=== PATIENT | female | born 1940 | race Caucasian/White ===

== ENCOUNTER 2021-09-08 19:02 | Inpatient (IN) ==
--- NOTE | 2021-09-08 20:08 | Emergency Department Note ---
Impression & Plan Left leg weakness, Hematoma, CVA (cerebral vascular accident), Left leg swelling ED Provider Note NAME: KENNY DIXON AGE: 81 SEX: F : 1940 ARRIVES VIA: Walk-In INFORMANT: [Patient][family] ED PROVIDER(S): [Sanya Mas MD] CHIEF COMPLAINT: Left leg and foot swelling. HISTORY OF PRESENT ILLNESS: The patient is an 81-year-old female who presents to the ER with left foot and leg swelling. She has had several weeks of difficulty with her left hip/leg and thus she has been less active. Her left leg has been weak since last month. The leg swelling is more recent and she has noticed the swelling for a few days. No real pain. She has never had a DVT. The patient went to an acute care facility today, she was was referred to the ED for a work-up for the possibility of DVT. 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 The patient denies an y trauma to the foot and ankle. She has not had any erythema, fever or warmth to the leg. REVIEW OF SYSTEMS: See HPI for pertinent positives and negatives. A total of ten systems were reviewed and were otherwise negative. PMHx/PSHx: See Below SOCIAL HISTORY: See Below. PHYSICAL EXAM: GENERAL: Patient is in no acute distress. HEENT: No acute trauma, normocephalic atraumatic, mucous membranes moist, no nasal congestion, no scleral icterus. NECK: No stridor, no adenopathy, no meningismus, trachea is midline. LUNGS: Clear to auscultation bilaterally, no wheeze, no rhonchi, breath sounds equal. HEART: Subtle systolic murmur, regular rate and rhythm. ABDOMEN: Soft, nontender, bowel sounds positive, no hernias, no peritonitis. EXTREMITIES: No cyanosis. The patient does have edema to the left ankle. No erythema or warmth to suggest infection. The left foot is cool however, it is equal to the right. There is an older contusion to the left inner thigh. NEUROLOGIC: Oriented x 3, the left leg is weak compared to the right. She has a much harder time lifting the left leg off the bed. Left upper extremity seems equal to the right with regards to strength. No speech slur or facial droop. SKIN: No rash, no jaundice, no diaphoresis. DIFFERENTIAL DIAGNOSIS: Fracture, venous insufficiency, hematoma, sprain, strain, contusion, DVT, cellulitis, neurovascular compromise, among others. EMERGENCY DEPARTMENT COURSE/PROCEDURES: EKG: Indication was weakness. The ECG shows a sinus rhythm with a first-degree AV block. The rate is 83. There is LVH present. There is a potential old septal infarct. No ST elevation, no PVCs. The QTC is 500. MEDICAL DECISION MAKING: There is no leukocytosis or concerning anemia. There is a normal platelet count. No significant electrolyte abnormality or renal failure. No concerning liver enzyme elevation. The patient appears to be in a euthyroid state. Urinalysis does not show infection. Brain CT shows no acute bleed or mass- effect. Some older strokes were seen on the right. CT of the lumbar spine shows some arthritis, no fractures. There was a hematoma in the left iliacus muscle. Left leg ultrasound does not show any evidence for DVT. Left ankle film does not show any acute fracture. Chest film shows some chronic findings, no pneumonia or CHF. Pelvis film does not show any pelvic or hip fracture. On exam, the patient's left leg was clearly weak when compared to the right. No upper extremity weakness noted. The patient presents with some left leg swelling. She was concerned for DVT, DVT was ruled out today by ultrasound. The patient's left leg weakness has been an issue for weeks. A work-up was perf ormed here and certainly, stroke causing her weakness is a possibility. Further neurologic work-up is warranted. With regards to the hematoma seen on CT imaging, I suppose this may be at least contributing to her weakness. I spoke with the patient, I talked with her daughter, case management has been involved. The on-call hospitalist was consulted. Past Med/Surg History Medical History CMT (Wzdwrwj-Urchg-Mzpvk disease) Social History Smoking Status: Former smoker Preferred Language: Tajik Feels Safe at Home: Yes Results & Data (ED) Vital Signs Vital Signs - 24 hr 09/08/21 19:05 09/08/21 21:40 09/08/21 22:24 Temperature 37.1 C Temperature Source Temporal Artery Scan Pulse Rate 91 H Pulse Rate [Finger] 71 Respiratory Rate 18 18 Respiratory Effort / Characteristics Non-Labored Spontaneous Respiratory Depth Normal Respiratory Pattern Regular Blood Pressure 167/89 H Blood Pressure [Left Arm] 133/65 Blood Pressure Mean 115 Blood Pressure Mean [Left Arm] 87 Pulse Oximetry 95 97 96 Oxygen Delivery Method Room Air Room Air Room Air Sepsis Recent Fever Within 48 Hours No Sepsis New/Unexplained Change in Mental Status No Sepsis Action Taken by Nursing No Action Required Laboratory Data Attestation: I reviewed the patient's lab results. Result diagrams: 09/08/21 22:25 09/08/21 22:25 Lab Results 09/08/21 09/08/21 09/08/21 Range/Units 22:25 22:25 22:25 WBC 8.30 (4.8-10.8) K/uL RBC 4.95 (4.2-5.4) M/uL Hgb 14.2 (12.0-16.0) g/dL Hct 43.6 (37-47) % MCV 88.1 (80-100) fL MCH 28.7 (25-34) pg MCHC 32.6 (32-36) g/dL RDW Std Deviation 47.1 H (36.4-46.3) fL RDW Coeff of [place] 14.7 H (11.5-14.5) % Plt Count 255 (130-400) K/uL MPV 9.9 (7.4-10.4) fL Immature Gran % (Auto) 0.1 % Neut % (Auto) 54.3 % Lymph % (Auto) 34.0 % [place] % (Auto) 8.7 % Eos % (Auto) 1.9 % Baso % (Auto) 1.0 % Neut # (Auto) 4.51 (1.4-6.5) K/uL Lymph # (Auto) 2.82 (1.2-3.4) K/uL [place] # (Auto) 0.72 H (0.11-0.59) K/uL Eos # (Auto) 0.16 (0-0.5) K/uL Baso # (Auto) 0.08 (0-0.2) K/uL Immature Gran # (Auto) 0.01 (0.00-0.02) K/uL Sodium 140 (136-145) mmol/L Potassium 3.7 (3.5-5.1) mmol/L Chloride 102 (98-107) mmol/L Carbon Dioxide 31 (21-32) mmol/L Anion Gap 7 (3-11) BUN 13 (6-23) mg/dl Creatinine 0.27 L (0.6-1.2) mg/dl Est Cr Clr Drug Dosing Not Reportable Est GFR ( Amer) 129.8 ml/min Est GFR (Non-Af Amer) 112.0 ml/min BUN/Creatinine Ratio 48.1 H (10-20) Glucose 94 (70-99(Fasting)) mg/dl Calcium 8.7 (8.5-10.1) mg/dl Magnesium 2.1 (1.7-2.4) mg/dl Total Bilirubin 0.7 (0.2-1.0) mg/dl AST 27 (13-39) U/L ALT 16 (7-52) U/L Alkaline Phosphatase 66 (34-104) U/L Total Protein 5.9 L (6.0-8.3) gm/dl Albumin 3.3 L (3.4-5.0) gm/dl Globulin 2.6 (2.5-4.0) gm/dl Albumin/Globulin Ratio 1.3 (0.9-2) TSH 1.013 (0.300-4.500) uIu/ml Urine Color Urine Appearance (Clear) Urine pH (4.5-7.5) Ur Specific Wright (1.000-1.030) Urine Protein (Negative) Urine Glucose (UA) (Negative) Urine Ketones (Negative) Urine Blood (Negative) Urine Nitrite (Negative) Urine Bilirubin (Negative) Urine Urobilinogen (Negative) Ur Leukocyte Esterase (Negative) Urine WBC (Auto) (0-5) /hpf Urine RBC (Auto) (0-4) /hpf U Hyaline Cast (Auto) (0-5) /lpf U Epithel Cells (Auto) (0-5) /lpf Urine Bacteria (Auto) (Negative) 09/08/21 Range/Units 23:05 WBC (4.8-10.8) K/uL RBC (4.2-5.4) M/uL Hgb (12.0-16.0) g/dL Hct (37-47) % MCV (80-100) fL MCH (25-34) pg MCHC (32-36) g/dL RDW Std Deviation (36.4-46.3) fL RDW Coeff of [place] (11.5-14.5) % Plt Count (130-400) K/uL MPV (7.4-10.4) fL Immature Gran % (Auto) % Neut % (Auto) % Lymph % (Auto) % [place] % (Auto) % Eos % (Auto) % Baso % (Auto) % Neut # (Auto) (1.4-6.5) K/uL Lymph # (Auto) (1.2-3.4) K/uL [place] # (Auto) (0.11-0.59) K/uL Eos # (Auto) (0-0.5) K/uL Baso # (Auto) (0-0.2) K/uL Immature Gran # (Auto) (0.00-0.02) K/uL Sodium (136-145) mmol/L Potassium (3.5-5.1) mmol/L Chloride (98-107) mmol/L Carbon Dioxide (21-32) mmol/L Anion Gap (3-11) BUN (6-23) mg/dl Creatinine (0.6-1.2) mg/dl Est Cr Clr Drug Dosing Est GFR ( Amer) ml/min Est GFR (Non-Af Amer) ml/min BUN/Creatinine Ratio (10-20) Glucose (70-99(Fasting)) mg/dl Calcium (8.5-10.1) mg/dl Magnesium (1.7-2.4) mg/dl Total Bilirubin (0.2-1.0) mg/dl AST (13-39) U/L ALT (7-52) U/L Alkaline Phosphatase (34-104) U/L Total Protein (6.0-8.3) gm/dl Albumin (3.4-5.0) gm/dl Globulin (2.5-4.0) gm/dl Albumin/Globulin Ratio (0.9-2) TSH (0.300-4.500) uIu/ml Urine Color Yellow Urine Appearance Clear (Clear) Urine pH 7.5 (4.5-7.5) Ur Specific Wright 1.009 (1.000-1.030) Urine Protein Negative (Negative) Urine Glucose (UA) Negative (Negative) Urine Ketones Negative (Negative) Urine Blood Negative (Negative) Urine Nitrite Negative (Negative) Urine Bilirubin Negative (Negative) Urine Urobilinogen Negative (Negative) Ur Leukocyte Esterase Trace H (Negative) Urine WBC (Auto) 5-10 H (0-5) /hpf Urine RBC (Auto) 0-4 (0-4) /hpf U Hyaline Cast (Auto) 0 (0-5) /lpf U Epithel Cells (Auto) 5-10 H (0-5) /lpf Urine Bacteria (Auto) Negative (Negative) Administered Medications Discontinued Medications Sodium Chloride (Nss) 500 mls @ 999 mls/hr IV .Q31M GINA Stop: 09/08/21 22:45 Last Admin: 09/08/21 23:09 Dose: 999 mls/hr Documented by: [id number] Imaging Data Radiologist's Impression: Venous Doppler Study 09/08/21 19:45 ULTRASOUND LEFT LOWER EXTREMITY VENOUS CLINICAL HISTORY: Left leg swelling. Bruising. COMPARISON STUDY: No priors. TECHNIQUE: Real-time, grayscale, and color Doppler sonography of the deep veins of the left lower extremity was performed from the inguinal crease to the calf. Compression and augmentation were utilized. FINDINGS: There is no sonographic evidence of deep venous thrombosis identified in the left lower extremity. The common femoral, superficial femoral, and popliteal veins are patent and normally compressible. The greater saphenous vein and the profunda femoris vein at the junction with the common femoral vein are clear. The visualized calf veins are patent. No fluid collection or hematoma is identified at the site of bruising in the medial thigh. IMPRESSION: There is no sonographic evidence of deep venous thrombosis identified in the left lower extremity. ACT 112: Negative or not required by law. Electronically signed by: Sanya Mcdaniel M.D. 09/08/2021 9:46 PM Ankle X-Ray 09/08/21 19:58 LEFT ANKLE 3 VIEWS CLINICAL HISTORY: Left ankle pain and swelling. FINDINGS: 3 views of the left ankle are obtained. No prior studies are available for comparison at the time of dictation. The skeletal structures are osteopenic. No fracture is identified. The ankle mortise is in anatomic alignment. Advanced degenerative change is noted at the tibiotalar articulation. There is bony fusion of the hindfoot. Bony overgrowth is seen along the dorsal aspect of the foot and ankle. Soft tissue edema is present around the ankle and hindfoot. IMPRESSION: 1. Soft tissue swelling with no fracture identified. 2. Osteopenia and advanced degenerative change as above. Electronically signed by: Sanya Mcdaniel M.D. 09/08/2021 8:[address] 09/08/21 22:02 CT SCAN OF THE BRAIN WITHOUT IV CONTRAST CLINICAL HISTORY: Left-sided weakness. COMPARISON STUDY: No priors. TECHNIQUE: Unenhanced axial CT scan of the brain is performed from the vertex to the skull base. A dose lowering technique was utilized adhering to the principles of ALARA. FINDINGS: Brain parenchyma: There are age-related involutional changes noting mild to moderate subcortical and periventricular microangiopathic change. There is no hemorrhage, mass effect, or evidence of acute territorial ischemia by CT criteria. Hernandez-white matter differentiation is preserved. No extra-axial fluid collection is seen. There are age indeterminant lacunar infarcts in the right basal ganglia. Ventricles, sulci, cisterns: Prominent secondary to involutional change. Intracranial vasculature: There is atherosclerotic calcification of the cavernous carotid and vertebral arteries. Calvarium: Unremarkable. Sinuses and mastoids: The paranasal sinuses are clear. The mastoid air cells are well pneumatized. Orbits: The bony orbits are grossly intact. There are bilateral ocular lens implants. IMPRESSION: 1. There is no hemorrhage, mass effect, or evidence of acute territorial ischemia by CT criteria. 2. There are age indeterminant lacunar infarcts in the right basal ganglia. This could be further assessed with MRI if clinically warranted. ACT 112: Negative or not required by law. Electronically signed by: Sanya Mcdaniel M.D. 09/08/2021 11:[address] 09/08/21 22:02 CT SCAN OF THE LUMBAR SPINE WITHOUT IV CONTRAST CLINICAL HISTORY: Low back pain. The left lower extremity weakness. COMPARISON STUDY: No priors. TECHNIQUE: CT scan of the lumbar spine is performed from the lower thoracic spine to the sacrum. Images are reviewed in the axial, sagittal, and coronal planes. IV contrast was not administered for this examination. The examination is modestly degraded by motion artifact. A dose lowering technique was utilized adhering to the principles of ALARA. CT DOSE: 1370.78 mGy.cm FINDINGS: The skeletal structures are heterogeneously osteopenic. There is no evidence of fracture or malalignment involving the lumbar spine. Vertebral body height and alignment are maintained. Lumbar levocurvature is centered at L3. Large anterior and lateral marginal osteophytes are seen throughout. The transverse and spinous processes appear intact. There is no spondylolysis. No lytic or blastic lesion is seen. There is moderate to advanced disc space narrowing at L5-S1. Mild disc space narrowing is noted at the remaining lumbar levels. Posterior disc osteophyte complexes are noted at L4-L5 and L5-S1. Facet arthropathy is seen in the lower lumbar region. The visualized sacrum and bony pelvis appear intact. There is marked fatty atrophy of the paraspinous musculature. The heart is enlarged. Cholecystectomy clips are noted. There are numerous bilateral nonobstructing renal calculi. The largest calculus is seen in the left renal pelvis and measures 10 mm. There is fullness of the left renal collecting system. No retroperitoneal lymphadenopathy is identified. A duodenal diverticulum is incidentally noted. The left iliacus muscle is expanded with surrounding inflammation and the suggestion of intramuscular fluid. This is best seen on image #[id number]. IMPRESSION: 1. No acute bony abnormality is seen involving the lumbar spine. 2. Osteopenia with lumbosacral spondylosis and scoliosis as above. 3. The left iliacus muscle is expanded with surrounding inflammation and the suggestion of intramuscular fluid. A fluid collection such as a resolving hematoma or abscess would be impossible to exclude. Clinical correlation will be essential. If clinically warranted this could be further assessed with a contrast-enhanced CT of the pelvis. 4. Bilateral nephrolithiasis with fullness of the left renal collecting system. No stones are identified in the proximal ureters. 5. Cardiomegaly. ACT 112: Negative or not required by law. Electronically signed by: Sanya Mcdaniel M.D. 09/08/2021 11:21 PM Pelvis X-Ray 09/08/21 22:02 SINGLE VIEW PELVIS CLINICAL HISTORY: Left hip pain. FINDINGS: An AP supine view of the pelvis is obtained. No prior studies are available for comparison at the time of dictation. The skeletal structures are heterogeneously osteopenic. There is no radiographic evidence of acute fracture involving the hips or bony pelvis. Osteoarthritic change is noted in the hips, moderate to severe on the right and [id number] on the left. Sclerotic change is noted in the sacroiliac joints. Lumbosacral spondylosis is partially visualized. The overlying soft tissues are within normal limits. There are numerous pelvic phleboliths. An 11 mm left renal calculus is noted. There is no bowel obstruction. IMPRESSION: No acute bony abnormality is identified. Electronically signed by: Sanya Mcdaniel M.D. 09/08/2021 11:24 PM Chest X-Ray 09/08/21 22:03 SINGLE VIEW CHEST CLINICAL HISTORY: Generalized weakness. Left hip pain. FINDINGS: An AP, portable, upright chest radiograph is obtained. No prior studies are available for comparison at the time of dictation. The heart is enlarged. The pulmonary vasculature is noncongested. There is mild bibasilar at electasis. The lungs and pleural spaces are otherwise clear. No pneumothorax is seen. The skeletal structures are osteopenic. Advanced degenerative change and scoliosis is noted in the imaged thoracolumbar spine. Cholecystectomy clips are noted in the right upper quadrant. IMPRESSION: Cardiomegaly with no active disease in the chest. ACT 112: Negative or not required by law. Electronically signed by: Sanya Mcdaniel M.D. 09/08/2021 11:23 PM Discharge Plan Visit Data Chief Complaint: Leg Injury/Pain Stated Complaint: SWOLLEN LEG, POSSIBLE CLOT ED Provider: Sanya Mas Discharge Problem: Left leg weakness, Hematoma, CVA (cerebral vascular accident), Left leg swelling Patient Disposition: Admitted As Inpatient Condition: Good Forms Stand Alone Forms: [facility] Referrals Referrals: PCP,NO [Physician] -
--- NOTE | 2021-09-08 20:40 | XRay Report ---
LEFT ANKLE 3 VIEWS CLINICAL HISTORY: Left ankle pain and swelling. FINDINGS: 3 views of the left ankle are obtained. No prior studies are available for comparison at th e time of dictation. The skeletal structures are osteopenic. No fracture is identified. The ankle mor tise is in anatomic alignment. Advanced degenerative change is noted at the tibiotalar articulation. There is bony fusion of the hindfoot. Bony overgrowth is seen along the dorsal aspect of the foot and ankle. Soft tissue edema is present around the ankle and hindfoot. IMPRESSION: 1. Soft tissue swelling with no fracture identified. 2. Osteopenia and advanced degenerative change as above. Electronically signed by: Sanya Mcdaniel M.D. 09/08/2021 8:39 PM
--- NOTE | 2021-09-08 21:48 | Ultrasound Report ---
ULTRASOUND LEFT LOWER EXTREMITY VENOUS CLINICAL HISTORY: Left leg swelling. Bruising. COMPARISON STUDY: No priors. TECHNIQUE: Real-time, grayscale, and color Doppler sonography of the deep veins of the left lower ext remity was performed from the inguinal crease to the calf. Compression and augmentation were utilized . FINDINGS: There is no sonographic evidence of deep venous thrombosis identified in the left lower ext remity. The common femoral, superficial femoral, and popliteal veins are patent and normally compress ible. The greater saphenous vein and the profunda femoris vein at the junction with the common femora l vein are clear. The visualized calf veins are patent. No fluid collection or hematoma is identified at the site of bruising in the medial thigh. IMPRESSION: There is no sonographic evidence of deep venous thrombosis identified in the left lower e xtremity. ACT 112: Negative or not required by law. Electronically signed by: Sanya Mcdaniel M.D. 09/08/2021 9:46 PM
[2021-09-08] MEDS ORDERED: SODIUM CHLORIDE 0.9% 500 ML IV SCH (22:15)
[2021-09-08 22:40] LABS: Basophils # (auto) 0.08 K/uL (0-0.2); Eosinophils # (auto) 0.16 K/uL (0-0.5); Eosinophils % (auto) 1.9 %; Hematocrit (blood only) 43.6 % (37-47); Hemoglobin 14.2 g/dL (12.0-16.0); Immature Granulocytes # (auto) 0.01 K/uL (0.00-0.02); Immature Granulocytes % (auto) 0.1 %; Lymphocytes # (auto) 2.82 K/uL (1.2-3.4); Mean Corpuscular Hemoglobin 28.7 pg (25-34); Mean Corpuscular Hgb Conc 32.6 g/dL (32-36); Mean Corpuscular Volume 88.1 fL (80-100); Mean Platelet Volume 9.9 fL (7.4-10.4); Monocytes # (auto) 0.72 K/uL (0.11-0.59); Monocytes % (auto) 8.7 %; Neutrophils # (auto) 4.51 K/uL (1.4-6.5); Neutrophils % (auto) 54.3 %; Platelet Count 255 K/uL (130-400); RDW Coefficient of Variation 14.7 % (11.5-14.5); RDW Standard Deviation 47.1 fL (36.4-46.3); Red Blood Count 4.95 M/uL (4.2-5.4)
[2021-09-08 23:06] LABS: Alanine Aminotransferase 16 U/L (7-52); Albumin Globulin Ratio 1.3 (0.9-2); Albumin Level 3.3 gm/dl (3.4-5.0); Alkaline Phosphatase 66 U/L (34-104); Anion Gap 7 (3-11); Aspartate Aminotransferase 27 U/L (13-39); BUN Creatinine Ratio 48.1 (10-20); Bilirubin,Total 0.7 mg/dl (0.2-1.0); Blood Urea Nitrogen 13 mg/dl (6-23); Calcium 8.7 mg/dl (8.5-10.1); Carbon Dioxide 31 mmol/L (21-32); Chloride 102 mmol/L (98-107); Est GFR (African American) 129.8 ml/min; Globulin 2.6 gm/dl (2.5-4.0); Glucose 94 mg/dl (70-99(Fasting)); Magnesium 2.1 mg/dl (1.7-2.4); Potassium 3.7 mmol/L (3.5-5.1); Sodium 140 mmol/L (136-145); Total Protein 5.9 gm/dl (6.0-8.3)
--- NOTE | 2021-09-08 23:10 | CT Scan Report ---
CT SCAN OF THE BRAIN WITHOUT IV CONTRAST CLINICAL HISTORY: Left-sided weakness. COMPARISON STUDY: No priors. TECHNIQUE: Unenhanced axial CT scan of the brain is performed from the vertex to the skull base. A do se lowering technique was utilized adhering to the principles of ALARA. FINDINGS: Brain parenchyma: There are age-related involutional changes noting mild to moderate subcortical and periventricular microangiopathic change. There is no hemorrhage, mass effect, or evidence of acute t erritorial ischemia by CT criteria. Hernandez-white matter differentiation is preserved. No extra-axial fl uid collection is seen. There are age indeterminant lacunar infarcts in the right basal ganglia. Ventricles, sulci, cisterns: Prominent secondary to involutional change. Intracranial vasculature: There is atherosclerotic calcification of the cavernous carotid and vertebr al arteries. Calvarium: Unremarkable. Sinuses and mastoids: The paranasal sinuses are clear. The mastoid air cells are well pneumatized. Orbits: The bony orbits are grossly intact. There are bilateral ocular lens implants. IMPRESSION: 1. There is no hemorrhage, mass effect, or evidence of acute territorial ischemia by CT criteria. 2. There are age indeterminant lacunar infarcts in the right basal ganglia. This could be further ass essed with MRI if clinically warranted. ACT 112: Negative or not required by law. Electronically signed by: Sanya Mcdaniel M.D. 09/08/2021 11:08 PM
[2021-09-08 23:20] LABS: Appearance Urine Clear (Clear); Bacteria Urine Automated Negative (Negative); Bilirubin Urine Negative (Negative); Blood Urine Negative (Negative); Cast Urine Automated 0 /lpf (0-5); Color Urine Yellow; Glucose Urine UA Negative (Negative); Ketones Urine Negative (Negative); Leukocyte Esterase Urine Trace (Negative); Nitrite Urine Negative (Negative); Protein Urine Negative (Negative); RBC Urine Automated 0-4 /hpf (0-4); Specific Gravity Urine 1.009 (1.000-1.030); Urobilinogen Urine Negative (Negative); pH Urine 7.5 (4.5-7.5)
--- NOTE | 2021-09-08 23:23 | CT Scan Report ---
CT SCAN OF THE LUMBAR SPINE WITHOUT IV CONTRAST CLINICAL HISTORY: Low back pain. The left lower extremity weakness. COMPARISON STUDY: No priors. TECHNIQUE: CT scan of the lumbar spine is performed from the lower thoracic spine to the sacrum. Marina ges are reviewed in the axial, sagittal, and coronal planes. IV contrast was not administered for thi s examination. The examination is modestly degraded by motion artifact. A dose lowering technique wa s utilized adhering to the principles of ALARA. CT DOSE: 1370.78 mGy.cm FINDINGS: The skeletal structures are heterogeneously osteopenic. There is no evidence of fracture or malalignment involving the lumbar spine. Vertebral body height and alignment are maintained. Lumbar levocurvature is centered at L3. Large anterior and lateral marginal osteophytes are seen throughout. The transverse and spinous processes appear intact. There is no spondylolysis. No lytic or blastic l esion is seen. There is moderate to advanced disc space narrowing at L5-S1. Mild disc space narrowing is noted at the remaining lumbar levels. Posterior disc osteophyte complexes are noted at L4-L5 and L5-S1. Facet arthropathy is seen in the lower lumbar region. The visualized sacrum and bony pelvis ap pear intact. There is marked fatty atrophy of the paraspinous musculature. The heart is enlarged. Cho lecystectomy clips are noted. There are numerous bilateral nonobstructing renal calculi. The largest calculus is seen in the left renal pelvis and measures 10 mm. There is fullness of the left renal col lecting system. No retroperitoneal lymphadenopathy is identified. A duodenal diverticulum is incident ally noted. The left iliacus muscle is expanded with surrounding inflammation and the suggestion of i ntramuscular fluid. This is best seen on image #[id number]. IMPRESSION: 1. No acute bony abnormality is seen involving the lumbar spine. 2. Osteopenia with lumbosacral spondylosis and scoliosis as above. 3. The left iliacus muscle is expanded with surrounding inflammation and the suggestion of intramuscu lar fluid. A fluid collection such as a resolving hematoma or abscess would be impossible to exclude. Clinical correlation will be essential. If clinically warranted this could be further assessed with a contrast-enhanced CT of the pelvis. 4. Bilateral nephrolithiasis with fullness of the left renal collecting system. No stones are identif ied in the proximal ureters. 5. Cardiomegaly. ACT 112: Negative or not required by law. Electronically signed by: Sanya Mcdaniel M.D. 09/08/2021 11:21 PM
--- NOTE | 2021-09-08 23:24 | XRay Report ---
SINGLE VIEW CHEST CLINICAL HISTORY: Generalized weakness. Left hip pain. FINDINGS: An AP, portable, upright chest radiograph is obtained. No prior studies are available for c omparison at the time of dictation. The heart is enlarged. The pulmonary vasculature is noncongested . There is mild bibasilar atelectasis. The lungs and pleural spaces are otherwise clear. No pneumotho rax is seen. The skeletal structures are osteopenic. Advanced degenerative change and scoliosis is no dayday in the imaged thoracolumbar spine. Cholecystectomy clips are noted in the right upper quadrant. IMPRESSION: Cardiomegaly with no active disease in the chest. ACT 112: Negative or not required by law. Electronically signed by: Sanya Mcdaniel M.D. 09/08/2021 11:23 PM
--- NOTE | 2021-09-08 23:26 | XRay Report ---
SINGLE VIEW PELVIS CLINICAL HISTORY: Left hip pain. FINDINGS: An AP supine view of the pelvis is obtained. No prior studies are available for comparison at the time of dictation. The skeletal structures are heterogeneously osteopenic. There is no radiogr aphic evidence of acute fracture involving the hips or bony pelvis. 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 Sclerotic change is note d in the sacroiliac joints. Lumbosacral spondylosis is partially visualized. The overlying soft tissu es are within normal limits. There are numerous pelvic phleboliths. An 11 mm left renal calculus is n oted. There is no bowel obstruction. IMPRESSION: No acute bony abnormality is identified. Electronically signed by: Sanya Mcdaniel M.D. 09/08/2021 11:24 PM
--- NOTE | 2021-09-09 00:53 | History & Physical Report ---
Date of Service September 09, 2021 Assessment & Plan (1) CVA (cerebral vascular accident): Plan: Presenting as left leg weakness from 2 weeks ago. Possible left iliopsoas abscess on initial CT read No sepsis for now CPK, troponin elevation Possible mild rhabdomyolysis secondary to above Situational hypertension right breast cancer status post surgery/radiation uterine cancer status post surgery bronchial asthma, stable mood disorder, stable hx Jrjqkxp-Efmwo-Snaqh disease past tobacco abuse Medical telemetry Aspirin for secondary stroke prevention 2D echo, carotid Dopplers, lipid profile for additional stroke work-up Follow CPK and troponin levels initiate statin once CPK within normal limits Neurology consult Re: CVA CS, Doxycycline, Cefepime for possible L iliopsoas abscess on initial CT read Orthopedics consult Re: Possible left iliopsoas abscess (MN PG as per patient's daughter's request.) N.p.o. until patient seen by orthopedics in anticipation of procedure. DVT prophylaxis. SCDs for now Re: Left thigh ecchymosis DNR Patient daughter requesting updates from providers. Ms. Sasha Tilley, contact #[phone]. Patient daughter additionally requests for patient to be set up with Dr. Coburn of [facility] for PCP services upon discharge as patient will be moving in with her. Text document was generated using [employer] voice recognition software. It may contain grammatical or spelling errors. Kindly contact undersigned for clarification of any documentation item in question. History of Present Illness Chief Complaint: Left leg swelling/weakness Primary Care Provider: Cayden Lowe MD History obtained from patient, family, and records. Medical history significant for right breast cancer status post surgery/radiation, uterine cancer status post surgery, bronchial asthma, mood disorder, urinary incontinence, Qnqlagp-Yaxdy-Fwxhq disease, past tobacco abuse. 2 weeks ago, patient experienced left hip pain with left leg weakness more than usual. Patient thinks she may have sat down on the commode a little hard. Patient evaluated at [facility] ER. Plain x-rays negative for fracture as per daughter. Symptoms attributed to arthritis. Patient given prednisone prescription which improved left hip pain. Persistent left leg weakness. Patient denies headache, chest pain. Left leg weakness not improved despite home PT. Worsening left leg swelling noted the last few days as per daughter. Patient noted to have bruising on her left thigh. No fever, no chills. Shortness of breath as per patient without cough symptoms. Patient brought to the ER by daughter for evaluation. 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 Allergies Allergy/AdvReac Type Severity Reaction Status Date / Time shellfish derived Allergy Severe LOBSTER: Verified 09/09/21 04:02 almost acetaminophen [From Tylenol] Allergy Rash Unverified 09/09/21 03:23 Home Medications Medication Instructions Recorded Confirmed Type Vitamin D3 2,000 unit PO BID 09/09/21 09/09/21 History citalopram 10 mg tablet 10 mg PO DAILY 09/09/21 09/09/21 History ibuprofen 600 mg PO TID PRN 09/09/21 09/09/21 History mirabegron 50 mg tablet,extended 50 mg PO DAILY 09/09/21 09/09/21 History release 24 hr (Myrbetriq) Past Med/Surg History Medical History CMT (Wjjgjpx-Yjwxt-Smwcy disease) Social History Smoking Status: Never smoker Hx Alcohol Use: Yes Hx Substance Use: No Preferred Language: Korean Current Living Situation: Alone Feels Safe at Home: Yes Assistive Devices: Wheelchair Review of Systems Review of Systems: As per HPI, all 10 systems reviewed, all other ROS negative Physical Exam Physical Exam: GENERAL: Comfortable, slightly hard of hearing, pleasant, no respiratory distress SKIN: Normal color, warm HEENT: [place] palpebral conjunctivae, no ptosis, moist buccal mucosa NECK : Supple, no tenderness CHEST : CTA, no tenderness HEART : RRR, no obvious murmurs ABDOMEN: Some distention, nontender EXTREMITIES : Atrophic lower extremities, minimal LLE swelling, left thigh ecchymosis, minimal LE tenderness NEUROLOGIC : Coherent, no facial asymmetry, MMTS BUE 4/5, RLE 4/5, LLE 2/5, gait and stance not assessed Results & Data Results & Data ([facility]) Vital Signs (Past 12 Hours) Vital Signs Temp Pulse Pulse Resp BP BP Pulse Ox 09/08/21 22:24 96 09/08/21 21:40 71 18 133/65 97 09/08/21 19:05 37.1 C 91 H 18 167/89 H 95 Laboratory Results Laboratory Results WBC 8.30 K/uL (4.8-10.8) 09/08/21 22:25 RBC 4.95 M/uL (4.2-5.4) 09/08/21 22:25 Hgb 14.2 g/dL (12.0-16.0) 09/08/21 22:25 Hct 43.6 % (37-47) 09/08/21 22: MCV 88.1 fL (80-100) 09/08/21 22: MCH 28.7 pg (25-34) 09/08/21: MCHC 32.6 g/dL (32-36) 09/08/21 22: RDW Std Deviation 47.1 fL (36.4-46.3) H 09/08/21: RDW Coeff of [place] 14.7 % (11.5-14.5) H 09/08/21: Plt Count 255 K/uL (130-400) 09/08/21 22: MPV 9.9 fL (7.4-10.4) 09/08/21 22: Immature Gran % (Auto) 0.1 % 09/08/21 22: Neut % (Auto) 54.3 % 09/08/21 22: Lymph % (Auto) 34.0 % 09/08/21 22:25 Rush % (Auto) 8.7 % 09/08/21 22:25 Eos % (Auto) 1.9 % 09/08/21 22: Baso % (Auto) 1.0 % 09/08/21: Neut # (Auto) 4.51 K/uL (1.4-6.5) 09/08/21: Lymph # (Auto) 2.82 K/uL (1.2-3.4) 09/08/21 22:25 Rush # (Auto) 0.72 K/uL (0.11-0.59) H 09/08/21 22:25 Eos # (Auto) 0.16 K/uL (0-0.5) 09/08/21 22:25 Baso # (Auto) 0.08 K/uL (0-0.2) 09/08/21 22:25 Immature Gran # (Auto) 0.01 K/uL (0.00-0.02) 09/08/21 22:25 Sodium 140 mmol/L (136-145) 09/08/21 22:25 Potassium 3.7 mmol/L (3.5-5.1) 09/08/21 22:25 Chloride 102 mmol/L (98-107) 09/08/21 22:25 Carbon Dioxide 31 mmol/L (21-32) 09/08/21 22:25 Anion Gap 7 (3-11) 09/08/21 22:25 BUN 13 mg/dl (6-23) 09/08/21: Creatinine 0.27 mg/dl (0.6-1.2) L 09/08/21 22:25 Est Cr Clr Drug Dosing Not Reportable 09/08/21 22:25 Est GFR ( Amer) 129.8 ml/min 09/08/21 22:25 Est GFR (Non-Af Amer) 112.0 ml/min 09/08/21 22:25 BUN/Creatinine Ratio 48.1 (10-20) H 09/08/21 22: Glucose 94 mg/dl (70-99(Fasting)) 09/08/21 22: Calcium 8.7 mg/dl (8.5-10.1) 09/08/21 22: Magnesium 2.1 mg/dl (1.7-2.4) 09/08/21 22:25 Total Bilirubin 0.7 mg/dl (0.2-1.0) 09/08/21 22:25 AST 27 U/L (13-39) 09/08/21 22:25 ALT 16 U/L (7-52) 09/08/21 22:25 Alkaline Phosphatase 66 U/L (34-104) 09/08/21 22:25 Total Protein 5.9 gm/dl (6.0-8.3) L 09/08/21 22:25 Albumin 3.3 gm/dl (3.4-5.0) L 09/08/21 22:25 Globulin 2.6 gm/dl (2.5-4.0) 09/08/21 22:25 Albumin/Globulin Ratio 1.3 (0.9-2) 09/08/21 22:25 TSH 1.013 uIu/ml (0.300-4.500) 09/08/21 22:25 Urine Color Yellow 09/08/21 23:05 Urine Appearance Clear (Clear) 09/08/21 23:05 Urine pH 7.5 (4.5-7.5) 09/08/21 23:05 Ur Specific Center Line 1.009 (1.000-1.030) 09/08/21 23:05 Urine Protein Negative (Negative) 09/08/21 23:05 Urine Glucose (UA) Negative (Negative) 09/08/21 23:05 Urine Ketones Negative (Negative) 09/08/21 23:05 Urine Blood Negative (Negative) 09/08/21 23:05 Urine Nitrite Negative (Negative) 09/08/21 23:05 Urine Bilirubin Negative (Negative) 09/08/21 23:05 Urine Urobilinogen Negative (Negative) 09/08/21 23:05 Ur Leukocyte Esterase Trace (Negative) H 09/08/21 23:05 Urine WBC (Auto) 5-10 /hpf (0-5) H 09/08/21 23:05 Urine RBC (Auto) 0-4 /hpf (0-4) 09/08/21 23:05 U Hyaline Cast (Auto) 0 /lpf (0-5) 09/08/21 23:05 U Epithel Cells (Auto) 5-10 /lpf (0-5) H 09/08/21 23:05 Urine Bacteria (Auto) Negative (Negative) 09/08/21 23:05 Impressions Venous Doppler Study 09/08/21 19:45 ULTRASOUND LEFT LOWER EXTREMITY VENOUS CLINICAL HISTORY: Left leg swelling. Bruising. COMPARISON STUDY: No priors. TECHNIQUE: Real-time, grayscale, and color Doppler sonography of the deep veins of the left lower extremity was performed from the inguinal crease to the calf. Compression and augmentation were utilized. FINDINGS: There is no sonographic evidence of deep venous thrombosis identified in the left lower extremity. The common femoral, superficial femoral, and popl iteal veins are patent and normally compressible. The greater saphenous vein and the profunda femoris vein at the junction with the common femoral vein are clear. The visualized calf veins are patent. No fluid collection or hematoma is identified at the site of bruising in the medial thigh. IMPRESSION: There is no sonographic evidence of deep venous thrombosis identified in the left lower extremity. ACT 112: Negative or not required by law. Electronically signed by: Sanya Mcdaniel M.D. 09/08/2021 9:46 PM Ankle X-Ray 09/08/21 19:58 LEFT ANKLE 3 VIEWS CLINICAL HISTORY: Left ankle pain and swelling. FINDINGS: 3 views of the left ankle are obtained. No prior studies are available for comparison at the time of dictation. The skeletal structures are osteopenic. No fracture is identified. The ankle mortise is in anatomic alignment. Advanced degenerative change is noted at the tibiotalar articulation. There is bony fusion of the hindfoot. Bony overgrowth is seen along the dorsal aspect of the foot and ankle. Soft tissue edema is present around the ankle and hindfoot. IMPRESSION: 1. Soft tissue swelling with no fracture identified. 2. Osteopenia and advanced degenerative change as above. Electronically signed by: Sanya Mcdaniel M.D. 09/08/2021 8:[address] 09/08/21 22:02 CT SCAN OF THE BRAIN WITHOUT IV CONTRAST CLINICAL HISTORY: Left-sided weakness. COMPARISON STUDY: No priors. TECHNIQUE: Unenhanced axial CT scan of the brain is performed from the vertex to the skull base. A dose lowering technique was utilized adhering to the principles of ALARA. FINDINGS: Brain parenchyma: There are age-related involutional changes noting mild to moderate subcortical and periventricular microangiopathic change. There is no hemorrhage, mass effect, or evidence of acute territorial ischemia by CT criteria. Hernandez-white matter differentiation is preserved. No extra-axial fluid collection is seen. There are age indeterminant lacunar infarcts in the right basal ganglia. Ventricles, sulci, cisterns: Prominent secondary to involutional change. Intracranial vasculature: There is atherosclerotic calcification of the cavernous carotid and vertebral arteries. Calvarium: Unremarkable. Sinuses and mastoids: The paranasal sinuses are clear. The mastoid air cells are well pneumatized. Orbits: The bony orbits are grossly intact. There are bilateral ocular lens implants. IMPRESSION: 1. There is no hemorrhage, mass effect, or evidence of acute territorial ischemia by CT criteria. 2. There are age indeterminant lacunar infarcts in the right basal ganglia. This could be further assessed with MRI if clinically warranted. ACT 112: Negative or not required by law. Electronically signed by: Sanya Mcdaniel M.D. 09/08/2021 11:[address] 09/08/21 22:02 CT SCAN OF THE LUMBAR SPINE WITHOUT IV CONTRAST CLINICAL HISTORY: Low back pain. The left lower extremity weakness. COMPARISON STUDY: No priors. TECHNIQUE: CT scan of the lumbar spine is performed from the lower thoracic spine to the sacrum. Images are reviewed in the axial, sagittal, and coronal planes. IV contrast was not administered for this examination. The examination is modestly degraded by motion artifact. A dose lowering technique was utilized adhering to the principles of ALARA. CT DOSE: 1370.78 mGy.cm FINDINGS: The skeletal structures are heterogeneously osteopenic. There is no evidence of fracture or malalignment involving the lumbar spine. Vertebral body height and alignment are maintained. Lumbar levocurvature is centered at L3. Large anterior and lateral marginal osteophytes are seen throughout. The transverse and spinous processes appear intact. There is no spondylolysis. No lytic or blastic lesion is seen. There is moderate to advanced disc space narrowing at L5-S1. Mild disc space narrowing is noted at the remaining lumbar l evels. Posterior disc osteophyte complexes are noted at L4-L5 and L5-S1. Facet arthropathy is seen in the lower lumbar region. The visualized sacrum and bony pelvis appear intact. There is marked fatty atrophy of the paraspinous musculature. The heart is enlarged. Cholecystectomy clips are noted. There are numerous bilateral nonobstructing renal calculi. The largest calculus is seen in the left renal pelvis and measures 10 mm. There is fullness of the left renal collecting system. No retroperitoneal lymphadenopathy is identified. A duodenal diverticulum is incidentally noted. The left iliacus muscle is expanded with surrounding inflammation and the suggestion of intramuscular fluid. This is best seen on image #[id number]. IMPRESSION: 1. No acute bony abnormality is seen involving the lumbar spine. 2. Osteopenia with lumbosacral spondylosis and scoliosis as above. 3. The left iliacus muscle is expanded with surrounding inflammation and the suggestion of intramuscular fluid. A fluid collection such as a resolving hematoma or abscess would be impossible to exclude. Clinical correlation will be essential. If clinically warranted this could be further assessed with a contrast-enhanced CT of the pelvis. 4. Bilateral nephrolithiasis with fullness of the left renal collecting system. No stones are identified in the proximal ureters. 5. Cardiomegaly. ACT 112: Negative or not required by law. Electronically signed by: Sanya Mcdaniel M.D. 09/08/2021 11:21 PM Pelvis X-Ray 09/08/21 22:02 SINGLE VIEW PELVIS CLINICAL HISTORY: Left hip pain. FINDINGS: An AP supine view of the pelvis is obtained. No prior studies are available for comparison at the time of dictation. The skeletal structures are heterogeneously osteopenic. There is no radiographic evidence of acute fracture involving the hips or bony pelvis. 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 Sclerotic change is noted in the sacroiliac joints. Lumbosacral spondylosis is partially visualized. The overlying soft tissues are within normal limits. There are numerous pelvic phleboliths. An 11 mm left renal calculus is noted. There is no bowel obstruction. IMPRESSION: No acute bony abnormality is identified. Electronically signed by: Sanya Mcdaniel M.D. 09/08/2021 11:24 PM Chest X-Ray 09/08/21 22:03 SINGLE VIEW CHEST CLINICAL HISTORY: Generalized weakness. Left hip pain. FINDINGS: An AP, portable, upright chest radiograph is obtained. No prior studies are available for comparison at the time of dictation. The heart is enlarged. The pulmonary vasculature is noncongested. There is mild bibasilar atelectasis. The lungs and pleural spaces are otherwise clear. No pneumothorax is seen. The skeletal structures are osteopenic. Advanced degenerative change and scoliosis is noted in the imaged thoracolumbar spine. Cholecystectomy clips are noted in the right upper quadrant. IMPRESSION: Cardiomegaly with no active disease in the chest. ACT 112: Negative or not required by law. Electronically signed by: Sanya Mcdaniel M.D. 09/08/2021 11:[address] chest initial read: Limited examgiven motion artifact. No evidence of pulmonaryemboli within the pulmonaryoutflow tract or immediate proximal branches. No other acute findings. Cardiomegaly CT pelvis with IV contrast initial read: Asymmetric enlargement of the left iliac is muscle with multiple hypodense loculations, the dominant loculation measuring 2.4 x 1.7 x 7.6 cm. Findings mayrelate to multiloculated abscess involving the left iliopsoas. This extends distallynear the lesser trochanter. CT left femur initial read: No gross evidence of deep venous thrombosis. Consider Doppler evaluation if there is further concern. EKG as per my interpretation: Rate 85, NSR, LAD, LAFB, 1 AVB, LVH, septal infarct T wave abnormalities lateral leads (1) CVA (cerebral vascular accident) CVA mechanism: unspecified Qualified Code(s): I63.9 - Cerebral infarction, unspecified
[2021-09-09] MEDS ORDERED: OPTIRAY 320 125ml IV ONE (02:04)
[2021-09-09] MEDS ORDERED: PATIENT'S ALLERGY INFO NEEDS ENTERED STA (02:19)
[2021-09-09 02:21] LABS: Troponin I 0.05 ng/ml (0-0.04)
[2021-09-09] MEDS ORDERED: PROMETHAZINE HCL 12.5 MG in SODIUM CHLORIDE 0.9% 50 ML IV PRN (02:28)
[2021-09-09] MEDS ORDERED: traMADol HCL 50 MG TABLET PO PRN (02:28)
[2021-09-09] MEDS ORDERED: PHARMACIST DISCHARGE MED REC CONSULT PRN (02:28)
[2021-09-09] MEDS ORDERED: ACETAMINOPHEN 325 MG TAB PO PRN (02:28)
[2021-09-09] MEDS ORDERED: LACTATED RINGER'S 1,000 ML IV ONE (02:28)
[2021-09-09] MEDS ORDERED: PIPERACILLIN/TAZOBACTAM 4.5 GM in DEXTROSE 5% 100 ML IV ONE (04:03)
[2021-09-09] MEDS ORDERED: DOXYCYCLINE HYCLATE 100 MG in DEXTROSE 5% 100 ML IV STA (04:13)
[2021-09-09] MEDS ORDERED: CEFEPIME 2,000 MG in SYRINGE 0 ML IV SCH (04:30)
[2021-09-09] MEDS: ASPIRIN 81 MG ECTAB PO SCH (05:07)
[2021-09-09 05:11] LABS: Basophils # (auto) 0.05 K/uL (0-0.2); Basophils % (auto) 0.7 %; Eosinophils # (auto) 0.16 K/uL (0-0.5); Eosinophils % (auto) 2.1 %; Hematocrit (blood only) 42.1 % (37-47); Hemoglobin 13.8 g/dL (12.0-16.0); Immature Granulocytes # (auto) 0.02 K/uL (0.00-0.02); Immature Granulocytes % (auto) 0.3 %; Lymphocytes # (auto) 2.38 K/uL (1.2-3.4); Lymphocytes % (auto) 30.9 %; Mean Corpuscular Hemoglobin 29.1 pg (25-34); Mean Corpuscular Hgb Conc 32.8 g/dL (32-36); Mean Corpuscular Volume 88.6 fL (80-100); Mean Platelet Volume 10.1 fL (7.4-10.4); Monocytes # (auto) 0.59 K/uL (0.11-0.59); Monocytes % (auto) 7.7 %; Neutrophils # (auto) 4.49 K/uL (1.4-6.5); Neutrophils % (auto) 58.3 %; Platelet Count 257 K/uL (130-400); RDW Coefficient of Variation 14.7 % (11.5-14.5); RDW Standard Deviation 47.7 fL (36.4-46.3); Red Blood Count 4.75 M/uL (4.2-5.4); White Blood Count 7.69 K/uL (4.8-10.8)
[2021-09-09 05:21] LABS: Partial Thromboplastin Time 27.8 Seconds (21.0-31.0)
[2021-09-09 05:25] LABS: Calcium 8.4 mg/dl (8.5-10.1); Chol HDL Ratio 3.1 (0-5); Creatinine Clr Calc Pharmacy 132.3 ml/min; Est GFR (African American) 125.3 ml/min; Est GFR (Non-African American) 108.1 ml/min; Potassium 3.4 mmol/L (3.5-5.1)
[2021-09-09] MEDS ORDERED: POTASSIUM CHLORIDE CRTAB 20 MEQ TABCR PO STA ×2 (05:37→08:39)
--- NOTE | 2021-09-09 06:52 | Ultrasound Report ---
BILATERAL CAROTID DOPPLER STUDY HISTORY: Left-sided weakness. Stroke. COMPARISON: None. TECHNIQUE: Real-time, grayscale, and color Doppler sonography of the carotid arteries was performed. Imaging reviewed in the transverse and longitudinal planes. All measurements were calculated based on NASCET criteria. FINDINGS: Antegrade flow is seen in the bilateral vertebral arteries. The brachial pressures are hemodynamically similar. There is a 1.1 cm hypoechoic nodule with punctate calcifications within the left thyroid lobe. The peak systolic velocity within the right ICA is 99 cm/s. The right systolic ratio is 0.8. The peak systolic velocity within the left ICA is 85 cm/s. The left systolic ratio is 0.6. IMPRESSION: 1. No hemodynamically significant stenosis seen within the carotid arteries. 2. A 1.1 cm left thyroid nodule containing punctate calcifications. Consider follow-up nonemergent ul trasound-guided fine-needle aspiration for further evaluation. ACT 112: Negative or not required by law. Electronically signed by: Rakesh Barragan M.D. 09/09/2021 6:51 AM
--- NOTE | 2021-09-09 07:21 | CT Scan Report ---
CT pelvis w/IV con only, CT femur LT w con HISTORY: Left iliac muscle fluid collection. fluid collection TECHNIQUE: Multiaxial CT images of the pelvis and left femur were performed following the intravenous administration of 120 cc of Optiray 320 and reformatted in the sagittal and coronal planes. COMPARISON STUDY: CT lumbar spine 09/08/2021. FINDINGS: Mild thickening and fat stranding within the left iliopsoas muscle which contains an elonga dayday peripheral enhancing fluid collection within the iliacus muscle which extends to the distal iliop soas muscle. This fluid collection measures up to 2.1 cm and diameter and approximately 13 cm in paul th. This could represent an inflamed/infected iliopsoas bursa, abscess, or possibly an intramuscular hematoma. No hip effusions. The right iliopsoas muscle is unremarkable. Prior hysterectomy. Normal bl adder. A single prominent left pelvic sidewall lymph node which may be reactive. No pelvic free fluid . The visualized loops of bowel show no wall thickening or obstruction. A few colonic diverticula. No evidence for acute diverticulitis. No fractures identified within the pelvis, hips, or left femur. M oderate right and mild left hip osteoarthritis. Fatty atrophy of the thigh musculature most pronounce d within the hamstrings. This is likely chronic. The major vascular structures appear patent. No sign ificant knee effusion. IMPRESSION: 1. There is an elongated peripheral enhancing fluid collection within the left iliacus muscle which e xtends to the distal iliopsoas muscle. This fluid collection measures 13 cm in length and up to 2.1 c m in diameter. This could represent an inflamed/infected iliopsoas bursa, abscess, or possibly an int ramuscular hematoma. 2. No fracture identified within the pelvis, hips, left femur. 3. These findings were called/faxed to the referring physician following dictation. ACT 112: Negative or not required by law. Electronically signed by: Rakesh Barragan M.D. 09/09/2021 7:19 AM
[2021-09-09 07:45] LABS: Estimated Average Glucose 108 mg/dl; Hemoglobin A1C 5.4 % (4.5-5.6)
--- NOTE | 2021-09-09 08:15 | CT Scan Report ---
CHEST CTA for PULMONARY ARTERIES CT DOSE: HISTORY: Shortness of breath. TECHNIQUE: Multiaxial CT images of the chest were performed following the intravenous administration of contrast to evaluate the pulmonary arteries. Maximal intensity projection images were also obtaine d. A dose lowering technique was utilized adhering to the principles of ALARA. COMPARISON STUDY: None. FINDINGS: Dextroscoliosis of the thoracic spine. No fractures within the visualized osseous structure s. The central airways are patent. No pneumothorax. No pleural effusions. Mild subpleural reticulatio n within the right upper lobe anteriorly. This may be due to old posttreatment changes. Groundglass d ensities within the base of the left lower lobe favor dependent change/atelectasis. Otherwise, no foc al lung consolidations to suggest pneumonia. No evidence for pulmonary edema. Prior cholecystectomy. The liver, spleen, and adrenal glands are unremarkable. Normal esophagus. The thyroid gland is within normal limits. No mediastinal or hilar lymphadenopathy. The heart is mildly enlarged. No pericardial effusion. Normal caliber thoracic aorta with no evidence for dissection. Nondiagnostic evaluation in volving the majority of the bilateral mid to lower lung zone segmental and subsegmental pulmonary art eries due to the respiratory motion. However, the remaining pulmonary arteries show no filling defect s to suggest a pulmonary embolus. IMPRESSION: 1. No evidence for pulmonary embolus. 2. Dextroscoliosis. 3. Cholecystectomy. ACT 112: Negative or not required by law. Electronically signed by: Rakesh Barragan M.D. 09/09/2021 8:13 AM
[2021-09-09] MEDS ORDERED: PIPERACILL/TAZOBAC CONSULT ACTIVE PRN (08:36)
[2021-09-09] MEDS ORDERED: PIPERACILLIN/TAZOBACTAM 3.375 GM in DEXTROSE 5% 100 ML IV STA (08:42)
[2021-09-09] MEDS ORDERED: MIRABEGRON ER 25 MG TAB PO SCH (09:00)
[2021-09-09] MEDS ORDERED: CITALOPRAM 20 MG TAB PO SCH (09:00)
[2021-09-09] MEDS: SACCHAROMYCES BOULARDII 250 MG CAP PO SCH (10:02)
[2021-09-09] MEDS: ATORVASTATIN 20 MG TAB PO SCH (10:08)
--- NOTE | 2021-09-09 10:48 | Progress Notes ---
REASON FOR CONSULTATION: Possible stroke. HISTORY OF PRESENT ILLNESS: This patient had a CT on admission due to left leg weakness and the CT of the head, which I reviewed shows age indeterminate lacunar infarction in the right basal ganglia. Approximately on 08/19/2021, the patient sat down hard on the toilet seat, did not have any initial symptoms, but about 5 or so days later, she noted pain in the left lateral thigh and some weakness of the left lateral thigh. She had some x-rays, which were nonrevealing. She took some steroids, which might have been mildly helpful. At that time, she was not on any aspirin or anticoagulants, she was not ill, and she had not had a fever. She has not had weight loss. She has not had any medical or dental procedures. Things are improving mildly, but the weakness has persisted and the left leg began to swell and bruise, so she came to our facility. Pelvis x-ray shows no acute abnormality. A femur CT showed an elongated peripheral enhancing fluid collection within the left iliacus muscle, which extends into the distal iliopsoas measuring 13 cm and up to 2.1 cm. This could represent an inflamed infected iliopsoas bursa, abscess, or possibly an intramuscular hematoma. No fracture within the pelvis, hips, or left femur. Pelvic CT shows the same. A carotid ultrasound showed no significant stenosis, but a thyroid calcification. The patient denies any history of stroke symptoms either now or in the past. She has never had any sudden blindness, double vision, vertigo, unilateral weakness, or numbness. She has Bcogugy-Wxgym-Dfklh and is a little more affected on the left side than the right. There may have been a little bit of tingling in the left leg that was intermittent associated with the pain in her left leg and weakness in her left leg. She has no incontinence of bowel or bladder. No current abdominal or spine pain. She has a positive family history of stroke. No history of rheumatic fever. She was not on any antiplatelet therapies or anticoagulants at home. PAST MEDICAL HISTORY: Breast cancer, status post radiation and surgery in 2009; uterine cancer, status post surgery; asthma; mood disorder; intermittent urinary incontinence; CMT; and past tobacco abuse. PAST SURGICAL HISTORY: Toe surgery, right breast lumpectomy, BENSON-BSO, cholecystectomy, and appendectomy. FAMILY HISTORY: Breast cancer, stroke, and CMT. SOCIAL HISTORY: Remote tobacco abuse. No alcohol intake. The patient lives alone. ALLERGIES: SHELLFISH AND TYLENOL. HOME MEDICATIONS: Vitamin D3, Celexa, ibuprofen, and Myrbetriq. REVIEW OF SYSTEMS: As above and per H and P. EKG: Sinus rhythm, first-degree AV block. LABORATORY DATA: White count normal, H and H normal, platelet count 257. Sed rate 28. PTT 27.8. Electrolytes on admission notable for a creatinine of 0.27. CK 198, which is now 154. Positive troponin. LDL 81, trace leukocyte esterase, 5-10 white cells and 5-10 epithelial cells. PHYSICAL EXAMINATION: VITAL SIGNS: 129/75, 64, 18, 36.5, O2 sat 94%. GENERAL: The patient is awake and alert, and in no distress. There is normal speech and language. Affect appropriate. She is oriented x3. HEART: There are no carotid bruits, no heart murmurs. Heart is regular rate and rhythm. ABDOMEN: Soft and nontender. EXTREMITIES: Left thigh is mildly swollen with extensive medial ecchymosis. There is minor swelling of the left ankle and foot. There are bilateral foot drops. There is distal atrophy in the lowers and uppers consistent with her CMT. NEUROLOGIC: Her pupils are post-surgical. I had difficulty visualizing the optic nerves. Visual norman were full. No visual extinction is noted. There is normal facial sensation, facial symmetry. Tongue is midline. 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 Right APB FDI 0, right ADM about 2+, left FDI, ADM, and APB 0, more proximally symmetric and full. No drift is noted. Rapid alternating movements are slow due to hand weakness. Distal lower extremities, trace tibialis anterior, gastroc is best 2. The quads are symmetric as the hamstrings. Bilateral iliopsoas are mildly weak, although the right appears to be weak on the basis of some discomfort. The right iliopsoas is probably about 4 and the left is 3 to 3+. The adductors are intact. Vibration sense is present at the ankles. There may be a minor decrease in light touch in left L5, but it was not corresponding to temperature. Vibration sense is present in the toes. Tcsbrb-eo-hust is limited by hand weakness and taxj-do-ypoy seems essentially nondystaxic. Basal ganglia infarction of unclear acuity, likely subacute to chronic, and not accountable for her left leg weakness. IMPRESSION AND PLAN: 1. Recommend MRI of the brain with and without contrast. The patient believes she will need sedation. Determination of whether or not there is abscess or hematoma in the left iliacus and iliopsoas. At some point, antiplatelet therapy with aspirin 81 mg would be reasonable. There is no high-grade stenosis in the carotids. Recommend an echo. These apparent strokes appears small vessel, so I do not necessarily think she needs a rn cardiac as an outpatient. 2. History of CMT. 3. We will follow with you. Job ID: [id number] [facility] SHORECammy
[2021-09-09] MEDS ORDERED: Nursing to Pharmacy Communication SCH (11:15)
--- NOTE | 2021-09-09 13:14 | Electrocardiogram Report ---
Test Reason : Blood Pressure : / mmHG Vent. Rate : 083 BPM Atrial Rate : 083 BPM P-R Int : 218 ms QRS Dur : 114 ms QT Int : 426 ms P-R-T Axes : 065 -46 084 degrees QTc Int : 500 ms Poor data quality, interpretation may be adversely affected Sinus rhythm with 1st degree A-V block Incomplete right bundle branch block Left anterior fascicular block Left ventricular hypertrophy with repolarization abnormality Cannot rule out Septal infarct , age undetermined Abnormal ECG No previous ECGs available Confirmed by Ed Polk ([id number]) on 09/09/2021 1:14:19 PM Referred By: REFERRED SELF Confirmed By:Ed Polk
--- NOTE | 2021-09-09 13:47 | Hospitalist Progress Note ---
Date of Service September 09, 2021 Assessment & Plan (1) Iliopsoas abscess on left: Plan: -d/c cefepime, doxycyline -start zosyn, swab for MRSA -not septic -check procalcitonin, ESR, CRP -Ortho consulted (2) Hematoma: Plan: Questionable not on blood thinners monitor H/H (3) Troponin level elevated: Plan: No chest pain -trend Plan: Hypokalemia -repleted, repeat tomorrow Pill dysphagia -will ask fro SBLP eval -in meantime, will crush pills -easy to chew diet DVT ppx SCDs Admission and Anticipated Discharge Date Admission Date: September 09, 2021 Subjective Patient feels well overall Reports left leg swelling No fever/chills No back pain Baseline she is wheelchair bound Physical Exam Physical Exam: Appears stated age, no acute distress Respiratory: breathing comfortably on room air, no wheezing/rhonchi/rales Cardiovascular: regular rate and rhythm, no murmurs/rubs Gastrointestinal (Abdomen): soft, non tender Musculoskeletal: lower extremities are atrophied, no significant leg swelling is noted Results & Data Results & Data ([facility]) Vital Signs (Past 12 Hours) Vital Signs Temp Pulse Pulse Pulse Resp BP Pulse Ox 09/09/21 12:00 36.8 C 67 16 116/68 90 09/09/21 08:00 36.5 C 60 64 18 129/75 94 09/09/21 03:41 64 09/09/21 02:49 36.9 C 89 14 145/84 H 90 Laboratory Results Short CBC 09/08/21 09/09/21 Range/Units 22:25 05:00 WBC 8.30 7.69 (4.8-10.8) K/uL Hgb 14.2 13.8 (12.0-16.0) g/dL Hct 43.6 42.1 (37-47) % Plt Count 255 257 (130-400) K/uL BMP 09/08/21 09/09/21 22:25 05:00 Sodium 140 140 Potassium 3.7 3.4 L Chloride 102 102 Carbon Dioxide 31 34 H BUN 13 9 Creatinine 0.27 L 0.30 L Glucose 94 111 H Calcium 8.7 8.4 L Cardiac Enzymes 09/08/21 09/09/21 09/09/21 Range/Units 22:25 05:00 05:00 Total Creatine Kinase 198 H 154 (26-192) U/L Troponin I 0.05 H* 0.07 H* (0-0.04) ng/ml 09/09/21 Range/Units 09:02 Total Creatine Kinase (26-192) U/L Troponin I 0.06 H* (0-0.04) ng/ml Liver Function 09/08/21 Range/Units 22:25 Total Bilirubin 0.7 (0.2-1.0) mg/dl AST 27 (13-39) U/L ALT 16 (7-52) U/L Alkaline Phosphatase 66 (34-104) U/L Albumin 3.3 L (3.4-5.0) gm/dl Urine 09/08/21 Range/Units 23:05 Urine Color Yellow Urine Appearance Clear (Clear) Urine pH 7.5 (4.5-7.5) Ur Specific [place] 1.009 (1.000-1.030) Urine Protein Negative (Negative) Urine Glucose (UA) Negative (Negative) Medications Administered Current Inpatient Medications Aspirin (Aspirin 81 Mg Ectab) 81 mg PO [facility] Stop: 10/09/21 04:09 Last Admin: 09/09/21 05:07 Dose: 81 mg Documented by: Atorvastatin Calcium (Atorvastatin 20 Mg Tab) 20 mg PO [facility] Stop: 10/09/21 08:59 Last Admin: 09/09/21 10:08 Dose: 20 mg Documented by: Citalopram Hydrobromide (Citalopram 20 Mg Tab) 10 mg PO PM [facility] Stop: 10/09/21 20:59 Promethazine HCl 12.5 mg/ (Sodium Chloride) 50.5 mls @ 202 mls/hr IV Q6H PRN PRN Reason: Nausea And Vomiting Stop: 10/09/21 02:27 Lactated Ringer's (Lr) 1,000 mls @ 50 mls/hr IV .Q20H ONE Stop: 09/09/21 22:27 Last Infusion: 09/09/21 10:02 Dose: 0 mls/hr Documented by: Piperacillin Sod/Tazobactam (Sod 3.375 gm/ Dextrose) 115 mls @ 28.75 mls/hr IV Q8H [facility]; Protocol Stop: 09/16/21 13:59 Mirabegron (Mirabegron Er 25 Mg Tab) 50 mg PO PM [facility] Stop: 10/09/21 20:59 Miscellaneous Information (Pharmacist Discharge Med Rec Consult) 1 ea N/A UD PRN PRN Reason: Consult Stop: 10/09/21 02:27 Miscellaneous Information (Piperacill/Tazobac Consult Active) 1 ea N/A UD PRN PRN Reason: Consult Stop: 10/09/21 08:35 Saccharomyces Boulardii (Saccharomyces Boulardii 250 Mg Cap) 250 mg PO DAILY [facility] Stop: 10/09/21 08:59 Last Admin: 09/09/21 10:02 Dose: 250 mg Documented by: Tramadol HCl (Tramadol Hcl 50 Mg Tablet) 25 - 50 mg PO Q4H PRN PRN Reason: Pain Stop: 10/09/21 02:27
[2021-09-09] MEDS: PIPERACILLIN/TAZOBACTAM 3.375 GM in DEXTROSE 5% 100 ML IV SCH ×2 (14:26→21:58)
--- NOTE | 2021-09-09 18:27 | Consultation Report ---
DATE OF CONSULTATION: 09/09/2021. HISTORY OF PRESENT ILLNESS: This is an 81-year-old female seen at the request of Dr. Morataya and Dr. Shen mcgarry regarding left hip and thigh pain, onset approximately 2 weeks prior. She has Rqofwao-Kvczh-Buy th. She has weakness and atrophy, bilateral upper and lower extremities, more pronounced on the left than the right. The patient has concerned that perhaps she sat on the commode harder than normal or injured herself while getting in and out of her vehicle. The patient is a minimal ambulator for tra nsfers and slight ambulation at home only. Primarily, she is in a wheelchair or in a resting positio n. The patient had been seen at [facility]. Radiographs were obtained and is negative for f zelda, attributed symptoms to arthritis. She was given prednisone, Medrol Dosepak, which did impro ve her hip pain, which actually began primarily on her lateral aspect of her left hip and had radiati on down the iliotibial band, per the patient. The patient had weakness secondary to pain in the left hip. The patient describes that she had difficulty with hip flexion on the left compared to the rig ht, which was unusual for her. They had some perceived left leg swelling per the home nursing and pe r the patient's daughter. She was noted to have some bruising on her left inner thigh with dissolutio n of bruising into multiple color pattern. The patient was then brought to [facility] by her daughter for further workup. Initial workup by the Emergency Department staff and by hosp italist service, Dr. Dye, patient was then admitted to the hospitalist service with concern regard ing cerebrovascular accident, left leg weakness and possible left iliopsoas abscess without generaliz ed sepsis, elevation of CPK and troponin, situational hypertension, among other diagnoses listed in t medical record. PAST MEDICAL HISTORY: Possible CVA, left leg weakness, hypertension, right breast cancer, uterine ca ncer, bronchial asthma, mood disorder, Kkgogmb-Swkop-Zehsw, history of tobacco abuse. PAST SURGICAL HISTORY: Toe surgery, right breast lumpectomy, BENSON-BSO, cholecystectomy, appendectomy. ALLERGIES: SHELLFISH WITH PARTICULAR LOBSTER, ACETAMINOPHEN WITH A RASH. MEDICATIONS: Vitamin D3, citalopram, ibuprofen, mirabegron 50 mg daily. SOCIAL HISTORY: Remote history of smoking. Denies substance abuse. Drinks alcohol occasionally. Pr imarily ambulates in a wheelchair. She lives home alone. She is retired. PHYSICAL EXAMINATION: This is an 81-year-old female who is sitting supine in her bedside chair, earl ng dinner. She is edentulous. She has pleasant affect. Alert and oriented x3. Speech clear and fl uent. No obvious focal or lateralizing neurologic defects noted. No facial droop appreciated. The patient does have atrophy, bilateral upper and lower extremities, particularly in the interosseous mu sculature of the hands and feet. She does have a high arch foot with adductus deformity. Caval varu s bilateral. Focused examination of the left hip and lower extremity demonstrates skin warm, dry, an d intact. She does have some type of protective cream in the left groin as well as the right groin. No obvious abscess, fluctuance or fluid collection along the left inguinum or left groin. Mild tend erness in the left groin compared to the right. Does have tenderness, which is minimal over the left greater trochanter and left iliotibial band. Upon palpation, the patient states this is improved af ter her Medrol Dosepak was given. She does have significant bruising pattern along the left medial t high from the adductor alexander extending distally. There is dissolution of the bruising pattern with nontender bruising. Symmetric internal and external rotation of bilateral hips, adduction, abduction are symmetric. She does have weakness with left hip flexor function of 4/5 in the left compared to 5/5 on the right. Nonirritable for GERMANIA and FADIR testing bilateral. RADIOGRAPHS: CT and multiple CT scans were reviewed with a mild early osteoarthritis, bilateral hips and left greater than right increased volume and likely hematoma of the left iliopsoas region. Does streak distally. No obvious tears of the iliotibial band or gluteus medius or minimus regions per th e CT scans obtained; however, this is difficult to ascertain. MRI may be better suited. IMPRESSION: 1. Left iliopsoas hematoma. Doubt abscess due to a normal white count and a benign examination. 2. Left trochanteric bursitis, improving. 3. Left iliotibial band syndrome, improving. 4. Left hip flexor weakness. RECOMMENDATION: Physical therapy, weightbearing as tolerated, lower extremity rehabilitation bilater al. No further orthopedic intervention at this time. Thank you for the opportunity to consult in care of this patient. Job ID: [id number]
[2021-09-09] MEDS ORDERED: DOXYCYCLINE HYCLATE 100 MG CAP PO SCH (21:00)
[2021-09-09] MEDS: CITALOPRAM 20 MG TAB PO SCH (21:55)
[2021-09-09] MEDS: MIRABEGRON ER 25 MG TAB PO SCH (21:56)
[2021-09-10] MEDS: PIPERACILLIN/TAZOBACTAM 3.375 GM in DEXTROSE 5% 100 ML IV SCH ×2 (06:03→13:36)
[2021-09-10 06:56] LABS: Basophils # (auto) 0.05 K/uL (0-0.2); Basophils % (auto) 0.7 %; Eosinophils # (auto) 0.29 K/uL (0-0.5); Eosinophils % (auto) 4.1 %; Hematocrit (blood only) 38.8 % (37-47); Hemoglobin 12.4 g/dL (12.0-16.0); Immature Granulocytes # (auto) 0.01 K/uL (0.00-0.02); Immature Granulocytes % (auto) 0.1 %; Lymphocytes # (auto) 2.44 K/uL (1.2-3.4); Lymphocytes % (auto) 34.2 %; Mean Corpuscular Hemoglobin 28.3 pg (25-34); Mean Corpuscular Volume 88.6 fL (80-100); Mean Platelet Volume 9.9 fL (7.4-10.4); Monocytes # (auto) 0.71 K/uL (0.11-0.59); Neutrophils # (auto) 3.63 K/uL (1.4-6.5); Neutrophils % (auto) 50.9 %; Platelet Count 230 K/uL (130-400); RDW Coefficient of Variation 14.8 % (11.5-14.5); RDW Standard Deviation 47.9 fL (36.4-46.3); Red Blood Count 4.38 M/uL (4.2-5.4); White Blood Count 7.13 K/uL (4.8-10.8)
[2021-09-10 07:10] LABS: BUN Creatinine Ratio 38.5 (10-20); Calcium 8.2 mg/dl (8.5-10.1); Creatinine Clr Calc Pharmacy 101.1 ml/min; Est GFR (Non-African American) 99.2 ml/min; Potassium 3.5 mmol/L (3.5-5.1)
[2021-09-10] MEDS: ATORVASTATIN 20 MG TAB PO SCH (08:45)
[2021-09-10] MEDS: SACCHAROMYCES BOULARDII 250 MG CAP PO SCH (08:45)
[2021-09-10] MEDS: ASPIRIN 81 MG ECTAB PO SCH (08:45)
--- NOTE | 2021-09-10 13:17 | Progress Notes ---
DATE OF SERVICE: 09/10/2021 SUBJECTIVE: I am seeing the patient for radiographic lacunar infarctions in the right hemisphere, ag e indeterminate. The patient has not had any new symptoms. She is on IV antibiotics for what I assu me is an abscess in her left iliacus and iliopsoas muscle. She has not had any new neurologic sympto ms. OBJECTIVE: On exam, other than findings, one would attribute to Gkbqikn-Ugopl-Vfqvq. There is no fa cial asymmetry. No dysarthria. Upper extremity strength is symmetric. There is mild weakness of le ft iliopsoas, the quad appears to be intact. Knee jerks are both absent. IMPRESSION AND PLAN: Age indeterminate right basal ganglia infarction. Recommend hospitalist orderin g MRI of the brain with and without contrast. This will help to date the infarct, i.e., is it old or subacute. It will also help to rule out brain metastasis given her history of breast cancer. At cristopher e point when safe, risk factor modification antiplatelet therapy would be reasonable. We will sign o ff, but we will monitor the chart for her MRI and review. Job ID: [id number]
--- NOTE | 2021-09-10 16:50 | Hospitalist Progress Note ---
Date of Service September 10, 2021 Assessment & Plan (1) Iliopsoas abscess on left: Plan: -Fluid collection unlikely to be abscess, normal WBC, neg procalcitonin, neg ESR/CRP -will discontinue zosyn and monitor off antibiotics (2) Hematoma: Plan: Appreciate Ortho input, likely hematoma -patient not on blood thinners H/H remains stable Because of this, she does feel weak at the hips. Evaluated by PT and recommended SNF (3) Troponin level elevated: Plan: No chest pain Plan: Hypokalemia -repleted, repeat tomorrow Pill dysphagia -will crush pills -easy to chew diet DVT ppx SCDs disposition -SNF Patient is medically stable pending SNF placement Admission and Anticipated Discharge Date Admission Date: September 09, 2021 Subjective Still with left leg weakness Denies back pain, fever/chills Physical Exam Physical Exam: Appears stated age, no acute distress, non toxic Respiratory: breathing comfortably on room air, no wheezing/rhonchi/rales Cardiovascular: regular rate and rhythm, no murmurs/rubs/gallops Gastrointestinal (Abdomen): soft, non tender Musculoskeletal: trace left foot swelling, no redness Neurologic: baseline wheelchair bound Results & Data Results & Data ([facility]) Vital Signs (Past 12 Hours) Vital Signs Temp Pulse Pulse Resp BP Pulse Ox 09/10/21 15:27 36.7 C 75 18 124/75 94 09/10/21 15:12 72 09/10/21 12:00 36.8 C 86 18 128/67 93 09/10/21 07:42 36.8 C 66 18 121/66 93 09/10/21 07:25 84
[2021-09-10] MEDS ORDERED: LORazepam 0.5 MG TAB PO ONE (19:15)
[2021-09-10] MEDS: CITALOPRAM 20 MG TAB PO SCH (21:41)
[2021-09-10] MEDS: MIRABEGRON ER 25 MG TAB PO SCH (21:41)
[2021-09-10] MEDS ORDERED: LORazepam 0.5 MG TAB PO PRN (22:44)
[2021-09-10] MEDS ORDERED: GADOBUTROL 65ML VIAL IV ONE (23:58)
[2021-09-11 07:08] LABS: Basophils # (auto) 0.05 K/uL (0-0.2); Basophils % (auto) 0.8 %; Eosinophils # (auto) 0.31 K/uL (0-0.5); Eosinophils % (auto) 4.7 %; Hematocrit (blood only) 38.7 % (37-47); Hemoglobin 12.4 g/dL (12.0-16.0); Immature Granulocytes # (auto) 0.01 K/uL (0.00-0.02); Immature Granulocytes % (auto) 0.2 %; Lymphocytes # (auto) 2.46 K/uL (1.2-3.4); Lymphocytes % (auto) 37.5 %; Mean Corpuscular Hemoglobin 28.3 pg (25-34); Mean Corpuscular Volume 88.4 fL (80-100); Mean Platelet Volume 10.1 fL (7.4-10.4); Monocytes # (auto) 0.64 K/uL (0.11-0.59); Monocytes % (auto) 9.8 %; Neutrophils # (auto) 3.09 K/uL (1.4-6.5); Platelet Count 238 K/uL (130-400); RDW Coefficient of Variation 14.9 % (11.5-14.5); RDW Standard Deviation 47.9 fL (36.4-46.3); Red Blood Count 4.38 M/uL (4.2-5.4); White Blood Count 6.56 K/uL (4.8-10.8)
[2021-09-11 07:29] LABS: BUN Creatinine Ratio 47.1 (10-20); Calcium 8.1 mg/dl (8.5-10.1); Creatinine Clr Calc Pharmacy 116.5 ml/min; Est GFR (African American) 120.3 ml/min; Est GFR (Non-African American) 103.8 ml/min; Potassium 3.6 mmol/L (3.5-5.1)
[2021-09-11] MEDS: ATORVASTATIN 20 MG TAB PO SCH (08:07)
[2021-09-11] MEDS: ASPIRIN 81 MG ECTAB PO SCH (08:07)
[2021-09-11] MEDS: SACCHAROMYCES BOULARDII 250 MG CAP PO SCH (08:07)
--- NOTE | 2021-09-11 10:17 | Magnetic Resonance Report ---
MR brain wo/w con CLINICAL HISTORY: cva. History of lacunar infarcts within the right basal ganglia. Additional histo ry of breast cancer. COMPARISON STUDY: CT brain from 09/08/2021 TECHNIQUE: Multiplanar multisequence images of the brain were performed before and after Gadavist, 6 mL of IV contrast. Diffusion weighted imaging and ADC mapping was also performed. FINDINGS: Extra-axial space: There is no evidence for a subdural hematoma, There are no extra-axial fluid jyoti ections. Ventricles and cisterns: The ventricles are normal in size and configuration. There is no evidence f or midline shift or mass effect. Parenchyma: On noncontrast images, there is no evidence for an acute hemorrhage or infarct. No acute diffusion abnormalities are noted on diffusion weighted imaging or ADC mapping. There is an old lacu live infarct within the basal ganglia on the right. There is mild cerebral cortical atrophy present. T here is bright signal seen on FLAIR weighted sequences within the centrum semiovale and periventricul ar white matter characteristic of remote small vessel disease. The sulci and gyri appear normal witho ut effacement. The midline structures are unremarkable. The posterior fossa structures appear normal. On postcontrast images, there is no evidence for enhancing mass lesion. Osseous structures: The paranasal sinuses are well aerated. The mastoid air cells are well aerated. Soft tissues: No focal soft tissue abnormalities are identified. IMPRESSION: 1. No acute intracranial abnormalities. 2. Old lacunar infarct within the basal ganglia on the right. 3. Cerebral cortical atrophy and remote small vessel disease. ACT 112: Negative or not required by law. Electronically signed by: Matteo Baker M.D. 09/11/2021 10:16 AM
--- NOTE | 2021-09-11 14:15 | Discharge Summary ---
Date of Service September 11, 2021 Admission HPI Per Admitting Provider History obtained from patient, family, and records. Medical history significant for right breast cancer status post surgery/radiation, uterine cancer status post surgery, bronchial asthma, mood disorder, urinary incontinence, Anocabn-Pldfl-Mmnwn disease, past tobacco abuse. 2 weeks ago, patient experienced left hip pain with left leg weakness more than usual. Patient thinks she may have sat down on the commode a little hard. Patient evaluated at [facility] ER. Plain x-rays negative for fracture as per daughter. Symptoms attributed to arthritis. Patient given prednisone prescription which improved left hip pain. Persistent left leg weakness. Patient denies headache, chest pain. Left leg weakness not improved despite home PT. Worsening left leg swelling noted the last few days as per daughter. Patient noted to have bruising on her left thigh. No fever, no chills. Shortness of breath as per patient without cough symptoms. Patient brought to the ER by daughter for evaluation. 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 Principal Diagnosis Left Iliopsoas muscle hematoma Frequent falls at home Chronic lacunar infarct Left leg weakness and debility Discharge Exam Appears stated age, no acute distress, somewhat forgetful Breathing comfortably on room air, no wheezing/rhonchi/rales Abd soft and non tender left leg with inner thigh bruising Discharge Data Allergies Allergy/AdvReac Type Severity Reaction Status Date / Time shellfish derived Allergy Severe LOBSTER: Verified 09/09/21 04:02 almost acetaminophen [From Tylenol] Allergy Rash Unverified 09/09/21 03:23 Consultations 09/08/21 23:34 ED Decision to Admit Stat 09/09/21 02:28 Consult Neurology Routine 09/09/21 04:03 Consult Orthopedic Surgery Routine Ordered Studies 09/08/21 19:45 US venous doppler LE LT Stat 09/08/21 22:02 CT head/brain wo con Stat CT lumbar spine wo con Stat 09/09/21 00:56 CT angio chest PE protocol Urgent CT femur LT w con Urgent CT pelvis w/IV con only Urgent 09/09/21 01:05 US carotid doppler BI Routine 04/10/22 19:02 MR brain wo/w con Routine Hospital Course (1) Hematoma: (2) Troponin level elevated: Ms Alanna Lizarraga is a 81 year old female who lives alone at home (wheel chair bound) presents to ER 09/09 with left leg weakness and swelling. She had extensive imaging which only revealed an "elongated peripheral enhancing fluid collection within the left iliacus muscle which extends to the distal iliopsoas muscle" which was concerning for abscess or hematoma. She was intiially placed on zosyn for coverage of abscess but with negative blood cultures, negative procalcitonin, CRP and ESR--It was felt that the fluid collection is not likely to be abscess. She does have extensive bruising on her left leg despite denying falls --however, after talking to her daughter, patient does have memory impairment and sometimes has "black/blue bruises on her body that are unexplained". Patient was seen by Orthopedic surgery and felt that this fluid collection in her iliopsoas muscle is most likely a hematoma. Her H/h remains stable here. She was seen by PT and recommended SNF. After SNF, her daughter will take Ms Chula thakkar home to live with her for closer supervision. For her left leg weakness, she had a CT head which showed age indeterminate lacunar infarct so Neurology recommended an MRI brain w/wo contrast. MRI brain here confirms chronic lacunar infarct and cerebral atrophy. Patient was started on aspirin 81mg and lipitor 20mg. She should follow up with her PCP for stroke risk factor modification. Total Time Total Time Spent Total Time Spent (In Minutes): 35 Discharge Plan Discharge Items Patient Disposition: Transfer [facility] Reason For Visit: CVA, SOB Discharge Diagnosis: Left Iliopsoas muscle hematoma Frequent falls at home Chronic lacunar infarct Left leg weakness and debility Condition on Discharge: Good Activity: Resume your previous activity Weightbearing: Full weightbearing Non-emergency contact: Primary Care Provider Call non-emergency contact if: you have any medication questions Follow-up/Referrals: Cayden Lowe MD [Primary Care Provider] - Diet: Heart Healthy Diet Texture: Easy to Chew Addtl Attending Provider Instructions: You came to the hospital due to left leg weakness and was found to have a left iliopsoas muscle hematoma, likely due to fall and injury You had a CT of your brain which showed age indeterminate infarct so you had a follow up MRI brain w/wo contrast which showed chronic lacunar infarcts but no acute findings, does also show cortical atrophy Would recommend Neurology evaluation for NeuroCognitive evaluation (for diagnosis of dementia) You should be on aspirin and statin for your chronic stroke to prevent future events For your hematoma, would recommend physical therapy Pending Studies at Discharge: No Stand-Alone Forms: [facility] Skilled Items Patient informed of condition?: Yes DNR: Yes Discharge Level of Care: Skilled Communicable Disease: No Discharge Prognosis: Stable Lines: None Urinary Catheter: No Medications and DC Order Prescriptions: New atorvastatin 20 mg Tablet 20 mg PO QAM 30 Days Qty: 30 RF: 1 aspirin 81 mg Tablet,Delayed Release (Dr/Ec) 81 mg PO QAM 30 Days Qty: 30 RF: 0 Continued citalopram 10 mg tablet 10 mg PO PM RF: 0 Myrbetriq 50 mg tablet extended release 24 hr 50 mg PO PM RF: 0 Vitamin D3 2,000 unit PO BID RF: 0 Discontinued ibuprofen 600 mg PO TID PRN (Reason: Pain) RF: 0 Discharge Orders: Discharge Order (Routine); Ordered 09/11/21 Ordered By: Rosie Morataya Admission Data Admit Date/Time: 09/09/21 04:40 Attending Provider: Rosie Morataya Admit Provider: Cortez Dye Primary Care Provider: Cayden Lowe Other Providers: Cortez Dye ; Nicole Barrios ; Luis Garcia ; Nicole Hanks ; Matthew Barron ; Morris Casillas ; Scooter Fraser ; Isaac Cruz ; Shanae Retana ; Moe Long ; Kandis Putnam ; Aayush Power ; Albert Osorio ; Philippe Mejias ; Giancarlo Sanchez ; Albert Greenberg ; Elier Abdi ; Vinicius Valera ; Aníbal Goddard ; Kandis Sykes ; Sterling Barger ; Cassius Dougherty ; Danielle Galaviz ; Luis Chaves ; Elaine Morales ; Morris Amaral ; [facility] ; [facility]
--- NOTE | 2021-09-11 15:53 | Progress Notes ---
DATE OF SERVICE: 09/11/2021 I have reviewed Mrs. Lizarraga's MRI of the brain and it shows no acute abnormality, old infarction in t he region of the right basal ganglia, cerebral cortical atrophy and remote small vessel disease. IMPRESSION: The patient's CAT scan reveals an old right basal ganglia lacune. When safe with regard to the patient's question of hematoma in the left iliacus and iliopsoas, we would recommend antiplat elet therapy with aspirin. We would also recommend good control of blood pressure and goal LDL of 70 or less. The patient does not need to see us in followup post discharge. Job ID: [id number]
== END 2021-09-11 15:15 | DRG 605 ==
LOC: 2N 19:02 → ED 19:02 → 2N 09-09 02:10

== ENCOUNTER 2021-10-19 20:41 | Inpatient (IN) ==
[2021-10-19 21:24] LABS: Basophils # (auto) 0.04 K/uL (0-0.2); Basophils % (auto) 0.4 %; Eosinophils # (auto) 0.22 K/uL (0-0.5); Eosinophils % (auto) 2.3 %; Hematocrit (blood only) 47.8 % (37-47); Hemoglobin 15.5 g/dL (12.0-16.0); Immature Granulocytes # (auto) 0.01 K/uL (0.00-0.02); Immature Granulocytes % (auto) 0.1 %; Lymphocytes # (auto) 2.59 K/uL (1.2-3.4); Lymphocytes % (auto) 27.2 %; Mean Corpuscular Hemoglobin 29.1 pg (25-34); Mean Corpuscular Hgb Conc 32.4 g/dL (32-36); Mean Corpuscular Volume 89.8 fL (80-100); Mean Platelet Volume 10.8 fL (7.4-10.4); Monocytes # (auto) 0.84 K/uL (0.11-0.59); Monocytes % (auto) 8.8 %; Neutrophils # (auto) 5.82 K/uL (1.4-6.5); Neutrophils % (auto) 61.2 %; Platelet Count 229 K/uL (130-400); RDW Coefficient of Variation 14.7 % (11.5-14.5); RDW Standard Deviation 48.1 fL (36.4-46.3); Red Blood Count 5.32 M/uL (4.2-5.4); White Blood Count 9.52 K/uL (4.8-10.8)
[2021-10-19 21:51] LABS: Base Excess VBG 7.5 mEq/L; Oxygen Saturation VBG 82.7 %; pH VBG 7.43 (7.36-7.41)
[2021-10-19 21:51] LABS: INR 1.1 (0.9-1.1); Partial Thromboplastin Ratio 0.9; Partial Thromboplastin Time 25.5 Seconds (21.0-31.0); Prothrombin Time 11.2 Seconds (9.0-12.0)
[2021-10-19 22:06] LABS: Troponin I High Sensitivity 36.7 pg/ml (0-14)
[2021-10-19 22:07] LABS: Influenza A virus by PCR Negative (Neg); Influenza B virus by PCR Negative (Neg); RSV by PCR Negative (Neg); SARS CoV2 RNA(COVID-19) InHosp NEGATIVE (Negative)
[2021-10-19 22:10] LABS: D Dimer 690 ug/L FEU (0-500)
[2021-10-19 22:16] LABS: Alanine Aminotransferase 18 U/L (7-52); Albumin Level 3.7 gm/dl (3.4-5.0); Alkaline Phosphatase 78 U/L (34-104); Anion Gap 8 (3-11); BUN Creatinine Ratio 55.2 (10-20); Bilirubin,Total 0.6 mg/dl (0.2-1.0); Blood Urea Nitrogen 16 mg/dl (6-23); Calcium 9.3 mg/dl (8.5-10.1); Carbon Dioxide 33 mmol/L (21-32); Chloride 99 mmol/L (98-107); Est GFR (African American) 126.7 ml/min; Est GFR (Non-African American) 109.4 ml/min; Glucose 99 mg/dl (70-99(Fasting)); Sodium 140 mmol/L (136-145); Total Protein 6.4 gm/dl (6.0-8.3)
[2021-10-19] MEDS ORDERED: OPTIRAY 320 125ml IV ONE (23:07)
--- NOTE | 2021-10-19 23:26 | Emergency Department Note ---
History of Present Illness General Chief complaint: Shortness of Breath/Dyspnea Time Seen by Provider: 10/19/21 20:52 Source: EMS and RN notes reviewed History of Present Illness Provider complaint: Shortness of Breath Onset (ago): unknown 81-year-old female presents emergency department for shortness of breath. Patient was brought in by EMS. Per EMS the patient was having a shaking episode and is now reporting shortness of breath. Patient notes he had a stroke. Home Medications Medication Instructions Recorded Confirmed Type citalopram 10 mg tablet 10 mg PO PM 09/09/21 10/19/21 History mirabegron 50 mg tablet,extended 50 mg PO PM 09/09/21 10/19/21 History release 24 hr (Myrbetriq) atorvastatin 20 mg tablet 20 mg PO HS 10/19/21 10/19/21 History cholecalciferol (vitamin D3) 50 50 mcg PO QAM 10/19/21 10/19/21 History mcg (2,000 unit) tablet (Vitamin D3) Allergies Allergy/AdvReac Type Severity Reaction Status Date / Time shellfish derived Allergy Severe LOBSTER: Verified 10/19/21 22:50 almost acetaminophen [From Tylenol] Allergy Rash Unverified 10/19/21 22:50 Past Med/Surg History Medical History (Updated 10/20/21 @ 01:07 by Delvin Farrar) CMT (Osrhjsj-Ofhwp-Chthg disease) CVA (cerebral vascular accident) HLD (hyperlipidemia) Left leg swelling No pertinent family history Surgical History (Updated 10/19/21 @ 23:32 by Delvin Farrar) No pertinent past surgical history Social History Smoking Status: Unknown if ever smoked Hx Alcohol Use: Yes Hx Substance Use: No Preferred Language: Lithuanian Communication Ability: Effective Current Living Situation: Alone Feels Safe at Home: Yes Assistive Devices: Wheelchair Review of Systems A total of 10 systems reviewed and were otherwise negative Physical Exam Vital Signs Vital Signs - 24 hr 10/19/21 20:46 10/19/21 21:20 10/19/21 21:21 Temperature 36.8 C Temperature Source Oral Pulse Rate 69 Pulse Rate [Apical] 78 Respiratory Rate 20 20 Respiratory Effort / Characteristics Short of Breath Non-Labored Respiratory Depth Normal Blood Pressure 132/76 Blood Pressure [Left Arm] Blood Pressure Mean 94 Blood Pressure Mean [Left Arm] Pulse Oximetry 92 92 91 Oxygen Delivery Method Room Air Room Air Room Air Sepsis Recent Fever Within 48 Hours No Sepsis New/Unexplained Change in Mental Status No Sepsis Action Taken by Nursing No Action Required 10/19/21 23:00 10/19/21 23:19 10/20/21 00:00 Temperature Temperature Source Pulse Rate 93 H 83 Pulse Rate [Apical] 87 Respiratory Rate 20 22 22 Respiratory Effort / Characteristics Respiratory Depth Blood Pressure 134/83 111/63 Blood Pressure [Left Arm] 132/76 Blood Pressure Mean 100 79 Blood Pressure Mean [Left Arm] 94 Pulse Oximetry 91 93 93 Oxygen Delivery Method Room Air Room Air Sepsis Recent Fever Within 48 Hours Sepsis New/Unexplained Change in Mental Status Sepsis Action Taken by Nursing 10/20/21 00:30 Temperature Temperature Source Pulse Rate 70 Pulse Rate [Apical] Respiratory Rate 22 Respiratory Effort / Characteristics Respiratory Depth Blood Pressure 121/64 Blood Pressure [Left Arm] Blood Pressure Mean 83 Blood Pressure Mean [Left Arm] Pulse Oximetry 93 Oxygen Delivery Method Sepsis Recent Fever Within 48 Hours Sepsis New/Unexplained Change in Mental Status Sepsis Action Taken by Nursing Physical Exam HENT: Exam performed. -Head: Normocephalic and atraumatic. -Right Ear: External ear normal. No mastoid tenderness. -Left Ear: External ear normal. No mastoid tenderness. -Mouth/Throat: The oropharynx is clear and moist. No trismus in the jaw. No dental abscesses or uvula swelling. No oropharyngeal exudate or tonsillar abscesses. EYES: Conjunctivae and EOM are normal. Pupils are equal, round, and reactive to light. Right eye exhibits no discharge. Left eye exhibits no discharge. No scleral icterus. NECK: Normal range of motion. Neck supple. No JVD present. No spinous process tenderness present. No carotid bruit present. No rigidity. No tracheal deviation and normal range of motion present. No Brudzinski's sign and no Kernig's sign noted. CV: Normal rate, regular rhythm, normal heart sounds and intact distal pulses. There is no peripheral edema. Palpable radial pulses bue. PULM/CHEST: Rhonchi bilaterally. ABD: The abdomen is soft. NEURO: Expressive aphasia and severe dysarthria. Baseline per EMS. SKIN: Warm and dry Course Course 2051: The patient was evaluated in room B10. A complete history and physical exam was performed Cardiac monitoring: An order was placed for continuous cardiac monitoring. The monitor shows a rate of 90 with sinus rhythm 0106: Vital signs stable. Labs show an elevated D-dimer level. CT of the chest negative for PE. Patient's initial troponin was 36.7 and jeremy to 41.5. [facility] Murphy is aware. Administered Medications Discontinued Medications Ioversol (Optiray 320 125ml) 125 ml IV ONCE ONE Stop: 10/19/21 23:08 Last Admin: 10/19/21 23:07 Dose: 98 ml Documented by: [id number] Lorazepam (Lorazepam 2 Mg/1 Ml Vial) 0.25 mg IV NOW STA Stop: 10/19/21 23:30 Last Admin: 10/19/21 23:46 Dose: 0.25 mg Documented by: [id number] Medical Decision Making Laboratory Data Result diagrams: 10/19/21 20:20 10/19/21 23:23 Lab Results 10/19/21 10/19/21 10/19/21 Range/Units 20:20 20:20 20:20 WBC 9.52 (4.8-10.8) K/uL RBC 5.32 (4.2-5.4) M/uL Hgb 15.5 (12.0-16.0) g/dL Hct 47.8 H (37-47) % MCV 89.8 (80-100) fL MCH 29.1 (25-34) pg MCHC 32.4 (32-36) g/dL RDW Std Deviation 48.1 H (36.4-46.3) fL RDW Coeff of [place] 14.7 H (11.5-14.5) % Plt Count 229 (130-400) K/uL MPV 10.8 H (7.4-10.4) fL Immature Gran % (Auto) 0.1 % Neut % (Auto) 61.2 % Lymph % (Auto) 27.2 % [place] % (Auto) 8.8 % Eos % (Auto) 2.3 % Baso % (Auto) 0.4 % Neut # (Auto) 5.82 (1.4-6.5) K/uL Lymph # (Auto) 2.59 (1.2-3.4) K/uL [place] # (Auto) 0.84 H (0.11-0.59) K/uL Eos # (Auto) 0.22 (0-0.5) K/uL Baso # (Auto) 0.04 (0-0.2) K/uL Immature Gran # (Auto) 0.01 (0.00-0.02) K/uL PT Cancelled INR Cancelled APTT Cancelled PTT Ratio Cancelled D-Dimer (0-500) ug/L FEU VBG pH (7.36-7.41) VBG pCO2 (38-50) mmHg VBG pO2 mmHg VBG HCO3 mmol/L VBG O2 Saturation % VBG Base Excess mEq/L Barometric Pressure mm/Hg Sodium 140 (136-145) mmol/L Potassium TNP Chloride 99 (98-107) mmol/L Carbon Dioxide 33 H (21-32) mmol/L Anion Gap 8 (3-11) BUN 16 (6-23) mg/dl Creatinine 0.29 L (0.6-1.2) mg/dl Est Cr Clr Drug Dosing Not Reportable Est GFR ( Amer) 126.7 ml/min Est GFR (Non-Af Amer) 109.4 ml/min BUN/Creatinine Ratio 55.2 H (10-20) Glucose 99 (70-99(Fasting)) mg/dl Lactate (0.4-2.0) mmol/L Calcium 9.3 (8.5-10.1) mg/dl Magnesium 2.0 (1.7-2.4) mg/dl Total Bilirubin 0.6 (0.2-1.0) mg/dl Direct Bilirubin TNP AST TNP ALT 18 (7-52) U/L Alkaline Phosphatase 78 (34-104) U/L Troponin I High Sens (0-14) pg/ml B-Natriuretic Peptide (0-100) pg/ml Total Protein 6.4 (6.0-8.3) gm/dl Albumin 3.7 (3.4-5.0) gm/dl Lipase (11-82) U/L Urine Color Urine Appearance (Clear) Urine pH (4.5-7.5) Ur Specific [place] (1.000-1.030) Urine Protein (Negative) Urine Glucose (UA) (Negative) Urine Ketones (Negative) Urine Blood (Negative) Urine Nitrite (Negative) Urine Bilirubin (Negative) Urine Urobilinogen (Negative) Ur Leukocyte Esterase (Negative) Urine WBC (Auto) (0-5) /hpf Urine RBC (Auto) (0-4) /hpf U Hyaline Cast (Auto) (0-5) /lpf U Epithel Cells (Auto) (0-5) /lpf Urine Bacteria (Auto) (Negative) SARS-CoV-2 (PCR) (Negative) Influenza Type A (PCR) (Neg) Influenza Type B (PCR) (Neg) RSV (RT-PCR) (Neg) 10/19/21 10/19/21 10/19/21 Range/Units 20:20 20:20 21:05 WBC (4.8-10.8) K/uL RBC (4.2-5.4) M/uL Hgb (12.0-16.0) g/dL Hct (37-47) % MCV (80-100) fL MCH (25-34) pg MCHC (32-36) g/dL RDW Std Deviation (36.4-46.3) fL RDW Coeff of [place] (11.5-14.5) % Plt Count (130-400) K/uL MPV (7.4-10.4) fL Immature Gran % (Auto) % Neut % (Auto) % Lymph % (Auto) % [place] % (Auto) % Eos % (Auto) % Baso % (Auto) % Neut # (Auto) (1.4-6.5) K/uL Lymph # (Auto) (1.2-3.4) K/uL [place] # (Auto) (0.11-0.59) K/uL Eos # (Auto) (0-0.5) K/uL Baso # (Auto) (0-0.2) K/uL Immature Gran # (Auto) (0.00-0.02) K/uL PT 11.2 INR 1.1 APTT 25.5 PTT Ratio 0.9 D-Dimer 690 H* (0-500) ug/L FEU VBG pH (7.36-7.41) VBG pCO2 (38-50) mmHg VBG pO2 mmHg VBG HCO3 mmol/L VBG O2 Saturation % VBG Base Excess mEq/L Barometric Pressure mm/Hg Sodium (136-145) mmol/L Potassium Chloride (98-107) mmol/L Carbon Dioxide (21-32) mmol/L Anion Gap (3-11) BUN (6-23) mg/dl Creatinine (0.6-1.2) mg/dl Est Cr Clr Drug Dosing Est GFR ( Amer) ml/min Est GFR (Non-Af Amer) ml/min BUN/Creatinine Ratio (10-20) Glucose (70-99(Fasting)) mg/dl Lactate (0.4-2.0) mmol/L Calcium (8.5-10.1) mg/dl Magnesium (1.7-2.4) mg/dl Total Bilirubin (0.2-1.0) mg/dl Direct Bilirubin AST ALT (7-52) U/L Alkaline Phosphatase (34-104) U/L Troponin I High Sens 36.7 H (0-14) pg/ml B-Natriuretic Peptide (0-100) pg/ml Total Protein (6.0-8.3) gm/dl Albumin (3.4-5.0) gm/dl Lipase 46 (11-82) U/L Urine Color Urine Appearance (Clear) Urine pH (4.5-7.5) Ur Specific [place] (1.000-1.030) Urine Protein (Negative) Urine Glucose (UA) (Negative) Urine Ketones (Negative) Urine Blood (Negative) Urine Nitrite (Negative) Urine Bilirubin (Negative) Urine Urobilinogen (Negative) Ur Leukocyte Esterase (Negative) Urine WBC (Auto) (0-5) /hpf Urine RBC (Auto) (0-4) /hpf U Hyaline Cast (Auto) (0-5) /lpf U Epithel Cells (Auto) (0-5) /lpf Urine Bacteria (Auto) (Negative) SARS-CoV-2 (PCR) NEGATIVE (Negative) Influenza Type A (PCR) Negative (Neg) Influenza Type B (PCR) Negative (Neg) RSV (RT-PCR) Negative (Neg) 10/19/21 10/19/21 10/19/21 Range/Units 21:19 21:19 21:19 WBC (4.8-10.8) K/uL RBC (4.2-5.4) M/uL Hgb (12.0-16.0) g/dL Hct (37-47) % MCV (80-100) fL MCH (25-34) pg MCHC (32-36) g/dL RDW Std Deviation (36.4-46.3) fL RDW Coeff of [place] (11.5-14.5) % Plt Count (130-400) K/uL MPV (7.4-10.4) fL Immature Gran % (Auto) % Neut % (Auto) % Lymph % (Auto) % [place] % (Auto) % Eos % (Auto) % Baso % (Auto) % Neut # (Auto) (1.4-6.5) K/uL Lymph # (Auto) (1.2-3.4) K/uL [place] # (Auto) (0.11-0.59) K/uL Eos # (Auto) (0-0.5) K/uL Baso # (Auto) (0-0.2) K/uL Immature Gran # (Auto) (0.00-0.02) K/uL PT INR APTT PTT Ratio D-Dimer (0-500) ug/L FEU VBG pH 7.43 H (7.36-7.41) VBG pCO2 51 H (38-50) mmHg VBG pO2 49 mmHg VBG HCO3 33 mmol/L VBG O2 Saturation 82.7 % VBG Base Excess 7.5 mEq/L Barometric Pressure 726.8 mm/Hg Sodium (136-145) mmol/L Potassium Chloride (98-107) mmol/L Carbon Dioxide (21-32) mmol/L Anion Gap (3-11) BUN (6-23) mg/dl Creatinine (0.6-1.2) mg/dl Est Cr Clr Drug Dosing Est GFR ( Amer) ml/min Est GFR (Non-Af Amer) ml/min BUN/Creatinine Ratio (10-20) Glucose (70-99(Fasting)) mg/dl Lactate 1.3 (0.4-2.0) mmol/L Calcium (8.5-10.1) mg/dl Magnesium (1.7-2.4) mg/dl Total Bilirubin (0.2-1.0) mg/dl Direct Bilirubin AST ALT (7-52) U/L Alkaline Phosphatase (34-104) U/L Troponin I High Sens (0-14) pg/ml B-Natriuretic Peptide 57 (0-100) pg/ml Total Protein (6.0-8.3) gm/dl Albumin (3.4-5.0) gm/dl Lipase (11-82) U/L Urine Color Urine Appearance (Clear) Urine pH (4.5-7.5) Ur Specific [place] (1.000-1.030) Urine Protein (Negative) Urine Glucose (UA) (Negative) Urine Ketones (Negative) Urine Blood (Negative) Urine Nitrite (Negative) Urine Bilirubin (Negative) Urine Urobilinogen (Negative) Ur Leukocyte Esterase (Negative) Urine WBC (Auto) (0-5) /hpf Urine RBC (Auto) (0-4) /hpf U Hyaline Cast (Auto) (0-5) /lpf U Epithel Cells (Auto) (0-5) /lpf Urine Bacteria (Auto) (Negative) SARS-CoV-2 (PCR) (Negative) Influenza Type A (PCR) (Neg) Influenza Type B (PCR) (Neg) RSV (RT-PCR) (Neg) 10/19/21 10/19/21 10/19/21 Range/Units 23:12 23:23 23:23 WBC (4.8-10.8) K/uL RBC (4.2-5.4) M/uL Hgb (12.0-16.0) g/dL Hct (37-47) % MCV (80-100) fL MCH (25-34) pg MCHC (32-36) g/dL RDW Std Deviation (36.4-46.3) fL RDW Coeff of [place] (11.5-14.5) % Plt Count (130-400) K/uL MPV (7.4-10.4) fL Immature Gran % (Auto) % Neut % (Auto) % Lymph % (Auto) % [place] % (Auto) % Eos % (Auto) % Baso % (Auto) % Neut # (Auto) (1.4-6.5) K/uL Lymph # (Auto) (1.2-3.4) K/uL [place] # (Auto) (0.11-0.59) K/uL Eos # (Auto) (0-0.5) K/uL Baso # (Auto) (0-0.2) K/uL Immature Gran # (Auto) (0.00-0.02) K/uL PT INR APTT PTT Ratio D-Dimer (0-500) ug/L FEU VBG pH (7.36-7.41) VBG pCO2 (38-50) mmHg VBG pO2 mmHg VBG HCO3 mmol/L VBG O2 Saturation % VBG Base Excess mEq/L Barometric Pressure mm/Hg Sodium (136-145) mmol/L Potassium 3.3 L Chloride (98-107) mmol/L Carbon Dioxide (21-32) mmol/L Anion Gap (3-11) BUN (6-23) mg/dl Creatinine (0.6-1.2) mg/dl Est Cr Clr Drug Dosing Est GFR ( Amer) ml/min Est GFR (Non-Af Amer) ml/min BUN/Creatinine Ratio (10-20) Glucose (70-99(Fasting)) mg/dl Lactate (0.4-2.0) mmol/L Calcium (8.5-10.1) mg/dl Magnesium (1.7-2.4) mg/dl Total Bilirubin (0.2-1.0) mg/dl Direct Bilirubin 0.1 AST 20 ALT (7-52) U/L Alkaline Phosphatase (34-104) U/L Troponin I High Sens 41.5 H (0-14) pg/ml B-Natriuretic Peptide (0-100) pg/ml Total Protein (6.0-8.3) gm/dl Albumin (3.4-5.0) gm/dl Lipase (11-82) U/L Urine Color Yellow Urine Appearance Clear (Clear) Urine pH 6.5 (4.5-7.5) Ur Specific [place] 1.014 (1.000-1.030) Urine Protein Negative (Negative) Urine Glucose (UA) Negative (Negative) Urine Ketones Negative (Negative) Urine Blood 2+ H (Negative) Urine Nitrite Negative (Negative) Urine Bilirubin Negative (Negative) Urine Urobilinogen Negative (Negative) Ur Leukocyte Esterase 1+ H (Negative) Urine WBC (Auto) 5-10 H (0-5) /hpf Urine RBC (Auto) 5-10 H (0-4) /hpf U Hyaline Cast (Auto) 0 (0-5) /lpf U Epithel Cells (Auto) 20-30 H (0-5) /lpf Urine Bacteria (Auto) Negative (Negative) SARS-CoV-2 (PCR) (Negative) Influenza Type A (PCR) (Neg) Influenza Type B (PCR) (Neg) RSV (RT-PCR) (Neg) Imaging Data Radiologist's Impression: PreliminaryFindingsOnly See Final Report For Complete Findings CTACHEST: No evidence for pulmonaryembolism. There is a newsmall layering right pleural effusion noted in the posterior costophrenic margin, measuring only1 cmin thickness. Subsegmental presumed atelectatic changes in the lung bases. No focal consolidation. No pneumothorax. The thoracic aorta is stable fromthe examination 09/09/2021. The cardiac chambers are enlarged but stable in appearance. No pericardial effusion. No significant mediastinal or hilar adenopathy. Similar soft tissue fullness about the right shoulder. No acute osseous abnormality. Stable scoliosis, convex right. Radiologist: Antonino Robles MD Study ready at 23:14 and initial results transmitted at 23:41 PreliminaryFindingsOnly See Final Report For Complete Findings CT HEAD: No intracranial hemorrhage. No celiac mass effect or midline shift. No evidence for cortical infarct or significant alteration fromthe examination 09/08/2021. The paranasal sinuses and mastoid air cells are well-aerated. Radiologist: Antonino Robles MD Study ready at 22:02 and initial results transmitted at 22:17 ECG Data Indication: + SOB/dyspnea Rate (beats per minute): 67 Rhythm: + normal sinus ECG Intervals/blocks: + First degree AV block, + Normal QRS and + Normal QT-c ECG ST segments: + Normal ST segments ECG Findings: + LVH MDM Narrative Vital signs stable. Labs show an elevated D-dimer level. CT of the chest negative for PE. Patient's initial troponin was 36.7 and jeremy to 41.5. Patient will be admitted to [facility] hospitalist team for further evaluation Dr. Ting Berrios is aware. Impression & Plan Dyspnea, Elevated troponin Discharge Plan Visit Data Chief Complaint: Shortness of Breath/Dyspnea ED Provider: Delvin Farrar Discharge Problem: Dyspnea, Elevated troponin Patient Disposition: Being Evaluated by Hospitalist Forms Stand Alone Forms: [facility] New KCBX Prescriptions Prescriptions: No Action citalopram 10 mg tablet 10 mg PO PM RF: 0 Myrbetriq 50 mg tablet extended release 24 hr 50 mg PO PM RF: 0 cholecalciferol (vitamin D3) [Vitamin D3] 50 mcg (2,000 unit) Tablet 50 mcg PO QAM RF: 0 atorvastatin 20 mg tablet 20 mg PO HS RF: 0 Referrals Referrals: Cayden Lowe MD [Primary Care Provider] -
[2021-10-19] MEDS ORDERED: LORazepam 2 MG/1 ML VIAL IV STA (23:29)
[2021-10-19 23:47] LABS: Appearance Urine Clear (Clear); Bacteria Urine Automated Negative (Negative); Bilirubin Urine Negative (Negative); Blood Urine 2+ (Negative); Cast Urine Automated 0 /lpf (0-5); Color Urine Yellow; Epithelial Cell Urine Auto 20-30 /lpf (0-5); Glucose Urine UA Negative (Negative); Ketones Urine Negative (Negative); Leukocyte Esterase Urine 1+ (Negative); Nitrite Urine Negative (Negative); Protein Urine Negative (Negative); Specific Gravity Urine 1.014 (1.000-1.030); Urobilinogen Urine Negative (Negative); pH Urine 6.5 (4.5-7.5)
[2021-10-19 23:59] LABS: Bilirubin Direct 0.1 mg/dl (0-0.2); Potassium 3.3 mmol/L (3.5-5.1)
[2021-10-20] MEDS ORDERED: POTASSIUM CHLORIDE PWD 20 MEQ PACK PO STA (00:06)
--- NOTE | 2021-10-20 00:08 | History & Physical Report ---
Date of Service October 20, 2021 Assessment & Plan (1) Seizure: Plan: New onset seizures hx CVA Family history of seizure disorder ? Precipitated by complicated UTI (Patient not septic for now). Troponin elevation right breast cancer status post surgery/radiation uterine cancer status post surgery bronchial asthma, stable mood disorder, stable hx Hcqklno-Lvuuz-Jeoga disease Sacral decubitus wound, present on admission Hypokalemia Possible functional disability past tobacco abuse OBS Medical telemetry Initiate Keppra Seizure precautions MRI brain, EEG for new onset seizure work-up Neurology consult Re: New onset seizures Urine CS, Ceftriaxone for now for possible complicated UTI Follow troponin, TTE if with progression Replace potassium Wound care nurse consult Re: Sacral decubitus wound PT OT eval DVT prophylaxis. Lovenox subcu DNR Patient daughter requesting updates from providers. Ms. Sasha Tilley, contact #[phone]. Patient daughter requests for patient to be set up with Dr. Machado of [facility] for PCP services upon discharge. Text document was generated using Kobojo voice recognition software. It may contain grammatical or spelling errors. Kindly contact undersigned for clarification of any documentation item in question. History of Present Illness Chief Complaint: Possible seizures as per family Primary Care Provider: Cayden Lowe MD (Patient daughter currently making arrangements to transfer care under Dr. Machado of [facility]) History obtained from patient family and records. Unable to obtain history from patient secondary to obtunded state post Ativan administration at the ER. Medical history significant for CVA, right breast cancer status post surgery/radiation, uterine cancer status post surgery, bronchial asthma, mood disorder, urinary incontinence, Xfptqfu-Egoar-Emxez disease, past tobacco abuse. Last confinement last month for traumatic left iliopsoas muscle hematoma. No surgical intervention. Patient also seen by Neurology for chronic lacunar infarct on MRI. Aspirin and Lipitor prescribed on discharge. Patient initially discharged to rehab before moving in with her daughter. Last night, patient noted by daughter to have seizure-like activity, rigidity followed by shaking with patient staring blankly into space. Episode lasted about 2 minutes. Patient somewhat confused after episode. No tongue biting or incontinence. No prior episodes. Patient daughter familiar with seizures with herself (when she was younger) and her daughter having seizure history. Patient later on complained of shortness of breath At the ER, patient noted to have shaking episode again terminated by low-dose IV Ativan administration at the ER. 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 Allergies Allergy/AdvReac Type Severity Reaction Status Date / Time shellfish derived Allergy Severe LOBSTER: Verified 10/19/21 22:50 almost acetaminophen [From Tylenol] Allergy Rash Unverified 10/19/21 22:50 Home Medications Medication Instructions Recorded Confirmed Type citalopram 10 mg tablet 10 mg PO PM 09/09/21 10/19/21 History mirabegron 50 mg tablet,extended 50 mg PO PM 09/09/21 10/19/21 History release 24 hr (Myrbetriq) atorvastatin 20 mg tablet 20 mg PO HS 10/19/21 10/19/21 History cholecalciferol (vitamin D3) 50 50 mcg PO QAM 10/19/21 10/19/21 History mcg (2,000 unit) tablet (Vitamin D3) Past Med/Surg History Medical History (Updated 10/20/21 @ 05:42 by Cortez Dye MD) CMT (Rwbsasj-Axvft-Hybau disease) CVA (cerebral vascular accident) HLD (hyperlipidemia) Left leg swelling No pertinent family history Surgical History (Updated 10/19/21 @ 23:32 by Delvin Farrar) No pertinent past surgical history Social History Smoking Status: Never smoker Hx Alcohol Use: No Hx Substance Use: No Preferred Language: Malay Communication Ability: Effective Machine Driller Required: No Beliefs That Will Affect Care: None Current Living Situation: Family Other Information That Helps Us Care for You: No Feels Safe at Home: Yes Safety Concerns: Feels Safe At This Time Assistive Devices: Hearing Aid - Bilateral and Wheelchair Review of Systems Review of Systems: Could not be reliably obtained secondary to obtunded state Physical Exam Physical Exam: GENERAL: Obtunded, no respiratory distress SKIN: Normal color, warm HEENT: [place] palpebral conjunctivae, no ptosis, edentulous, dry buccal mucosa NECK : Supple, no tenderness CHEST : Decreased breath sounds, no tenderness HEART : RRR, no obvious murmurs ABDOMEN: Some distention, nontender EXTREMITIES : Minimal LE swelling, no LE tenderness NEUROLOGIC : Obtunded, no facial asymmetry, gait and stance not assessed Results & Data Results & Data ([facility]) Vital Signs (Past 12 Hours) Vital Signs Temp Pulse Pulse Resp BP BP Pulse Ox 10/19/21 23:19 93 H 22 134/83 93 10/19/21 23:00 87 20 132/76 91 10/19/21 21:21 91 10/19/21 21:20 78 20 92 10/19/21 20:46 36.8 C 69 20 132/76 92 Laboratory Results Laboratory Results WBC 9.52 K/uL (4.8-10.8) 10/19/21 20:20 RBC 5.32 M/uL (4.2-5.4) 10/19/21 20:20 Hgb 15.5 g/dL (12.0-16.0) 10/19/21 20:20 Hct 47.8 % (37-47) H 10/19/21 20:20 MCV 89.8 fL (80-100) 10/19/21 20:20 MCH 29.1 pg (25-34) 10/19/21 20:20 MCHC 32.4 g/dL (32-36) 10/19/21 20:20 RDW Std Deviation 48.1 fL (36.4-46.3) H 10/19/21 20:20 RDW Coeff of [place] 14.7 % (11.5-14.5) H 10/19/21 20:20 Plt Count 229 K/uL (130-400) 10/19/21 20:20 MPV 10.8 fL (7.4-10.4) H 10/19/21 20:20 Immature Gran % (Auto) 0.1 % 10/19/21 20:20 Neut % (Auto) 61.2 % 10/19/21 20:20 Lymph % (Auto) 27.2 % 10/19/21 20:20 [place] % (Auto) 8.8 % 10/19/21 20:20 Eos % (Auto) 2.3 % 10/19/21 20:20 Baso % (Auto) 0.4 % 10/19/21 20:20 Neut # (Auto) 5.82 K/uL (1.4-6.5) 10/19/21 20:20 Lymph # (Auto) 2.59 K/uL (1.2-3.4) 10/19/21 20:20 [place] # (Auto) 0.84 K/uL (0.11-0.59) H 10/19/21 20:20 Eos # (Auto) 0.22 K/uL (0-0.5) 10/19/21 20:20 Baso # (Auto) 0.04 K/uL (0-0.2) 10/19/21 20:20 Immature Gran # (Auto) 0.01 K/uL (0.00-0.02) 10/19/21 20:20 PT 11.2 Seconds (9.0-12.0) 10/19/21 20:20 PT Cancelled 10/19/21 20:20 INR 1.1 (0.9-1.1) 10/19/21 20:20 INR Cancelled 10/19/21 20:20 APTT 25.5 Seconds (21.0-31.0) 10/19/21 20:20 APTT Cancelled 10/19/21 20:20 PTT Ratio 0.9 10/19/21 20:20 PTT Ratio Cancelled 10/19/21 20:20 D-Dimer 690 ug/L FEU (0-500) H* 10/19/21 20:20 VBG pH 7.43 (7.36-7.41) H 10/19/21 21:19 VBG pCO2 51 mmHg (38-50) H 10/19/21 21:19 VBG pO2 49 mmHg 10/19/21 21:19 VBG HCO3 33 mmol/L 10/19/21 21:19 VBG O2 Saturation 82.7 % 10/19/21 21:19 VBG Base Excess 7.5 mEq/L 10/19/21 21:19 Barometric Pressure 726.8 mm/Hg 10/19/21 21:19 Sodium 140 mmol/L (136-145) 10/19/21 20:20 Potassium 3.3 mmol/L (3.5-5.1) L 10/19/21 23:23 Chloride 99 mmol/L (98-107) 10/19/21 20:20 Carbon Dioxide 33 mmol/L (21-32) H 10/19/21 20:20 Anion Gap 8 (3-11) 10/19/21 20:20 BUN 16 mg/dl (6-23) 10/19/21 20:20 Creatinine 0.29 mg/dl (0.6-1.2) L 10/19/21 20:20 Est Cr Clr Drug Dosing Not Reportable 10/19/21 20:20 Est GFR ( Amer) 126.7 ml/min 10/19/21 20:20 Est GFR (Non-Af Amer) 109.4 ml/min 10/19/21 20:20 BUN/Creatinine Ratio 55.2 (10-20) H 10/19/21 20:20 Glucose 99 mg/dl (70-99(Fasting)) 10/19/21 20:20 Lactate 1.3 mmol/L (0.4-2.0) 10/19/21 21:19 Calcium 9.3 mg/dl (8.5-10.1) 10/19/21 20:20 Magnesium 2.0 mg/dl (1.7-2.4) 10/19/21 20:20 Total Bilirubin 0.6 mg/dl (0.2-1.0) 10/19/21 20:20 Direct Bilirubin 0.1 mg/dl (0-0.2) 10/19/21 23:23 AST 20 U/L (13-39) 10/19/21 23:23 ALT 18 U/L (7-52) 10/19/21 20:20 Alkaline Phosphatase 78 U/L (34-104) 10/19/21 20:20 Troponin I High Sens 36.7 pg/ml (0-14) H 10/19/21 20:20 B-Natriuretic Peptide 57 pg/ml (0-100) 10/19/21 21:19 Total Protein 6.4 gm/dl (6.0-8.3) 10/19/21 20:20 Albumin 3.7 gm/dl (3.4-5.0) 10/19/21 20:20 Lipase 46 U/L (11-82) 10/19/21 20:20 Urine Color Yellow 10/19/21 23:12 Urine Appearance Clear (Clear) 10/19/21 23:12 Urine pH 6.5 (4.5-7.5) 10/19/21 23:12 Ur Specific Alexis 1.014 (1.000-1.030) 10/19/21 23:12 Urine Protein Negative (Negative) 10/19/21 23:12 Urine Glucose (UA) Negative (Negative) 10/19/21 23:12 Urine Ketones Negative (Negative) 10/19/21 23:12 Urine Blood 2+ (Negative) H 10/19/21 23:12 Urine Nitrite Negative (Negative) 10/19/21 23:12 Urine Bilirubin Negative (Negative) 10/19/21 23:12 Urine Urobilinogen Negative (Negative) 10/19/21 23:12 Ur Leukocyte Esterase 1+ (Negative) H 10/19/21 23:12 Urine WBC (Auto) 5-10 /hpf (0-5) H 10/19/21 23:12 Urine RBC (Auto) 5-10 /hpf (0-4) H 10/19/21 23:12 U Hyaline Cast (Auto) 0 /lpf (0-5) 10/19/21 23:12 U Epithel Cells (Auto) 20-30 /lpf (0-5) H 10/19/21 23:12 Urine Bacteria (Auto) Negative (Negative) 10/19/21 23:12 SARS-CoV-2 (PCR) NEGATIVE (Negative) 10/19/21 21:05 Influenza Type A (PCR) Negative (Neg) 10/19/21 21:05 Influenza Type B (PCR) Negative (Neg) 10/19/21 21:05 RSV (RT-PCR) Negative (Neg) 10/19/21 21:[address] head initial read: No intracranial hemorrhage. No celiac mass effect or midline shift. No evidence for cortical infarct or significant alteration from the examination 09/08/2021. The paranasal sinuses and mastoid air cells are well-aerated. CT chest initial read: There is a new small layering right pleural effusion noted in the posterior costophrenic margin, measuring only 1 cm in thickness. Subsegmental presumed atelectatic changes in the lung bases. No focal consolidation. No pneumothorax. The thoracic aorta is stable from the examination 09/09/2021. The cardiac chambers are enlarged but stable in appearance. No pericardial effusion. No significant mediastinal or hilar adenopathy. Similar soft tissue fullness about the right shoulder. No acute osseous abnormality. Stable scoliosis, convex right. EKG as per my interpretation:Rate 65, NSR, LAD, LAFB, LVH, no ischemia
[2021-10-20] MEDS ORDERED: LACTATED RINGER'S 1,000 ML IV ONE (02:48)
[2021-10-20] MEDS ORDERED: levETIRAcetam 1,000 MG in 0.9 % SODIUM CHLORIDE 100 ML IV STA (03:13)
[2021-10-20] MEDS ORDERED: cefTRIAXone SODIUM 1,000 MG in DEXTROSE 5% 50 ML IV STA (03:18)
[2021-10-20] MEDS ORDERED: GADOBUTROL 65ML VIAL IV ONE (04:42)
[2021-10-20] MEDS ORDERED: POTASSIUM CHLORIDE / WTR 10 MEQ/100 ML PLCT IV SCH (05:32)
[2021-10-20] MEDS ORDERED: Patient's HEIGHT &/or WEIGHT Needed SCH (05:45)
[2021-10-20] MEDS: POTASSIUM CHLORIDE / WTR 10 MEQ/100 ML PLCT IV SCH ×2 (06:04→07:46)
--- NOTE | 2021-10-20 07:00 | CT Scan Report ---
CT head/brain wo con CLINICAL HISTORY: 81 years-old Female with ams. Acutely altered mental status TECHNIQUE: Multiple axial CT images of the head were obtained without contrast. A dose lowering tech nique was utilized adhering to the principles of ALARA. CT DOSE: 614.27 mGy.cm COMPARISON: Brain MRI of same day. FINDINGS: No acute intracranial hemorrhage, midline shift, intracranial mass, hydrocephalus, territorial ischem ia or abnormal extra-axial collection. White matter hypodensities are suggestive of chronic microvasc ular ischemic disease. Age-related involutional changes. The calvarium is intact. Hyperostosis frontalis interna. Prior bilateral lens replacement. The parana lanie sinuses, mastoid air cells, and middle ear cavities are clear. IMPRESSION: No acute intracranial abnormality. ACT 112: Negative or not required by law. The above report was generated using voice recognition software. It may contain grammatical, syntax o r spelling errors. Electronically signed by: Morris Maldonado M.D. 10/20/2021 6:59 AM
[2021-10-20 07:44] LABS: Basophils # (auto) 0.03 K/uL (0-0.2); Basophils % (auto) 0.5 %; Eosinophils % (auto) 3.1 %; Hematocrit (blood only) 40.6 % (37-47); Hemoglobin 13.2 g/dL (12.0-16.0); Immature Granulocytes # (auto) 0.01 K/uL (0.00-0.02); Immature Granulocytes % (auto) 0.2 %; Lymphocytes # (auto) 2.12 K/uL (1.2-3.4); Lymphocytes % (auto) 33.3 %; Mean Corpuscular Hemoglobin 29.1 pg (25-34); Mean Corpuscular Hgb Conc 32.5 g/dL (32-36); Mean Corpuscular Volume 89.4 fL (80-100); Mean Platelet Volume 10.2 fL (7.4-10.4); Monocytes # (auto) 0.69 K/uL (0.11-0.59); Monocytes % (auto) 10.8 %; Neutrophils # (auto) 3.31 K/uL (1.4-6.5); Neutrophils % (auto) 52.1 %; Platelet Count 194 K/uL (130-400); RDW Coefficient of Variation 14.7 % (11.5-14.5); RDW Standard Deviation 48.5 fL (36.4-46.3); Red Blood Count 4.54 M/uL (4.2-5.4); White Blood Count 6.36 K/uL (4.8-10.8)
--- NOTE | 2021-10-20 07:45 | XRay Report ---
XR chest 1V portable CLINICAL HISTORY: Shortness of breath. COMPARISON STUDY: Chest radiograph September 08, 2021. Chest CT September 19, 2021. FINDINGS: Severe scoliosis is again noted. No pneumothorax or pleural effusion is noted. Opacity viktoria g the left heart border is due to epicardial fat pad, shown on prior chest CT. Cardiomegaly is unchan ged. No evidence for pulmonary edema. The appearance of the chest is similar to prior exam. Mild left basilar opacity favors atelectasis. IMPRESSION: No acute cardiopulmonary findings. No significant change in appearance of the chest. Sco liosis. ACT 112: Negative or not required by law. Electronically signed by: Andrea Schwarz M.D. 10/20/2021 7:44 AM
[2021-10-20] MEDS: ASPIRIN 81 MG ECTAB PO SCH (07:46)
[2021-10-20] MEDS: ENOXAPARIN INJ 30 MG/0.3 ML SYR SQ SCH (07:47)
[2021-10-20 08:17] LABS: BUN Creatinine Ratio 46.4 (10-20); Calcium 8.5 mg/dl (8.5-10.1); Creatinine Clr Calc Pharmacy 143.1 ml/min; Est GFR (African American) 128.2 ml/min; Est GFR (Non-African American) 110.6 ml/min; Potassium 3.4 mmol/L (3.5-5.1)
--- NOTE | 2021-10-20 08:18 | CT Scan Report ---
CT ANGIOGRAPHY OF THE CHEST, PULMONARY EMBOLUS PROTOCOL CLINICAL HISTORY: Shortness of breath. Evaluate for pulmonary embolus. COMPARISON STUDY: Chest CT September 19, 2021. Chest radiograph performed earlier today. TECHNIQUE: Following IV administration of 98 mL of Optiray, helical axial images of the chest were ob tained utilizing the pulmonary embolus protocol. Maximal intensity projections and sagittal and austin nal reformats were viewed on an independent 3D workstation. IV contrast was administered without com plication. Automated exposure control was utilized for the study. A dose lowering technique was uti lized adhering to the principles of ALARA. CT DOSE: 580.60 mGy.cm FINDINGS: No pulmonary emboli are identified although segmental and subsegmental pulmonary arteries are suboptimally assessed due to respiratory motion, particularly within the left lung. Cardiomegaly is noted. There is no pericardial effusion. No thoracic aortic dissection is present. No enlarged axi llary, mediastinal or hilar lymph nodes are noted. A small right pleural effusion is noted. There is no pneumothorax. No consolidation is identified to suggest pneumonia. Linear and groundglass opacitie s favor atelectasis. Severe dextroscoliosis of the thoracic spine is again noted. Gallbladder is surg ically absent. IMPRESSION: 1. No pulmonary emboli identified although segmental and subsegmental pulmonary arteries suboptimally assessed due to respiratory motion. 2. Small right pleural effusion. 3. No consolidation to suggest pneumonia. 4. Dextroscoliosis of the thoracic spine. ACT 112: Negative or not required by law. Electronically signed by: Andrea Schwarz M.D. 10/20/2021 8:17 AM
--- NOTE | 2021-10-20 08:51 | Magnetic Resonance Report ---
Brain MRI WITH AND WITHOUT CONTRAST HISTORY: Seizure. TECHNIQUE: Multiplanar multisequence MRI of the brain was performed both before and after the intrave nous administration of contrast. COMPARISON STUDY: Head CT 10/19/2021. FINDINGS: There is no mass, hematoma, midline shift, or acute infarct. The paranasal sinuses are aureliano r. The mastoid air cells are clear. The ventricles and sulci demonstrate mild age-related involutiona l changes. Scattered foci of T2 hyperintensity seen within the periventricular and subcortical white matter are nonspecific but suggestive of mild microvascular ischemic changes. The major vascular flow voids at the skull base are well-maintained. Old right basal ganglia infarct again noted. Evidence f or prior bilateral lens replacement. IMPRESSION: No acute intracranial abnormality. Scattered foci of T2 hyperintensity seen within the periventricula r and subcortical white matter are nonspecific but favor microvascular ischemic change. ACT 112: Negative or not required by law. Electronically signed by: Rakesh Barragan M.D. 10/20/2021 8:50 AM
--- NOTE | 2021-10-20 10:06 | Ultrasound Report ---
LEFT LOWER EXTREMITY ARTERIAL DOPPLER ULTRASOUND CLINICAL HISTORY: Left lower extremity. COMPARISON STUDY: CT of the left femur September 19, 2021. TECHNIQUE: Ankle to brachial indices were obtained. Color and duplex Doppler sonography of the left l ower extremity arterial system was then performed. FINDINGS: The right ankle-brachial index measured 0.91. The left ankle to brachial index measured 0.8 6. Mild atherosclerotic plaque was noted within the left lower extremity. No elevated velocities were identified. There was biphasic flow within the left common femoral as well as the proximal left supe rficial femoral arteries. There was monophasic flow within the mid to distal left superficial femoral artery, popliteal, anterior tibial, posterior tibial, peroneal and dorsalis pedis vessels. IMPRESSION: 1. Mildly diminished left ankle to brachial index of 0.86. 2. Mild atherosclerotic plaque within the left lower extremity. No evidence for a hemodynamically sig nificant stenosis. Patent vessels. 3. Monophasic flow within the left superficial femoral and popliteal arteries as well as the left dayami f vessels. ACT 112: Negative or not required by law. Electronically signed by: Andrea Schwarz M.D. 10/20/2021 10:04 AM
[2021-10-20] MEDS: MICONAZOLE NITRATE POWDER 43 GM EXT SCH ×2 (11:01→20:29)
--- NOTE | 2021-10-20 11:17 | Neurology Consultation ---
Date of Consultation October 20, 2021 Assessment & Plan (1) Seizure: 1. keppra 250 mg q 12 hours 2. EEG- no seizure focus 3. MRI no seizure focus 4. no driving for 6 months from last seizure date, no heights, no bathing or swimming alone 5. PT/OT - discharge needs 6. fall precautions/seizure precautions 7. follow up in 4-6 weeks after discharge. (2) Left leg weakness: 1. ongoing issues - previous rehab Supervising Physician Co-Signing Physician Notes I have seen and discussed above patient with Dr Luis Garcia, neurology I have reviewed this case examined the patient in the presence of Nicole Barrios PA-C discussed the case in detail with her and reviewed the admission notes. Unfortunate the patient has no recall of the events of last night when her daughter observed seizure-like activity and the history as recorded is fairly convincing. Patient did not have any lingual or buccal lacerations did not apparently lose control of her bowel or bladder but is pretty amnestic and is otherwise reasonably clear in terms of her medical history and recent medical problems including the history of her Mmaclnt-Ppmao-Rycxo disease Imaging studies have shown no new infarctions only the old subcortical white matter disease and there is no evidence for metastatic deposit and while EEG is normal I would not use this is a reason not to treat her with anticonvulsants. At this point I am going to make the diagnosis of a seizure and at her age with other intercurrent medical problems she is at high risk for recurrent events. We have no metabolic or toxic explanation for the current seizures so I think treatment with Keppra is reasonable as long as she can tolerate it in terms of behavioral issues. Her current dose of 500 mg twice a day is reasonable for a person with a larger frame and of lesser age so we are going to reduce the dose to 250 mg twice a day and unless there are medical reasons to keep her in the hospital I think she probably could be discharged sometime over the weekend with follow-up in our office at [facility] at which point we can review how she is tolerating the Keppra and consider the option of a 72-hour EEG Exam shows her to be actually fairly alert oriented and to have typical manifestations of a severe polyneuropathy affecting arms and legs in a somewhat length dependent fashion but with bilateral anterior compartment atrophy and atrophy of hand muscles, with areflexia and certainly high arched feet which all would support the 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 1 drop the Keppra dose to 250 mg twice a day and to follow-up in our clinic in about 4 to 6 weeks Luis Garcia MD The above note was generated utilizing voice recognition technology and may have spelling errors punctuation errors pronoun usage errors and syntax errors History of Present Illness Reason for Consultation: seizure Requesting Physician: Kenney Knox MD Attending Physician: Kenney Knox MD History of Present Illness Alanna is an 81 year old female with PMH- CVA, right breast cancer status post surgery/radiation, uterine cancer status post surgery, bronchial asthma, mood disorder, urinary incontinence, Rycunyg-Cszue-Wzapf disease, past tobacco abuse.post surgery, bronchial asthma, mood disorder, urinary incontinence, Pdtqopk-Ygpaa-Ekrnt disease, past tobacco abuse. She was seen at [facility] 09/09/21 for a traumatic left iliopsoas muscle hematoma and a chronic lacunar infarct on MRI. Aspirin and Lipitor was started and she was discharged to rehab. Her daughter noticed she was having seizure-like activity, rigidity followed by shaking with patient staring blankly into space. Episode lasted about 2 minutes. Patient somewhat confused after episode. No tongue biting or incontinence. No prior episodes. Patient daughter familiar with seizures with herself (when she was younger) and her daughter having seizure history. She does not remember anything about the seizure but remembers coming in the ambulance but did not bite her tongue or loose bowel or bladder. denies CP, SOB, abdominal pain, N, V, but does have a reduced appetite. Allergies Allergy/AdvReac Type Severity Reaction Status Date / Time shellfish derived Allergy Severe LOBSTER: Verified 10/19/21 22:50 almost acetaminophen [From Tylenol] Allergy Rash Unverified 10/19/21 22:50 Home Medications Medication Instructions Recorded Confirmed Type citalopram 10 mg tablet 10 mg PO PM 09/09/21 10/19/21 History mirabegron 50 mg tablet,extended 50 mg PO PM 09/09/21 10/19/21 History release 24 hr (Myrbetriq) atorvastatin 20 mg tablet 20 mg PO HS 10/19/21 10/19/21 History cholecalciferol (vitamin D3) 50 50 mcg PO QAM 10/19/21 10/19/21 History mcg (2,000 unit) tablet (Vitamin D3) Patient History Medical History (Updated 10/20/21 @ 05:42 by Cortez Dye MD) CMT (Ztdunse-Xijgl-Bnicc disease) CVA (cerebral vascular accident) HLD (hyperlipidemia) Left leg swelling No pertinent family history Surgical History (Updated 10/19/21 @ 23:32 by Delvin Farrar) No pertinent past surgical history Social History Smoking Status: Never smoker Hx Alcohol Use: No Hx Substance Use: No Preferred Language: Mohawk Communication Ability: Unable Manager Of Hospital Required: No Beliefs That Will Affect Care: None marital status: / Current Living Situation: Family Other Information That Helps Us Care for You: No Feels Safe at Home: Yes Safety Concerns: Feels Safe At This Time Assistive Devices: Crutches and Wheelchair Review of Systems Review of Systems: All systems reviewed & are unremarkable except as noted in HPI & below Physical Exam Physical Exam: Physical Exam: Constitutional: appearance over nourished, healthy Ears, Nose, Mouth and Throat: mucous membranes moist, no injection and skin normal, eyes normal Cardiovascular: normal S-1 and S-2 and regular rate and rhythm Respiratory: course breath sound Musculoskeletal: no peripheral edema decreased distal pulses, severe muscle tone loss and atrophy, left ankle fusion, right ankle unable to plantar flex Skin: no stigmata of neurocutaneous disease noted and normal and intact Eyes: extraocular muscles intact (EOMI) and pupils equal, round and reactive to light (PERRL) NEUROLOGIC EXAMINATION: Mental status: Alert and interactive Oriented to person Speech fluent with no evidence of aphasia Cranial Nerves facial symmetry Reflexes: Deep tendon reflexes were absent Gait/Stance: Posture sitting bedside Motor: moves all extremites spontaneously Strength: deconditioned Results & Data ([facility]) Vital Signs (Past 12 Hours) Vital Signs Temp Pulse Pulse Resp BP BP Pulse Ox 10/20/21 11:04 36.6 C 62 16 132/70 93 10/20/21 08:22 36.7 C 71 20 124/78 95 10/20/21 07:03 64 10/20/21 05:32 05/20/22 05:00 36.7 C 68 20 147/78 H 95 10/20/21 01:30 66 20 102/53 L 93 10/20/21 01:00 67 22 97/54 L 93 10/20/21 00:30 70 22 121/64 93 10/20/21 00:00 83 22 111/63 93 10/19/21 23:19 93 H 22 134/83 93 Pulse Ox 10/20/21 11:04 10/20/21 08:22 10/20/21 07:03 10/20/21 05:32 97 10/20/21 05:00 10/20/21 01:30 10/20/21 01:00 10/20/21 00:30 10/20/21 00:00 10/19/21 23:19 Laboratory Results Abnormal lab results 10/19/21 10/19/21 10/19/21 Range/Units 20:20 20:20 20:20 Hct 47.8 H (37-47) % RDW Std Deviation 48.1 H (36.4-46.3) fL RDW Coeff of Clayton 14.7 H (11.5-14.5) % MPV 10.8 H (7.4-10.4) fL Bond # (Auto) 0.84 H (0.11-0.59) K/uL D-Dimer 690 H* (0-500) ug/L FEU VBG pH (7.36-7.41) VBG pCO2 (38-50) mmHg Potassium (3.5-5.1) mmol/L Carbon Dioxide 33 H (21-32) mmol/L Creatinine 0.29 L (0.6-1.2) mg/dl BUN/Creatinine Ratio 55.2 H (10-20) Glucose (70-99(Fasting)) mg/dl POC Glucose (70-99) mg/dl Troponin I High Sens (0-14) pg/ml Urine Blood (Negative) Ur Leukocyte Esterase (Negative) Urine WBC (Auto) (0-5) /hpf Urine RBC (Auto) (0-4) /hpf U Epithel Cells (Auto) (0-5) /lpf 10/19/21 10/19/21 10/19/21 Range/Units 20:20 21:18 21:19 Hct (37-47) % RDW Std Deviation (36.4-46.3) fL RDW Coeff of Clayton (11.5-14.5) % MPV (7.4-10.4) fL Bond # (Auto) (0.11-0.59) K/uL D-Dimer (0-500) ug/L FEU VBG pH 7.43 H (7.36-7.41) VBG pCO2 51 H (38-50) mmHg Potassium (3.5-5.1) mmol/L Carbon Dioxide (21-32) mmol/L Creatinine (0.6-1.2) mg/dl BUN/Creatinine Ratio (10-20) Glucose (70-99(Fasting)) mg/dl POC Glucose 102 H (70-99) mg/dl Troponin I High Sens 36.7 H (0-14) pg/ml Urine Blood (Negative) Ur Leukocyte Esterase (Negative) Urine WBC (Auto) (0-5) /hpf Urine RBC (Auto) (0-4) /hpf U Epithel Cells (Auto) (0-5) /lpf 10/19/21 10/19/21 10/19/21 Range/Units 23:12 23:23 23:23 Hct (37-47) % RDW Std Deviation (36.4-46.3) fL RDW Coeff of Clayton (11.5-14.5) % MPV (7.4-10.4) fL Bond # (Auto) (0.11-0.59) K/uL D-Dimer (0-500) ug/L FEU VBG pH (7.36-7.41) VBG pCO2 (38-50) mmHg Potassium 3.3 L (3.5-5.1) mmol/L Carbon Dioxide (21-32) mmol/L Creatinine (0.6-1.2) mg/dl BUN/Creatinine Ratio (10-20) Glucose (70-99(Fasting)) mg/dl POC Glucose (70-99) mg/dl Troponin I High Sens 41.5 H (0-14) pg/ml Urine Blood 2+ H (Negative) Ur Leukocyte Esterase 1+ H (Negative) Urine WBC (Auto) 5-10 H (0-5) /hpf Urine RBC (Auto) 5-10 H (0-4) /hpf U Epithel Cells (Auto) 20-30 H (0-5) /lpf 10/19/21 10/20/21 10/20/21 Range/Units 23:52 03:49 07:30 Hct (37-47) % RDW Std Deviation 48.5 H (36.4-46.3) fL RDW Coeff of Clayton 14.7 H (11.5-14.5) % MPV (7.4-10.4) fL Bond # (Auto) 0.69 H (0.11-0.59) K/uL D-Dimer (0-500) ug/L FEU VBG pH (7.36-7.41) VBG pCO2 (38-50) mmHg Potassium (3.5-5.1) mmol/L Carbon Dioxide (21-32) mmol/L Creatinine (0.6-1.2) mg/dl BUN/Creatinine Ratio (10-20) Glucose (70-99(Fasting)) mg/dl POC Glucose 102 H (70-99) mg/dl Troponin I High Sens 41.4 H (0-14) pg/ml Urine Blood (Negative) Ur Leukocyte Esterase (Negative) Urine WBC (Auto) (0-5) /hpf Urine RBC (Auto) (0-4) /hpf U Epithel Cells (Auto) (0-5) /lpf 10/20/21 Range/Units 07:30 Hct (37-47) % RDW Std Deviation (36.4-46.3) fL RDW Coeff of Clayton (11.5-14.5) % MPV (7.4-10.4) fL Bond # (Auto) (0.11-0.59) K/uL D-Dimer (0-500) ug/L FEU VBG pH (7.36-7.41) VBG pCO2 (38-50) mmHg Potassium 3.4 L (3.5-5.1) mmol/L Carbon Dioxide 35 H (21-32) mmol/L Creatinine 0.28 L (0.6-1.2) mg/dl BUN/Creatinine Ratio 46.4 H (10-20) Glucose 110 H (70-99(Fasting)) mg/dl POC Glucose (70-99) mg/dl Troponin I High Sens (0-14) pg/ml Urine Blood (Negative) Ur Leukocyte Esterase (Negative) Urine WBC (Auto) (0-5) /hpf Urine RBC (Auto) (0-4) /hpf U Epithel Cells (Auto) (0-5) /lpf Diagnostic Findings CXR-No acute cardiopulmonary findings. No significant change in appearance of the chest. Scoliosis. CT head-No acute intracranial abnormality. CTA chest-No pulmonary emboli identified although segmental and subsegmental pulmonary arteries suboptimally assessed due to respiratory motion. . Small right pleural effusion. No consolidation to suggest pneumonia. Dextroscoliosis of the thoracic spine .MRI brain-No acute intracranial abnormality. Scattered foci of T2 hyperintensity seen within the periventricular and subcortical white matter are nonspecific but favor microvascular ischemic change. LE doppler-. Mildly diminished left ankle to brachial index of 0.86.2. Mild atherosclerotic plaque within the left lower extremity. No evidence for a hemodynamically significant stenosis. Patent vessels. Monophasic flow within the left superficial femoral and popliteal arteries as well as the left calf vessels. EEG-This is a normal EEG revealing no evidence for focal or generalized encephalopathy no evidence for potentially epileptogenic activity but the absence of the latter does not exclude the diagnosis of a seizure disorder and clinical correlation is required
--- NOTE | 2021-10-20 12:34 | Electroencephalogram ---
EEG Procedure Note Date of Service October 20, 2021 Start / End Times Start Time: 1006 End Time: 10 Referring Physician Luis Garcia MD History seizure-like activity Home Medication List Medication Instructions Recorded Confirmed Type citalopram 10 mg tablet 10 mg PO PM 09/09/21 10/19/21 History mirabegron 50 mg tablet,extended 50 mg PO PM 09/09/21 10/19/21 History release 24 hr (Myrbetriq) atorvastatin 20 mg tablet 20 mg PO HS 10/19/21 10/19/21 History cholecalciferol (vitamin D3) 50 50 mcg PO QAM 10/19/21 10/19/21 History mcg (2,000 unit) tablet (Vitamin D3) Inpatient Medication List Aspirin (Aspirin 81 Mg Ectab) 81 mg PO [facility] Stop: 11/19/21 08:59 Last Admin: 10/20/21 07:46 Dose: 81 mg Documented by: [id number] Enoxaparin Sodium (Enoxaparin Inj 30 Mg/0.3 Ml Syr) 30 mg SQ [facility] Stop: 11/19/21 08:59 Last Admin: 10/20/21 07:47 Dose: 30 mg Documented by: [id number] Lactated Ringer's (Lr) 1,000 mls @ 80 mls/hr IV .[id number] ONE Stop: 10/20/21 15:17 Last Admin: 10/20/21 03:06 Dose: 80 mls/hr Documented by: [id number] Miconazole Nitrate (Miconazole Nitrate Powder 43 Gm) 1 appln EXT BID GINA Stop: 11/19/21 06:44 Last Admin: 10/20/21 11:01 Dose: 1 appln Documented by: [id number] Discontinued Medications Gadobutrol (Gadobutrol 65ml Vial) 7.5 ml IV ONCE ONE Stop: 10/20/21 04:43 Last Admin: 10/20/21 04:43 Dose: 7.5 ml Documented by: [id number] Levetiracetam 1,000 mg/ Sodium (Chloride) 110 mls @ 440 mls/hr IV NOW STA Stop: 10/20/21 03:27 Last Infusion: 10/20/21 04:11 Dose: 0 mls/hr Documented by: [id number] Admin: 10/20/21 03:38 Dose: 440 mls/hr Documented by: [id number] Ceftriaxone Sodium 1,000 mg/ (Dextrose) 60 mls @ 120 mls/hr IV NOW STA Stop: 10/20/21 03:47 Last Infusion: 10/20/21 07:26 Dose: 0 mls/hr Documented by: [id number] Admin: 10/20/21 06:04 Dose: 120 mls/hr Documented by: [id number] Potassium Chloride (K Kendell / Wtr) 10 meq in 100 mls @ 100 mls/hr IV Q1H GINA; Protocol Stop: 10/20/21 05:29 Last Infusion: 10/20/21 11:00 Dose: 0 mls/hr Documented by: [id number] Admin: 10/20/21 07:46 Dose: 100 mls/hr Documented by: [id number] Infusion: 10/20/21 07:04 Dose: 100 mls/hr Documented by: [id number] Admin: 10/20/21 06:04 Dose: 100 mls/hr Documented by: [id number] Potassium Chloride (K Kendell / Wtr) 10 meq in 100 mls @ 100 mls/hr IV Q1H GINA; Protocol Stop: 10/20/21 07:31 Last Admin: 10/20/21 06:18 Dose: Not Given Documented by: [id number] Ioversol (Optiray 320 125ml) 125 ml IV ONCE ONE Stop: 10/19/21 23:08 Last Admin: 10/19/21 23:07 Dose: 98 ml Documented by: [id number] Lorazepam (Lorazepam 2 Mg/1 Ml Vial) 0.25 mg IV NOW STA Stop: 10/19/21 23:30 Last Admin: 10/19/21 23:46 Dose: 0.25 mg Documented by: [id number] Miscellaneous (Patient's Height &/Or Weight Needed) 1 ea N/A Q2H GINA Stop: 11/19/21 05:44 Last Admin: 10/20/21 06:18 Dose: Not Given Documented by: [id number] Potassium Chloride (Potassium Chloride Pwd 20 Meq Pack) 40 meq PO NOW STA Stop: 10/20/21 00:07 Last Admin: 10/20/21 06:18 Dose: Not Given Documented by: [id number] Description This is a 21 electrode EEG with a single channel dedicated to limited EKG. The electrodes were placed in accordance with the International 10-20 system. this EEG was done is a bedside recording is of good technical quality with few or no muscle movement artifacts. Video analysis patient moved behavior was obtained. Photic stimulation was performed. Drowsiness and light sleep were not recorded. Under these conditions there is evidence for a normal-appearing background rhythm in the alpha range of up to 9-10 hertz maximum frequency which is symmetrical in posterior head regions. Polymorphic mid frequency theta activity seen centrally and symmetrically. Beta activity seen bifrontally Photic stimulation evokes a minimal driving response no potentially epileptogenic discharges are seen Interpretation normal EEG during wakefulness Clinical Correlation This is a normal EEG revealing no evidence for focal or generalized encephalopathy no evidence for potentially epileptogenic activity but the absence of the latter does not exclude the diagnosis of a seizure disorder and clinical correlation is required Luis Garcia MD
--- NOTE | 2021-10-20 18:08 | Electrocardiogram Report ---
Test Reason : Blood Pressure : / mmHG Vent. Rate : 067 BPM Atrial Rate : 067 BPM P-R Int : 202 ms QRS Dur : 110 ms QT Int : 436 ms P-R-T Axes : 046 -44 064 degrees QTc Int : 460 ms Poor data quality, interpretation may be adversely affected Normal sinus rhythm with 1st degree AV block Left axis deviation Voltage criteria for left ventricular hypertrophy Abnormal ECG When compared with ECG of 08-SEP-2021 22:30, No significant change was found Confirmed by Renny Varela ([id number]) on 10/20/2021 6:07:52 PM Referred By: Confirmed By:Danilo Varela
[2021-10-20] MEDS: MIRABEGRON ER 25 MG TAB PO SCH (20:28)
[2021-10-20] MEDS: ATORVASTATIN 20 MG TAB PO SCH (20:28)
[2021-10-20] MEDS: CITALOPRAM 20 MG TAB PO SCH (20:28)
[2021-10-20] MEDS: levETIRAcetam 250 MG TAB PO SCH (20:29)
[2021-10-20] MEDS ORDERED: levETIRAcetam 500 MG TAB PO SCH (21:00)
--- NOTE | 2021-10-20 21:09 | Communication Note ---
Date of Service: October 20, 2021 Pt was seen and examined for follow up of seizure activity. Lying in be with no acute distress. MRI showed no acute intracranial abnormality. Scattered foci of T2 hyperintensity seen within the periventricular and subcortical white matter are nonspecific but favor microvascular ischemic change. CTA chest showed no pulmonary emboli identified although segmental and subsegmental pulmonary arteries suboptimally assessed due to respiratory motion. EEG showed normal EEG revealing no evidence for focal or generalized encephalopathy no evidence for potentially epileptogenic activity but the absence of the latter does not exclude the diagnosis of a seizure disorder and clinical correlation is required. Neuro on board recommended to decrease Keppra to 250mg BID. Continue seizure precaution. Continue monitor closely. MD Abilio
[2021-10-21 08:52] LABS: Anion Gap 4 (3-11); BUN Creatinine Ratio 33.3 (10-20); Blood Urea Nitrogen 10 mg/dl (6-23); Calcium 8.5 mg/dl (8.5-10.1); Carbon Dioxide 32 mmol/L (21-32); Chloride 103 mmol/L (98-107); Est GFR (African American) 125.3 ml/min; Est GFR (Non-African American) 108.1 ml/min; Glucose 90 mg/dl (70-99(Fasting)); Sodium 139 mmol/L (136-145)
[2021-10-21] MEDS ORDERED: cefTRIAXone SODIUM 1,000 MG in DEXTROSE 5% 50 ML IV SCH (09:00)
[2021-10-21] MEDS: ASPIRIN 81 MG ECTAB PO SCH (09:38)
[2021-10-21] MEDS: levETIRAcetam 250 MG TAB PO SCH ×2 (09:39→21:22)
[2021-10-21] MEDS: ENOXAPARIN INJ 30 MG/0.3 ML SYR SQ SCH (09:39)
[2021-10-21] MEDS: MICONAZOLE NITRATE POWDER 43 GM EXT SCH ×2 (09:40→21:23)
--- NOTE | 2021-10-21 16:36 | Hospitalist Progress Note ---
Date of Service October 21, 2021 Assessment & Plan (1) Seizure: Plan: Present to the ER after daughter witnessed seizure like activity MRI head showed no acute intracranial abnormality. CTA chest showed no pulmonary emboli identified although segmental and sub segmental pulmonary arteries suboptimally assessed due to respiratory motion. EEG showed normal EEG revealing no evidence for focal or generalized encephalopathy no evidence for potentially epileptogenic activity Neuro on board recommended to decrease Keppra to 250mg BID Continue seizure precaution Continue PT/OT eval Abnormal urine Urine cx grew multiple organisms (Mostly contamination) Will discontinue IV abx Troponin level elevated Troponin on admission 36.7, then peak 41.5, then trending to 41.4 EKG showed no acute ischemic changes No chest pain Hx Necqxkg-Rhjbv-Ybqqj disease Stable DVT ppx SCDs Disposition Plan to discharge to rehab tomorrow Code status DNR Patient daughter requesting updates from providers. Ms. Sasha Tilley, contact #[phone]. Patient daughter requests for patient to be set up with Dr. Machado of [facility] for PCP services upon discharge. Admission and Anticipated Discharge Date Admission Date: October 20, 2021 Subjective Pt was seen and examined for follow of seizure like activity Lying in bed with no acute distress eating lunch Pt said that she feels fine today Denies any chest pain, palpitation, dizziness and SOB Review of Systems Review of Systems: All systems reviewed & are unremarkable except as noted in Subjective Physical Exam Physical Exam: General- No acute distress Head- atraumatic Eyes- PERRL, EOMI, ENT- oropharynx clear Neck- supple, no JVD Lungs- clear to auscultation Heart- regular rhythm; no murmur Abdomen- normal bowel sounds, soft, nontender Extremities- no calf tenderness Neuro- alert, oriented x 3; PERRL, EOMI; no facial palsy; no dysarthria, baseline wheelchair bound Skin- warm & dry Results & Data Results & Data ([facility]) Vital Signs (Past 12 Hours) Vital Signs Temp Pulse Pulse Resp BP Pulse Ox 10/21/21 15:35 60 10/21/21 15:12 37.3 C 63 18 136/64 95 10/21/21 11:45 37.0 C 71 19 141/76 H 96 10/21/21 08:00 61 10/21/21 07:48 37.3 C 75 19 115/65 94
[2021-10-21] MEDS: CITALOPRAM 20 MG TAB PO SCH (21:22)
[2021-10-21] MEDS: ATORVASTATIN 20 MG TAB PO SCH (21:22)
[2021-10-21] MEDS: MIRABEGRON ER 25 MG TAB PO SCH (21:23)
[2021-10-22] MEDS: ENOXAPARIN INJ 30 MG/0.3 ML SYR SQ SCH (07:41)
[2021-10-22] MEDS: ASPIRIN 81 MG ECTAB PO SCH (07:42)
[2021-10-22] MEDS: levETIRAcetam 250 MG TAB PO SCH (07:42)
[2021-10-22] MEDS: MICONAZOLE NITRATE POWDER 43 GM EXT SCH ×2 (07:42→22:19)
[2021-10-22] MEDS ORDERED: bisacodyL 5 MG TABEC PO ONE (08:14)
[2021-10-22] MEDS: LORazepam 2 MG/1 ML VIAL IV PRN ×2 (11:40→17:11)
--- NOTE | 2021-10-22 11:51 | Communication Note ---
Date of Service: October 22, 2021 Mrs. Lizarraga was to be discharged to rehabilitation but unfortunately had another witnessed seizure this morning on her reduced dose of Keppra 250 mg twice a day. I discussed her case with Dr. Houser and we are going to push the Keppra back to 500 mg twice a day, hope she can tolerate the soporific side effects, and hope that her behavior will not decline and I think she should be watched for another 24 to 48 hours and then if seizure-free go off to rehabilitation on the 500 mg twice a day. We will continue to follow-up as planned on the outpatient basis Luis aGrcia MD
[2021-10-22] MEDS ORDERED: levETIRAcetam 500 MG in 0.9 % SODIUM CHLORIDE 100 ML IV STA (11:55)
[2021-10-22] MEDS ORDERED: levETIRAcetam 1,000 MG in 0.9 % SODIUM CHLORIDE 100 ML IV STA (12:08)
--- NOTE | 2021-10-22 17:53 | Hospitalist Progress Note ---
Date of Service October 22, 2021 Assessment & Plan (1) Seizure: Plan: Present to the ER after daughter witnessed seizure like activity MRI head showed no acute intracranial abnormality. CTA chest showed no pulmonary emboli identified although segmental and sub segmental pulmonary arteries suboptimally assessed due to respiratory motion. EEG showed normal EEG revealing no evidence for focal or generalized encephalopathy no evidence for potentially epileptogenic activity Pt had few episodes of seizure like activity today. Not sure if it is pseudoseizure Case discussed with Neuro Dr. Garcia that recommended to increase keppra to 500mg BID Will give keppra loading dose 1gx1 Continue PRN Ativan for breaktrough seizure Continue seizure precaution Continue PT/OT eval Abnormal urine Urine cx grew multiple organisms (Mostly contamination) IV abx with Rocephin discontinued Troponin level elevated Troponin on admission 36.7, then peak 41.5, then trending to 41.4 EKG showed no acute ischemic changes No chest pain Hx Glhilas-Nnlhw-Ljoly disease Stable DVT ppx SCDs Disposition Plan to discharge to rehab once stable Code status DNR Patient daughter requesting updates from providers. Ms. Sasha Tilley, contact #[phone]. Patient daughter requests for patient to be set up with Dr. Machado of [facility] for PCP services upon discharge. Admission and Anticipated Discharge Date Admission Date: October 20, 2021 Subjective Pt was seen and examined for follow of seizure like activity This morning she was sitting in bed with no acute distress watching TV Pt has been having brief episodes like seizure activity ( about 4 episodes today) She does not have any bowel or bladder incontinence after the episode She received Ativan and nurse said that she was postictal for about 1 min Denies any chest pain, palpitation, dizziness and SOB Review of Systems Review of Systems: All systems reviewed & are unremarkable except as noted in Subjective Physical Exam Physical Exam: General- No acute distress Head- atraumatic Eyes- PERRL, EOMI, ENT- oropharynx clear Neck- supple, no JVD Lungs- clear to auscultation Heart- regular rhythm; no murmur Abdomen- normal bowel sounds, soft, nontender Extremities- no calf tenderness, +tremor Neuro- alert, oriented x 3; PERRL, EOMI; no facial palsy; no dysarthria, baseline wheelchair bound Skin- warm & dry Results & Data Results & Data ([facility]) Vital Signs (Past 12 Hours) Vital Signs Temp Pulse Pulse Resp BP Pulse Ox 10/22/21 17:10 36.7 C 58 L 16 137/64 95 10/22/21 15:05 36.4 C L 69 20 136/80 94 10/22/21 15:01 59 L 10/22/21 11:40 37.0 C 80 18 163/89 H 92 10/22/21 07:10 36.6 C 79 17 146/74 H 92 10/22/21 07:00 56 L
[2021-10-22] MEDS ORDERED: levETIRAcetam 500 MG TAB PO SCH (21:00)
[2021-10-22] MEDS: levETIRAcetam 500 MG in 0.9 % SODIUM CHLORIDE 100 ML IV SCH (22:10)
[2021-10-22] MEDS: CITALOPRAM 20 MG TAB PO SCH (22:18)
[2021-10-22] MEDS: MIRABEGRON ER 25 MG TAB PO SCH (22:18)
[2021-10-22] MEDS: ATORVASTATIN 20 MG TAB PO SCH (22:18)
[2021-10-23 07:49] LABS: BUN Creatinine Ratio 45.5 (10-20); Calcium 8.6 mg/dl (8.5-10.1); Creatinine Clr Calc Pharmacy 161.3 ml/min; Est GFR (African American) 138.8 ml/min; Est GFR (Non-African American) 119.8 ml/min; Potassium 3.3 mmol/L (3.5-5.1)
[2021-10-23] MEDS ORDERED: POTASSIUM CHLORIDE 10 MEQ TABCR PO STA (07:49)
[2021-10-23] MEDS: levETIRAcetam 500 MG in 0.9 % SODIUM CHLORIDE 100 ML IV SCH (08:33)
[2021-10-23] MEDS: ENOXAPARIN INJ 30 MG/0.3 ML SYR SQ SCH (08:33)
[2021-10-23] MEDS: ASPIRIN 81 MG ECTAB PO SCH (08:34)
[2021-10-23] MEDS: MICONAZOLE NITRATE POWDER 43 GM EXT SCH ×2 (08:34→20:22)
[2021-10-23] MEDS: POTASSIUM ACETATE/NSS 10 MEQ/105 ML BAG IV SCH ×2 (09:39→10:35)
--- NOTE | 2021-10-23 15:38 | Communication Note ---
Date of Service: October 23, 2021 Alanna was seen today. She was transferred to the unit is still very lethargic to make eye contact is barely conversant but I do not see any seizure-like ac tivity no tremors and is not clear what went on yesterday. One of the events certainly sounds like a seizure several of the other events that were labeled seizures may have been just tremulousness that she was awake during the in our dealing with the effects of Ativan and 1500 mg of Keppra that was given A long talk with her daughter we are now in a position of having to watch her for another 48 hours let the Keppra washout and probably will take a dose of 500 mg twice a day in hopes that she can tolerate that without being excessively sedated or irritable and then arrange for an outpatient 72-hour EEG monitoring study If however she continues to demonstrate seizure-like activity then we will have to transfer her up to a tertiary center for inpatient monitoring to establish whether or not the events we are seeing clinically correlate with electroencephalographic abnormalities and whether alternative medications are going to be required We will continue to see her on a daily basis Luis Garcia MD
--- NOTE | 2021-10-23 17:29 | Hospitalist Progress Note ---
Date of Service October 23, 2021 Assessment & Plan (1) Seizure: Plan: Present to the ER after daughter witnessed seizure like activity MRI head showed no acute intracranial abnormality. CTA chest showed no pulmonary emboli identified although segmental and sub segmental pulmonary arteries suboptimally assessed due to respiratory motion. EEG showed normal EEG revealing no evidence for focal or generalized encephalopathy no evidence for potentially epileptogenic activity Pt had few episodes of seizure like activity today. Not sure if it is pseudoseizure Neurology on board Case discussed with Neuro Dr. Garcia that recommended to hold the Keppra for now since pt is drowsy for possible due to 1500mg IV keppra yesterday Pt will benefit for 72 hrs EEG that will be arranged outpatient Continue PRN Ativan for breaktrough seizure Continue seizure precaution Continue monitor closely Abnormal urine Urine cx grew multiple organisms (Mostly contamination) IV abx with Rocephin discontinued Troponin level elevated Troponin on admission 36.7, then peak 41.5, then trending to 41.4 EKG showed no acute ischemic changes No chest pain Hx Gxykush-Ynaqx-Yfahs disease Stable DVT ppx SCDs Disposition Plan to discharge to rehab once stable Code status DNR Disposition Update provided to daughter Patient daughter requesting updates from providers. Ms. Sasha Tilley, contact #[phone]. Patient daughter requests for patient to be set up with Dr. Machado of [facility] for PCP services upon discharge. Admission and Anticipated Discharge Date Admission Date: October 20, 2021 Subjective Pt was seen and examined for follow of seizure like activity Lying with no acute distress, drowsy I spoke to her daughter over the phone and provided with updates Denies any chest pain, palpitation, dizziness and SOB Review of Systems Review of Systems: All systems reviewed & are unremarkable except as noted in Subjective Physical Exam Physical Exam: General- No acute distress Head- atraumatic Eyes- PERRL, EOMI, ENT- oropharynx clear Neck- supple, no JVD Lungs- clear to auscultation Heart- regular rhythm; no murmur Abdomen- normal bowel sounds, soft, nontender Extremities- no calf tenderness, +tremor Neuro- alert, oriented x 3; PERRL, EOMI; no facial palsy; no dysarthria, baseline wheelchair bound Skin- warm & dry Results & Data Results & [facility] ([facility]) Vital Signs (Past 12 Hours) Vital Signs Temp Pulse Pulse Resp BP Pulse Ox 10/23/21 16:06 36.9 C 77 14 121/68 96 10/23/21 15:57 61 10/23/21 12:40 37.2 C 72 18 145/57 H 96 10/23/21 08:00 56 L 10/23/21 07:57 36.4 C L 60 18 130/64 94
[2021-10-23] MEDS: ATORVASTATIN 20 MG TAB PO SCH ×2 (20:21→23:38)
[2021-10-23] MEDS: CITALOPRAM 20 MG TAB PO SCH ×2 (20:21→23:36)
[2021-10-23] MEDS: MIRABEGRON ER 25 MG TAB PO SCH ×2 (20:21→23:36)
[2021-10-23] MEDS ORDERED: PROMETHAZINE HCL 6.25 MG in SODIUM CHLORIDE 0.9% 50 ML IV PRN (22:32)
[2021-10-24] MEDS: LORazepam 2 MG/1 ML VIAL IV PRN (02:05)
[2021-10-24 06:28] LABS: Hematocrit (blood only) 39.3 % (37-47); Mean Corpuscular Hemoglobin 29.4 pg (25-34); Mean Corpuscular Hgb Conc 33.1 g/dL (32-36); Mean Corpuscular Volume 88.9 fL (80-100); Mean Platelet Volume 10.6 fL (7.4-10.4); Platelet Count 191 K/uL (130-400); RDW Coefficient of Variation 14.6 % (11.5-14.5); RDW Standard Deviation 47.7 fL (36.4-46.3); Red Blood Count 4.42 M/uL (4.2-5.4); White Blood Count 6.79 K/uL (4.8-10.8)
[2021-10-24] MEDS: ENOXAPARIN INJ 30 MG/0.3 ML SYR SQ SCH (08:29)
[2021-10-24] MEDS: ASPIRIN 81 MG ECTAB PO SCH (08:29)
[2021-10-24] MEDS: MICONAZOLE NITRATE POWDER 43 GM EXT SCH ×2 (08:30→20:38)
[2021-10-24 08:58] LABS: Calcium 8.5 mg/dl (8.5-10.1); Est GFR (African American) 120.3 ml/min; Est GFR (Non-African American) 103.8 ml/min; Potassium 3.5 mmol/L (3.5-5.1)
--- NOTE | 2021-10-24 16:42 | Communication Note ---
Date of Service: October 24, 2021 Alanna was seen again today. She is less lethargic than yesterday but still a bit drowsy will follow commands converses and does have a little tremor of her outstretched hands and head. 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 I do not think this was anything exacerbated by the Keppra as Keppra induced movement disorders are distinctly unusual and the drug is often used to treat various movement disorders. Does have the side effect of creating irritability and lethargy and I think at this point we need to keep her at a dose of 250 mg twice a day for a few days and then probably move her up to 375 mg twice a day I am not sure what was really observed on Saturday by nursing staff but seizure was described and must of been convincing enough for her to receive Ativan and for initiation of higher doses of Keppra and a loading dose Both Dr. Houser and I are suspicious that some of the subsequent motor movements are really due to her essential tremor and hopefully there presence would not result in overzealous diagnosis of seizure activity and overzealous treatment I think she may benefit from a stay at a rehabilitation hospital but will need to be relatively free of any seizure activity and more able to cooperate with rehabilitation efforts and she is right now I will check back with her again tomorrow but for now I see no reason to change her plans and we will attempt to get a 72-hour EEG on her on an outpatient basis after she is discharged back home there is no real urgency in obtaining the study at this point Luis Garcia MD The above note was generated utilizing voice recognition technology and may have spelling errors punctuation errors pronoun usage errors and syntax errors
[2021-10-24] MEDS: MIRABEGRON ER 25 MG TAB PO SCH (20:35)
[2021-10-24] MEDS: CITALOPRAM 20 MG TAB PO SCH (20:36)
[2021-10-24] MEDS: ATORVASTATIN 20 MG TAB PO SCH (20:37)
--- NOTE | 2021-10-24 21:16 | Hospitalist Progress Note ---
Date of Service October 24, 2021 Assessment & Plan (1) Seizure: Plan: Present to the ER after daughter witnessed seizure like activity MRI head showed no acute intracranial abnormality. CTA chest showed no pulmonary emboli identified although segmental and sub segmental pulmonary arteries suboptimally assessed due to respiratory motion. EEG showed normal EEG revealing no evidence for focal or generalized encephalopathy no evidence for potentially epileptogenic activity Pt had few episodes of seizure like activity today. Not sure if it is pseudoseizure vs essential tremors Neurology on board Case discussed with Neuro Dr. Garcia that recommended to resume Keppra at 250mg BID x 2 days then we can increase it at 375mg BID Will get another EEG tomorrow Pt will benefit for 72 hrs EEG that will be arranged outpatient Continue PRN Ativan for breaktrough seizure Continue seizure precaution Continue monitor closely Abnormal urine Urine cx grew multiple organisms (Mostly contamination) IV abx with Rocephin discontinued Troponin level elevated Troponin on admission 36.7, then peak 41.5, then trending to 41.4 EKG showed no acute ischemic changes No chest pain Hx Uxkfrrn-Foirf-Jjwxh disease Stable DVT ppx SCDs Code status DNR Disposition Plan to discharge to rehab once stable Patient daughter requesting updates from providers. Ms. Sasha Tilley, contact #[phone]. Patient daughter requests for patient to be set up with Dr. Machado of [facility] for PCP services upon discharge. Admission and Anticipated Discharge Date Admission Date: October 20, 2021 Subjective Pt was seen and examined for follow of seizure like activity Lying in bed with no acute distress resting She said that she feels tired Denies any chest pain, palpitation, dizziness and SOB Review of Systems 2 Review of Systems: All systems reviewed & are unremarkable except as noted in Subjective Physical Exam Physical Exam: General- No acute distress Head- atraumatic Eyes- PERRL, EOMI, ENT- oropharynx clear Neck- supple, no JVD Lungs- clear to auscultation Heart- regular rhythm; no murmur Abdomen- normal bowel sounds, soft, nontender Extremities- no calf tenderness, +tremor Neuro- alert, oriented x 3; PERRL, EOMI; no facial palsy; no dysarthria, baseline wheelchair bound Skin- warm & dry Results & Data Results & Data ([facility]) Vital Signs (Past 12 Hours) Vital Signs Temp Pulse Pulse Pulse Resp BP Pulse Ox 10/24/21 20:20 36.8 C 62 16 123/73 94 10/24/21 15:00 62 10/24/21 14:20 62 10/24/21 13:55 37 C 67 12 122/62 94
[2021-10-25 08:25] LABS: Hematocrit (blood only) 39.2 % (37-47); Mean Corpuscular Hemoglobin 29.5 pg (25-34); Mean Corpuscular Hgb Conc 33.2 g/dL (32-36); Mean Corpuscular Volume 88.9 fL (80-100); Mean Platelet Volume 10.6 fL (7.4-10.4); Platelet Count 170 K/uL (130-400); RDW Coefficient of Variation 14.6 % (11.5-14.5); RDW Standard Deviation 47.5 fL (36.4-46.3); Red Blood Count 4.41 M/uL (4.2-5.4); White Blood Count 5.88 K/uL (4.8-10.8)
[2021-10-25 09:02] LABS: Albumin Globulin Ratio 1.3 (0.9-2); BUN Creatinine Ratio 57.6 (10-20); Bilirubin,Total 0.6 mg/dl (0.2-1.0); Calcium 8.5 mg/dl (8.5-10.1); Creatinine Clr Calc Pharmacy 123.3 ml/min; Est GFR (African American) 121.5 ml/min; Est GFR (Non-African American) 104.8 ml/min; Globulin 2.4 gm/dl (2.5-4.0); Potassium 3.3 mmol/L (3.5-5.1); Total Protein 5.4 gm/dl (6.0-8.3)
[2021-10-25] MEDS: ENOXAPARIN INJ 30 MG/0.3 ML SYR SQ SCH (09:02)
[2021-10-25] MEDS: ASPIRIN 81 MG ECTAB PO SCH (09:02)
[2021-10-25] MEDS: MICONAZOLE NITRATE POWDER 43 GM EXT SCH ×2 (09:03→21:33)
[2021-10-25] MEDS ORDERED: POLYETHYLENE (MIRALAX) 17 GM PACK PO PRN (09:23)
--- NOTE | 2021-10-25 15:41 | Communication Note ---
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 She does not seem to be irritable. She is now on Keppra 250 mg twice a day with plans to move this up to 375 mg twice a day and I think plans are on board for her to be transferred to [facility] which I think is appropriate An EEG today showed absolutely no evidence for potentially epileptogenic activity and while I think she did have a single seizure which precipitated admission was witnessed by her daughter and not so sure the second event on Saturday was actually clinical seizure. We are now still washing out from the Keppra load that was given at that point We will make arrangements for her to be seen in follow-up in our office in about a month and if she is still excessively lethargic and depressed on Keppra we will have to consider an alternative anticonvulsant perhaps Depakote, Trileptal, Zonegran or even Vimpat On EYessy Garcia MD
--- NOTE | 2021-10-25 16:03 | Electroencephalogram ---
EEG Procedure Note Date of Service October 25, 2021 Start / End Times Start Time: 920 End Time: Referring Physician Luis Garcia MD History Follow-up of seizures Home Medication List Medication Instructions Recorded Confirmed Type citalopram 10 mg tablet 10 mg PO PM 09/09/21 10/19/21 History mirabegron 50 mg tablet,extended 50 mg PO PM 09/09/21 10/19/21 History release 24 hr (Myrbetriq) atorvastatin 20 mg tablet 20 mg PO HS 10/19/21 10/19/21 History cholecalciferol (vitamin D3) 50 50 mcg PO QAM 10/19/21 10/19/21 History mcg (2,000 unit) tablet (Vitamin D3) Inpatient Medication List Aspirin (Aspirin 81 Mg Ectab) [facility] Stop: 11/19/21 08:59 Last Admin: 10/25/21 09:02 Dose: 81 mg Documented by: [id number] Admin: 10/24/21 08:29 Dose: 81 mg Documented by: [id number] Admin: 10/23/21 08:34 Dose: Not Given Documented by: [id number] Admin: 10/22/21 07:42 Dose: 81 mg Documented by: [id number] Admin: 10/21/21 09:38 Dose: 81 mg Documented by: [id number] Admin: 10/20/21 07:46 Dose: 81 mg Documented by: [id number] Atorvastatin Calcium (Atorvastatin 20 Mg Tab) 20 mg PO [facility] Stop: 11/19/21 20:59 Last Admin: 10/24/21 20:37 Dose: 20 mg Documented by: [id number] Admin: 10/23/21 23:38 Dose: 20 mg Documented by: [id number] Admin: 10/22/21 22:18 Dose: Not Given Documented by: [id number] Admin: 10/21/21 21:22 Dose: 20 mg Documented by: [id number] Admin: 10/20/21 20:28 Dose: 20 mg Documented by: [id number] Citalopram Hydrobromide (Citalopram 20 Mg Tab) 10 mg PO PM [facility] Stop: 11/19/21 20:59 Last Admin: 10/24/21 20:36 Dose: 10 mg Documented by: [id number] Admin: 10/23/21 23:36 Dose: 10 mg Documented by: [id number] Admin: 10/22/21 22:18 Dose: Not Given Documented by: [id number] Admin: 10/21/21 21:22 Dose: 10 mg Documented by: [id number] Admin: 10/20/21 20:28 Dose: 10 mg Documented by: [id number] Enoxaparin Sodium (Enoxaparin Inj 30 Mg/0.3 Ml Syr) 30 mg SQ QAM [facility] Stop: 11/19/21 08:59 Last Admin: 10/25/21 09:02 Dose: 30 mg Documented by: [id number] Admin: 10/24/21 08:29 Dose: 30 mg Documented by: [id number] Admin: 10/23/21 08:33 Dose: 30 mg Documented by: [id number] Admin: 10/22/21 07:41 Dose: 30 mg Documented by: [id number] Admin: 10/21/21 09:39 Dose: 30 mg Documented by: [id number] Admin: 10/20/21 07:47 Dose: 30 mg Documented by: [id number] Levetiracetam (Levetiracetam Soln 250 Mg/2.5 Ml Udp) 250 mg PO Q12H [facility] Stop: 11/23/21 09:59 Last Admin: 10/25/21 09:02 Dose: 250 mg Documented by: [id number] Admin: 10/24/21 23:08 Dose: 250 mg Documented by: [id number] Admin: 10/24/21 10:42 Dose: 250 mg Documented by: [id number] Lorazepam (Lorazepam 2 Mg/1 Ml Vial) 0.25 mg IV Q1H PRN PRN Reason: active seizure Stop: 11/19/21 05:31 Last Admin: 10/24/21 02:05 Dose: 0.25 mg Documented by: [id number] Admin: 10/22/21 17:11 Dose: 0.25 mg Documented by: [id number] Admin: 10/22/21 11:40 Dose: 0.25 mg Documented by: [id number] Miconazole Nitrate (Miconazole Nitrate Powder 43 Gm) 1 appln EXT BID [facility] Stop: 11/19/21 06:44 Last Admin: 10/25/21 09:03 Dose: 1 appln Documented by: [id number] Admin: 10/24/21 20:38 Dose: 1 appln Documented by: [id number] Admin: 10/24/21 08:30 Dose: 1 appln Documented by: [id number] Admin: 10/23/21 20:22 Dose: 1 appln Documented by: [id number] Admin: 10/23/21 08:34 Dose: 1 appln Documented by: [id number] Admin: 10/22/21 22:19 Dose: 1 appln Documented by: [id number] Admin: 10/22/21 07:42 Dose: 1 appln Documented by: [id number] Admin: 10/21/21 21:23 Dose: 1 appln Documented by: [id number] Admin: 10/21/21 09:40 Dose: 1 appln Documented by: [id number] Admin: 10/20/21 20:29 Dose: 1 appln Documented by: [id number] Admin: 10/20/21 11:01 Dose: 1 appln Documented by: [id number] Mirabegron (Mirabegron Er 25 Mg Tab) 50 mg PO PM [facility] Stop: 11/19/21 20:59 Last Admin: 10/24/21 20:35 Dose: 50 mg Documented by: [id number] Admin: 10/23/21 23:36 Dose: 50 mg Documented by: [id number] Admin: 10/22/21 22:18 Dose: Not Given Documented by: [id number] Admin: 10/21/21 21:23 Dose: 50 mg Documented by: [id number] Admin: 10/20/21 20:28 Dose: 50 mg Documented by: [id number] Discontinued Medications Bisacodyl (Bisacodyl 5 Mg Tabec) 5 mg PO NOW ONE Stop: 10/22/21 08:15 Last Admin: 10/22/21 09:31 Dose: 5 mg Documented by: [id number] Gadobutrol (Gadobutrol 65ml Vial) 7.5 ml IV ONCE ONE Stop: 10/20/21 04:43 Last Admin: 10/20/21 04:43 Dose: 7.5 ml Documented by: [id number] Lactated Ringer's (Lr) 1,000 mls @ 80 mls/hr IV .[id number] ONE Stop: 10/20/21 15:17 Last Infusion: 10/20/21 15:24 Dose: 0 mls/hr Documented by: [id number] Admin: 10/20/21 03:06 Dose: 80 mls/hr Documented by: [id number] Levetiracetam 1,000 mg/ Sodium (Chloride) 110 mls @ 440 mls/hr IV NOW STA Stop: 10/20/21 03:27 Last Infusion: 10/20/21 04:11 Dose: 0 mls/hr Documented by: [id number] Admin: 10/20/21 03:38 Dose: 440 mls/hr Documented by: [id number] Ceftriaxone Sodium 1,000 mg/ (Dextrose) 60 mls @ 120 mls/hr IV NOW STA Stop: 10/20/21 03:47 Last Infusion: 10/20/21 07:26 Dose: 0 mls/hr Documented by: [id number] Admin: 10/20/21 06:04 Dose: 120 mls/hr Documented by: [id number] Potassium Chloride (K Kendell / Wtr) 10 meq in 100 mls @ 100 mls/hr IV Q1H [facility]; Protocol Stop: 10/20/21 05:29 Last Infusion: 10/20/21 11:00 Dose: 0 mls/hr Documented by: [id number] Admin: 10/20/21 07:46 Dose: 100 mls/hr Documented by: [id number] Infusion: 10/20/21 07:04 Dose: 100 mls/hr Documented by: [id number] Admin: 10/20/21 06:04 Dose: 100 mls/hr Documented by: [id number] Potassium Chloride (K Kendell / Wtr) 10 meq in 100 mls @ 100 mls/hr IV Q1H [facility]; Protocol Stop: 10/20/21 07:31 Last Admin: 10/20/21 06:18 Dose: Not Given Documented by: [id number] Ceftriaxone Sodium 1,000 mg/ (Dextrose) 60 mls @ 120 mls/hr IV DAILY [facility]; Protocol Stop: 10/31/21 08:59 Last Infusion: 10/21/21 10:50 Dose: 0 mls/hr Documented by: [id number] Admin: 10/21/21 09:35 Dose: 120 mls/hr Documented by: [id number] Levetiracetam 500 mg/ Sodium (Chloride) 105 mls @ 420 mls/hr IV NOW STA Stop: 10/22/21 12:09 Last Admin: 10/22/21 12:40 Dose: Not Given Documented by: [id number] Levetiracetam 1,000 mg/ Sodium (Chloride) 110 mls @ 420 mls/hr IV NOW STA Stop: 10/22/21 12:10 Last Infusion: 10/22/21 12:40 Dose: 0 mls/hr Documented by: [id number] Admin: 10/22/21 12:17 Dose: 420 mls/hr Documented by: [id number] Levetiracetam 500 mg/ Sodium (Chloride) 105 mls @ 420 mls/hr IV Q12H [facility] Stop: 11/21/21 21:14 Last Infusion: 10/23/21 08:50 Dose: 0 mls/hr Documented by: [id number] Admin: 10/23/21 08:33 Dose: 420 mls/hr Documented by: [id number] Infusion: 10/22/21 23:02 Dose: 0 mls/hr Documented by: [id number] Admin: 10/22/21 22:10 Dose: 420 mls/hr Documented by: [id number] Potassium Acetate (Potassium Acetate/Nss) 10 meq in 105 mls @ 105 mls/hr IV Q1H [facility] Stop: 10/23/21 11:44 Last Infusion: 10/23/21 11:49 Dose: 0 mls/hr Documented by: [id number] Admin: 10/23/21 10:35 Dose: 105 mls/hr Documented by: [id number] Infusion: 10/23/21 10:35 Dose: 105 mls/hr Documented by: [id number] Admin: 10/23/21 09:39 Dose: 105 mls/hr Documented by: [id number] Ioversol (Optiray 320 125ml) 125 ml IV ONCE ONE Stop: 10/19/21 23:08 Last Admin: 10/19/21 23:07 Dose: 98 ml Documented by: [id number] Levetiracetam (Levetiracetam 250 Mg Tab) 250 mg PO BID [facility] Stop: 11/19/21 20:59 Last Admin: 10/22/21 07:42 Dose: 250 mg Documented by: [id number] Admin: 10/21/21 21:22 Dose: 250 mg Documented by: [id number] Admin: 10/21/21 09:39 Dose: 250 mg Documented by: [id number] Admin: 10/20/21 20:29 Dose: 250 mg Documented by: [id number] Levetiracetam (Levetiracetam 500 Mg Tab) 500 mg PO BID [facility] Stop: 11/21/21 20:59 Last Admin: 10/22/21 22:18 Dose: Not Given Documented by: [id number] Lorazepam (Lorazepam 2 Mg/1 Ml Vial) 0.25 mg IV NOW STA Stop: 10/19/21 23:30 Last Admin: 10/19/21 23:46 Dose: 0.25 mg Documented by: [id number] Miscellaneous (Patient's Height &/Or Weight Needed) 1 ea N/A Q2H [facility] Stop: 11/19/21 05:44 Last Admin: 10/20/21 06:18 Dose: Not Given Documented by: [id number] Potassium Chloride (Potassium Chloride Pwd 20 Meq Pack) 40 meq PO NOW STA Stop: 10/20/21 00:07 Last Admin: 10/20/21 06:18 Dose: Not Given Documented by: [id number] Potassium Chloride (Potassium Chloride 10 Meq Tabcr) 30 meq PO NOW STA Stop: 10/23/21 07:50 Last Admin: 10/23/21 09:25 Dose: Not Given Documented by: [id number] Description This is a 21 electrode EEG with a single channel dedicated to limited EKG. The electrodes were placed in accordance with the International 10-20 system. This EEG was done as a bedside recording on a patient who by video analysis appears to be going in and out of drowsiness and the EEG does confirm that the tracing is recorded during both wakefulness and drowsy states but not during full sleep. Photic stimulation is performed. During wakefulness there is evidence for normal-appearing symmetrical background alpha rhythm in the occipital regions, normal theta pattern centrally and abnormal frontal beta type pattern. During drowsiness all of these rhythms shift in the slower frequencies and the theta activity becomes a little more rhythmic No potentially epileptogenic features are noted Stimulation evoked a minimal driving response Interpretation Normal EEG during wakefulness Clinical Correlation Is a normal EEG without evidence for focal or generalized encephalopathy without evidence for potentially epileptogenic activity Molly Garcia MD
[2021-10-25] MEDS: LORazepam 2 MG/1 ML VIAL IV PRN (16:38)
[2021-10-25] MEDS: SENNA 8.6 MG TAB PO SCH (17:04)
[2021-10-25] MEDS ORDERED: levETIRAcetam 500 MG TAB PO ONE (17:39)
--- NOTE | 2021-10-25 17:52 | Communication Note ---
Date of Service: October 25, 2021 Dr. Park is called me regarding Alanna Lizarraga. Currently she had a witnessed tonic-clonic event about half an hour ago,received Ativan and was awake respons santo and lethargic and no further seizure activity was seen. Her EEG this morning was actually normal but this does not exclude seizure activity between recording events I discussed this situation or potential situation with her daughter earlier and explained to her that it she continued to have seizures we will be at a point where transfer to a tertiary center where continuous EEG monitoring was available would be probably the next step. We do not have such capacity at this facility and are limited by our capacity to only do 20 to 30-minute studies episodically and can easily miss subclinical seizure activity or potential epileptiform pattern The Situation will even be more tenuous for th next week as our regular plant health care technician will be on vacation and coverage will be a little less consistent I am recommending transferring her back to the unit giving her 500 mg of keppra and instead of raising the dose to 375 mg bid tomorrow moving up to 500 mg bid realizing full well that this may make her more drowsy and confused for a period of time until she acclimates. Dr Park will be contacting [facility] to see if a transfer can be arranged in the next day or two In the interim our only course is ot observe her clinically for seizure like events and gradually raise the keppra dose to cover This is always a bit imprecise as seizure like activity may not always reflect brain electrical events and monitoring is the gold standard for determining this and establishing the need for more AEDs or higher doses of current aeds we will check back tomorrow and hopefully a transfer can be arranged relatively soon Luis Garcia MD
[2021-10-25] MEDS ORDERED: levETIRAcetam 500 MG in 0.9 % SODIUM CHLORIDE 100 ML IV STA (18:11)
--- NOTE | 2021-10-25 18:24 | Hospitalist Progress Note ---
Date of Service October 25, 2021 Assessment & Plan (1) Seizure: Plan: Present to the ER after daughter witnessed seizure like activity MRI head showed no acute intracranial abnormality. CTA chest showed no pulmonary emboli identified although segmental and sub segmental pulmonary arteries suboptimally assessed due to respiratory motion. EEG showed normal EEG revealing no evidence for focal or generalized encephalopathy no evidence for potentially epileptogenic activity Pt had few episodes of seizure like activity today. Not sure if it is pseudoseizure vs essential tremors Neurology consulted Case discussed with Neuro Dr. Garcia that recommended to resume Keppra at 250mg BID x 2 days then we can increase it at 375mg BID Another EEG today (10/25) normal Pt will benefit for 72 hrs EEG that will be arranged outpatient Continue PRN Ativan for breakthrough seizure Continue seizure precaution Continue monitor closely 10/25 -patient had another seizure-like activity today, witnessed by daughter at the bedside and RN. Patient received Ativan. Discussed event with Dr. Garcia, recommends to give 500 mg Keppra now, and increase dose to 500 twice daily. Also recommends transfer to tertiary care center/continuous EEG monitoring. Discussed with Dr. Gibson, at [facility], who accepted patient to their care. Abnormal urine Urine cx grew multiple organisms (Mostly contamination) IV abx with Rocephin discontinued Troponin level elevated Troponin on admission 36.7, then peak 41.5, then trending to 41.4 EKG showed no acute ischemic changes No chest pain Hx Njlkxwg-Fvruq-Zgiqx disease Stable DVT ppx SCDs Code status DNR Disposition - transfer to [facility] Patient's daughter - Ms. Sasha Tilley, contact #[phone]. Patient's daughter requests for patient to be set up with Dr. Machado of [facility] for PCP services upon discharge. Admission and Anticipated Discharge Date Admission Date: October 20, 2021 Subjective Pt seen in follow up of seizure like activity Called by RN, as patient had witnessed seizure like activity. Patient received Ativan, by RN. Currently patient is lying in bed, with her daughter at the bedside. Patient is able to open her eyes, responsive to my voice, able to nod, say yes or no. She knows where she is, and she recognizes her daughter at the bedside. Patient had EEG earlier today, which was normal. I contacted Dr. Garcia, from neurology, to discuss patient's activity/ above event. Recommended to give 500 mg of Keppra now, and increase dose to 500 twice daily. Also recommends continuous EEG monitoring and transfer to tertiary care center. Patients daughter at the bedside, also interested in transfer to tertiary care center. Patient is lying in bed, denies any headache, chest pain, shortness of breath, reports feeling nauseous. Review of Systems Review of Systems: Unobtainable due to cognitive status Physical Exam Physical Exam: General-elderly female, lying in bed, in no acute distress, lethargic (after receiving ativan) Head- atraumatic Eyes- PERRL, EOMI, Neck- supple Lungs- clear to auscultation Heart- regular rhythm; no murmur Abdomen- normal bowel sounds, soft, nontender Extremities- no calf tenderness Neuro-drowsy but able to answer simple questions appropriately. PERRL, EOMI; no facial palsy, baseline wheelchair bound Skin- warm & dry Results & Data Results & Data ([facility]) Vital Signs (Past 12 Hours) Vital Signs Temp Pulse Pulse Resp BP Pulse Ox 10/25/21 11:38 36.6 C 68 18 109/70 92 10/25/21 07:37 36.6 C 60 17 109/64 91 10/25/21 07:00 68 Laboratory Results 10/25/21 10/25/21 10/25/21 Range/Units 16:33 07:46 07:46 WBC 5.88 (4.8-10.8) K/uL RBC 4.41 (4.2-5.4) M/uL Hgb 13.0 (12.0-16.0) g/dL Hct 39.2 (37-47) % MCV 88.9 (80-100) fL MCH 29.5 (25-34) pg MCHC 33.2 (32-36) g/dL RDW Std Deviation 47.5 H (36.4-46.3) fL RDW Coeff of [place] 14.6 H (11.5-14.5) % Plt Count 170 (130-400) K/uL MPV 10.6 H (7.4-10.4) fL Sodium 139 (136-145) mmol/L Potassium 3.3 L (3.5-5.1) mmol/L Chloride 103 (98-107) mmol/L Carbon Dioxide 31 (21-32) mmol/L Anion Gap 5 (3-11) BUN 19 (6-23) mg/dl Creatinine 0.33 L (0.6-1.2) mg/dl Est Cr Clr Drug Dosing 123.3 ml/min Est GFR ( Amer) 121.5 ml/min Est GFR (Non-Af Amer) 104.8 ml/min BUN/Creatinine Ratio 57.6 H (10-20) Glucose 94 (70-99(Fasting)) mg/dl POC Glucose 106 H (70-99) mg/dl Calcium 8.5 (8.5-10.1) mg/dl Total Bilirubin 0.6 (0.2-1.0) mg/dl AST 26 (13-39) U/L ALT 20 (7-52) U/L Alkaline Phosphatase 56 (34-104) U/L Total Protein 5.4 L (6.0-8.3) gm/dl Albumin 3.0 L (3.4-5.0) gm/dl Globulin 2.4 L (2.5-4.0) gm/dl Albumin/Globulin Ratio 1.3 (0.9-2) Medications Administered Current Inpatient Medications Aspirin (Aspirin 81 Mg Ectab) 81 mg PO QAM [facility] Stop: 11/19/21 08:59 Last Admin: 10/25/21 09:02 Dose: 81 mg Documented by: Atorvastatin Calcium (Atorvastatin 20 Mg Tab) 20 mg PO HS [facility] Stop: 11/19/21 20:59 Last Admin: 10/24/21 20:37 Dose: 20 mg Documented by: Citalopram Hydrobromide (Citalopram 20 Mg Tab) 10 mg PO PM [facility] Stop: 11/19/21 20:59 Last Admin: 10/24/21 20:36 Dose: 10 mg Documented by: Enoxaparin Sodium (Enoxaparin Inj 30 Mg/0.3 Ml Syr) 30 mg SQ QAM [facility] Stop: 11/19/21 08:59 Last Admin: 10/25/21 09:02 Dose: 30 mg Documented by: Promethazine HCl 6.25 mg/ (Sodium Chloride) 50.25 mls @ 201 mls/hr IV Q6H PRN PRN Reason: Nausea And Vomiting Stop: 11/22/21 22:31 Last Infusion: 10/25/21 17:39 Dose: Infused Documented by: Levetiracetam 500 mg/ Sodium (Chloride) 105 mls @ 420 mls/hr IV NOW STA Stop: 10/25/21 18:25 Levetiracetam (Levetiracetam Soln 250 Mg/2.5 Ml Udp) 250 mg PO Q12H [facility] Stop: 11/23/21 09:59 Last Admin: 10/25/21 09:02 Dose: 250 mg Documented by: Levetiracetam (Levetiracetam 500 Mg Tab) 500 mg PO BID [facility] Stop: 11/25/21 08:59 Lorazepam (Lorazepam 2 Mg/1 Ml Vial) 0.25 mg IV Q1H PRN PRN Reason: active seizure Stop: 11/19/21 05:31 Last Admin: 10/25/21 16:38 Dose: 0.25 mg Documented by: Miconazole Nitrate (Miconazole Nitrate Powder 43 Gm) 1 appln EXT BID [facility] Stop: 11/19/21 06:44 Last Admin: 10/25/21 09:03 Dose: 1 appln Documented by: Mirabegron (Mirabegron Er 25 Mg Tab) 50 mg PO PM [facility] Stop: 11/19/21 20:59 Last Admin: 10/24/21 20:35 Dose: 50 mg Documented by: Polyethylene Glycol (Polyethylene (Miralax) 17 Gm Pack) 17 gm PO DAILY PRN PRN Reason: Constipation Stop: 11/24/21 09:22 Sennosides (Senna 8.6 Mg Tab) 8.6 mg PO QAM [facility] Stop: 11/24/21 09:29 Last Admin: 10/25/21 17:04 Dose: Not Given Documented by:
--- NOTE | 2021-10-25 18:32 | Discharge Summary ---
Date of Service October 25, 2021 Admission HPI Per Admitting Provider History obtained from patient family and records. Unable to obtain history from patient secondary to obtunded state post Ativan administration at the ER. Medical history significant for CVA, right breast cancer status post surgery/radiation, uterine cancer status post surgery, bronchial asthma, mood disorder, urinary incontinence, Jurxgjx-Unuwj-Bmrfa disease, past tobacco abuse. Last confinement last month for traumatic left iliopsoas muscle hematoma. No surgical intervention. Patient also seen by Neurology for chronic lacunar infarct on MRI. Aspirin and Lipitor prescribed on discharge. Patient initially discharged to rehab before moving in with her daughter. Last night, patient noted by daughter to have seizure-like activity, rigidity followed by shaking with patient staring blankly into space. Episode lasted about 2 minutes. Patient somewhat confused after episode. No tongue biting or incontinence. No prior episodes. Patient daughter familiar with seizures with herself (when she was younger) and her daughter having seizure history. Patient later on complained of shortness of breath At the ER, patient noted to have shaking episode again terminated by low-dose IV Ativan administration at the ER. 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 Admission Exam Per Admitting Provider GENERAL: Obtunded, no respiratory distress SKIN: Normal color, warm HEENT: [place] palpebral conjunctivae, no ptosis, edentulous, dry buccal mucosa NECK : Supple, no tenderness CHEST : Decreased breath sounds, no tenderness HEART : RRR, no obvious murmurs ABDOMEN: Some distention, nontender EXTREMITIES : Minimal LE swelling, no LE tenderness NEUROLOGIC : Obtunded, no facial asymmetry, gait and stance not assessed Principal Diagnosis Seizure-like activity Discharge Exam General-elderly female, lying in bed, in no acute distress, lethargic (after receiving ativan) Head- atraumatic Eyes- PERRL, EOMI, Neck- supple Lungs- clear to auscultation Heart- regular rhythm; no murmur Abdomen- normal bowel sounds, soft, nontender Extremities- no calf tenderness Neuro-drowsy but able to answer simple questions appropriately. PERRL, EOMI; no facial palsy, baseline wheelchair bound Skin- warm & dry Discharge Data Allergies Allergy/AdvReac Type Severity Reaction Status Date / Time shellfish derived Allergy Severe LOBSTER: Verified 10/19/21 22:50 almost acetaminophen [From Tylenol] Allergy Rash Unverified 10/19/21 22:50 Consultations 10/19/21 23:44 ED Decision to Admit Stat 10/20/21 05:32 Consult Neurology Routine Ordered Studies 10/19/21 21:02 CT head/brain wo con Urgent FINDINGS: No acute intracranial hemorrhage, midline shift, intracranial mass, hydrocephalus, territorial ischemia or abnormal extra-axial collection. White matter hypodensities are suggestive of chronic microvascular ischemic disease. Age-related involutional changes. The calvarium is intact. Hyperostosis frontalis interna. Prior bilateral lens replacement. The paranasal sinuses, mastoid air cells, and middle ear cavities are clear. IMPRESSION: No acute intracranial abnormality. 10/19/21 22:12 CT angio chest PE protocol Urgent FINDINGS: No pulmonary emboli are identified although segmental and subsegmental pulmonary arteries are suboptimally assessed due to respiratory motion, particularly within the left lung. Cardiomegaly is noted. There is no pericardial effusion. No thoracic aortic dissection is present. No enlarged axillary, mediastinal or hilar lymph nodes are noted. A small right pleural effusion is noted. There is no pneumothorax. No consolidation is identified to suggest pneumonia. Linear and groundglass opacities favor atelectasis. Severe dextroscoliosis of the thoracic spine is again noted. Gallbladder is surgically absent. IMPRESSION: 1. No pulmonary emboli identified although segmental and subsegmental pulmonary arteries suboptimally assessed due to respiratory motion. 2. Small right pleural effusion. 3. No consolidation to suggest pneumonia. 4. Dextroscoliosis of the thoracic spine. 10/20/21 03:25 MR brain seizure wo/w con Routine FINDINGS: There is no mass, hematoma, midline shift, or acute infarct. The paranasal sinuses are clear. The mastoid air cells are clear. The ventricles and sulci demonstrate mild age-related involutional changes. Scattered foci of T2 hyperintensity seen within the periventricular and subcortical white matter are nonspecific but suggestive of mild microvascular ischemic changes. The major vascular flow voids at the skull base are well-maintained. Old right basal ganglia infarct again noted. Evidence for prior bilateral lens replacement. IMPRESSION: No acute intracranial abnormality. Scattered foci of T2 hyperintensity seen within the periventricular and subcortical white matter are nonspecific but favor microvascular ischemic change. 10/20/21 06:17 US arterial duplex LE LT Urgent FINDINGS: The right ankle-brachial index measured 0.91. The left ankle to brachial index measured 0.86. Mild atherosclerotic plaque was noted within the left lower extremity. No elevated velocities were identified. There was biphasic flow within the left common femoral as well as the proximal left superficial femoral arteries. There was monophasic flow within the mid to distal left superficial femoral artery, popliteal, anterior tibial, posterior tibial, peroneal and dorsalis pedis vessels. IMPRESSION: 1. Mildly diminished left ankle to brachial index of 0.86. 2. Mild atherosclerotic plaque within the left lower extremity. No evidence for a hemodynamically significant stenosis. Patent vessels. 3. Monophasic flow within the left superficial femoral and popliteal arteries as well as the left calf vessels. Hospital Course (1) Seizure: Present to the ER after daughter witnessed seizure like activity MRI head showed no acute intracranial abnormality. CTA chest showed no pulmonary emboli identified although segmental and subsegmen desiree pulmonary arteries suboptimally assessed due to respiratory motion. EEG showed normal EEG revealing no evidence for focal or generalized encephalopathy no evidence for potentially epileptogenic activity Pt had few episodes of seizure like activity today. Not sure if it is pseudoseizure vs essential tremors Neurology consulted Case discussed with Neuro Dr. Garcia that recommended to resume Keppra at 250mg BID x 2 days then we can increase it at 375mg BID Another EEG today (10/25) normal Pt will benefit for 72 hrs EEG that will be arranged outpatient Continue PRN Ativan for breakthrough seizure Continue seizure precaution Continue monitor closely 10/25 -patient had another seizure-like activity today, witnessed by daughter at the bedside and RN. Patient received Ativan. Discussed event with Dr. Garcia, recommends to give 500 mg Keppra now, and increase dose to 500 twice daily. Also recommends transfer to tertiary care center/continuous EEG monitoring. Discussed with Dr. Gibson, at [facility], who accepted patient to their care. Abnormal urine Urine cx grew multiple organisms (Mostly contamination) IV abx with Rocephin discontinued Troponin level elevated Troponin on admission 36.7, then peak 41.5, then trending to 41.4 EKG showed no acute ischemic changes No chest pain Hx Kziftyv-Htqbh-Kpsyh disease Stable DVT ppx SCDs Code status DNR Disposition - transfer to [facility] Patient's daughter - Ms. Sasha Tilley, contact #[phone]. Patient's daughter requests for patient to be set up with Dr. Machado of [facility] for PCP services upon discharge. Total Time Total Time Spent Total Time Spent (In Minutes): 45 Discharge Plan Discharge Items Patient Disposition: Transfer Acute Care Hospital Reason For Visit: SZ, TROP ELEV Discharge Diagnosis: Seizure-like activity Activity: Per Instructions section Non-emergency contact: Neurologist Call non-emergency contact if: you have any medication questions and your symptoms worsen Follow-up/Referrals: Cayden Lowe MD [Primary Care Provider] - Diet: Regular Addtl Attending Provider Instructions: Patient admitted for seizure-like activity, continues to have episodes while inpatient. Recommended continuous EEG, and transfer to tertiary care center where she can be closely monitored. Contacted Dr. Gibson (neurology), at the [facility], who accepted the patient for further evaluation and care. Pending Studies at Discharge: No Stand-Alone Forms: My [facility] Skilled Items Patient informed of condition?: Yes DNR: Yes Discharge Level of Care: Other Communicable Disease: No Discharge Prognosis: Other Lines: Peripheral IV Urinary Catheter: No Medications and DC Order Prescriptions: Continued citalopram 10 mg tablet 10 mg PO PM RF: 0 Myrbetriq 50 mg tablet extended release 24 hr 50 mg PO PM RF: 0 cholecalciferol (vitamin D3) [Vitamin D3] 50 mcg (2,000 unit) Tablet 50 mcg PO QAM RF: 0 atorvastatin 20 mg tablet 20 mg PO HS RF: 0 Discharge Orders: Discharge Order (Routine); Ordered 10/25/21 Ordered By: Ta Park Admission Data Admit Date/Time: 10/20/21 21:05 Attending Provider: Ta Park Admit Provider: Kenney Knox Primary Care Provider: Cyaden Lowe Other Providers: Cortez Dye ; Nicole Barrios ; Luis Garcia ; Nicole Hanks ; Matthew Barron ; Angeles Montague ; [facility]
[2021-10-25] MEDS: POTASSIUM CHLORIDE / WTR 10 MEQ/100 ML PLCT IV SCH ×2 (20:17→21:33)
[2021-10-25] MEDS: ATORVASTATIN 20 MG TAB PO SCH (20:26)
[2021-10-25] MEDS: CITALOPRAM 20 MG TAB PO SCH (20:26)
[2021-10-25] MEDS: MIRABEGRON ER 25 MG TAB PO SCH (20:27)
[2021-10-26 06:31] LABS: Creatinine Clr Calc Pharmacy 146.3 ml/min; Est GFR (African American) 128.2 ml/min; Est GFR (Non-African American) 110.6 ml/min
--- NOTE | 2021-10-26 07:34 | Hospitalist Progress Note ---
Date of Service October 26, 2021 Assessment & Plan (1) Seizure: Plan: Present to the ER after daughter witnessed seizure like activity MRI head showed no acute intracranial abnormality. CTA chest showed no pulmonary emboli identified although segmental and mason bsegmental pulmonary arteries suboptimally assessed due to respiratory motion. EEG showed normal EEG revealing no evidence for focal or generalized encephalopathy no evidence for potentially epileptogenic activity Pt had few episodes of seizure like activity. Not sure if it is pseudoseizure vs essential tremors Neurology consulted Case discussed with Neuro Dr. Garcia that recommended to resume Keppra at 250mg BID x 2 days then we can increase it at 375mg BID Another EEG (10/25) normal Per previous plan - Pt will benefit for 72 hrs EEG that will be arranged outpa tient Continue PRN Ativan for breakthrough seizure Continue seizure precaution Continue monitor closely 10/25 -patient had another seizure-like activity today, witnessed by daughter at the bedside and RN. Patient received Ativan. Discussed event with Dr. Garcia, recommends to give 500 mg Keppra now, and increase dose to 500 twice daily. Also recommends transfer to tertiary care center/continuous EEG monitoring. Discussed with Dr. Gibson, at [facility], who accepted patient to their care. 10/26 patient was unable to be transferred to [facility] due to lack of beds. Currently patient is alert oriented answering questions appropriately. She is on Keppra p.o. 500 twice a day. Continue to closely monitor at PCU. Abnormal urine Urine cx grew multiple organisms (Mostly contamination) IV abx with Rocephin discontinued Troponin level elevated Troponin on admission 36.7, then peak 41.5, then trending to 41.4 EKG showed no acute ischemic changes No chest pain Hx Ypznggs-Kabpu-Fxjjr disease Stable DVT ppx SCDs Code status DNR Disposition - transfer to [facility] when beds available Patient's daughter - Ms. Sasha Tilley, contact #[phone]. Patient's daughter requests for patient to be set up with Dr. Machado of [facility] for PCP services upon discharge. Admission and Anticipated Discharge Date Admission Date: October 20, 2021 Subjective Pt seen in follow up of seizure like activity Yesterday (10/25) Called by RN, as patient had witnessed seizure like activity. Patient received Ativan, by RN. Pt's daughter at the bedside. Patient was able to open her eyes, responsive to my voice, able to nod, say yes or no. She knew where she was, and she recognized her daughter at the bedside. Patient had EEG earlier yesterday, which was normal. I contacted Dr. Garcia, from neurology, to discuss patient's activity/ above event. Recommended to give 500 mg of Keppra, and increase dose to 500 twice daily. Also recommended continuous EEG monitoring and transfer to tertiary care center. Patients daughter at the bedside, also interested in transfer to tertiary care center. 10/26 Patient was not able to be transferred to [facility] yet, due to lack of beds. Currently she is sitting up in bed, in no acute distress, eating breakfast. she is alert oriented and answering questions appropriately. Denies any headache, chest pain, shortness of breath, abdominal pain, nausea, fevers or chills Review of Systems Review of Systems: All systems reviewed & are unremarkable except as noted in Subjective Physical Exam Physical Exam: General-elderly female, sitting up in bed, in no acute distress Head- atraumatic Eyes- PERRL, EOMI, Neck- supple Lungs- clear to auscultation Heart- regular rhythm; no murmur Abdomen- normal bowel sounds, soft, nontender Extremities- no calf tenderness Neuro-awake alert oriented, able to answer simple questions appropriately. PERRL, EOMI; no facial palsy, baseline wheelchair bound Skin- warm & dry Results & Data Results & Data ([facility]) Vital Signs (Past 12 Hours) Vital Signs Temp Pulse Pulse Resp BP Pulse Ox 10/26/21 03:23 36.5 C 71 16 113/69 92 10/26/21 00:00 63 10/25/21 22:35 36.7 C 62 18 105/66 92 Laboratory Results 10/26/21 10/25/21 Range/Units 05:45 16:33 Creatinine 0.28 L (0.6-1.2) mg/dl Est Cr Clr Drug Dosing 146.3 ml/min Est GFR ( Amer) 128.2 ml/min Est GFR (Non-Af Amer) 110.6 ml/min POC Glucose 106 H (70-99) mg/dl Medications Administered Current Inpatient Medications Aspirin (Aspirin 81 Mg Ectab) [facility] Stop: 11/19/21 08:59 Last Admin: 10/26/21 08:46 Dose: 81 mg Documented by: Atorvastatin Calcium (Atorvastatin 20 Mg Tab) 20 mg PO HS [facility] Stop: 11/19/21 20:59 Last Admin: 10/25/21 20:26 Dose: 20 mg Documented by: Citalopram Hydrobromide (Citalopram 20 Mg Tab) 10 mg PO PM [facility] Stop: 11/19/21 20:59 Last Admin: 10/25/21 20:26 Dose: 10 mg Documented by: Enoxaparin Sodium (Enoxaparin Inj 30 Mg/0.3 Ml Syr) 30 mg SQ QAM [facility] Stop: 11/19/21 08:59 Last Admin: 10/26/21 08:44 Dose: 30 mg Documented by: Promethazine HCl 6.25 mg/ (Sodium Chloride) 50.25 mls @ 201 mls/hr IV Q6H PRN PRN Reason: Nausea And Vomiting Stop: 11/22/21 22:31 Last Infusion: 10/25/21 17:39 Dose: Infused Documented by: Levetiracetam (Levetiracetam Soln 500 Mg/5 Ml Udp) 500 mg PO BID [facility] Stop: 11/25/21 09:29 Lorazepam (Lorazepam 2 Mg/1 Ml Vial) 0.25 mg IV Q1H PRN PRN Reason: active seizure Stop: 11/19/21 05:31 Last Admin: 10/25/21 16:38 Dose: 0.25 mg Documented by: Miconazole Nitrate (Miconazole Nitrate Powder 43 Gm) 1 appln EXT BID [facility] Stop: 11/19/21 06:44 Last Admin: 10/25/21 21:33 Dose: 1 appln Documented by: Mirabegron (Mirabegron Er 25 Mg Tab) 50 mg PO PM [facility] Stop: 11/19/21 20:59 Last Admin: 10/25/21 20:27 Dose: 50 mg Documented by: Polyethylene Glycol (Polyethylene (Miralax) 17 Gm Pack) 17 gm PO DAILY PRN PRN Reason: Constipation Stop: 11/24/21 09:22 Sennosides (Senna 8.6 Mg Tab) 8.6 mg PO QAM [facility] Stop: 11/24/21 09:29 Last Admin: 10/26/21 08:46 Dose: 8.6 mg Documented by:
[2021-10-26] MEDS: ENOXAPARIN INJ 30 MG/0.3 ML SYR SQ SCH (08:44)
[2021-10-26] MEDS: SENNA 8.6 MG TAB PO SCH (08:46)
[2021-10-26] MEDS: ASPIRIN 81 MG ECTAB PO SCH (08:46)
[2021-10-26] MEDS: levETIRAcetam 500 MG TAB PO SCH ×2 (08:47→08:52)
[2021-10-26] MEDS: MICONAZOLE NITRATE POWDER 43 GM EXT SCH (10:00)
--- NOTE | 2021-10-26 16:29 | Communication Note ---
Date of Service: October 26, 2021 Alanna is more awake and alert today no seizure activity has been reported since yesterday evening and she is on Keppra 500 mg twice a day. She is not yet been accepted for transfer to [facility] as there is no bed availability but will be transferred when this opens up If she continues to do well and remains seizure-free and tolerates of 500 mg of Keppra twice a day and transfer to [facility] is going to be delayed we may be able to simply keep her here and follow her clinically until we can get her ready to go to [facility] but not runs the risk of her having another event at [facility] and then being transferred back here. I would prefer to have her seizure disorder evaluated her EEG monitored for 24 to 48 hours and the decision made about her final Keppra dose tablets at [facility]. Her daughter has expressed a lot of concerns about the quality of her care and indeed unless we are capable of providing inpatient monitoring these concerns are valid particularly in a case where she has had now 2 breakthrough "seizure-like" events on Keppra and doses I think are appropriate for woman of her age Dr. Perdomo will be available for the next week on consultation if situation changes and the patient and family desire to remain here in the hospital Monitoring anticonvulsant levels unfortunately is very limited value for Keppra as the therapeutic range is wide and there is quite a delay in obtaining the value as it is a send out for her laboratory Luis Garcia MD
--- NOTE | 2021-10-26 18:16 | Discharge Summary ---
Date of Service October 26, 2021 Admission HPI Per Admitting Provider History obtained from patient family and records. Unable to obtain history from patient secondary to obtunded state post Ativan administration at the ER. Medical history significant for CVA, right breast cancer status post surgery/radiation, uterine cancer status post surgery, bronchial asthma, mood disorder, urinary incontinence, Zwpyudf-Fpznt-Nvgie disease, past tobacco abuse. Last confinement last month for traumatic left iliopsoas muscle hematoma. No surgical intervention. Patient also seen by Neurology for chronic lacunar infarct on MRI. Aspirin and Lipitor prescribed on discharge. Patient initially discharged to rehab before moving in with her daughter. Last night, patient noted by daughter to have seizure-like activity, rigidity followed by shaking with patient staring blankly into space. Episode lasted about 2 minutes. Patient somewhat confused after episode. No tongue biting or incontinence. No prior episodes. Patient daughter familiar with seizures with herself (when she was younger) and her daughter having seizure history. Patient later on complained of shortness of breath At the ER, patient noted to have shaking episode again terminated by low-dose IV Ativan administration at the ER. 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 Admission Exam Per Admitting Provider GENERAL: Obtunded, no respiratory distress SKIN: Normal color, warm HEENT: Sena palpebral conjunctivae, no ptosis, edentulous, dry buccal mucosa NECK : Supple, no tenderness CHEST : Decreased breath sounds, no tenderness HEART : RRR, no obvious murmurs ABDOMEN: Some distention, nontender EXTREMITIES : Minimal LE swelling, no LE tenderness NEUROLOGIC : Obtunded, no facial asymmetry, gait and stance not assessed Principal Diagnosis Seizure-like activity Discharge Exam General-elderly female, sitting up in bed, in no acute distress Head- atraumatic Eyes- PERRL, EOMI, Neck- supple Lungs- clear to auscultation Heart- regular rhythm; no murmur Abdomen- normal bowel sounds, soft, nontender Extremities- no calf tenderness Neuro-awake alert oriented, able to answer simple questions appropriately. PERRL, EOMI; no facial palsy, baseline wheelchair bound Skin- warm & dry Discharge Data Allergies Allergy/AdvReac Type Severity Reaction Status Date / Time shellfish derived Allergy Severe LOBSTER: Verified 10/19/21 22:50 almost acetaminophen [From Tylenol] Allergy Rash Unverified 10/19/21 22:50 Consultations 10/19/21 23:44 ED Decision to Admit Stat 10/20/21 05:32 Consult Neurology Routine 10/25/21 18:43 Burn CD for patient Stat Ordered Studies CT head/brain wo con Urgent FINDINGS: No acute intracranial hemorrhage, midline shift, intracranial mass, hydrocephalus, territorial ischemia or abnormal extra-axial collection. White matter hypodensities are suggestive of chronic microvascular ischemic disease. Age-related involutional changes. The calvarium is intact. Hyperostosis frontalis interna. Prior bilateral lens replacement. The paranasal sinuses, mastoid air cells, and middle ear cavities are clear. IMPRESSION: No acute intracranial abnormality. 10/19/21 22:12 CT angio chest PE protocol Urgent FINDINGS: No pulmonary emboli are identified although segmental and subsegmental pulmonary arteries are suboptimally assessed due to respiratory motion, particularly within the left lung. Cardiomegaly is noted. There is no pericardial effusion. No thoracic aortic dissection is present. No enlarged axillary, mediastinal or hilar lymph nodes are noted. A small right pleural effusion is noted. There is no pneumothorax. No consolidation is identified to suggest pneumonia. Linear and groundglass opacities favor atelectasis. Severe dextroscoliosis of the thoracic spine is again noted. Gallbladder is surgically absent. IMPRESSION: 1. No pulmonary emboli identified although segmental and subsegmental pulmonary arteries suboptimally assessed due to respiratory motion. 2. Small right pleural effusion. 3. No consolidation to suggest pneumonia. 4. Dextroscoliosis of the thoracic spine. 10/20/21 03:25 MR brain seizure wo/w con Routine FINDINGS: There is no mass, hematoma, midline shift, or acute infarct. The paranasal sinuses are clear. The mastoid air cells are clear. The ventricles and sulci demonstrate mild age-related involutional changes. Scattered foci of T2 hyperintensity seen within the periventricular and subcortical white matter are nonspecific but suggestive of mild microvascular ischemic changes. The major vascular flow voids at the skull base are well-maintained. Old right basal ganglia infarct again noted. Evidence for prior bilateral lens replacement. IMPRESSION: No acute intracranial abnormality. Scattered foci of T2 hyperintensity seen within the periventricular and subcortical white matter are nonspecific but favor microvascular ischemic change. 10/20/21 06:17 US arterial duplex LE LT Urgent FINDINGS: The right ankle-brachial index measured 0.91. The left ankle to brachial index measured 0.86. Mild atherosclerotic plaque was noted within the left lower extremity. No elevated velocities were identified. There was biphasic flow within the left common femoral as well as the proximal left superficial femoral arteries. There was monophasic flow within the mid to distal left superficial femoral artery, popliteal, anterior tibial, posterior tibial, peroneal and dorsalis pedis vessels. IMPRESSION: 1. Mildly diminished left ankle to brachial index of 0.86. 2. Mild atherosclerotic plaque within the left lower extremity. No evidence for a hemodynamically significant stenosis. Patent vessels. 3. Monophasic flow within the left superficial femoral and popliteal arteries as well as the left calf vessels. Hospital Course (1) Seizure: Present to the ER after daughter witnessed seizure like activity MRI head showed no acute intracranial abnormality. CTA chest showed no pulmonary emboli identified although segmental and subsegmental pulmonary arteries suboptimally assessed due to respiratory motion. EEG showed normal EEG revealing no evidence for focal or generalized encephalopathy no evidence for potentially epileptogenic activity Pt had few episodes of seizure like activity. Not sure if it is pseudoseizure vs essential tremors Neurology consulted Case discussed with Neuro Dr. Garcia that recommended to resume Keppra at 250mg BID x 2 days then we can increase it at 375mg BID Another EEG (10/25) normal Per previous plan - Pt will benefit for 72 hrs EEG that will be arranged outpatient Continue PRN Ativan for breakthrough seizure Continue seizure precaution Continue monitor closely 10/25 -patient had another seizure-like activity today, witnessed by daughter at the bedside and RN. Patient received Ativan. Discussed event with Dr. Garcia, recommends to give 500 mg Keppra now, and increase dose to 500 twice daily. Also recommends transfer to tertiary care center/continuous EEG monitoring. Discussed with Dr. Gibson, at [facility], who accepted patient to their care. 10/26 AM patient was unable to be transferred to [facility] due to lack of beds. Currently patient is alert oriented answering questions appropriately. She is on Keppra p.o. 500 twice a day. Continue to closely monitor at PCU. 10/26 PM - Pt to be transferred to [facility] Abnormal urine Urine cx grew multiple organisms (Mostly contamination) IV abx with Rocephin discontinued Troponin level elevated Troponin on admission 36.7, then peak 41.5, then trending to 41.4 EKG showed no acute ischemic changes No chest pain Hx Wgdnoan-Pvyeb-Dgorb disease Stable DVT ppx SCDs Code status DNR Disposition - transfer to [facility] Patient's daughter - Ms. Sasha Tilley, contact #[phone]. Patient's daughter requests for patient to be set up with Dr. Machado of [facility] for PCP services upon discharge. Total Time Total Time Spent Total Time Spent (In Minutes): 45 Discharge Plan Discharge Items Patient Disposition: Transfer Acute Care Hospital Reason For Visit: AZUL, BURAK BHAKTA Discharge Diagnosis: Seizure-like activity Activity: Per Instructions section Non-emergency contact: Neurologist Call non-emergency contact if: you have any medication questions and your symptoms worsen Follow-up/Referrals: Cayden Lowe MD [Primary Care Provider] - Diet: Regular Addtl Attending Provider Instructions: Patient admitted for seizure-like activity, continues to have episodes while inpatient. Recommended continuous EEG, and transfer to tertiary care center where she can be closely monitored. Contacted Dr. Gibson (neurology), at the [facility], who accepted the patient for further evaluation and care. Pending Studies at Discharge: No Stand-Alone Forms: [facility] Sk[facility] Patient informed of condition?: Yes DNR: Yes Discharge Level of Care: Other Communicable Disease: No Discharge Prognosis: Other Lines: US Guided Peripheral IV Urinary Catheter: No Medications and DC Order Prescriptions: Continued citalopram 10 mg tablet 10 mg PO PM RF: 0 Myrbetriq 50 mg tablet extended release 24 hr 50 mg PO PM RF: 0 cholecalciferol (vitamin D3) [Vitamin D3] 50 mcg (2,000 unit) Tablet 50 mcg PO QAM RF: 0 atorvastatin 20 mg tablet 20 mg PO HS RF: 0 Discharge Orders: Discharge Order (Routine); Ordered 10/25/21 Ordered By: Ta Park Admission Data Admit Date/Time: 10/20/21 21:05 Attending Provider: Ta Park Admit Provider: Kenney Knox Primary Care Provider: Cayden Lowe Other Providers: [facility] ; Cortez Dye ; Nicole Barrios ; Luis Garcia ; Nicole Hanks ; Matthew Barron ; Angeles Montague Other Interventions: Discharge Summary Assessment (RN) Last Done: 10/26/21 16:45
--- NOTE | 2021-10-31 06:35 | Coding Query ---
CODING QUERY To promote full compliance with coding requirements relating to patient care, provider participation is requested in all cases of ludlow machine operator uncertainty. Please assist us with the question(s) below: Coding Question(s): Pt admitted with new onset seizure. H/P documented sacral decubitus ulcer. Please check below the stage of the sacral ulcer below. Thanks for your help! Jorden Gibson LOOPING INSPECTOR [facility] Physician's Response(s): Stage 1 Sacral Decubitus ulcer Stage 2 Sacral Decubitus ulcer x___ Stage 3 Sacral Decubitus ulcer Stage 4 Sacral Decubitus ulcer Unstageable Sacral Decubitus ulcer Sacral decubitus ulcer Unspecified stage. Principal Diagnosis: "that condition established after study, to be chiefly responsible for occasioning the admission of the patient to the hospital for care." Co-Existing Principal Diagnosis: "when two or more diagnoses equally meet the criteria for principal diagnosis as determined by the circumstances of admission, diagnostic work up, and/or therapy provided, and the Alphabetic Index, Tabular List, or another coding guideline does not provide sequencing direction, any one of the diagnoses may be sequenced first." "When the physician has documented what appears to be a current diagnosis in the body of the record, but has not included the diagnosis in the final diagnostic statement, the physician should be asked whether the diagnosis should be added." (Source Coding Clinic 2 QTR90. p3-4) FELIX
== END 2021-10-26 18:06 | disposition short-term general hospital (02) | DRG 100 ==
LOC: ED 20:41 → 2E 20:41 → SUATTDRO 10-20 21:05 → 2N 10-24 13:40 → 2S 10-25 22:47

== ENCOUNTER 2021-12-22 18:51 | Inpatient (IN) ==
[2021-12-22] MEDS ORDERED: SODIUM CHLORIDE 0.9% 500 ML IV STA (19:44)
--- NOTE | 2021-12-22 19:48 | Emergency Department Note ---
Impression & Plan Weakness ADMIT ED Provider Note HPI: Patient is an 81-year-old female with history of Nprbwcp-Wiytw-Drhzq disease, PN ES, who presents emergency department chief complaint of rectal bleeding, abdominal pain, and constipation that has been recent. Patient's daughter is at the bedside there is additional history, states that the patient has been constipated and complaining of some abdominal discomfort over about the past 5 to 7 days. She started MiraLAX yesterday and began having bowel movements. Today she had 3 bowel movements that had gross bleeding mixed with stool. Patient was also complaining of some continued mid abdominal pain. PCP office was contacted and patient was recommended to come to the emergency department for further evaluation. Patient apparently is also had some weakness beyond baseline, she does not ambulate normally at baseline however she is normally able to transfer herself from bed to a chair, patient's daughter states she is n o longer able to do this and seems extremely weak. ROS: -General: Generalized weakness -GI: Blood per rectum, abdominal discomfort *10 point review systems was conducted and is otherwise negative unless stated above *Outpatient medications and allergy history reviewed PE: General: Alert, NAD HEENT: Normocephalic, atraumatic Eyes: Extraocular eye movement is intact, no scleral erythema Pulmonary: Clear to auscultation bilaterally, no wheezing Cardio: Regular rate and rhythm GI: Abdomen is soft, nontender, rectal examination was performed with female RN at the bedside, does show evidence of large external hemorrhoids without active bleeding, occult stool is positive : No suprapubic tenderness MSK: No evidence of trauma or malformation of the extremities, limited movement and weakness of the upper and lower extremities consistent with baseline with CMT disease Skin: No evidence of rash Neuro: Alert, no focal deficits Psychiatric: Cooperative designer writer: - An order was placed for continuous cardiac monitoring - Patient was noted to be in sinus rhythm with rate of 70 EKG: Rate: 78 Rhythm: Normal sinus rhythm Intervals: NC interval 200 ms, otherwise within normal limits ST changes: No ST elevation Time: 1955 Medical Decision Making: Patient presented to the emergency department with generalized weakness, rectal bleeding, she has had some constipation and abdominal pain recently. CT imaging of the head was obtained as the patient has had some generalized weakness and ambulatory dysfunction, this does not show any evidence of any acute intracranial process. CT imaging of the abdomen pelvis does not show any acute abnormality, patient's lab work shows a stable hemoglobin, rectal examination does show some large external hemorrhoids, occult stool testing is positive. There is no gross bleeding noted in the rectal vault and a limited amount of st ool. EKG does not show any acute ischemic changes, troponin is noted to be mildly elevated at 35, repeat troponin 2 hours later is the same level. Patient does not have any chest pain. Urinalysis does not show any evidence of infection. On my reassessment the patient's daughter expresses concern that the patient is weak beyond her baseline, she normally is able to bear some weight and transiti on from the bed into a chair, today she is unable to really bear any weight and this is an acute change for her. Patient's daughter is concerned that she is unable to take care of her at home and the patient may require a higher level of care such as mcc or rehab, which the patient may benefit from at this point. Given this, and occult positive stool, patient will be admitted to the hospitalist service for further care and likely placement. Patient and her daughter in agreement to the above plan. [facility] hospitalist service was consulted for admission. Diagnosis: 1. Generalized weakness 2. Ambulatory dysfunction 3. Mcrfvid-Baxdv-Kqabj disease 4. 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 Required: No Beliefs That Will Affect Care: None marital status: / Current Living Situation: Family Feels Safe at Home: Yes Assistive Devices: Crutches, Lift Chair and Wheelchair Allergies Allergies Allergy/AdvReac Type Severity Reaction Status Date / Time shellfish derived Allergy Severe LOBSTER: Verified 12/22/21 23:25 almost acetaminophen [From Tylenol] Allergy Rash Unverified 12/22/21 23:25 atorvastatin AdvReac Nausea Verified 12/22/21 23:25 Home Meds Home Medications Medication Instructions Recorded Confirmed citalopram 10 mg tablet 10 mg PO PM 09/09/21 12/22/21 mirabegron 50 mg tablet,extended 50 mg PO PM 09/09/21 12/22/21 release 24 hr (Myrbetriq) cholecalciferol (vitamin D3) 50 50 mcg PO QAM 10/19/21 12/22/21 mcg (2,000 unit) tablet (Vitamin D3) aspirin 81 mg chewable tablet 81 mg PO DAILY 12/09/21 12/22/21 docusate sodium 100 mg tablet 100 mg PO DAILY 12/09/21 12/22/21 Results & Data (ED) Vital Signs Vital Signs - 24 hr 12/22/21 18:56 12/22/21 19:45 12/22/21 19:04 Temperature 37.2 C Temperature Source Temporal Artery Scan Pulse Rate 96 H Pulse Rate from SpO2 Sensor Respiratory Rate 18 Respiratory Effort / Characteristics Non-Labored Respiratory Depth Normal Respiratory Pattern Blood Pressure 179/70 H Blood Pressure Mean 106 Pulse Oximetry 94 96 98 Oxygen Delivery Method Room Air Room Air Room Air Sepsis Recent Fever Within 48 Hours No Sepsis New/Unexplained Change in Mental Status No Sepsis Action Taken by Nursing No Action Required 12/22/21 18:55 12/22/21 19:09 12/22/21 19:10 Temperature Temperature Source Pulse Rate Pulse Rate from SpO2 Sensor 74 Respiratory Rate 33 H Respiratory Effort / Characteristics Non-Labored Respiratory Depth Normal Respiratory Pattern Blood Pressure 129/73 Blood Pressure Mean 91 Pulse Oximetry 96 Oxygen Delivery Method Sepsis Recent Fever Within 48 Hours Sepsis New/Unexplained Change in Mental Status Sepsis Action Taken by Nursing 12/22/21 19:20 12/22/21 19:30 12/22/21 19:40 Temperature Temperature Source Pulse Rate 72 76 90 Pulse Rate from SpO2 Sensor 74 75 Respiratory Rate Respiratory Effort / Characteristics Respiratory Depth Respiratory Pattern Blood Pressure Blood Pressure Mean Pulse Oximetry 96 93 Oxygen Delivery Method Sepsis Recent Fever Within 48 Hours Sepsis New/Unexplained Change in Mental Status Sepsis Action Taken by Nursing 12/22/21 19:50 12/22/21 20:00 12/22/21 20:10 Temperature Temperature Source Pulse Rate 78 82 82 Pulse Rate from SpO2 Sensor Respiratory Rate 25 H 26 H 27 H Respiratory Effort / Characteristics Respiratory Depth Respiratory Pattern Blood Pressure Blood Pressure Mean Pulse Oximetry Oxygen Delivery Method Sepsis Recent Fever Within 48 Hours Sepsis New/Unexplained Change in Mental Status Sepsis Action Taken by Nursing 12/22/21 20:20 12/22/21 20:30 12/22/21 20:40 Temperature Temperature Source Pulse Rate 76 81 75 Pulse Rate from SpO2 Sensor Respiratory Rate 26 H 16 30 H Respiratory Effort / Characteristics Respiratory Depth Respiratory Pattern Blood Pressure Blood Pressure Mean Pulse Oximetry Oxygen Delivery Method Sepsis Recent Fever Within 48 Hours Sepsis New/Unexplained Change in Mental Status Sepsis Action Taken by Nursing 12/22/21 20:50 12/22/21 21:00 12/22/21 21:10 Temperature Temperature Source Pulse Rate 72 73 Pulse Rate from SpO2 Sensor 73 82 Respiratory Rate 24 20 32 H Respiratory Effort / Characteristics Respiratory Depth Respiratory Pattern Blood Pressure Blood Pressure Mean Pulse Oximetry 99 92 Oxygen Delivery Method Sepsis Recent Fever Within 48 Hours Sepsis New/Unexplained Change in Mental Status Sepsis Action Taken by Nursing 12/22/21 20:55 12/22/21 22:00 Temperature Temperature Source Pulse Rate Pulse Rate from SpO2 Sensor Respiratory Rate 21 Respiratory Effort / Characteristics Non-Labored Non-Labored Respiratory Depth Normal Normal Respiratory Pattern Regular Blood Pressure Blood Pressure Mean Pulse Oximetry 96 Oxygen Delivery Method Sepsis Recent Fever Within 48 Hours Sepsis New/Unexplained Change in Mental Status Sepsis Action Taken by Nursing Laboratory Data Result diagrams: 12/22/21 20:19 12/22/21 20:19 Lab Results 12/22/21 12/22/21 12/22/21 Range/Units 20:13 20:19 20:19 WBC 9.22 (4.8-10.8) K/ul RBC 5.24 H (3.93-5.22) M/uL Hgb 14.9 (12.0-16.0) g/dl Hct 45.4 H (34.1-44.9) % MCV 86.6 (80.0-100.0) fL MCH 28.4 (25.0-34.0) pg MCHC 32.8 (32.0-36.0) g/dL RDW Std Deviation 45.5 (36.4-46.3) fL RDW Coeff of [place] 14.4 (11.5-14.5) % Plt Count 189 (130-400) K/uL MPV 10.1 (9.4-12.3) fL Immature Gran % (Auto) 0.2 % Neut % (Auto) 75.3 % Lymph % (Auto) 14.9 % Beckham % (Auto) 7.7 % Eos % (Auto) 1.1 % Baso % (Auto) 0.8 % Neut # (Auto) 6.95 H (1.4-6.5) K/uL Lymph # (Auto) 1.37 (1.2-3.4) K/uL Beckham # (Auto) 0.71 (0.24-0.82) K/uL Eos # (Auto) 0.10 (0-0.50) K/uL Baso # (Auto) 0.07 (0-0.2) K/uL Immature Gran # (Auto) 0.02 (0.00-0.02) K/uL PT 10.9 (9.0-12.0) Seconds INR 1.0 (0.9-1.1) Sodium (136-145) mmol/L Potassium (3.5-5.1) mmol/L Chloride (98-107) mmol/L Carbon Dioxide (21-32) mmol/L Anion Gap (3-11) BUN (6-23) mg/dl Creatinine (0.6-1.2) mg/dl Est Cr Clr Drug Dosing Est GFR ( Amer) ml/min Est GFR (Non-Af Amer) ml/min BUN/Creatinine Ratio (10-20) Glucose (70-99(Fasting)) mg/dl POC Glucose 91 (70-99) mg/dl Calcium (8.5-10.1) mg/dl Total Bilirubin (0.2-1.0) mg/dl AST (13-39) U/L ALT (7-52) U/L Alkaline Phosphatase (34-104) U/L Troponin I High Sens (0-14) pg/ml Total Protein (6.0-8.3) gm/dl Albumin (3.4-5.0) gm/dl Globulin (2.5-4.0) gm/dl Albumin/Globulin Ratio (0.9-2) Lipase (11-82) U/L Urine Color Urine Appearance (Clear) Urine pH (4.5-7.5) Ur Specific [place] (1.000-1.030) Urine Protein (Negative) Urine Glucose (UA) (Negative) Urine Ketones (Negative) Urine Blood (Negative) Urine Nitrite (Negative) Urine Bilirubin (Negative) Urine Urobilinogen (Negative) Ur Leukocyte Esterase (Negative) Urine WBC (Auto) (0-5) /hpf Urine RBC (Auto) (0-4) /hpf U Hyaline Cast (Auto) (0-5) /lpf U Epithel Cells (Auto) (0-5) /lpf Urine Bacteria (Auto) (Negative) Blood Type Antibody Screen 12/22/21 12/22/21 12/22/21 Range/Units 20:19 20:48 20:49 WBC (4.8-10.8) K/ul RBC (3.93-5.22) M/uL Hgb (12.0-16.0) g/dl Hct (34.1-44.9) % MCV (80.0-100.0) fL MCH (25.0-34.0) pg MCHC (32.0-36.0) g/dL RDW Std Deviation (36.4-46.3) fL RDW Coeff of [place] (11.5-14.5) % Plt Count (130-400) K/uL MPV (9.4-12.3) fL Immature Gran % (Auto) % Neut % (Auto) % Lymph % (Auto) % Beckham % (Auto) % Eos % (Auto) % Baso % (Auto) % Neut # (Auto) (1.4-6.5) K/uL Lymph # (Auto) (1.2-3.4) K/uL Beckham # (Auto) (0.24-0.82) K/uL Eos # (Auto) (0-0.50) K/uL Baso # (Auto) (0-0.2) K/uL Immature Gran # (Auto) (0.00-0.02) K/uL PT (9.0-12.0) Seconds INR (0.9-1.1) Sodium 138 (136-145) mmol/L Potassium 3.9 (3.5-5.1) mmol/L Chloride 100 (98-107) mmol/L Carbon Dioxide 30 (21-32) mmol/L Anion Gap 8 (3-11) BUN 14 (6-23) mg/dl Creatinine 0.32 L (0.6-1.2) mg/dl Est Cr Clr Drug Dosing Not Reportable Est GFR ( Amer) 122.7 ml/min Est GFR (Non-Af Amer) 105.9 ml/min BUN/Creatinine Ratio 43.8 H (10-20) Glucose 94 (70-99(Fasting)) mg/dl POC Glucose (70-99) mg/dl Calcium 8.8 (8.5-10.1) mg/dl Total Bilirubin 0.6 (0.2-1.0) mg/dl AST 22 (13-39) U/L ALT 18 (7-52) U/L Alkaline Phosphatase 82 (34-104) U/L Troponin I High Sens 35.0 H 35.0 H (0-14) pg/ml Total Protein 6.6 (6.0-8.3) gm/dl Albumin 3.7 (3.4-5.0) gm/dl Globulin 2.9 (2.5-4.0) gm/dl Albumin/Globulin Ratio 1.3 (0.9-2) Lipase 29 (11-82) U/L Urine Color Urine Appearance (Clear) Urine pH (4.5-7.5) Ur Specific [place] (1.000-1.030) Urine Protein (Negative) Urine Glucose (UA) (Negative) Urine Ketones (Negative) Urine Blood (Negative) Urine Nitrite (Negative) Urine Bilirubin (Negative) Urine Urobilinogen (Negative) Ur Leukocyte Esterase (Negative) Urine WBC (Auto) (0-5) /hpf Urine RBC (Auto) (0-4) /hpf U Hyaline Cast (Auto) (0-5) /lpf U Epithel Cells (Auto) (0-5) /lpf Urine Bacteria (Auto) (Negative) Blood Type O Positive Antibody Screen NEGATIVE 12/22/21 Range/Units 22:20 WBC (4.8-10.8) K/ul RBC (3.93-5.22) M/uL Hgb (12.0-16.0) g/dl Hct (34.1-44.9) % MCV (80.0-100.0) fL MCH (25.0-34.0) pg MCHC (32.0-36.0) g/dL RDW Std Deviation (36.4-46.3) fL RDW Coeff of [place] (11.5-14.5) % Plt Count (130-400) K/uL MPV (9.4-12.3) fL Immature Gran % (Auto) % Neut % (Auto) % Lymph % (Auto) % Beckham % (Auto) % Eos % (Auto) % Baso % (Auto) % Neut # (Auto) (1.4-6.5) K/uL Lymph # (Auto) (1.2-3.4) K/uL [place] # (Auto) (0.24-0.82) K/uL Eos # (Auto) (0-0.50) K/uL Baso # (Auto) (0-0.2) K/uL Immature Gran # (Auto) (0.00-0.02) K/uL PT (9.0-12.0) Seconds INR (0.9-1.1) Sodium (136-145) mmol/L Potassium (3.5-5.1) mmol/L Chloride (98-107) mmol/L Carbon Dioxide (21-32) mmol/L Anion Gap (3-11) BUN (6-23) mg/dl Creatinine (0.6-1.2) mg/dl Est Cr Clr Drug Dosing Est GFR ( Amer) ml/min Est GFR (Non-Af Amer) ml/min BUN/Creatinine Ratio (10-20) Glucose (70-99(Fasting)) mg/dl POC Glucose (70-99) mg/dl Calcium (8.5-10.1) mg/dl Total Bilirubin (0.2-1.0) mg/dl AST (13-39) U/L ALT (7-52) U/L Alkaline Phosphatase (34-104) U/L Troponin I High Sens (0-14) pg/ml Total Protein (6.0-8.3) gm/dl Albumin (3.4-5.0) gm/dl Globulin (2.5-4.0) gm/dl Albumin/Globulin Ratio (0.9-2) Lipase (11-82) U/L Urine Color Yellow Urine Appearance Cloudy A (Clear) Urine pH 8.0 H (4.5-7.5) Ur Specific [place] 1.010 (1.000-1.030) Urine Protein Negative (Negative) Urine Glucose (UA) Negative (Negative) Urine Ketones Negative (Negative) Urine Blood 1+ H (Negative) Urine Nitrite Negative (Negative) Urine Bilirubin Negative (Negative) Urine Urobilinogen Negative (Negative) Ur Leukocyte Esterase Trace H (Negative) Urine WBC (Auto) 5-10 H (0-5) /hpf Urine RBC (Auto) 0-4 (0-4) /hpf U Hyaline Cast (Auto) 0 (0-5) /lpf U Epithel Cells (Auto) 10-20 H (0-5) /lpf Urine Bacteria (Auto) Negative (Negative) Blood Type Antibody Screen Administered Medications Discontinued Medications Sodium Chloride (Nss) 500 mls @ 999 mls/hr IV .Q31M STA Stop: 12/22/21 20:14 Last Infusion: 12/22/21 22:06 Dose: 0 mls/hr Documented By: Admin: 12/22/21 21:03 Dose: 999 mls/hr Documented By: HANY Ioversol (Optiray 320 100ml) 94 ml IV ONCE ONE Stop: 12/22/21 22:05 Last Admin: 12/22/21 22:05 Dose: 94 ml Documented By: [facility] Imaging Data Radiologist's Impression: Abdomen/Pelvis CT 12/22/21 19:44 CT abd pelvis IV con only CLINICAL HISTORY: abd pain, rectal bleeding TECHNIQUE: Helical axial images of the abdomen and pelvis were obtained and displayed. Automated dose lowering techniques and/or adjustment according to patient size were utilized for this exam. This exam was performed with intravenous contrast. CT DOSE: 604.22 mGy.cm COMPARISON: Comparison is made to CT abdomen pelvis 12/09/2021 FINDINGS: Lower chest: No acute abnormality Liver: Subcentimeter hypodensities in the liver are too small to characterize. Gallbladder and biliary tree: Patient is status post cholecystectomy. Physiologic prominence of the biliary ducts is noted. Pancreas: Unremarkable, no focal lesions. Spleen: Unremarkable. Adrenals: Unremarkable. Kidneys and ureters: Nonobstructive stone is seen on the right. There is a duplicated collecting system on the left with a stone in the superior moiety with some surrounding fat stranding. This finding was seen on the prior exam as well. Bladder: Unremarkable. Reproductive organs: Patient is status post hysterectomy. Bowel: The appendix is not present, likely surgically absent. There is a hiatal hernia. Lymph nodes Retroperitoneal: Unremarkable. Pelvic: Unremarkable. Mesenteric: Unremarkable. Peritoneum: Normal. Vessels: Unremarkable. Abdominal wall: Laxity of the lateral abdominal musculature is seen. Bones: Degenerative changes in the visualized spine. Scoliosis is noted. IMPRESSION: 1. No acute abnormalities are seen. 2. Redemonstration of left nonobstructive stone in the renal pelvis. ACT 112: Negative or not required by law. Electronically signed by: Guillermo Casiano M.D. 12/22/2021 10:[address] 12/22/21 19:46 CT head/brain wo con CLINICAL HISTORY: weakness/dizzy Technique: Contiguous axial CT images of the head were acquired from the base of the skull to the vertex without intravenous contrast administration. Images were viewed in brain, subdural and bone windows. Automated dose lowering techniques and/or adjustment according to patient size were utilized for this exam. Comparison: Comparison is made to CT head 12/09/2021 Findings: Areas of decreased attenuation are present in the periventricular and subcortical white matter bilaterally consistent with small vessel ischemic disease. Generalized cerebral atrophy with commensurate enlargement of the ventricles, sulci, and cisterns is also present. There is no acute intracranial hemorrhage or evidence of acute territorial infarction. No shift of the midline structures, mass effect, or extra-axial abnormalities are shown. Atherosclerotic calcifications are present in the intracranial segments of the internal carotid arteries. Encephalomalacia in the right basal ganglia is unchanged from prior exam. This likely reflects old infarct or white matter changes. Imaged portions of the paranasal sinuses and mastoid air cells are clear. The orbits appear normal. There are no acute fractures of the calvaria or scalp s welling. Impression: No acute intracranial hemorrhage, no evidence of acute territorial infarction or other acute intracranial disease process. ACT 112: Negative or not required by law. Electronically signed by: Guillermo Casiano M.D. 12/22/2021 10:20 PM Discharge Plan Visit Data Chief Complaint: Neuro Symptoms/Deficit Stated Complaint: BLOOD IN URINE. FEELS LIKE PASSING OUT WHEN MOVING ED Provider: Philippe Arreola Discharge Problem: Weakness Forms Stand Alone Forms: My [facility] Prescriptions Prescriptions: No Action citalopram 10 mg tablet 10 mg PO PM Myrbetriq 50 mg tablet extended release 24 hr 50 mg PO PM cholecalciferol (vitamin D3) [Vitamin D3] 50 mcg (2,000 unit) Tablet 50 mcg PO QAM aspirin [Baby Aspirin] 81 mg Tablet,Chewable 81 mg PO DAILY docusate sodium 100 mg Tablet 100 mg PO DAILY Referrals Referrals: Adelfo Coburn MD [Primary Care Provider] -
[2021-12-22 20:33] LABS: Basophils # (auto) 0.07 K/uL (0-0.2); Basophils % (auto) 0.8 %; Eosinophils % (auto) 1.1 %; Hematocrit (blood only) 45.4 % (34.1-44.9); Hemoglobin 14.9 g/dl (12.0-16.0); Immature Granulocytes # (auto) 0.02 K/uL (0.00-0.02); Immature Granulocytes % (auto) 0.2 %; Lymphocytes # (auto) 1.37 K/uL (1.2-3.4); Lymphocytes % (auto) 14.9 %; Mean Corpuscular Hemoglobin 28.4 pg (25.0-34.0); Mean Corpuscular Hgb Conc 32.8 g/dL (32.0-36.0); Mean Corpuscular Volume 86.6 fL (80.0-100.0); Mean Platelet Volume 10.1 fL (9.4-12.3); Monocytes # (auto) 0.71 K/uL (0.24-0.82); Monocytes % (auto) 7.7 %; Neutrophils # (auto) 6.95 K/uL (1.4-6.5); Neutrophils % (auto) 75.3 %; Platelet Count 189 K/uL (130-400); RDW Coefficient of Variation 14.4 % (11.5-14.5); RDW Standard Deviation 45.5 fL (36.4-46.3); Red Blood Count 5.24 M/uL (3.93-5.22); White Blood Count 9.22 K/ul (4.8-10.8)
[2021-12-22 20:47] LABS: Prothrombin Time 10.9 Seconds (9.0-12.0)
[2021-12-22 21:08] LABS: Alanine Aminotransferase 18 U/L (7-52); Albumin Globulin Ratio 1.3 (0.9-2); Albumin Level 3.7 gm/dl (3.4-5.0); Alkaline Phosphatase 82 U/L (34-104); Anion Gap 8 (3-11); Aspartate Aminotransferase 22 U/L (13-39); BUN Creatinine Ratio 43.8 (10-20); Bilirubin,Total 0.6 mg/dl (0.2-1.0); Blood Urea Nitrogen 14 mg/dl (6-23); Calcium 8.8 mg/dl (8.5-10.1); Carbon Dioxide 30 mmol/L (21-32); Chloride 100 mmol/L (98-107); Est GFR (African American) 122.7 ml/min; Est GFR (Non-African American) 105.9 ml/min; Globulin 2.9 gm/dl (2.5-4.0); Glucose 94 mg/dl (70-99(Fasting)); Lipase 29 U/L (11-82); Potassium 3.9 mmol/L (3.5-5.1); Sodium 138 mmol/L (136-145); Total Protein 6.6 gm/dl (6.0-8.3)
[2021-12-22] MEDS ORDERED: OPTIRAY 320 100ml IV ONE (22:04)
--- NOTE | 2021-12-22 22:22 | CT Scan Report ---
CT head/brain wo con CLINICAL HISTORY: weakness/dizzy Technique: Contiguous axial CT images of the head were acquired from the base of the skull to the [place] enma without intravenous contrast administration. Images were viewed in brain, subdural and [facility] . Automated dose lowering techniques and/or adjustment according to patient size were utilized for this exam. Comparison: Comparison is made to CT head 12/09/2021 Findings: Areas of decreased attenuation are present in the periventricular and subcortical white matter bilate rally consistent with small vessel ischemic disease. Generalized cerebral atrophy with commensurate e nlargement of the ventricles, sulci, and cisterns is also present. There is no acute intracranial hem orrhage or evidence of acute territorial infarction. No shift of the midline structures, mass effect, or extra-axial abnormalities are shown. Atherosclerotic calcifications are present in the intracran ial segments of the internal carotid arteries. Encephalomalacia in the right basal ganglia is unchang ed from prior exam. This likely reflects old infarct or white matter changes. Imaged portions of the paranasal sinuses and mastoid air cells are clear. The orbits appear normal. There are no acute fractures of the calvaria or scalp swelling. Impression: No acute intracranial hemorrhage, no evidence of acute territorial infarction or other acute intracra nial disease process. ACT 112: Negative or not required by law. Electronically signed by: Guillermo Casiano M.D. 12/22/2021 10:20 PM
--- NOTE | 2021-12-22 22:31 | CT Scan Report ---
CT abd pelvis IV con only CLINICAL HISTORY: abd pain, rectal bleeding TECHNIQUE: Helical axial images of the abdomen and pelvis were obtained and displayed. Automated dose lowering techniques and/or adjustment according to patient size were utilized for this exam. This e xam was performed with intravenous contrast. CT DOSE: 604.22 mGy.cm COMPARISON: Comparison is made to CT abdomen pelvis 12/09/2021 FINDINGS: Lower chest: No acute abnormality Liver: Subcentimeter hypodensities in the liver are too small to characterize. Gallbladder and biliary tree: Patient is status post cholecystectomy. Physiologic prominence of the b iliary ducts is noted. Pancreas: Unremarkable, no focal lesions. Spleen: Unremarkable. Adrenals: Unremarkable. Kidneys and ureters: Nonobstructive stone is seen on the right. There is a duplicated collecting syst em on the left with a stone in the superior moiety with some surrounding fat stranding. This finding was seen on the prior exam as well. Bladder: Unremarkable. Reproductive organs: Patient is status post hysterectomy. Bowel: The appendix is not present, likely surgically absent. There is a hiatal hernia. Lymph nodes Retroperitoneal: Unremarkable. Pelvic: Unremarkable. Mesenteric: Unremarkable. Peritoneum: Normal. Vessels: Unremarkable. Abdominal wall: Laxity of the lateral abdominal musculature is seen. Bones: Degenerative changes in the visualized spine. Scoliosis is noted. IMPRESSION: 1. No acute abnormalities are seen. 2. Redemonstration of left nonobstructive stone in the renal pelvis. ACT 112: Negative or not required by law. Electronically signed by: Guillermo Casiano M.D. 12/22/2021 10:29 PM
[2021-12-22 22:40] LABS: Appearance Urine Cloudy (Clear); Bacteria Urine Automated Negative (Negative); Bilirubin Urine Negative (Negative); Blood Urine 1+ (Negative); Cast Urine Automated 0 /lpf (0-5); Color Urine Yellow; Glucose Urine UA Negative (Negative); Ketones Urine Negative (Negative); Leukocyte Esterase Urine Trace (Negative); Nitrite Urine Negative (Negative); Protein Urine Negative (Negative); RBC Urine Automated 0-4 /hpf (0-4); Urobilinogen Urine Negative (Negative)
[2021-12-22 23:46] LABS: Influenza A virus by PCR Negative (Neg); Influenza B virus by PCR Negative (Neg); RSV by PCR Negative (Neg); SARS CoV2 RNA(COVID-19) InHosp NEGATIVE (Negative)
[2021-12-23] MEDS ORDERED: D5W AND 1/2NSS 1,000 ML IV SCH (02:50)
[2021-12-23] MEDS ORDERED: ONDANSETRON INJ 2 MG/ML 2 ML VIAL IV PRN (02:50)
[2021-12-23] MEDS ORDERED: POLYETHYLENE (MIRALAX) 17 GM PACK PO PRN (02:50)
[2021-12-23] MEDS ORDERED: oxyCODONE HCL IR 5 MG TAB (IMMEDIATE RELEASE) PO PRN (02:56)
[2021-12-23] MEDS ORDERED: IBUPROFEN 200 MG TAB PO STA (03:34)
--- NOTE | 2021-12-23 07:02 | History and Physical Report ---
DATE OF ADMISSION: 12/23/2021. CHIEF COMPLAINT: Weakness. HISTORY OF PRESENT ILLNESS: This is an 81-year-old female with past medical history significant for hyperlipidemia, restrictive lung mechanics due to neuromuscular disease, chronic heart failure with preserved ejection fraction, overactive bladder, psychogenic nonepileptic seizures, postpolio muscle weakness, Mrvyoaz-Dcmcb-Dzuoe disease, generalized anxiety disorder, history of CVA, history of breast cancer, status post surgery, history of uterine cancer, status post surgery, mood disorder, mostly wheelchair bound. She lives with her daughter. As per the daughter, she is wheelchair bound, but she can transfer herself onto the toilet and herself onto the bed, but since yesterday, she has been feeling weak. She could not able to stand, not able to put any weight on her legs.So , she was brought to the hospital. She is also constipated and she took MiraLax and she moved her bowels a couple of times today and she had some blood in the stools. The ER physician thought it mostly from the external hemorrhoids. She was admitted in the end of October, 10/26/2021 to 11/01/2021 at [place], she was transferred from [facility] for seizures. Initially started on Keppra .. Her seizure was thought to be psychogenic nonepileptic spells and she is following with psychology. Currently, the patient complains of abdominal pain, some headache. No fever or chills. No cough, no blurred visions, no earache, no runny nose, no sore throat. Appetite is not great. No chest pain, no shortness of breath. Normal bladder movements. ALLERGIES: SHELLFISH, STEROID, TYLENOL AND ATORVASTATIN. PAST MEDICAL HISTORY: As mentioned above. PAST SURGICAL HISTORY: No surgical history on file. SOCIAL HISTORY: , currently living with her daughter. Quit smoking in 1959. Alcohol occasional. No drug use. MEDICATIONS: The patient is on aspirin 81 mg p.o. daily, vitamin D 50 mcg p.o. daily, citalopram 10 mg p.o. p.m., Colace 100 mg p.o. daily, Myrbetriq 50 mg p.o. q.p.m. FAMILY HISTORY: Significant for no family history on file. REVIEW OF SYSTEMS: As per HPI. Rest of review of systems is negative. PHYSICAL EXAMINATION: GENERAL: The patient is of moderate build, not in acute distress. VITAL SIGNS: Temperature 37.2, pulse 73, respiratory rate 21, blood pressure 129/73, oxygen 96% on room air. HEENT: Pupils equal, round and reactive to light. Oral mucosa moist. NECK: No JVD, no neck masses. CARDIOVASCULAR: S1 and S2 heard. Regular rate and rhythm. No murmur, no gallop. RESPIRATORY SYSTEM: Normal AP diameter. No accessory muscle use. No wheezing, no crackles. ABDOMEN: Soft, bowel sounds present. Diffuse mild discomfort. No guarding, no rigidity. No distention. CENTRAL NERVOUS SYSTEM: Alert and oriented. Speech is clear. No facial droop. Obeys simple commands. EXTREMITIES: Lower extremities no edema or erythema seen. LABORATORY DATA: WBC 9.2, hemoglobin 14.9, hematocrit 45.4, platelets 189. PT 10.9, INR 1. Sodium 138, potassium 3.9, chloride 100, bicarbonate 30, BUN 14, creatinine 0.3, serum glucose 94, calcium 8.8, total bilirubin 0.6, AST 22, ALT 18, alkaline phosphatase 82. Troponin I high sensitivity 35. Lipase 29. Urinalysis cloudy, trace leukocyte esterase. SARS-CoV-2 PCR negative. Influenza A and B PCR negative. RSV PCR negative. IMAGING: CT of the head without contrast: No acute findings. CT abdomen and pelvis with IV contrast only: No acute findings. Redemonstration of left nonobstructing stone in the renal pelvis. EKG: Normal sinus rhythm and sinus arrhythmia at a rate of 78, left anterior fascicular block, no acute findings. ASSESSMENT AND PLAN: This is an 81-year-old female who has postpolio muscle weakness, Skepvea-Sngvo-Ggigj disease, mostly bed bound, but was able to transfer herself from the wheelchair onto the toilet and onto the bed, and since yesterday has a lot of weakness, not able to transfer herself and also has constipation. With stool softeners, she moved bowels, but she had some blood in the stools. 1. Weakness, history of postpolio muscle weakness, history of Khlhzug-Qbrwn-Zzsyk disease: At baseline, wheelchair bound, but able to transfer herself. Comes because of not able to transfer herself and not able to put any weight on her legs. She lives with daughter at home. We will do physical therapy and occupational therapy to determine whether she needs any rehabilitation placement. 2. Constipation, questionable gastrointestinal bleed: With stool softeners, she moved her bowels, but had some blood in the stools, mostly hemorrhoidal bleed. We will monitor, if any recurrent bleed, we will get gastrointestinal involved. 3. History of depression, anxiety: Continue her citalopram. 4. History of overactive bladder: Continue Myrbetriq. 5. History of hyperlipidemia: Not tolerating statin. 6. History of chronic heart failure with preserved ejection fraction: We will monitor for any volume overload. 7. History of restrictive lung mechanics due to neuromuscular disease: We will monitor. 8. History of cerebrovascular accident: On aspirin, not able to tolerate statin. 9. Recent diagnosis of psychogenic nonepileptic spells (PNES): Following with [facility]. 10. Deep venous thrombosis prophylaxis: Placed her on heparin subcutaneously. DISPOSITION: Admit to medical floor. PT/OT. Social service to help with discharge planning. CODE STATUS: DNR/DNI as per discussion with the daughter. Job ID: [id number] [facility]
[2021-12-23] MEDS: CHOLECALCIFEROL 1,000 UNITS 25 MCG TAB PO SCH (08:25)
[2021-12-23] MEDS: DOCUSATE SODIUM 100 MG CAP PO SCH (08:25)
[2021-12-23] MEDS: HEPARIN SOD 5,000 UNIT/0.5 ML VIAL SQ SCH ×2 (08:25→20:19)
[2021-12-23] MEDS: ASPIRIN 81 MG ECTAB PO SCH (08:25)
--- NOTE | 2021-12-23 09:42 | Electrocardiogram Report ---
Test Reason : Blood Pressure : / mmHG Vent. Rate : 078 BPM Atrial Rate : 078 BPM P-R Int : 200 ms QRS Dur : 108 ms QT Int : 416 ms P-R-T Axes : 028 -46 074 degrees QTc Int : 474 ms Poor data quality, interpretation may be adversely affected Normal sinus rhythm with sinus arrhythmia Left anterior fascicular block Voltage criteria for left ventricular hypertrophy with QRS widening Abnormal ECG When compared with ECG of 09-DEC-2021 21:42, QRS duration has decreased Confirmed by Sha Younger ([id number]) on 12/23/2021 9:42:11 AM Referred By: REFERRED SELF Confirmed By:Sha Younger
[2021-12-23 10:19] LABS: Basophils # (auto) 0.05 K/uL (0-0.2); Basophils % (auto) 0.9 %; Eosinophils # (auto) 0.09 K/uL (0-0.50); Eosinophils % (auto) 1.7 %; Hematocrit (blood only) 41.3 % (34.1-44.9); Hemoglobin 13.3 g/dl (12.0-16.0); Immature Granulocytes # (auto) 0.01 K/uL (0.00-0.02); Immature Granulocytes % (auto) 0.2 %; Lymphocytes # (auto) 1.05 K/uL (1.2-3.4); Lymphocytes % (auto) 19.4 %; Mean Corpuscular Hemoglobin 28.4 pg (25.0-34.0); Mean Corpuscular Hgb Conc 32.2 g/dL (32.0-36.0); Mean Corpuscular Volume 88.1 fL (80.0-100.0); Mean Platelet Volume 10.6 fL (9.4-12.3); Monocytes # (auto) 0.54 K/uL (0.24-0.82); Neutrophils # (auto) 3.67 K/uL (1.4-6.5); Neutrophils % (auto) 67.8 %; Platelet Count 174 K/uL (130-400); RDW Coefficient of Variation 14.6 % (11.5-14.5); RDW Standard Deviation 46.6 fL (36.4-46.3); Red Blood Count 4.69 M/uL (3.93-5.22); White Blood Count 5.41 K/ul (4.8-10.8)
[2021-12-23 10:49] LABS: BUN Creatinine Ratio 32.3 (10-20); Calcium 7.8 mg/dl (8.5-10.1); Creatinine Clr Calc Pharmacy 120.6 ml/min; Magnesium 2.2 mg/dl (1.7-2.4); Potassium 3.3 mmol/L (3.5-5.1)
--- NOTE | 2021-12-23 16:41 | Communication Note ---
Date of Service: December 23, 2021 Patient seen and examined at the bedside Sitting up in bed, comfortable, states that she feels "stuffed" after having a large Denies having any headache, dizziness, sore throat, cough, shortness of breath, chest pain abdominal pain, nausea vomiting Just felt weak started 1 to 2 days ago Vital signs noted and reviewed Clear breath as bilaterally Normal regular rhythm Abdomen soft No leg edema Labs noted and reviewed Generalized weakness, secondary to possible dehydration, deconditioning Has received IV fluids No signs of infection identified at this point We will continue to monitor closely PT and OT evaluation plan of care discussed with patient in detail and at length all questions answered She is understanding, agreeable, comfortable with the plan of care
[2021-12-23] MEDS: CITALOPRAM 20 MG TAB PO SCH (20:20)
[2021-12-23] MEDS: MIRABEGRON ER 25 MG TAB PO SCH (20:21)
[2021-12-24] MEDS ORDERED: IBUPROFEN 200 MG TAB PO STA (00:02)
[2021-12-24] MEDS: ASPIRIN 81 MG ECTAB PO SCH (08:09)
[2021-12-24] MEDS: DOCUSATE SODIUM 100 MG CAP PO SCH (08:09)
[2021-12-24] MEDS: CHOLECALCIFEROL 1,000 UNITS 25 MCG TAB PO SCH (08:10)
[2021-12-24] MEDS: HEPARIN SOD 5,000 UNIT/0.5 ML VIAL SQ SCH ×2 (08:10→21:15)
--- NOTE | 2021-12-24 18:14 | Hospitalist Progress Note ---
Date of Service December 24, 2021 Assessment & Plan (1) Weakness: Plan: Per previous attending notes with addendum ASSESSMENT AND PLAN: This is an 81-year-old female who has postpolio muscle weakness, Hcjyrlj-Kapba-Wutnc disease, mostly bed bound, but was able to transf er herself from the wheelchair onto the toilet and onto the bed, and since yesterday has a lot of weakness, not able to transfer herself and also has constipation. With stool softeners, she moved bowels, but she had some blood in the stools. 1. Weakness, history of postpolio muscle weakness, history of Bpptgph-Mfggy-Henml disease: At baseline, wheelchair bound, but able to transfer herself. Comes because of not able to transfer herself and not able to put any weight on her legs. She lives with daughter at home. We will do physical therapy and occupational therapy to determine whether she needs any rehabilitation placement. 12/24 Afebrile, no signs of infection identified Continue PT and OT evaluation Transition to care home facility 2. Constipation, questionable gastrointestinal bleed: With stool softeners, she moved her bowels, but had some blood in the stools, mostly hemorrhoidal bleed. We will monitor, if any recurrent bleed, we will get gastrointestinal involved. 12/24 Positive bowel movement today Denies melena or hematochezia Hemoglobin 13.3 3. History of depression, anxiety: Continue her citalopram. 4. History of overactive bladder: Continue Myrbetriq. 5. History of hyperlipidemia: Not tolerating statin. 6. History of chronic heart failure with preserved ejection fraction: Patient euvolemic 7. History of restrictive lung mechanics due to neuromuscular disease: Respiratory status stable 8. History of cerebrovascular accident: On aspirin, not able to tolerate statin. 9. Recent diagnosis of psychogenic nonepileptic spells (PNES): Following with [facility]. 10. Deep venous thrombosis prophylaxis: Placed her on heparin subcutaneously. Disposition: Transition to care home facility or acute rehab when accepted plan of care discussed with patient in detail and at length all questions answered she is understanding, agreeable, comfortable with the plan of care Admission and Anticipated Discharge Date Admission Date: December 23, 2021 Subjective Follow-up for weakness, etc. Seen sitting up in bedside chair, comfortable, watching TV States she feels that she is improving overall But still weak No headache, dizziness, chest pain, shortness of breath, fevers or chills, cough, abdominal pain, nausea vomiting, change in urination or bowel movement No other symptoms Review of Systems Review of Systems: all noted and negative except for above Physical Exam Physical Exam: General- oriented x 3, not in distress, speaks in sentences with no effort or accessory muscle use Eyes- anicteric Neck- no JVD Lungs- clear BS bilaterally, no rales/wheezes Heart- normal rate, regular rhythm; no murmurs Abdomen- normal bowel sounds, nondistended, soft, nontender Extremities- no pretibial edema, no calf tenderness Neuro- alert, oriented x 3; no gross focal neurologic deficits Skin- warm & dry Results & Data Results & Data ([facility]) Vital Signs (Past 12 Hours) Vital Signs Temp Pulse Resp BP Pulse Ox O2 Del Method 12/24/21 15:43 37.0 C 66 16 151/78 H 94 Room Air 12/24/21 07:30 Room Air 12/24/21 07:35 36.5 C 66 16 132/71 93 Room Air all noted and reviewed including below
[2021-12-24] MEDS: CITALOPRAM 20 MG TAB PO SCH (21:13)
[2021-12-24] MEDS: MIRABEGRON ER 25 MG TAB PO SCH (21:14)
[2021-12-25] MEDS: CHOLECALCIFEROL 1,000 UNITS 25 MCG TAB PO SCH (07:46)
[2021-12-25] MEDS: DOCUSATE SODIUM 100 MG CAP PO SCH (07:46)
[2021-12-25] MEDS: ASPIRIN 81 MG ECTAB PO SCH (07:46)
[2021-12-25] MEDS: HEPARIN SOD 5,000 UNIT/0.5 ML VIAL SQ SCH (07:47)
[2021-12-25 10:00] LABS: BUN Creatinine Ratio 24.3 (10-20); Calcium 8.6 mg/dl (8.5-10.1); Est GFR (Non-African American) 100.9 ml/min; Potassium 3.6 mmol/L (3.5-5.1)
--- NOTE | 2021-12-25 11:04 | Discharge Summary ---
Date of Service December 25, 2021 Admission HPI Per Admitting Provider HISTORY OF PRESENT ILLNESS: This is an 81-year-old female with past medical history significant for hyperlipidemia, restrictive lung mechanics due to neuromuscular disease, chronic heart failure with preserved ejection fraction, overactive bladder, psychogenic nonepileptic seizures, postpolio muscle weakness, Imcmfov-Vsyka-Jyaho disease, generalized anxiety disorder, history of CVA, history of breast cancer, status post surgery, history of uterine cancer, status post surgery, mood disorder, mostly wheelchair bound. She lives with her daughter. As per the daughter, she is wheelchair bound, but she can transfer her self onto the toilet and herself onto the bed, but since yesterday, she has been feeling weak. She could not able to stand, not able to put any weight on her legs.So , she was brought to the hospital. She is also constipated and she took MiraLax and she moved her bowels a couple of times today and she had some blood in the stools. The ER physician thought it mostly from the external hemorrhoi ds. She was admitted in the end of October, 10/26/2021 to 11/01/2021 at [place], she was transferred from [facility] for seizures. Initially started on Keppra .. Her seizure was thought to be psychogenic nonepileptic spells and she is following with psychology. Currently, the patient complains of abdominal pain, some headache. No fever or chills. No cough, no blurred visions, no earache, no runny nose, no sore throat. Appetite is not great. No chest pain, no shortness of breath. Normal bladder movements. Admission Exam Per Admitting Provider GENERAL: The patient is of moderate build, not in acute distress. VITAL SIGNS: Temperature 37.2, pulse 73, respiratory rate 21, blood pressure 129/73, oxygen 96% on room air. HEENT: Pupils equal, round and reactive to light. Oral mucosa moist. NECK: No JVD, no neck masses. CARDIOVASCULAR: S1 and S2 heard. Regular rate and rhythm. No murmur, no gallop. RESPIRATORY SYSTEM: Normal AP diameter. No accessory muscle use. No wheezing, no crackles. ABDOMEN: Soft, bowel sounds present. Diffuse mild discomfort. No guarding, no rigidity. No distention. CENTRAL NERVOUS SYSTEM: Alert and oriented. Speech is clear. No facial droop. Obeys simple commands. EXTREMITIES: Lower extremities no edema or erythema seen. Principal Diagnosis GENERALIZED WEAKNESS, DECONDITIONING Discharge Exam General- oriented x 3, not in distress, speaks in sentences with no effort or accessory muscle use Eyes- anicteric Neck- no JVD Lungs- clear breath sounds bilaterally, no rales/wheezes Heart- normal rate, regular rhythm; no murmurs Abdomen- normal bowel sounds, nondistended, soft, nontender Extremities- no pretibial edema, no calf tenderness Neuro- alert, oriented x 3; no new gross focal neurologic deficits Skin- warm & dry Discharge Data Allergies Allergy/AdvReac Type Severity Reaction Status Date / Time shellfish derived Allergy Severe LOBSTER: Verified 12/22/21 23:25 almost acetaminophen [From Tylenol] Allergy Rash Unverified 12/22/21 23:25 atorvastatin AdvReac Nausea Verified 12/22/21 23:25 Consultations 12/22/21 23:33 ED Decision to Admit Stat Ordered Studies 12/22/21 19:44 CT abd pelvis IV con only Stat COMPARISON: Comparison is made to CT abdomen pelvis 12/09/2021 FINDINGS: Lower chest: No acute abnormality Liver: Subcentimeter hypodensities in the liver are too small to characterize. Gallbladder and biliary tree: Patient is status post cholecystectomy. Physiologic prominence of the biliary ducts is noted. Pancreas: Unremarkable, no focal lesions. Spleen: Unremarkable. Adrenals: Unremarkable. Kidneys and ureters: Nonobstructive stone is seen on the right. There is a duplicated collecting system on the left with a stone in the superior moiety with some surrounding fat stranding. This finding was seen on the prior exam as well. Bladder: Unremarkable. Reproductive organs: Patient is status post hysterectomy. Bowel: The appendix is not present, likely surgically absent. There is a hiatal hernia. Lymph nodes Retroperitoneal: Unremarkable. Pelvic: Unremarkable. Mesenteric: Unremarkable. Peritoneum: Normal. Vessels: Unremarkable. Abdominal wall: Laxity of the lateral abdominal musculature is seen. Bones: Degenerative changes in the visualized spine. Scoliosis is noted. IMPRESSION: 1. No acute abnormalities are seen. 2. Redemonstration of left nonobstructive stone in the renal pelvis. ACT 112: Negative or not required by law. Electronically signed by: Guillermo Casiano M.D. 12/22/2021 10:29 PM 12/22/21 19:46 CT head/brain wo con Stat Comparison: Comparison is made to CT head 12/09/2021 Findings: Areas of decreased attenuation are present in the periventricular and subcortical white matter bilaterally consistent with small vessel ischemic disease. Generalized cerebral atrophy with commensurate enlargement of the ventricles, sulci, and cisterns is also present. There is no acute intracranial hemorrhage or evidence of acute territorial infarction. No shift of the midline structures, mass effect, or extra-axial abnormalities are shown. Atherosclerotic calcifications are present in the intracranial segments of the internal carotid arteries. Encephalomalacia in the right basal ganglia is unchanged from prior exam. This likely reflects old infarct or white matter changes. Imaged portions of the paranasal sinuses and mastoid air cells are clear. The orbits appear normal. There are no acute fractures of the calvaria or scalp swelling. Impression: No acute intracranial hemorrhage, no evidence of acute territorial infarction or other acute intracranial disease process. ACT 112: Negative or not required by law. Electronically signed by: Gulilermo Casiano M.D. 12/22/2021 10:20 PM Hospital Course (1) Weakness: Per previous attending notes with addendum ASSESSMENT AND PLAN: This is an 81-year-old female who has postpolio muscle weakness, Zmyuvzh-Jqrww-Xpqqi disease, mostly bed bound, but was able to transfer herself from the wheelchair onto the toilet and onto the bed, and since yesterday has a lot of weakness, not able to transfer herself and also has constipation. With stool softeners, she moved bowels, but she had some blood in the stools. 1. Weakness, history of postpolio muscle weakness, history of Rbnnngx-Jijez-Xhflf disease: At baseline, wheelchair bound, but able to transfer herself. Comes because of not able to transfer herself and not able to put any weight on her legs. She lives with daughter at home. We will do physical the rapy and occupational therapy to determine whether she needs any rehabilitation placement. 12/25 Afebrile, no signs of infection identified Continue PT and OT Transition to [facility] facility 2. Constipation, questionable gastrointestinal bleed: With stool softeners, she moved her bowels, but had some blood in the stools, mostly hemorrhoidal bleed. We will monitor, if any recurrent bleed, we will get gastrointestinal involved. 12/25 resolved Denies melena or hematochezia Hemoglobin 13.3 monitor closely 3. History of depression, anxiety: Continue her citalopram. 4. History of overactive bladder: Continue Myrbetriq. 5. History of hyperlipidemia: Not tolerating statin. 6. History of chronic heart failure with preserved ejection fraction: Patient euvolemic 7. History of restrictive lung mechanics due to neuromuscular disease: Respiratory status stable 8. History of cerebrovascular accident: On aspirin, not able to tolerate statin. 9. Recent diagnosis of psychogenic nonepileptic spells (PNES): Following with [facility] 10. Deep venous thrombosis prophylaxis: Placed her on heparin subcutaneously. Disposition: Transition to [facility] facility ff up with PCP in 1 week plan of care discussed with patient in detail and at length all questions answered she is understanding, agreeable, comfortable with the plan of care Total Time Total Time Spent Total Time Spent (In Minutes): <30 minutes Discharge Plan Discharge Items Patient Disposition: Transfer Alf Fac Reason For Visit: WEAKNESS Discharge Diagnosis: GENERALIZED WEAKNESS, DECONDITIONING Activity: Resume your previous activity Activity Comment: ALWAYS WITH ASSISTANCE, CONTINUE PT/OT Lifting: Wait until after follow-up appointment Exercise/Sports: Wait until after follow-up appointment Non-emergency contact: Primary Care Provider Call non-emergency contact if: you have any medication questions, your symptoms worsen, your pain is not controlled, your pain is worsening, your pain is unusual for you, your pain is concerning for you and you have a fever Follow-up/Referrals: Adelfo Coburn MD [Primary Care Provider] - Diet: Heart Healthy Addtl Attending Provider Instructions: please refer to accompanying hospital discharge summary for further details. Pending Studies at Discharge: No Stand-Alone Forms: Hum, Smoking Cessation Skilled Items Patient informed of condition?: Yes DNR: No Discharge Level of Care: Skilled Communicable Disease: No Discharge Prognosis: Stable Lines: None Urinary Catheter: No Medications and DC Order Prescriptions: Continued citalopram 10 mg tablet 10 mg PO PM Myrbetriq 50 mg tablet extended release 24 hr 50 mg PO PM cholecalciferol (vitamin D3) [Vitamin D3] 50 mcg (2,000 unit) Tablet 50 mcg PO QAM aspirin [Baby Aspirin] 81 mg Tablet,Chewable 81 mg PO DAILY docusate sodium 100 mg Tablet 100 mg PO DAILY Discharge Orders: Discharge Order (Routine); Ordered 12/25/21 Ordered By: Aurelio Ronquillo Admission Data Admit Date/Time: 12/23/21 00:55 Attending Provider: Aurelio Ronquillo Admit Provider: Andrea Mckee Primary Care Provider: Adelfo Coburn Other Providers: Andrea Mckee ; [facility] Other Interventions: Discharge Summary Assessment (RN) Last Done: 12/25/21 10:45
--- NOTE | 2021-12-25 11:35 | Discharge Summary ---
Date of Service December 25, 2021 Admission HPI Per Admitting Provider HISTORY OF PRESENT ILLNESS: This is an 81-year-old female with past medical history significant for hyperlipidemia, restrictive lung mechanics due to neuromuscular disease, chronic heart failure with preserved ejection fraction, overactive bladder, psychogenic nonepileptic seizures, postpolio muscle weakness, Gdhyqoe-Fkdrq-Lhsfy disease, generalized anxiety disorder, history of CVA, history of breast cancer, status post surgery, history of uterine cancer, status post surgery, mood disorder, mostly wheelchair bound. She lives with her daughter. As per the daughter, she is wheelchair bound, but she can transfer her self onto the toilet and herself onto the bed, but since yesterday, she has been feeling weak. She could not able to stand, not able to put any weight on her legs.So , she was brought to the hospital. She is also constipated and she took MiraLax and she moved her bowels a couple of times today and she had some blood in the stools. The ER physician thought it mostly from the external hemorrhoi ds. She was admitted in the end of October, 10/26/2021 to 11/01/2021 at [facility], she was transferred from [facility] for seizures. Initially started on Keppra .. Her seizure was thought to be psychogenic nonepileptic spells and she is following with psychology. Currently, the patient complains of abdominal pain, some headache. No fever or chills. No cough, no blurred visions, no earache, no runny nose, no sore throat. Appetite is not great. No chest pain, no shortness of breath. Normal bladder movements. Admission Exam Per Admitting Provider PHYSICAL EXAMINATION: GENERAL: The patient is of moderate build, not in acute distress. VITAL SIGNS: Temperature 37.2, pulse 73, respiratory rate 21, blood pressure 1 29/73, oxygen 96% on room air. HEENT: Pupils equal, round and reactive to light. Oral mucosa moist. NECK: No JVD, no neck masses. CARDIOVASCULAR: S1 and S2 heard. Regular rate and rhythm. No murmur, no gallop. RESPIRATORY SYSTEM: Normal AP diameter. No accessory muscle use. No wheezing, no crackles. ABDOMEN: Soft, bowel sounds present. Diffuse mild discomfort. No guarding, no rigidity. No distention. CENTRAL NERVOUS SYSTEM: Alert and oriented. Speech is clear. No facial droop. Obeys simple commands. EXTREMITIES: Lower extremities no edema or erythema seen. Discharge Data Allergies Allergy/AdvReac Type Severity Reaction Status Date / Time shellfish derived Allergy Severe LOBSTER: Verified 12/22/21 23:25 almost acetaminophen [From Tylenol] Allergy Rash Unverified 12/22/21 23:25 atorvastatin AdvReac Nausea Verified 12/22/21 23:25 Consultations 12/22/21 23:33 ED Decision to Admit Stat Ordered Studies 12/22/21 19:44 CT abd pelvis IV con only Stat 12/22/21 19:46 CT head/brain wo con Stat Hospital Course (1) Weakness: Per previous attending notes with addendum ASSESSMENT AND PLAN: This is an 81-year-old female who has postpolio muscle weakness, Pxbfmow-Gojbn-Jisbg disease, mostly bed bound, but was able to transfer herself from the wheelchair onto the toilet and onto the bed, and since yesterday has a lot of weakness, not able to transfer herself and also has constipation. With stool softeners, she moved bowels, but she had some blood in the stools. 1. Weakness, history of postpolio muscle weakness, history of Kxxzlpy-Flatz-Pzmcs disease: At baseline, wheelchair bound, but able to transfer herself. Comes because of not able to transfer herself and not able to put any weight on her legs. She lives with daughter at home. We will do physical therapy and occupational therapy to determine whether she needs any rehabilitation placement. 12/25 Afebrile, no signs of infection identified Continue PT and OT Transition to half-way facility 2. Constipation, questionable gastrointestinal bleed: With stool softeners, she moved her bowels, but had some blood in the stools, mostly hemorrhoidal bleed. We will monitor, if any recurrent bleed, we will get gastrointestinal involved. 12/25 resolved Denies melena or hematochezia Hemoglobin 13.3 monitor closely 3. History of depression, anxiety: Continue her citalopram. 4. History of overactive bladder: Continue Myrbetriq. 5. History of hyperlipidemia: Not tolerating statin. 6. History of chronic heart failure with preserved ejection fraction: Patient euvolemic 7. History of restrictive lung mechanics due to neuromuscular disease: Respiratory status stable 8. History of cerebrovascular accident: On aspirin, not able to tolerate statin. 9. Recent diagnosis of psychogenic nonepileptic spells (PNES): Following with [facility]. 10. Deep venous thrombosis prophylaxis: Placed her on heparin subcutaneously. Disposition: Transition to half-way facility ff up with PCP in 1 week plan of care discussed with patient in detail and at length all questions answered she is understanding, agreeable, comfortable with the plan of care Discharge Plan Discharge Items Patient Disposition: Transfer Long-Term Fac Reason For Visit: WEAKNESS Discharge Diagnosis: GENERALIZED WEAKNESS, DECONDITIONING Activity: Resume your previous activity Activity Comment: ALWAYS WITH ASSISTANCE, CONTINUE PT/OT Lifting: Wait until after follow-up appointment Exercise/Sports: Wait until after follow-up appointment Non-emergency contact: Primary Care Provider Call non-emergency contact if: you have any medication questions, your symptoms worsen, your pain is not controlled, your pain is worsening, your pain is unusual for you, your pain is concerning for you and you have a fever Follow-up/Referrals: Adelfo Coburn MD [Primary Care Provider] - Diet: Heart Healthy Addtl Attending Provider Instructions: please refer to accompanying hospital discharge summary for further details. Pending Studies at Discharge: No Stand-Alone Forms: [employer], Smoking Cessation Skilled Items Patient informed of condition?: Yes DNR: No Discharge Level of Care: Skilled Communicable Disease: No Discharge Prognosis: Stable Lines: None Urinary Catheter: No Medications and DC Order Prescriptions: Continued citalopram 10 mg tablet 10 mg PO PM Myrbetriq 50 mg tablet extended release 24 hr 50 mg PO PM cholecalciferol (vitamin D3) [Vitamin D3] 50 mcg (2,000 unit) Tablet 50 mcg PO QAM aspirin 81 mg Tablet,Chewable 81 mg PO DAILY docusate sodium 100 mg Tablet 100 mg PO DAILY Discharge Orders: Discharge Order (Routine); Ordered 12/25/21 Ordered By: Aurelio Ronquillo Admission Data Admit Date/Time: 12/23/21 00:55 Attending Provider: Aurelio Ronquillo Admit Provider: Andrea Mckee Primary Care Provider: Adelfo Coburn Other Providers: Andrea Mckee ; [facility] Other Interventions: Discharge Summary Assessment (RN) Last Done: 12/25/21 10:45
== END 2021-12-25 11:51 | DRG 948 ==
LOC: ED 18:51 → 3E 12-23 00:55

== ENCOUNTER 2022-02-05 15:15 | Inpatient (IN) ==
--- NOTE | 2022-02-05 16:04 | XRay Report ---
XR chest 1V portable CLINICAL HISTORY: Shortness of breath. COMPARISON STUDY: Chest CT October 19, 2021. Chest radiograph December 09, 2021. FINDINGS: Dextroscoliosis of the thoracic spine is again noted. There is no pneumothorax. Blunting of left costophrenic angle is chronic. There is a small right pleural effusion. Cardiomediastinal silho uette is stable. There is pulmonary vascular congestion without overt pulmonary edema. IMPRESSION: 1. Small right pleural effusion. No pneumothorax. 2. Pulmonary vessel congestion without overt pulmonary edema. ACT 112: Negative or not required by law. Electronically signed by: Andrea Schwarz M.D. 02/05/2022 4:03 PM
[2022-02-05 16:22] LABS: Basophils # (auto) 0.06 K/uL (0-0.2); Basophils % (auto) 0.9 %; Hematocrit (blood only) 44.6 % (34.1-44.9); Hemoglobin 14.8 g/dl (12.0-16.0); Immature Granulocytes # (auto) 0.01 K/uL (0.00-0.02); Immature Granulocytes % (auto) 0.1 %; Lymphocytes # (auto) 1.81 K/uL (1.2-3.4); Lymphocytes % (auto) 26.9 %; Mean Corpuscular Hemoglobin 28.8 pg (25.0-34.0); Mean Corpuscular Hgb Conc 33.2 g/dL (32.0-36.0); Mean Corpuscular Volume 86.9 fL (80.0-100.0); Mean Platelet Volume 10.4 fL (9.4-12.3); Monocytes # (auto) 0.61 K/uL (0.24-0.82); Monocytes % (auto) 9.1 %; Neutrophils # (auto) 4.05 K/uL (1.4-6.5); Platelet Count 198 K/uL (130-400); RDW Coefficient of Variation 14.4 % (11.5-14.5); RDW Standard Deviation 45.8 fL (36.4-46.3); Red Blood Count 5.13 M/uL (3.93-5.22); White Blood Count 6.74 K/ul (4.8-10.8)
--- NOTE | 2022-02-05 16:35 | Emergency Department Note ---
Impression & Plan MARTINEZ (dyspnea on exertion), Elevated troponin I level ED Provider Note Provider: Giancarlo Hodge MD DATE OF SERVICE: 02/05/2022 CHIEF COMPLAINT: Shortness of breath, dyspnea on exertion HISTORY OF PRESENT ILLNESS: Patient is a 81-year-old female with a significant history including, or tooth disease, restrictive lung disease, and PNES presents via ambulance today from her home with daughter due to worsening shortness of breath issues. Patient evidently has had ongoing restrictive lung issues and her primary doctor recently put her on several different kinds of inhalers and breathing treatments to see if this would help with her breathing. Is very short of breath with any movement. She is wheelchair-bound but does transfer and when she bends over to transfer or move she is short of breath. Family is noted multiple episodes where she desaturates with this. Patient denies any pain or chest pain. No falls or syncope reported. No significant infectious symptoms such as fever, chills, cough, or sick contact reported. Patient does have an appointment coming up in several months with pulmonary daughter is concerned given worsening shortness of breath patient being able to continue to get around at home. She does not use oxygen at home. No significant leg swelling reported REVIEW OF SYSTEMS: A total of 10 review of systems was obtained and negative except as stated above in the HPI. PAST MEDICAL HISTORY: As noted above MEDICATIONS: Reviewed home medication list SOCIAL HISTORY: Non-smoker, lives with daughter PHYSICAL EXAM: GENERAL: alert and oriented in no acute distress on stretcher Head: normocephalic and atraumatic EYES: No injection, discharge or icterus. NECK: Trachea midline. Supple. ENT: Mucous membranes pink and moist. Pharynx without erythema or exudate. LUNGS: Airway patent. No retractions. Breath sounds clear however mildly tachypneic with slight lip pursing. HEART: Regular rate and rhythm. No chest wall tenderness ABDOMEN: Soft and non-tender, without guarding or rebound. SKIN: Acyanotic, warm, dry, without rashes EXTREMITIES: Without swelling, tenderness or deformity NEUROLOGICAL: Moves all extremities. No significant slurred speech or obvious facial droop appreciable at this time. Following commands. Gross sensation intact in all 4 extremities EK bpm normal sinus rhythm without PVC noted. Some artifact is noted with a left axis. QTC approximately 580. May be over read due to the artifact. No clear acute ST segment elevation. CONTINUOUS CARDIAC MONITORING: was ordered and showed a heart rate of 60s-80s bpm in NSR Patient's laboratory studies and imaging reviewed. Differential includes Reactive airway disease, pneumonia, pneumothorax, COPD, CHF, infections, cardiac ischemia, pulmonary embolism, musculoskeletal, gastrointestinal, as well as other pathologies. IMPRESSION/MEDICAL DECISION MAKING: Patient not hypoxic at rest here but seems to work to breathe just a little bit. No significant evidence of fluid overload on clinical exam without swelling of the lower extremities. Limited mobility. Chest infectious work-up already completed but does not sound that she has many symptoms consistent with this. Underlying weakness and restrictive lung disease may be contributing as when she bends over to move restrict further her lung volume. X-ray completed and radiology report questions small right pleural effusion and some pulmonary vascular congestion without overt pulmonary edema. Lab work without significant leukocytosis or anemia likely. Severe mild hypokalemia noted. No evidence of s ignificant renal dysfunction today. No evidence of liver dysfunction. High sensitive troponin does show some elevation compared to previous values of 57 today. Question if this may be a bit demand related to her episodes of transient hypoxia. Negative COVID test likely. Sent for CT of the chest to exclude PE did place an 18-gauge IV by ultrasound for this. Procalcitonin not elevated and doubt infectious etiology. CT of the chest without signs concerning for pulmonary embolism or pneumonia. No chest pain. Discussed with daughter and patient at bedside and will bring to the hospital for further care. Hospitalist contacted DIAGNOSIS: Dyspnea on exertion, elevated troponin DISPOSITION: Hospitalist will evaluate Patient was agreeable with this plan. Past Med/Surg History Medical History (Updated 02/05/22 @ 20:31 by Cindy Florian DO) Breast cancer CMT (Taheldt-Vbvbz-Qxkkw disease) CVA (cerebral vascular accident) [place] (generalized anxiety disorder) History of chronic constipation HLD (hyperlipidemia) Left leg swelling Overactive bladder Post-polio muscle weakness Psychogenic nonepileptic seizure Surgical History (Updated 02/05/22 @ 20:00 by Cindy Florian DO) H/O lumpectomy History of cataract removal with insertion of prosthetic lens S/P appy S/P iesha S/P BENSON (total abdominal hysterectomy) Status post left foot surgery fusion 2/2 foot drop Family History Father Lung cancer Mother Stroke Aunt Breast cancer Social History Smoking Status: Never smoker Hx Alcohol Use: No Hx Substance Use: No Preferred Language: Moroccan Communication Ability: Effective Office Automation Technician Required: No Beliefs That Will Affect Care: None marital status: / Current Living Situation: Family Feels Safe at Home: Yes Assistive Devices: Crutches, Lift Chair, Walker and Wheelchair Allergies Allergies Allergy/AdvReac Type Severity Reaction Status Date / Time shellfish derived Allergy Severe LOBSTER: Verified 02/05/22 16:03 almost darifenacin Allergy Unknown Unverified 02/05/22 18:54 acetaminophen [From Tylenol] Allergy Rash Unverified 02/05/22 16:03 atorvastatin AdvReac Nausea Verified 02/05/22 16:03 Home Meds Home Medications Medication Instructions Recorded Confirmed mirabegron 50 mg tablet,extended 50 mg PO PM 09/09/21 02/05/22 release 24 hr (Myrbetriq) cholecalciferol (vitamin D3) 50 50 mcg PO QAM 10/19/21 02/05/22 mcg (2,000 unit) tablet (Vitamin D3) aspirin 81 mg chewable tablet 81 mg PO QAM 12/09/21 02/05/22 docusate sodium 100 mg tablet 100 mg PO QAM 12/09/21 02/05/22 bisacodyl 5 mg tablet 5 mg PO QAM 02/05/22 02/05/22 escitalopram oxalate 10 mg tablet 10 mg PO QAM 02/05/22 02/05/22 Results & Data (ED) Vital Signs Vital Signs - 24 hr 02/05/22 15:20 02/05/22 15:45 02/05/22 16:09 Temperature 37 C Temperature Source Oral Pulse Rate 91 H 80 Pulse Rate from SpO2 Sensor Respiratory Rate 20 23 Blood Pressure 133/78 Blood Pressure Mean 96 Pulse Oximetry 96 94 Oxygen Delivery Method Room Air Room Air Room Air Fraction of Inspired Oxygen 94 Sepsis Recent Fever Within 48 Hours No Sepsis New/Unexplained Change in Mental Status No Sepsis Action Taken by Nursing No Action Required 02/05/22 16:02 02/05/22 16:30 02/05/22 16:59 Temperature Temperature Source Pulse Rate 92 H 81 87 Pulse Rate from SpO2 Sensor 90 83 87 Respiratory Rate 26 H 29 H 31 H Blood Pressure Blood Pressure Mean Pulse Oximetry 95 93 93 Oxygen Delivery Method Fraction of Inspired Oxygen Sepsis Recent Fever Within 48 Hours Sepsis New/Unexplained Change in Mental Status Sepsis Action Taken by Nursing 02/05/22 16:59 02/05/22 17:00 02/05/22 17:42 Temperature Temperature Source Pulse Rate 88 Pulse Rate from SpO2 Sensor 87 90 Respiratory Rate 25 H Blood Pressure 177/86 H Blood Pressure Mean 116 Pulse Oximetry 94 90 Oxygen Delivery Method Fraction of Inspired Oxygen Sepsis Recent Fever Within 48 Hours Sepsis New/Unexplained Change in Mental Status Sepsis Action Taken by Nursing 02/05/22 18:00 02/05/22 18:30 Temperature Temperature Source Pulse Rate 86 88 Pulse Rate from SpO2 Sensor 86 85 Respiratory Rate 29 H 26 H Blood Pressure Blood Pressure Mean Pulse Oximetry 93 96 Oxygen Delivery Method Fraction of Inspired Oxygen Sepsis Recent Fever Within 48 Hours Sepsis New/Unexplained Change in Mental Status Sepsis Action Taken by Nursing Laboratory Data Result diagrams: 02/05/22 16:05 02/05/22 16:05 Lab Results 02/05/22 02/05/22 02/05/22 Range/Units 16:05 16:05 16:05 WBC (4.8-10.8) K/ul RBC (3.93-5.22) M/uL Hgb (12.0-16.0) g/dl Hct (34.1-44.9) % MCV (80.0-100.0) fL MCH (25.0-34.0) pg MCHC (32.0-36.0) g/dL RDW Std Deviation (36.4-46.3) fL RDW Coeff of [place] (11.5-14.5) % Plt Count (130-400) K/uL MPV (9.4-12.3) fL Immature Gran % (Auto) % Neut % (Auto) % Lymph % (Auto) % [place] % (Auto) % Eos % (Auto) % Baso % (Auto) % Neut # (Auto) (1.4-6.5) K/uL Lymph # (Auto) (1.2-3.4) K/uL [place] # (Auto) (0.24-0.82) K/uL Eos # (Auto) (0-0.50) K/uL Baso # (Auto) (0-0.2) K/uL Immature Gran # (Auto) (0.00-0.02) K/uL PT 11.5 (9.0-12.0) Seconds INR 1.1 (0.9-1.1) Sodium 141 (136-145) mmol/L Potassium 3.2 L (3.5-5.1) mmol/L Chloride 99 (98-107) mmol/L Carbon Dioxide 35 H (21-32) mmol/L Anion Gap 7 (3-11) BUN 13 (6-23) mg/dl Creatinine 0.31 L (0.6-1.2) mg/dl Est Cr Clr Drug Dosing 120.8 ml/min Est GFR ( Amer) 124.0 ml/min Est GFR (Non-Af Amer) 107.0 ml/min BUN/Creatinine Ratio 41.9 H (10-20) Glucose 136 H (70-99(Fasting)) mg/dl Lactate (0.4-2.0) mmol/L Calcium 9.4 (8.5-10.1) mg/dl Magnesium 1.7 (1.7-2.4) mg/dl Total Bilirubin 0.8 (0.2-1.0) mg/dl AST 23 (13-39) U/L ALT 17 (7-52) U/L Alkaline Phosphatase 70 (34-104) U/L Troponin I High Sens 57.2 H* D (0-14) pg/ml Total Protein 6.1 (6.0-8.3) gm/dl Albumin 3.6 (3.4-5.0) gm/dl Globulin 2.5 (2.5-4.0) gm/dl Albumin/Globulin Ratio 1.4 (0.9-2) Procalcitonin 0.06 (0-0.5) ng/ml TSH (0.300-4.500) uIu/ml Urine Color Urine Appearance (Clear) Urine pH (4.5-7.5) Ur Specific [place] (1.000-1.030) Urine Protein (Negative) Urine Glucose (UA) (Negative) Urine Ketones (Negative) Urine Blood (Negative) Urine Nitrite (Negative) Urine Bilirubin (Negative) Urine Urobilinogen (Negative) Ur Leukocyte Esterase (Negative) Urine WBC (Auto) (0-5) /hpf Urine RBC (Auto) (0-4) /hpf U Hyaline Cast (Auto) (0-5) /lpf U Epithel Cells (Auto) (0-5) /lpf Urine Bacteria (Auto) (Negative) SARS-CoV-2, RNA, NAAT (NEGATIVE) 02/05/22 02/05/22 02/05/22 Range/Units 16:05 16:05 16:10 WBC 6.74 (4.8-10.8) K/ul RBC 5.13 (3.93-5.22) M/uL Hgb 14.8 (12.0-16.0) g/dl Hct 44.6 (34.1-44.9) % MCV 86.9 (80.0-100.0) fL MCH 28.8 (25.0-34.0) pg MCHC 33.2 (32.0-36.0) g/dL RDW Std Deviation 45.8 (36.4-46.3) fL RDW Coeff of [place] 14.4 (11.5-14.5) % Plt Count 198 (130-400) K/uL MPV 10.4 (9.4-12.3) fL Immature Gran % (Auto) 0.1 % Neut % (Auto) 60.0 % Lymph % (Auto) 26.9 % [place] % (Auto) 9.1 % Eos % (Auto) 3.0 % Baso % (Auto) 0.9 % Neut # (Auto) 4.05 (1.4-6.5) K/uL Lymph # (Auto) 1.81 (1.2-3.4) K/uL [place] # (Auto) 0.61 (0.24-0.82) K/uL Eos # (Auto) 0.20 (0-0.50) K/uL Baso # (Auto) 0.06 (0-0.2) K/uL Immature Gran # (Auto) 0.01 (0.00-0.02) K/uL PT (9.0-12.0) Seconds INR (0.9-1.1) Sodium (136-145) mmol/L Potassium (3.5-5.1) mmol/L Chloride (98-107) mmol/L Carbon Dioxide (21-32) mmol/L Anion Gap (3-11) BUN (6-23) mg/dl Creatinine (0.6-1.2) mg/dl Est Cr Clr Drug Dosing ml/min Est GFR ( Amer) ml/min Est GFR (Non-Af Amer) ml/min BUN/Creatinine Ratio (10-20) Glucose (70-99(Fasting)) mg/dl Lactate (0.4-2.0) mmol/L Calcium (8.5-10.1) mg/dl Magnesium (1.7-2.4) mg/dl Total Bilirubin (0.2-1.0) mg/dl AST (13-39) U/L ALT (7-52) U/L Alkaline Phosphatase (34-104) U/L Troponin I High Sens (0-14) pg/ml Total Protein (6.0-8.3) gm/dl Albumin (3.4-5.0) gm/dl Globulin (2.5-4.0) gm/dl Albumin/Globulin Ratio (0.9-2) Procalcitonin (0-0.5) ng/ml TSH 1.039 (0.300-4.500) uIu/ml Urine Color Urine Appearance (Clear) Urine pH (4.5-7.5) Ur Specific [place] (1.000-1.030) Urine Protein (Negative) Urine Glucose (UA) (Negative) Urine Ketones (Negative) Urine Blood (Negative) Urine Nitrite (Negative) Urine Bilirubin (Negative) Urine Urobilinogen (Negative) Ur Leukocyte Esterase (Negative) Urine WBC (Auto) (0-5) /hpf Urine RBC (Auto) (0-4) /hpf U Hyaline Cast (Auto) (0-5) /lpf U Epithel Cells (Auto) (0-5) /lpf Urine Bacteria (Auto) (Negative) SARS-CoV-2, RNA, NAAT NEGATIVE (NEGATIVE) 02/05/22 02/05/22 02/05/22 Range/Units 17:16 18:37 18:43 WBC (4.8-10.8) K/ul RBC (3.93-5.22) M/uL Hgb (12.0-16.0) g/dl Hct (34.1-44.9) % MCV (80.0-100.0) fL MCH (25.0-34.0) pg MCHC (32.0-36.0) g/dL RDW Std Deviation (36.4-46.3) fL RDW Coeff of [place] (11.5-14.5) % Plt Count (130-400) K/uL MPV (9.4-12.3) fL Immature Gran % (Auto) % Neut % (Auto) % Lymph % (Auto) % [place] % (Auto) % Eos % (Auto) % Baso % (Auto) % Neut # (Auto) (1.4-6.5) K/uL Lymph # (Auto) (1.2-3.4) K/uL [place] # (Auto) (0.24-0.82) K/uL Eos # (Auto) (0-0.50) K/uL Baso # (Auto) (0-0.2) K/uL Immature Gran # (Auto) (0.00-0.02) K/uL PT (9.0-12.0) Seconds INR (0.9-1.1) Sodium (136-145) mmol/L Potassium (3.5-5.1) mmol/L Chloride (98-107) mmol/L Carbon Dioxide (21-32) mmol/L Anion Gap (3-11) BUN (6-23) mg/dl Creatinine (0.6-1.2) mg/dl Est Cr Clr Drug Dosing ml/min Est GFR ( Amer) ml/min Est GFR (Non-Af Amer) ml/min BUN/Creatinine Ratio (10-20) Glucose (70-99(Fasting)) mg/dl Lactate 0.9 (0.4-2.0) mmol/L Calcium (8.5-10.1) mg/dl Magnesium (1.7-2.4) mg/dl Total Bilirubin (0.2-1.0) mg/dl AST (13-39) U/L ALT (7-52) U/L Alkaline Phosphatase (34-104) U/L Troponin I High Sens 60.3 H* (0-14) pg/ml Total Protein (6.0-8.3) gm/dl Albumin (3.4-5.0) gm/dl Globulin (2.5-4.0) gm/dl Albumin/Globulin Ratio (0.9-2) Procalcitonin (0-0.5) ng/ml TSH (0.300-4.500) uIu/ml Urine Color Yellow Urine Appearance Clear (Clear) Urine pH 7.0 (4.5-7.5) Ur Specific [place] 1.011 (1.000-1.030) Urine Protein Negative (Negative) Urine Glucose (UA) Negative (Negative) Urine Ketones Negative (Negative) Urine Blood 2+ H (Negative) Urine Nitrite Negative (Negative) Urine Bilirubin Negative (Negative) Urine Urobilinogen Negative (Negative) Ur Leukocyte Esterase 1+ H (Negative) Urine WBC (Auto) 5-10 H (0-5) /hpf Urine RBC (Auto) 5-10 H (0-4) /hpf U Hyaline Cast (Auto) 1-5 (0-5) /lpf U Epithel Cells (Auto) 20-30 H (0-5) /lpf Urine Bacteria (Auto) Negative (Negative) SARS-CoV-2, RNA, NAAT (NEGATIVE) Administered Medications Mirabegron (Mirabegron Er 25 Mg Tab) 50 mg PO PM GINA Stop: 03/07/22 20:59 Last Admin: 02/05/22 22:21 Dose: 50 mg Documented By: KRYSTYNA Discontinued Medications Furosemide (Furosemide Inj 20 Mg/2 Ml Vial) 20 mg IV ONE ONE Stop: 02/05/22 20:08 Last Admin: 02/05/22 20:54 Dose: 20 mg Documented By: ANGELA Furosemide (Furosemide 40 Mg/4 Ml Vial) Confirm Administered Dose 40 mg IV .STK- MED ONE Stop: 02/05/22 20:33 Last Admin: 02/05/22 22:40 Dose: Not Given Documented By: TG Magnesium Sulfate/Dextrose (Magnesium Sulfate / D5w) 1 gm in 100 mls @ 100 mls/hr IV Q1H GINA Stop: 02/05/22 19:19 Last Infusion: 02/05/22 22:39 Dose: 0 mls/hr Documented By: Admin: 02/05/22 18:57 Dose: 100 mls/hr Documented By: Infusion: 02/05/22 18:43 Dose: 100 mls/hr Documented By: Admin: 02/05/22 17:43 Dose: 100 mls/hr Documented By: ANGELA Potassium Chloride (K [place] / Wtr) 10 meq in 100 mls @ 100 mls/hr IV ONE ONE; Protocol Stop: 02/05/22 18:19 Last Infusion: 02/05/22 18:56 Dose: 0 mls/hr Documented By: Admin: 02/05/22 17:44 Dose: 100 mls/hr Documented By: ANGELA Ioversol (Optiray 300 500ml) 122 ml IV ONCE ONE Stop: 02/05/22 17:35 Last Admin: 02/05/22 17:36 Dose: 122 ml Documented By: CHARLES Potassium Chloride (Potassium Chloride Crtab 20 Meq Tabcr) 40 meq PO NOW STA Stop: 02/05/22 20:08 Last Admin: 02/05/22 20:54 Dose: 40 meq Documented By: ANGELA Imaging Data Radiologist's Impression: Chest X-Ray 02/05/22 15:50 XR chest 1V portable CLINICAL HISTORY: Shortness of breath. COMPARISON STUDY: Chest CT October 19, 2021. Chest radiograph December 09, 2021. FINDINGS: Dextroscoliosis of the thoracic spine is again noted. There is no pneumothorax. Blunting of left costophrenic angle is chronic. There is a small right pleural effusion. Cardiomediastinal silhouette is stable. There is pulmonary vascular congestion without overt pulmonary edema. IMPRESSION: 1. Small right pleural effusion. No pneumothorax. 2. Pulmonary vessel congestion without overt pulmonary edema. ACT 112: Negative or not required by law. Electronically signed by: Andrea Schwarz M.D. 02/05/2022 4:03 PM Chest CTA 02/05/22 16:10 CT ANGIOGRAPHY OF THE CHEST, PULMONARY EMBOLUS PROTOCOL CLINICAL HISTORY: Shortness of breath. Dyspnea on exertion. Evaluate for pulmonary embolus. COMPARISON STUDY: Chest CT October 19, 2021. Chest radiograph performed earlier today. TECHNIQUE: Following IV administration of 122 mL of Optiray, helical axial images of the chest were obtained utilizing the pulmonary embolus protocol. Maximal intensity projections and sagittal and coronal reformats were viewed on an independent 3D workstation. IV contrast was administered without complication. Automated exposure control was utilized for the study. A dose lowering technique was utilized adhering to the principles of ALARA. CT DOSE: 385.57 mGy.cm FINDINGS: No pulmonary emboli are identified. There is no thoracic aortic dissection. No pericardial effusion is present. There is no thoracic lymphadenopathy. Diffuse muscular atrophy is noted. There is moderate dextroscoliosis of the thoracic spine and exaggerated kyphosis of the thoracic spine. Small right and trace left pleural effusions are present. There is no pneumothorax. Subpleural reticulation within the anterior segment of the right upper lobe is likely chronic. There is no consolidation to suggest pneumonia. Subpleural opacities within the lower lobes favor atelectasis. There is possible mild pulmonary edema. IMPRESSION: 1. No pulmonary emboli identified. 2. Small right and trace left pleural effusions. Possible mild pulmonary edema. 3. No consolidation to suggest pneumonia. 4. Dextroscoliosis and exaggerated kyphosis of the thoracic spine. ACT 112: Negative or not required by law. Electronically signed by: Andrea Schwarz M.D. 02/05/2022 5:54 PM Discharge Plan Visit Data Chief Complaint: Respiratory Problems Stated Complaint: CANNOT BREATHE O2 82 ED Provider: Giancarlo Hodge Discharge Problem: MARTINEZ (dyspnea on exertion), Elevated troponin I level Patient Disposition: Admitted As Inpatient Discharge Instructions Interventions: ED Discharge Assessment Last Done: 02/05/22 20:59
[2022-02-05 16:37] LABS: INR 1.1 (0.9-1.1); Prothrombin Time 11.5 Seconds (9.0-12.0)
[2022-02-05 16:49] LABS: Albumin Globulin Ratio 1.4 (0.9-2); Albumin Level 3.6 gm/dl (3.4-5.0); BUN Creatinine Ratio 41.9 (10-20); Bilirubin,Total 0.8 mg/dl (0.2-1.0); Calcium 9.4 mg/dl (8.5-10.1); Creatinine Clr Calc Pharmacy 120.8 ml/min; Globulin 2.5 gm/dl (2.5-4.0); Magnesium 1.7 mg/dl (1.7-2.4); Potassium 3.2 mmol/L (3.5-5.1); Total Protein 6.1 gm/dl (6.0-8.3)
[2022-02-05 16:59] LABS: Troponin I High Sensitivity 57.2 pg/ml (0-14)
[2022-02-05] MEDS ORDERED: POTASSIUM CHLORIDE / WTR 10 MEQ/100 ML PLCT IV ONE (17:20)
[2022-02-05] MEDS ORDERED: OPTIRAY 300 500mL IV ONE (17:34)
[2022-02-05 17:39] LABS: Appearance Urine Clear (Clear); Bacteria Urine Automated Negative (Negative); Bilirubin Urine Negative (Negative); Blood Urine 2+ (Negative); Color Urine Yellow; Epithelial Cell Urine Auto 20-30 /lpf (0-5); Glucose Urine UA Negative (Negative); Ketones Urine Negative (Negative); Leukocyte Esterase Urine 1+ (Negative); Nitrite Urine Negative (Negative); Protein Urine Negative (Negative); Specific Gravity Urine 1.011 (1.000-1.030); Urobilinogen Urine Negative (Negative)
[2022-02-05] MEDS: MAGNESIUM SULFATE / D5W 1 GM/100 ML BAG IV SCH ×2 (17:43→18:57)
--- NOTE | 2022-02-05 17:57 | CT Scan Report ---
CT ANGIOGRAPHY OF THE CHEST, PULMONARY EMBOLUS PROTOCOL CLINICAL HISTORY: Shortness of breath. Dyspnea on exertion. Evaluate for pulmonary embolus. COMPARISON STUDY: Chest CT October 19, 2021. Chest radiograph performed earlier today. TECHNIQUE: Following IV administration of 122 mL of Optiray, helical axial images of the chest were o btained utilizing the pulmonary embolus protocol. Maximal intensity projections and sagittal and cor onal reformats were viewed on an independent 3D workstation. IV contrast was administered without co mplication. Automated exposure control was utilized for the study. A dose lowering technique was ut ilized adhering to the principles of ALARA. CT DOSE: 385.57 mGy.cm FINDINGS: No pulmonary emboli are identified. There is no thoracic aortic dissection. No pericardial effusion is present. There is no thoracic lymphadenopathy. Diffuse muscular atrophy is noted. There is moderate dextroscoliosis of the thoracic spine and exaggerated kyphosis of the thoracic spine. Sma ll right and trace left pleural effusions are present. There is no pneumothorax. Subpleural reticulat ion within the anterior segment of the right upper lobe is likely chronic. There is no consolidation to suggest pneumonia. Subpleural opacities within the lower lobes favor atelectasis. There is possibl e mild pulmonary edema. IMPRESSION: 1. No pulmonary emboli identified. 2. Small right and trace left pleural effusions. Possible mild pulmonary edema. 3. No consolidation to suggest pneumonia. 4. Dextroscoliosis and exaggerated kyphosis of the thoracic spine. ACT 112: Negative or not required by law. Electronically signed by: Andrea Schwarz M.D. 02/05/2022 5:54 PM
[2022-02-05] MEDS ORDERED: POLYETHYLENE (MIRALAX) 17 GM PACK PO PRN (18:54)
--- NOTE | 2022-02-05 19:04 | History & Physical Report ---
Date of Service February 05, 2022 Assessment & Plan (1) Acute diastolic heart failure: Plan: Elderly female presents with dyspnea with exertion along with worsened orthopnea with evidence of pulmonary effusions and pulmonary edema is suggestive of heart failure exacerbation. She lives with her daughter and reports eating low salt, healthy fresh foods. She did have diastolic dysfunction on her echo in September which may be contributing along with LVH suggestive of chronically elevated blood pressure. She denies antihypertensive therapy. She has a BP tonight of 177/86 which was measured as normal when she came in. The earlier measurement was performed with an upper arm cuff, this one was from her calf and is likely inaccurate. Cont to monitor with upper arm measurements overnight. Giving a trial of Lasix tonight (20 mg IV) with potassium replacement. Elevated troponin is likely chronic cardiac injury in the setting of CHF but will trend trop overnight. Repeat echo and consult cardiology. Low sodium diet, strict ins/outs assessment. Patient was offered a chowdhury but prefers a [place] which was communicated to the primary RN. Repeat echo to evaluate for changes given new symptoms. (2) Prolonged Q-T interval on ECG: Plan: Currently QTc is 580 with h/o normal QTc in December 2021 474ms. Recent switch in her SSRIs may be contributing? Repeat EKG and trend this while on the lexapro. Consider holding if persistently prolonged. Avoid zofran or other QT prolonging medications. Monitor on telemetry. (3) CMT (Yvdegcp-Jwkgn-Xggtp disease): Plan: chronic, debilitating. Patient has been wheelchair-bound now for the past 6 years. Lives at home with her daughter. PT/OT to assess. 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 Would consider this as outpatient after discharge. (4) [place] (generalized anxiety disorder): Plan: Recently switched from Celexa to Lexapro and feels well. Monitor QT as above. (5) Hypokalemia: Plan: K 3.2-given supplementation and repeat in am. (6) Hypomagnesemia: Plan: Mg 1.7-given two grams of IV replacement and repeat in am. (7) DVT prophylaxis: Plan: Lovenox DNR as discussed with patient on admission Dipso-to PCU DO Ruel Bryson Hospitalist History of Present Illness Chief Complaint: shortness of breath Primary Care Provider: Adelfo Coburn MD 81 yo female with h/o poliomyelitis at 3 yrs old, CMT disease, psychogenic nonepileptic seizures and sever anxiety as well as multiple other chronic medical problems presents with shortness of breath. Recently switched citalopram to Lexapro with improvement recently. 2 pillow orthopnea, can't lie flat because she can't breathe No weight gain that she is aware of No swelling in her legs recently No reported PND Wheelchair bound for the past 6 years, but can transfer independently She reports increased dyspnea with any exertion and with leaning forward. No cough, fevers, chills Takes laxatives for chronic constipation Eating well, no nausea, vomiting reported. Recently admitted in December 2021 for leg weakness Still has some leg weakness present when she lies down but can move it independently. 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 Allergies Allergy/AdvReac Type Severity Reaction Status Date / Time shellfish derived Allergy Severe LOBSTER: Verified 02/05/22 16:03 almost darifenacin Allergy Unknown Unverified 02/05/22 18:54 acetaminophen [From Tylenol] Allergy Rash Unverified 02/05/22 16:03 atorvastatin AdvReac Nausea Verified 02/05/22 16:03 Home Medications Medication Instructions Recorded Confirmed Type mirabegron 50 mg tablet,extended 50 mg PO PM 09/09/21 02/05/22 History release 24 hr (Myrbetriq) cholecalciferol (vitamin D3) 50 50 mcg PO QAM 10/19/21 02/05/22 History mcg (2,000 unit) tablet (Vitamin D3) aspirin 81 mg chewable tablet 81 mg PO QAM 12/09/21 02/05/22 History docusate sodium 100 mg tablet 100 mg PO QAM 12/09/21 02/05/22 History bisacodyl 5 mg tablet 5 mg PO QAM 02/05/22 02/05/22 History escitalopram oxalate 10 mg tablet 10 mg PO QAM 02/05/22 02/05/22 History Past Med/Surg History Medical History (Updated 02/05/22 @ 20:31 by Cindy Florian DO) Breast cancer CMT (Ggkdzso-Iibei-Neybf disease) CVA (cerebral vascular accident) [place] (generalized anxiety disorder) History of chronic constipation HLD (hyperlipidemia) Left leg swelling Overactive bladder Post-polio muscle weakness Psychogenic nonepileptic seizure Surgical History (Updated 02/05/22 @ 20:00 by Cindy Florian DO) H/O lumpectomy History of cataract removal with insertion of prosthetic lens S/P appy S/P iesha S/P BENSON (total abdominal hysterectomy) Status post left foot surgery fusion 2/2 foot drop Family History Father Lung cancer Mother Stroke Aunt Breast cancer Social History Smoking Status: Never smoker Hx Alcohol Use: No Hx Substance Use: No Preferred Language: Greenlandic Communication Ability: Effective Teacher Of Gifted Students Required: No Beliefs That Will Affect Care: None marital status: / Current Living Situation: Family Feels Safe at Home: Yes Assistive Devices: Crutches, Lift Chair, Walker and Wheelchair Review of Systems Review of Systems: All systems were reviewed and negative except as indicated above. Physical Exam Physical Exam: CONSTITUTIONAL: WNWD, vitals as above, generally NAD, chronic deconditioning is apparent. EYES: normal conjunctivae, no scleral icterus ENT: external ear and nose normal, oropharynx clear, mucous membranes are moist, edentulous NECK: trachea midline RESPIRATORY: clear to auscultation bilaterally but poor airflow with decreased breath sounds throughout, no crackles, rales or wheezes, normal respiratory effort CARDIOVASCULAR: regular rate and rhythm, S1 and 2 heard without murmurs, gallops or rubs, no JVD, no peripheral edema CHEST: inspection of chest was normal GASTROINTESTINAL: soft, nontender, ND, no guarding MUSCULOSKELETAL: generalized weakness with no focal deficits that are new, bilateral foot drop present, cannot dorsiflex or plantarflex in either foot. Cannot sit up independently in bed. head is normocephalic and atraumatic SKIN: warm and dry NEUROLOGIC: No facial palsy, no dysarthria. CN 2-12 grossly intact, no sensory deficit, normal cognition, normal speech, no tremor PSYCHIATRIC: alert cooperative and oriented to person, place and time. Euthymic mood, makes good eye contact, language grossly intact, recent and remote memory grossly intact. Results & Data Results & Data ([facility]) Vital Signs (Past 12 Hours) Vital Signs Temp Pulse Resp BP Pulse Ox O2 Del Method FiO2 02/05/22 18:30 88 26 H 96 02/05/22 18:00 86 29 H 93 02/05/22 17:42 90 02/05/22 17:00 88 25 H 94 02/05/22 16:59 177/86 H 02/05/22 16:59 87 31 H 93 02/05/22 16:30 81 29 H 93 02/05/22 16:02 92 H 26 H 95 02/05/22 16:09 80 23 94 Room Air 02/05/22 15:45 Room Air 94 02/05/22 15:20 37 C 91 H 20 133/78 96 Room Air Laboratory Results Short CBC 02/05/22 Range/Units 16:05 WBC 6.74 (4.8-10.8) K/ul Hgb 14.8 (12.0-16.0) g/dl Hct 44.6 (34.1-44.9) % Plt Count 198 (130-400) K/uL BMP 02/05/22 16:05 Sodium 141 Potassium 3.2 L Chloride 99 Carbon Dioxide 35 H BUN 13 Creatinine 0.31 L Glucose 136 H Calcium 9.4 Liver Function 02/05/22 Range/Units 16:05 Total Bilirubin 0.8 (0.2-1.0) mg/dl AST 23 (13-39) U/L ALT 17 (7-52) U/L Alkaline Phosphatase 70 (34-104) U/L Albumin 3.6 (3.4-5.0) gm/dl Urine 02/05/22 Range/Units 17:16 Urine Color Yellow Urine Appearance Clear (Clear) Urine pH 7.0 (4.5-7.5) Ur Specific [place] 1.011 (1.000-1.030) Urine Protein Negative (Negative) Urine Glucose (UA) Negative (Negative) Diagnostic Findings Chest X-Ray 02/05/22 15:50 XR chest 1V portable CLINICAL HISTORY: Shortness of breath. COMPARISON STUDY: Chest CT October 19, 2021. Chest radiograph December 09, 2021. FINDINGS: Dextroscoliosis of the thoracic spine is again noted. There is no pneumothorax. Blunting of left costophrenic angle is chronic. There is a small right pleural effusion. Cardiomediastinal silhouette is stable. There is pulmonary vascular congestion without overt pulmonary edema. IMPRESSION: 1. Small right pleural effusion. No pneumothorax. 2. Pulmonary vessel congestion without overt pulmonary edema. ACT 112: Negative or not required by law. Electronically signed by: Andrea Schwarz M.D. 02/05/2022 4:03 PM Chest CTA 02/05/22 16:10 CT ANGIOGRAPHY OF THE CHEST, PULMONARY EMBOLUS PROTOCOL CLINICAL HISTORY: Shortness of breath. Dyspnea on exertion. Evaluate for pulmonary embolus. COMPARISON STUDY: Chest CT October 19, 2021. Chest radiograph performed earlier today. TECHNIQUE: Following IV administration of 122 mL of Optiray, helical axial images of the chest were obtained utilizing the pulmonary embolus protocol. Maximal intensity projections and sagittal and coronal reformats were viewed on an independent 3D workstation. IV contrast was administered without complication. Automated exposure control was utilized for the study. A dose lowering technique was utilized adhering to the principles of ALARA. CT DOSE: 385.57 mGy.cm FINDINGS: No pulmonary emboli are identified. There is no thoracic aortic dissection. No pericardial effusion is present. There is no thoracic lympha denopathy. Diffuse muscular atrophy is noted. There is moderate dextroscoliosis of the thoracic spine and exaggerated kyphosis of the thoracic spine. Small right and trace left pleural effusions are present. There is no pneumothorax. Subpleural reticulation within the anterior segment of the right upper lobe is likely chronic. There is no consolidation to suggest pneumonia. Subpleural opacities within the lower lobes favor atelectasis. There is possible mild pulmonary edema. IMPRESSION: 1. No pulmonary emboli identified. 2. Small right and trace left pleural effusions. Possible mild pulmonary edema. 3. No consolidation to suggest pneumonia. 4. Dextroscoliosis and exaggerated kyphosis of the thoracic spine. ACT 112: Negative or not required by law. Electronically signed by: Andrea Schwarz M.D. 02/05/2022 5:54 PM Code Status & VTE Plan VTE Prophylaxis Plan VTE Prophylaxis will be ordered: Yes
[2022-02-05] MEDS ORDERED: POTASSIUM CHLORIDE CRTAB 20 MEQ TABCR PO STA (20:07)
[2022-02-05] MEDS ORDERED: FUROSEMIDE INJ 20 MG/2 ML VIAL IV ONE (20:07)
[2022-02-05] MEDS ORDERED: ASPIRIN CHEW 324 MG PO STA (20:10)
[2022-02-05] MEDS ORDERED: FUROSEMIDE 40 MG/4 ML VIAL IV ONE (20:32)
[2022-02-05] MEDS: MIRABEGRON ER 25 MG TAB PO SCH (22:21)
[2022-02-06 07:00] LABS: BUN Creatinine Ratio 41.7 (10-20); Calcium 8.9 mg/dl (8.5-10.1); Creatinine Clr Calc Pharmacy 152.6 ml/min; Est GFR (African American) 134.9 ml/min; Est GFR (Non-African American) 116.4 ml/min; Potassium 3.4 mmol/L (3.5-5.1)
[2022-02-06] MEDS ORDERED: POTASSIUM CHLORIDE CRTAB 20 MEQ TABCR PO STA (08:48)
[2022-02-06] MEDS: ENOXAPARIN INJ 40 MG/0.4 ML SYR SQ SCH (09:38)
[2022-02-06] MEDS: DOCUSATE SODIUM 100 MG CAP PO SCH (09:39)
[2022-02-06] MEDS: CHOLECALCIFEROL 1,000 UNITS 25 MCG TAB PO SCH (09:39)
[2022-02-06] MEDS: ASPIRIN 81 MG CHEW PO SCH (09:39)
[2022-02-06] MEDS: ESCITALOPRAM OXALATE 10 MG TAB PO SCH (09:39)
[2022-02-06] MEDS: bisacodyL 5 MG TABEC PO SCH (09:41)
--- NOTE | 2022-02-06 09:48 | Cardiology Consultation ---
Date of Consultation February 06, 2022 Assessment & Plan (1) Acute heart failure with preserved ejection fraction (HFpEF): -Minimum, flat elevation in troponin I, serial EKG tracings performed recently dating back to September of this year, without acute repolarization changes. Baseline echocardiogram results, the age-indeterminate septal infarction pattern is a false positive EKG findings. -Agree with electrolyte replacement, patient has received IV potassium yesterday, another dose today already ordered by the primary service. Proceed with another dose of furosemide 20 mg. I agree with Lovenox 40 mg subcutaneous for DVT prophylaxis. (2) Hypokalemia: -Replace as noted. Repeat chemistry panel tomorrow. History of Present Illness Attending Physician: Milena Blackburn MD History of Present Illness Alanna Sprague is an 81 year old female seen in cardiology consultation per the request of Dr Florian for the evaluation of shortness of breath an concer of congestive hear failure. The patient has been hospitalized for other issues within the last calendar year, but presented yesterday with 2 weeks of progressive shortness of breath per the patient's description. She received a dose of furosemide 20 mg last evening at 2053. It is feeling somewhat improved. At present, she is sitting up in bed in room 219 and is comfortable. Telemetry reveals sinus rhythm in the 70s at present. 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 She is apparently been wheelchair-bound for the last 6 years. Allergies Allergy/AdvReac Type Severity Reaction Status Date / Time shellfish derived Allergy Severe LOBSTER: Verified 02/05/22 16:03 almost darifenacin Allergy Unknown Unverified 02/05/22 18:54 acetaminophen [From Tylenol] Allergy Rash Unverified 02/05/22 16:03 atorvastatin AdvReac Nausea Verified 02/05/22 16:03 Home Medications Medication Instructions Recorded Confirmed Type mirabegron 50 mg tablet,extended 50 mg PO PM 09/09/21 02/05/22 History release 24 hr (Myrbetriq) cholecalciferol (vitamin D3) 50 50 mcg PO QAM 10/19/21 02/05/22 History mcg (2,000 unit) tablet (Vitamin D3) aspirin 81 mg chewable tablet 81 mg PO QAM 12/09/21 02/05/22 History docusate sodium 100 mg tablet 100 mg PO QAM 12/09/21 02/05/22 History bisacodyl 5 mg tablet 5 mg PO QAM 02/05/22 02/05/22 History escitalopram oxalate 10 mg tablet 10 mg PO QAM 02/05/22 02/05/22 History Patient History Medical History Breast cancer CMT (Btscjfd-Bwrgz-Vsjwe disease) CVA (cerebral vascular accident) [place] (generalized anxiety disorder) History of chronic constipation HLD (hyperlipidemia) Left leg swelling Overactive bladder Post-polio muscle weakness Psychogenic nonepileptic seizure Surgical History H/O lumpectomy History of cataract removal with insertion of prosthetic lens S/P appy S/P iesha S/P BENSON (total abdominal hysterectomy) Status post left foot surgery fusion 2/2 foot drop Family History Father Lung cancer Mother Stroke Aunt Breast cancer Social History Smoking Status: Former smoker Second Hand Exposure: No; Do You Dip or Chew Tobacco: No; Tobacco Cessation Education Requested by Patient: No Hx Alcohol Use: Yes Alcohol type: beer Hx Substance Use: No Preferred Language: Citizen Of [place] Communication Ability: Effective Automotive Window Tinter Required: No Beliefs That Will Affect Care: None marital status: / Current Living Situation: Other Current Living Situation Comment: with daughter Other Information That Helps Us Care for You: No Feels Safe at Home: Yes Safety Concerns: Feels Safe At This Time Assistive Devices: Hearing Aid - Right and Wheelchair Review of Systems Review of Systems: All systems reviewed & are unremarkable except as noted in HPI & below Physical Exam Physical Exam: Temp Pulse Resp BP Pulse Ox O2 Del Method FiO2 36.9 C 84 17 147/84 H 90 94 02/06/22 07:52 02/06/22 07:52 02/06/22 07:52 02/06/22 07:52 02/06/22 07:52 02/06/22 07:52 02/05/22 15:45 Constitutional: WD/WN, vitals as above Respiratory: normal respiratory effort, lungs clear to auscultation Cardiovascular: Rate/Rhythm: regular rate and regular rhythm Heart Sounds: + murmur (1/6 systolic murmur) Gastrointestinal (Abdomen): normal bowel sounds, soft, nontender, no hepatosplenomegaly Musculoskeletal: Noted decreased muscle maths of the lower extremities consistent with patient's history. Neurologic: Symmetrical bilateral lower extremity weakness noted Results & Data ([facility]) Vital Signs (Past 12 Hours) Vital Signs Temp Pulse Pulse Resp BP Pulse Ox O2 Del Method 02/06/22 07:52 36.9 C 84 17 147/84 H 90 Room Air 02/06/22 00:00 76 02/06/22 03:24 36.4 C L 72 22 119/74 92 Room Air 02/05/22 23:50 Room Air 02/05/22 22:00 36.7 C 72 16 129/80 95 Room Air 02/05/22 22:59 36.7 C 65 18 119/68 98 Room Air Laboratory Results Cardiac Enzymes 02/05/22 02/05/22 02/05/22 Range/Units 16:05 18:37 23:48 AST 23 (13-39) U/L Troponin I High Sens 57.2 H* D 60.3 H* 57.5 H* (0-14) pg/ml B-Natriuretic Peptide (0-100) pg/ml 02/06/22 Range/Units 05:52 AST (13-39) U/L Troponin I High Sens (0-14) pg/ml B-Natriuretic Peptide 42 (0-100) pg/ml Coagulation 02/05/22 02/06/22 Range/Units 16:05 05:52 PT 11.5 (9.0-12.0) Seconds B-Natriuretic Peptide 42 (0-100) pg/ml CBC 02/05/22 Range/Units 16:05 WBC 6.74 (4.8-10.8) K/ul RBC 5.13 (3.93-5.22) M/uL Hgb 14.8 (12.0-16.0) g/dl Hct 44.6 (34.1-44.9) % Plt Count 198 (130-400) K/uL Neut # (Auto) 4.05 (1.4-6.5) K/uL Lymph # (Auto) 1.81 (1.2-3.4) K/uL [place] # (Auto) 0.61 (0.24-0.82) K/uL Eos # (Auto) 0.20 (0-0.50) K/uL Baso # (Auto) 0.06 (0-0.2) K/uL Comprehensive Metabolic Panel 02/05/22 02/06/22 Range/Units 16:05 05:52 Sodium 141 141 (136-145) mmol/L Potassium 3.2 L 3.4 L (3.5-5.1) mmol/L Chloride 99 100 (98-107) mmol/L Carbon Dioxide 35 H 36 H (21-32) mmol/L BUN 13 10 (6-23) mg/dl Creatinine 0.31 L 0.24 L (0.6-1.2) mg/dl Glucose 136 H 94 (70-99(Fasting)) mg/dl Calcium 9.4 8.9 (8.5-10.1) mg/dl AST 23 (13-39) U/L ALT 17 (7-52) U/L Alkaline Phosphatase 70 (34-104) U/L Total Protein 6.1 (6.0-8.3) gm/dl Albumin 3.6 (3.4-5.0) gm/dl Diagnostic Findings EKG performed today 02/06/2022 and interpreted independently: Sinus rhythm at 81 bpm with first-degree AV block, poor R wave progression in lead V2, and therefore an age-indeterminate septal infarction cannot be excluded, this is a chronic finding, patient noted on tracings dating back to September,. Transthoracic echocardiogram performed today, images reviewed/interpreted independently: Moderate concentric left ventricular hypertrophy present without regional wall motion abnormalities, normal to hyperdynamic left ventricular systolic function, LVEF in the range of 65 to 70%. Grade 1 diastolic dysfunction present. Mild aortic valve sclerosis without stenosis. Chest x-ray performed yesterday 02/05/2022, radiology report reviewed, image reviewed, small right pleural effusion, no pneumothorax, pulmonary vascular congestion without overt pulmonary edemasignificant scoliosis noted. Report of CT angiogram chest: No pulmonary emboli, small right and trace left pleural effusion noted. Dextroscoliosis and exaggerated kyphosis of the thoracic spine.
[2022-02-06] MEDS ORDERED: FUROSEMIDE INJ 20 MG/2 ML VIAL IV ONE (09:49)
--- NOTE | 2022-02-06 11:09 | Hospitalist Progress Note ---
Date of Service February 06, 2022 Assessment & Plan (1) Acute diastolic heart failure: Plan: Elderly female presents with dyspnea with exertion along with worsened orthopnea with evidence of pulmonary effusions and pulmonary edema is suggestive of heart failure exacerbation. She lives with her daughter and reports eating low salt, healthy fresh foods. BP was elevated on presentation. Not on antihypertensives Mildly elevated troponin but flat Echo noted mod conc LVH, EF 65-70, GI DD Cardiology recs noted Got IV lasix 20mg yesterday Given another dose today. Monitor electrolytes, I/O and reassess in AM (2) Prolonged Q-T interval on ECG: Plan: On admission, QTc is 580 with h/o normal QTc in December 2021 474ms. Recent switch in her SSRIs may be contributing? EKG today show QTc of 497 Avoid zofran or other QT prolonging medications. Monitor on telemetry. (3) CMT (Fqusxkf-Inyzg-Olnzr disease): Plan: Chronic, debilitating. Patient has been wheelchair-bound now for the past 6 years. Lives at home with her daughter. PT/OT to assess. 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 Would consider this as outpatient after discharge. (4) [place] (generalized anxiety disorder): Plan: Recently switched from Celexa to Lexapro and feels well. Monitor QT as above. (5) Hypokalemia: Plan: Hypokalemic today. Replete and monitor (6) DVT prophylaxis: Plan: Lovenox sq DNR as discussed with patient on admission Admission and Anticipated Discharge Date Admission Date: February 05, 2022 Subjective Patient seen and examined Reports worsening dyspnea with activity over the past week Associated with orthopnea Denied cough, chest pain, palpitation Denied fevers, chills, nausea, vomiting, abd pain, diarrhea Reports constipation Denied dysuria, freq, urgency, hematuria Physical Exam Constitutional: + well hydrated; no acute distress Eyes: PERRL, conjunctivae normal, anicteric sclerae ENMT: external ear and nose normal, oropharynx normal Respiratory: normal respiratory effort, lungs clear to auscultation Cardiovascular: Rate/Rhythm: regular rate and regular rhythm S1 S2 Gastrointestinal (Abdomen): normal bowel sounds, soft, nontender, no hepatosplenomegaly Musculoskeletal: Trace ankle edema Neurologic: PERRL, EOMI, accommodation nl, no face palsy, no dysarthria Bilateral foot drop Psychiatric: A+Ox3, euthymic affect Results & Data Results & Data ([facility]) Vital Signs (Past 12 Hours) Vital Signs Temp Pulse Pulse Resp BP Pulse Ox O2 Del Method 02/06/22 10:59 36.6 C 74 17 137/78 93 Room Air 02/06/22 10:07 71 124/82 02/06/22 07:52 36.9 C 84 17 147/84 H 90 Room Air 02/06/22 00:00 76 02/06/22 03:24 36.4 C L 72 22 119/74 92 Room Air 02/05/22 23:50 Room Air Laboratory Results Abnormal lab results 02/05/22 02/05/22 02/05/22 Range/Units 16:05 17:16 18:37 Potassium 3.2 L (3.5-5.1) mmol/L Carbon Dioxide 35 H (21-32) mmol/L Creatinine 0.31 L (0.6-1.2) mg/dl BUN/Creatinine Ratio 41.9 H (10-20) Glucose 136 H (70-99(Fasting)) mg/dl Troponin I High Sens 57.2 H* D 60.3 H* (0-14) pg/ml Urine Blood 2+ H (Negative) Ur Leukocyte Esterase 1+ H (Negative) Urine WBC (Auto) 5-10 H (0-5) /hpf Urine RBC (Auto) 5-10 H (0-4) /hpf U Epithel Cells (Auto) 20-30 H (0-5) /lpf 02/05/22 02/06/22 Range/Units 23:48 05:52 Potassium 3.4 L (3.5-5.1) mmol/L Carbon Dioxide 36 H (21-32) mmol/L Creatinine 0.24 L (0.6-1.2) mg/dl BUN/Creatinine Ratio 41.7 H (10-20) Glucose (70-99(Fasting)) mg/dl Troponin I High Sens 57.5 H* (0-14) pg/ml Urine Blood (Negative) Ur Leukocyte Esterase (Negative) Urine WBC (Auto) (0-5) /hpf Urine RBC (Auto) (0-4) /hpf U Epithel Cells (Auto) (0-5) /lpf
--- NOTE | 2022-02-06 11:32 | Electrocardiogram Report ---
Test Reason : Blood Pressure : / mmHG Vent. Rate : 083 BPM Atrial Rate : 083 BPM P-R Int : 160 ms QRS Dur : 170 ms QT Int : 494 ms P-R-T Axes : 026 -50 104 degrees QTc Int : 580 ms Poor data quality, interpretation may be adversely affected Normal sinus rhythm Left axis deviation Left ventricular hypertrophy with QRS widening and repolarization abnormality Poor R wave progression, consider anterior MS vs. lead placement vs. LVH Abnormal ECG When compared with ECG of 22-DEC-2021 19:56, Left anterior fascicular block is no longer Present ST now depressed in Inferior leads QT has lengthened Confirmed by Renny Varela ([id number]) on 02/06/2022 11:32:23 AM Referred By: ED Confirmed By:Danilo Varela
--- NOTE | 2022-02-06 11:40 | Electrocardiogram Report ---
Test Reason : Blood Pressure : / mmHG Vent. Rate : 081 BPM Atrial Rate : 081 BPM P-R Int : 206 ms QRS Dur : 104 ms QT Int : 428 ms P-R-T Axes : 076 -47 073 degrees QTc Int : 497 ms Poor data quality, interpretation may be adversely affected Sinus rhythm Possible Left atrial enlargement Left anterior fascicular block Left ventricular hypertrophy Abnormal ECG Confirmed by Renny Varela ([id number]) on 02/06/2022 11:39:55 AM Referred By: REFERRED SELF Confirmed By:Danilo Varela
[2022-02-06] MEDS ORDERED: POTASSIUM CHLORIDE CRTAB 20 MEQ TABCR PO ONE ×2 (14:00→17:00)
[2022-02-06] MEDS: IBUPROFEN 600 MG TAB PO PRN (21:52)
[2022-02-06] MEDS: MIRABEGRON ER 25 MG TAB PO SCH (21:53)
[2022-02-07 07:24] LABS: BUN Creatinine Ratio 51.4 (10-20); Calcium 8.9 mg/dl (8.5-10.1); Creatinine Clr Calc Pharmacy 105.9 ml/min; Est GFR (African American) 119.1 ml/min; Est GFR (Non-African American) 102.8 ml/min; Potassium 4.1 mmol/L (3.5-5.1)
[2022-02-07] MEDS: FUROSEMIDE 20 MG TAB PO SCH (09:53)
[2022-02-07] MEDS: CHOLECALCIFEROL 1,000 UNITS 25 MCG TAB PO SCH (09:53)
[2022-02-07] MEDS: DOCUSATE SODIUM 100 MG CAP PO SCH (09:54)
[2022-02-07] MEDS: POTASSIUM CHLORIDE 10 MEQ TABCR PO SCH (09:54)
[2022-02-07] MEDS: ESCITALOPRAM OXALATE 10 MG TAB PO SCH (09:54)
[2022-02-07] MEDS: ASPIRIN 81 MG CHEW PO SCH (09:54)
[2022-02-07] MEDS: ENOXAPARIN INJ 40 MG/0.4 ML SYR SQ SCH (09:56)
[2022-02-07] MEDS: bisacodyL 5 MG TABEC PO SCH (09:56)
--- NOTE | 2022-02-07 10:17 | Cardiology Progress Note ---
Date of Service February 07, 2022 Assessment & Plan (1) Acute heart failure with preserved ejection fraction (HFpEF): Plan: -Minimum, flat elevation in troponin I, serial EKG tracings performed recently dating back to September of this year, without acute repolarization changes. Baseline echocardiogram results, the age-indeterminate septal infarction pattern is a false positive EKG findings. - Transitioning to furosemide 20 milligrams p.o. daily, potassium chloride 10 milliequivalents p.o. daily. Increase activity as tolerated. -Lovenox 40 mg subcutaneous for DVT prophylaxis. (2) Hypokalemia: Plan: -Replace as noted. Repeat chemistry panel tomorrow. Admission and Anticipated Discharge Date Admission Date: February 05, 2022 Subjective Patient seen in cardiology follow up of Chief complaint shortness of breath. Denies any acute complaints. Feeling marginally better. Telemetry reveals sinus rhythm in the range of 60 beats per minute to 80 beats per minute. Physical Exam Constitutional: WD/WN, vitals as above Respiratory: normal respiratory effort, lungs clear to auscultation Cardiovascular: Rate/Rhythm: regular rate and regular rhythm Heart Sounds: + murmur (1/6 systolic murmur) Gastrointestinal (Abdomen): normal bowel sounds, soft, nontender, no hepatosplenomegaly Results & Data ([facility]) Vital Signs (Past 12 Hours) Vital Signs Temp Pulse Pulse Resp BP Pulse Ox O2 Del Method 02/07/22 07:10 36.5 C 61 17 116/71 93 Room Air 02/07/22 03:47 36.4 C L 64 22 139/76 91 Room Air 02/06/22 23:00 60 02/06/22 23:04 36.8 C 67 20 131/62 95 Room Air Diagnostic Findings Comprehensive Metabolic Panel 02/07/22 Range/Units 05:59 Sodium 138 (136-145) mmol/L Potassium 4.1 D (3.5-5.1) mmol/L Chloride 100 (98-107) mmol/L Carbon Dioxide 34 H (21-32) mmol/L BUN 18 (6-23) mg/dl Creatinine 0.35 L (0.6-1.2) mg/dl Glucose 91 (70-99(Fasting)) mg/dl Calcium 8.9 (8.5-10.1) mg/dl Intake and Output 02/06/22 02/07/22 02/07/22 22:59 06:59 14:59 Intake Total 275 / 865 Output Total 121 / 951 180 / 951 Balance 154 / -86 -180 / -86 Intake: Oral 275 / 865 Output: Urine Amount (Catheter) 120 / 900 180 / 900 External 120 / 900 180 / 900 # Bowel Movements Other: Other Intake Source SIPS Weight 62.6 kg Weight Measurement Method Built in [facility]
--- NOTE | 2022-02-07 17:42 | Hospitalist Progress Note ---
Date of Service February 07, 2022 Assessment & Plan (1) Acute diastolic heart failure: Plan: Elderly female presents with dyspnea with exertion along with worsened orthopnea with evidence of pulmonary effusions and pulmonary edema is suggestive of heart failure exacerbation. CXR showed small right pleural effusion. No pneumothorax. Pulmonary vessel congestion without overt pulmonary edema. CTA chest showed Small right and trace left pleural effusions. Possible mild pulmonary edema. ECHO showed moderate concentric LVH with EF 65-70% cardio on board - transition to lasix 20mg PO Continue monitor BMP (2) Prolonged Q-T interval on ECG: Plan: On admission, QTc is 580 with h/o normal QTc in December 2021 474ms. Recent switch in her SSRIs may be contributing? recent EKG with QTc of 458 Avoid zofran or other QT prolonging medications. Monitor on telemetry. 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 Lives at home with her daughter. PT/OT to assess. 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 Would consider this as outpatient after discharge. (4) [place] (generalized anxiety disorder): Plan: Recently switched from Celexa to Lexapro and feels well. Monitor QT as above. (5) Hypokalemia: Plan: K 4.1 stable Continue monitorBMP (6) DVT prophylaxis: Plan: Lovenox sq DNR as discussed with patient on admission Admission and Anticipated Discharge Date Admission Date: February 05, 2022 Subjective Pt was seen and examined for follow up of SOB Lying in bed with no acute distress Pt said that SOB with exertion Denies any chest pain, palpitation, dizziness and fever Review of Systems Review of Systems: All systems reviewed & are unremarkable except as noted in Subjective Physical Exam Physical Exam: General- No acute distress Head- atraumatic Eyes- PERRL, EOMI, ENT- oropharynx clear Neck- supple, no JVD Lungs- clear to auscultation Heart- regular rhythm; +murmur Abdomen- normal bowel sounds, soft, nontender Extremities- no calf tenderness Neuro- alert, oriented x 3; PERRL, EOMI; no facial palsy; no dysarthria Skin- warm & dry Results & Data Results & Data ([facility]) Vital Signs (Past 12 Hours) Vital Signs Temp Pulse Pulse Resp BP Pulse Ox O2 Del Method 02/07/22 16:32 65 02/07/22 15:18 36.6 C 70 18 130/81 89 L Room Air 02/07/22 07:00 Room Air 02/07/22 07:00 74 02/07/22 11:24 36.5 C 79 17 118/62 93 Room Air 02/07/22 07:10 36.5 C 61 17 116/71 93 Room Air
--- NOTE | 2022-02-07 17:47 | Electrocardiogram Report ---
Test Reason : Blood Pressure : / mmHG Vent. Rate : 071 BPM Atrial Rate : 071 BPM P-R Int : 198 ms QRS Dur : 112 ms QT Int : 422 ms P-R-T Axes : 012 -43 060 degrees QTc Int : 458 ms Sinus rhythm with Premature atrial complexes Left axis deviation Voltage criteria for left ventricular hypertrophy Poor R wave progression, consider anterior DC vs. lead placement vs. LVH Abnormal ECG When compared with ECG of 06-FEB-2022 08:25, Premature atrial complexes are now Present Confirmed by Renny Varela ([id number]) on 02/07/2022 5:46:38 PM Referred By: REFERRED SELF Confirmed By:Danilo Varela
[2022-02-07] MEDS: IBUPROFEN 600 MG TAB PO PRN (21:56)
[2022-02-07] MEDS: MIRABEGRON ER 25 MG TAB PO SCH (21:57)
[2022-02-08 08:01] LABS: Calcium 8.9 mg/dl (8.5-10.1); Creatinine Clr Calc Pharmacy 145.7 ml/min; Est GFR (African American) 133.1 ml/min; Est GFR (Non-African American) 114.8 ml/min; Potassium 4.1 mmol/L (3.5-5.1)
[2022-02-08] MEDS: POTASSIUM CHLORIDE 10 MEQ TABCR PO SCH (08:33)
[2022-02-08] MEDS: FUROSEMIDE 20 MG TAB PO SCH (08:33)
[2022-02-08] MEDS: DOCUSATE SODIUM 100 MG CAP PO SCH (08:34)
[2022-02-08] MEDS: CHOLECALCIFEROL 1,000 UNITS 25 MCG TAB PO SCH (08:34)
[2022-02-08] MEDS: ASPIRIN 81 MG CHEW PO SCH (08:34)
[2022-02-08] MEDS: ENOXAPARIN INJ 40 MG/0.4 ML SYR SQ SCH (08:34)
[2022-02-08] MEDS: ESCITALOPRAM OXALATE 10 MG TAB PO SCH (08:34)
[2022-02-08] MEDS: bisacodyL 5 MG TABEC PO SCH (08:35)
--- NOTE | 2022-02-08 10:12 | Cardiology Progress Note ---
Date of Service February 08, 2022 Assessment & Plan (1) Acute heart failure with preserved ejection fraction (HFpEF): Plan: -Continue furosemide 20 mg by mouth daily, potassium chloride 10 mill equivalents by mouth daily. -EKG performed 02/06/2022 reviewed, sinus rhythm at 71 bpm, corrected QT interval 458 ms, normal. -Lovenox 40 mg subcutaneous for DVT prophylaxis. -Increase activity as tolerated. (2) Hypokalemia: Plan: -Potassium level 4.1 today. Replace as noted. Repeat chemistry panel tomorrow. Admission and Anticipated Discharge Date Admission Date: February 05, 2022 Subjective Patient seen in cardiology follow-up. No acute complaint. States she was out of bed in a chair yesterday. Telemetry reveals sinus rhythm in the 50s to 60s. Physical Exam Constitutional: WD/WN, vitals as above Respiratory: normal respiratory effort, lungs clear to auscultation Cardiovascular: Rate/Rhythm: regular rate and regular rhythm Heart Sounds: + murmur (1/6 systolic murmur) Gastrointestinal (Abdomen): normal bowel sounds, soft, nontender, no hepat osplenomegaly Musculoskeletal: Noted decreased muscle mass of lower extremities, consistent with her history of CMT Neurologic: Lower extremity weakness consistent with her history of CMT Results & Data ([facility] [place]) Vital Signs (Past 12 Hours) Vital Signs Temp Pulse Pulse Resp BP Pulse Ox O2 Del Method 02/08/22 09:25 65 02/08/22 09:25 Room Air 02/08/22 07:13 36.5 C 65 17 99/64 L 99 Nasal Cannula 02/08/22 03:46 36.7 C 72 18 106/70 98 Nasal Cannula 02/08/22 01:50 59 L 83 L Room Air 02/07/22 23:00 71 02/07/22 22:32 36.7 C 68 18 128/79 95 Room Air O2 Flow Rate 02/08/22 09:25 02/08/22 09:25 02/08/22 07:13 2 02/08/22 03:46 1.5 02/08/22 01:50 02/07/22 23:00 02/07/22 22:32
--- NOTE | 2022-02-08 16:33 | Hospitalist Progress Note ---
Date of Service February 08, 2022 Assessment & Plan (1) Acute diastolic heart failure: Plan: Elderly female presents with dyspnea with exertion along with worsened orthopnea with evidence of pulmonary effusions and pulmonary edema is suggestive of heart failure exacerbation. CXR showed small right pleural effusion. No pneumothorax. Pulmonary vessel congestion without overt pulmonary edema. CTA chest showed Small right and trace left pleural effusions. Possible mild pulmonary edema. ECHO showed moderate concentric LVH with EF 65-70% cardio on board Continue Lasix 20mg daily Continue monitor BMP (2) Prolonged Q-T interval on ECG: Plan: On admission, QTc is 580 with h/o normal QTc in December 2021 474ms. Recent switch in her SSRIs may be contributing? recent EKG with QTc of 458 Avoid zofran or other QT prolonging medications. Monitor on telemetry. (3) CMT (Xajekst-Qrhqe-Hhojn disease): Plan: Chronic, debilitating. Patient has been wheelchair-bound now for the past 6 years. Lives at home with her daughter. PT/OT to assess. 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 Would consider this as outpatient after discharge. (4) [place] (generalized anxiety disorder): Plan: Recently switched from Celexa to Lexapro and feels well. Monitor QT as above. (5) Hypokalemia: Plan: K 4.1 stable Continue monitorBMP (6) DVT prophylaxis: Plan: Lovenox sq DNR as discussed with patient on admission Admission and Anticipated Discharge Date Admission Date: February 05, 2022 Subjective Pt was seen and examined for follow up of SOB Lying in bed with no acute distress Denies any chest pain, palpitation, dizziness and fever Review of Systems Review of Systems: All systems reviewed & are unremarkable except as noted in Subjective Physical Exam Physical Exam: General- No acute distress Head- atraumatic Eyes- PERRL, EOMI, ENT- oropharynx clear Neck- supple, no JVD Lungs- clear to auscultation Heart- regular rhythm; +murmur Abdomen- normal bowel sounds, soft, nontender Extremities- no calf tenderness Neuro- alert, oriented x 3; PERRL, EOMI; no facial palsy; no dysarthria Skin- warm & dry Results & Data Results & Data ([facility]) Vital Signs (Past 12 Hours) Vital Signs Temp Pulse Pulse Resp BP Pulse Ox O2 Del Method 02/08/22 15:05 36.9 C 89 20 159/73 H 94 02/08/22 11:07 36.5 C 62 16 105/65 92 Room Air 02/08/22 09:25 65 02/08/22 09:25 Room Air 02/08/22 07:13 36.5 C 65 17 99/64 L 99 Nasal Cannula O2 Flow Rate 02/08/22 15:05 02/08/22 11:07 02/08/22 09:25 02/08/22 09:25 02/08/22 07:13 2
[2022-02-08] MEDS: MIRABEGRON ER 25 MG TAB PO SCH (21:33)
[2022-02-09 07:27] LABS: BUN Creatinine Ratio 52.9 (10-20); Creatinine Clr Calc Pharmacy 107.5 ml/min; Est GFR (African American) 120.3 ml/min; Est GFR (Non-African American) 103.8 ml/min
--- NOTE | 2022-02-09 09:51 | Cardiology Progress Note ---
Date of Service February 09, 2022 Assessment & Plan (1) Acute heart failure with preserved ejection fraction (HFpEF): Plan: -Continue furosemide 20 mg by mouth daily, potassium chloride 10 mill equivalents by mouth daily. -Pt concerned about being on an oral diuretic with her history of overactive bladder. -Will proceed with follow up portable CXR to reassess the pleural effusions. -Perhaps discharge plan can be to reduce frequency of furosemide to 20 mg 3 days per week. -EKG performed 02/06/2022 reviewed, sinus rhythm at 71 bpm, corrected QT interval 458 ms, normal. -Lovenox 40 mg subcutaneous for DVT prophylaxis. (2) Hypokalemia: Plan: -Potassium level 4 today. Replace as noted. Admission and Anticipated Discharge Date Admission Date: February 05, 2022 Subjective Patient seen in cardiology follow up of shortness of breath. SR in the 60s to 70s noted on telemetry. Denies subjective SOB at present. Physical Exam Constitutional: WD/WN, vitals as above Respiratory: normal respiratory effort, lungs clear to auscultation Cardiovascular: Rate/Rhythm: regular rate and regular rhythm Heart Sounds: + murmur (1/6 systolic murmur) Gastrointestinal (Abdomen): normal bowel sounds, soft, nontender, no hepatosplenomegaly Results & Data ([facility]) Vital Signs (Past 12 Hours) Vital Signs Temp Pulse Resp BP Pulse Ox O2 Del Method 02/09/22 07:54 36.7 C 71 17 141/78 H 91 Room Air 02/09/22 05:36 37.3 C 69 18 132/76 92 Room Air 02/08/22 23:40 Room Air 02/08/22 23:10 36.8 C 71 18 145/76 H 93 Room Air Laboratory Results Comprehensive Metabolic Panel 02/09/22 Range/Units 06:35 Sodium 139 (136-145) mmol/L Potassium 4.0 (3.5-5.1) mmol/L Chloride 99 (98-107) mmol/L Carbon Dioxide 37 H (21-32) mmol/L BUN 18 (6-23) mg/dl Creatinine 0.34 L (0.6-1.2) mg/dl Glucose 91 (70-99(Fasting)) mg/dl Calcium 9.0 (8.5-10.1) mg/dl Intake and Output 09/08/22 09/09/22 09/09/22 22:59 06:59 14:59 Intake Total 940 / 940 Output Total 1150 / 1900 250 / 1900 Balance -210 / -960 -250 / -960 Intake: Oral 940 / 940 Output: Urine 1150 / 1900 250 / 1900 Other: # Unmeasured Voids 2 Weight 60.7 kg Weight Measurement Method Built in [facility]
[2022-02-09] MEDS: ASPIRIN 81 MG CHEW PO SCH (09:58)
[2022-02-09] MEDS: CHOLECALCIFEROL 1,000 UNITS 25 MCG TAB PO SCH (09:59)
[2022-02-09] MEDS: ENOXAPARIN INJ 40 MG/0.4 ML SYR SQ SCH (09:59)
[2022-02-09] MEDS: DOCUSATE SODIUM 100 MG CAP PO SCH (10:00)
[2022-02-09] MEDS: POTASSIUM CHLORIDE 10 MEQ TABCR PO SCH (10:00)
[2022-02-09] MEDS: FUROSEMIDE 20 MG TAB PO SCH (10:00)
[2022-02-09] MEDS: ESCITALOPRAM OXALATE 10 MG TAB PO SCH (10:00)
[2022-02-09] MEDS: bisacodyL 5 MG TABEC PO SCH (10:03)
--- NOTE | 2022-02-09 11:45 | XRay Report ---
XR chest 1V portable CLINICAL HISTORY: follow up pleural effusion COMPARISON STUDY: Chest radiograph and chest CT February 05, 2022. FINDINGS: Scoliosis is incidentally noted. Cardiomediastinal silhouette is stable. There is no pneumo thorax. There is no radiographic evidence for pulmonary edema. Small right and trace left pleural eff usions are similar to prior exam. Mild left basilar opacity is unchanged. IMPRESSION: 1. No significant change in small right and trace left pleural effusions. 2. No radiographic evidence of pulmonary edema. 3. No significant change in appearance of the chest. ACT 112: Negative or not required by law. Electronically signed by: Andrea Schwarz M.D. 02/09/2022 11:43 AM
--- NOTE | 2022-02-09 18:35 | Hospitalist Progress Note ---
Date of Service February 09, 2022 Assessment & Plan (1) Acute diastolic heart failure: Plan: Elderly female presents with dyspnea with exertion along with worsened orthopnea with evidence of pulmonary effusions and pulmonary edema is suggestive of heart failure exacerbation. CXR showed small right pleural effusion. No pneumothorax. Pulmonary vessel congestion without overt pulmonary edema. CTA chest showed Small right and trace left pleural effusions. Possible mild pulmonary edema. ECHO showed moderate concentric LVH with EF 65-70% CXR showed no significant change in small right and trace left pleural effusions. No radiographic evidence of pulmonary edema. Cardio on board plan to reduce lasix to 20mg 3 days per week Continue monitor BMP (2) Prolonged Q-T interval on ECG: Plan: On admission, QTc is 580 with h/o normal QTc in December 2021 474ms. Recent switch in her SSRIs may be contributing? recent EKG with QTc of 458 Avoid zofran or other QT prolonging medications. Monitor on telemetry. (3) CMT (Kiorcfz-Ghogq-Jzild disease): Plan: Chronic, debilitating. Patient has been wheelchair-bound now for the past 6 years. Lives at home with her daughter. PT/OT to assess. 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 Would consider this as outpatient after discharge. (4) [place] (generalized anxiety disorder): Plan: Recently switched from Celexa to Lexapro and feels well. Monitor QT as above. (5) Hypokalemia: Plan: K 4.1 stable Continue monitorBMP (6) DVT prophylaxis: Plan: Lovenox sq DNR as discussed with patient on admission Admission and Anticipated Discharge Date Admission Date: February 05, 2022 Subjective Pt was seen and examined for follow up of SOB Lying in bed with no acute distress Denies any chest pain, palpitation, dizziness and fever Review of Systems Review of Systems: All systems reviewed & are unremarkable except as noted in Subjective Physical Exam Physical Exam: General- No acute distress Head- atraumatic Eyes- PERRL, EOMI, ENT- oropharynx clear Neck- supple, no JVD Lungs- clear to auscultation Heart- regular rhythm; +murmur Abdomen- normal bowel sounds, soft, nontender Extremities- no calf tenderness Neuro- alert, oriented x 3; PERRL, EOMI; no facial palsy; no dysarthria Skin- warm & dry Results & Data Results & Data ([facility]) Vital Signs (Past 12 Hours) Vital Signs Temp Pulse Pulse Resp BP Pulse Ox O2 Del Method 02/09/22 15:25 36.9 C 80 18 124/67 93 Room Air 02/09/22 10:49 36.8 C 71 19 132/71 92 Room Air 02/09/22 11:24 71 02/09/22 10:38 Room Air 02/09/22 07:54 36.7 C 71 17 141/78 H 91 Room Air
[2022-02-09] MEDS: MIRABEGRON ER 25 MG TAB PO SCH (20:57)
[2022-02-10 08:36] LABS: Calcium 9.2 mg/dl (8.5-10.1); Creatinine Clr Calc Pharmacy 123.5 ml/min; Est GFR (African American) 125.3 ml/min; Est GFR (Non-African American) 108.1 ml/min
[2022-02-10] MEDS: DOCUSATE SODIUM 100 MG CAP PO SCH (09:04)
[2022-02-10] MEDS: FUROSEMIDE 20 MG TAB PO SCH (09:04)
[2022-02-10] MEDS: ESCITALOPRAM OXALATE 10 MG TAB PO SCH (09:04)
[2022-02-10] MEDS: ASPIRIN 81 MG CHEW PO SCH (09:04)
[2022-02-10] MEDS: ENOXAPARIN INJ 40 MG/0.4 ML SYR SQ SCH (09:04)
[2022-02-10] MEDS: CHOLECALCIFEROL 1,000 UNITS 25 MCG TAB PO SCH (09:04)
[2022-02-10] MEDS: POTASSIUM CHLORIDE 10 MEQ TABCR PO SCH (09:04)
[2022-02-10] MEDS: bisacodyL 5 MG TABEC PO SCH (09:04)
--- NOTE | 2022-02-10 11:31 | Cardiology Progress Note ---
Date of Service February 10, 2022 Assessment & Plan (1) Acute heart failure with preserved ejection fraction (HFpEF): Plan: -Continue furosemide 20 mg by mouth daily, potassium chloride 10 mill equivalents by mouth daily. -Pt concerned about being on an oral diuretic with her history of overactive bladder. -Portable CXR performed on 02/09 with stable findings, severe scoliosis again noted. -At discharge , plan to reduce frequency of furosemide to 20 mg 3 days per week. -Lovenox 40 mg subcutaneous for DVT prophylaxis. (2) Hypokalemia: Plan: -Potassium level 4 today. Replace as noted. Admission and Anticipated Discharge Date Admission Date: February 05, 2022 Subjective Pt seen in follow up. Resting comfortably. SR in the 60s present on telemetry. Physical Exam Constitutional: WD/WN, vitals as above Respiratory: normal respiratory effort, lungs clear to auscultation Cardiovascular: RRR, no murmur, no edema Results & Data ([facility]) Vital Signs (Past 12 Hours) Vital Signs Temp Pulse Pulse Resp BP Pulse Ox O2 Del Method 02/10/22 08:17 36.6 C 72 17 119/77 96 Nasal Cannula 02/10/22 04:09 63 02/10/22 03:50 36.5 C 71 16 133/81 92 Nasal Cannula 02/09/22 23:30 36.6 C 68 18 131/72 92 Room Air O2 Flow Rate 02/10/22 08:17 1.5 02/10/22 04:09 02/10/22 03:50 1 02/09/22 23:30 Laboratory Results Comprehensive Metabolic Panel 02/10/22 Range/Units 08:02 Sodium 138 (136-145) mmol/L Potassium 4.0 (3.5-5.1) mmol/L Chloride 98 (98-107) mmol/L Carbon Dioxide 35 H (21-32) mmol/L BUN 18 (6-23) mg/dl Creatinine 0.30 L (0.6-1.2) mg/dl Glucose 88 (70-99(Fasting)) mg/dl Calcium 9.2 (8.5-10.1) mg/dl Intake and Output 02/09/22 02/10/22 02/10/22 22:59 06:59 14:59 Intake Total 630 / 680 50 / 680 Output Total 400 / 635 60 / 635 50 / 50 Balance 230 / 45 -10 / 45 -50 / -50 Intake: Oral 630 / 680 50 / 680 Output: Urine 400 / 635 60 / 635 50 / 50 Other: Weight 62.5 kg Weight Measurement Method Built in [facility]
--- NOTE | 2022-02-10 17:46 | Hospitalist Progress Note ---
Date of Service February 10, 2022 Assessment & Plan (1) Acute diastolic heart failure: Plan: Elderly female presents with dyspnea with exertion along with worsened orthopnea with evidence of pulmonary effusions and pulmonary edema is suggestive of heart failure exacerbation. CXR showed small right pleural effusion. No pneumothorax. Pulmonary vessel congestion without overt pulmonary edema. CTA chest showed Small right and trace left pleural effusions. Possible mild pulmonary edema. ECHO showed moderate concentric LVH with EF 65-70% CXR showed no significant change in small right and trace left pleural effusions. No radiographic evidence of pulmonary edema. Ok from cradiology standpoint to discharge on lasix 20mg 3 days per week Continue monitor BMP (2) Prolonged Q-T interval on ECG: Plan: On admission, QTc is 580 with h/o normal QTc in December 2021 474ms. Recent switch in her SSRIs may be contributing? recent EKG with QTc of 458 Avoid zofran or other QT prolonging medications. Monitor on telemetry. (3) CMT (Kuvuatm-Kiweg-Yibnr disease): Plan: Chronic, debilitating. Patient has been wheelchair-bound now for the past 6 years. Lives at home with her daughter. PT/OT to assess. 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 Would consider this as outpatient after discharge. (4) [place] (generalized anxiety disorder): Plan: Recently switched from Celexa to Lexapro and feels well. Monitor QT as above. (5) Hypokalemia: Plan: K 4.1 stable Continue monitorBMP (6) DVT prophylaxis: Plan: Lovenox sq DNR as discussed with patient on admission Admission and Anticipated Discharge Date Admission Date: February 05, 2022 Subjective Pt was seen and examined for follow up of SOB Lying in bed with no acute distress Denies any chest pain, palpitation, dizziness and fever Review of Systems Review of Systems: All systems reviewed & are unremarkable except as noted in Subjective Physical Exam Physical Exam: General- No acute distress Head- atraumatic Eyes- PERRL, EOMI, ENT- oropharynx clear Neck- supple, no JVD Lungs- clear to auscultation Heart- regular rhythm; +murmur Abdomen- normal bowel sounds, soft, nontender Extremities- no calf tenderness Neuro- alert, oriented x 3; PERRL, EOMI; no facial palsy; no dysarthria Skin- warm & dry Results & Data Results & Data ([facility]) Vital Signs (Past 12 Hours) Vital Signs Temp Pulse Pulse Resp BP Pulse Ox O2 Del Method 02/10/22 15:28 36.8 C 65 18 156/74 H 96 Room Air 02/10/22 11:30 36.5 C 65 18 117/73 95 Nasal Cannula 02/10/22 07:45 Room Air 02/10/22 06:45 59 L 02/10/22 08:17 36.6 C 72 17 119/77 96 Nasal Cannula O2 Flow Rate 02/10/22 15:28 02/10/22 11:30 1.0 02/10/22 07:45 02/10/22 06:45 02/10/22 08:17 1.5
[2022-02-10] MEDS: MIRABEGRON ER 25 MG TAB PO SCH (20:26)
[2022-02-11 08:11] LABS: Creatinine Clr Calc Pharmacy 133.7 ml/min; Est GFR (African American) 128.2 ml/min; Est GFR (Non-African American) 110.6 ml/min
[2022-02-11] MEDS: ENOXAPARIN INJ 40 MG/0.4 ML SYR SQ SCH (09:51)
[2022-02-11] MEDS: ASPIRIN 81 MG CHEW PO SCH (09:52)
[2022-02-11] MEDS: CHOLECALCIFEROL 1,000 UNITS 25 MCG TAB PO SCH (09:52)
[2022-02-11] MEDS: bisacodyL 5 MG TABEC PO SCH (09:52)
[2022-02-11] MEDS: FUROSEMIDE 20 MG TAB PO SCH (09:52)
[2022-02-11] MEDS: POTASSIUM CHLORIDE 10 MEQ TABCR PO SCH (09:52)
[2022-02-11] MEDS: ESCITALOPRAM OXALATE 10 MG TAB PO SCH (09:52)
[2022-02-11] MEDS: DOCUSATE SODIUM 100 MG CAP PO SCH (09:52)
--- NOTE | 2022-02-11 10:35 | Discharge Summary ---
Date of Service February 11, 2022 Admission HPI Per Admitting Provider 81 yo female with h/o poliomyelitis at 3 yrs old, CMT disease, psychogenic nonepileptic seizures and sever anxiety as well as multiple other chronic medical problems presents with shortness of breath. Recently switched citalopram to Lexapro with improvement recently. 2 pillow orthopnea, can't lie flat because she can't breathe No weight gain that she is aware of No swelling in her legs recently No reported PND Wheelchair bound for the past 6 years, but can transfer independently She reports increased dyspnea with any exertion and with leaning forward. No cough, fevers, chills Takes laxatives for chronic constipation Eating well, no nausea, vomiting reported. Recently admitted in December 2021 for leg weakness Still has some leg weakness present when she lies down but can move it independently. 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 EYES: normal conjunctivae, no scleral icterus ENT: external ear and nose normal, oropharynx clear, mucous membranes are moist, edentulous NECK: trachea midline RESPIRATORY: clear to auscultation bilaterally but poor airflow with decreased breath sounds throughout, no crackles, rales or wheezes, normal respiratory effort CARDIOVASCULAR: regular rate and rhythm, S1 and 2 heard without murmurs, gallops or rubs, no JVD, no peripheral edema CHEST: inspection of chest was normal GASTROINTESTINAL: soft, nontender, ND, no guarding MUSCULOSKELETAL: generalized weakness with no focal deficits that are new, bilateral foot drop present, cannot dorsiflex or plantarflex in either foot. Cannot sit up independently in bed. head is normocephalic and atraumatic SKIN: warm and dry NEUROLOGIC: No facial palsy, no dysarthria. CN 2-12 grossly intact, no sensory deficit, normal cognition, normal speech, no tremor PSYCHIATRIC: alert cooperative and oriented to person, place and time. Euthymic mood, makes good eye contact, language grossly intact, recent and remote memory grossly intact. Principal Diagnosis Acute diastolic heart failure: Prolonged Q-T interval on ECG: CMT (Gssjfwb-Tnokf-Kvued disease): CH[place] (generalized anxiety disorder): Hypokalemia: Discharge Exam General- No acute distress Head- atraumatic Eyes- PERRL, EOMI, ENT- oropharynx clear Neck- supple, no JVD Lungs- clear to auscultation Heart- regular rhythm; +murmur Abdomen- normal bowel sounds, soft, nontender Extremities- no calf tenderness Neuro- alert, oriented x 3; PERRL, EOMI; no facial palsy; no dysarthria Skin- warm & dry Discharge Data Allergies Allergy/AdvReac Type Severity Reaction Status Date / Time shellfish derived Allergy Severe LOBSTER: Verified 02/05/22 16:03 almost darifenacin Allergy Unknown Unverified 02/05/22 18:54 acetaminophen [From Tylenol] Allergy Rash Unverified 02/05/22 16:03 atorvastatin AdvReac Nausea Verified 02/05/22 16:03 Consultations 02/05/22 18:33 ED Decision to Admit Stat 02/05/22 20:29 Consult Cardiology Routine Ordered Studies 02/05/22 16:10 CT angio chest PE protocol Stat Laboratory Results WBC 6.74 K/ul (4.8-10.8) 02/05/22 16:05 RBC 5.13 M/uL (3.93-5.22) 02/05/22 16:05 Hgb 14.8 g/dl (12.0-16.0) 02/05/22 16:05 Hct 44.6 % (34.1-44.9) 02/05/22 16:05 MCV 86.9 fL (80.0-100.0) 02/05/22 16:05 MCH 28.8 pg (25.0-34.0) 02/05/22 16:05 MCHC 33.2 g/dL (32.0-36.0) 02/05/22 16:05 RDW Std Deviation 45.8 fL (36.4-46.3) 02/05/22 16:05 RDW Coeff of Clayton 14.4 % (11.5-14.5) 02/05/22 16:05 Plt Count 198 K/uL (130-400) 02/05/22 16:05 MPV 10.4 fL (9.4-12.3) 02/05/22 16:05 Immature Gran % (Auto) 0.1 % 02/05/22 16:05 Neut % (Auto) 60.0 % 02/05/22 16:05 Lymph % (Auto) 26.9 % 02/05/22 16:05 Gosper % (Auto) 9.1 % 02/05/22 16:05 Eos % (Auto) 3.0 % 02/05/22 16:05 Baso % (Auto) 0.9 % 02/05/22 16:05 Neut # (Auto) 4.05 K/uL (1.4-6.5) 02/05/22 16:05 Lymph # (Auto) 1.81 K/uL (1.2-3.4) 02/05/22 16:05 Gosper # (Auto) 0.61 K/uL (0.24-0.82) 02/05/22 16:05 Eos # (Auto) 0.20 K/uL (0-0.50) 02/05/22 16:05 Baso # (Auto) 0.06 K/uL (0-0.2) 02/05/22 16:05 Immature Gran # (Auto) 0.01 K/uL (0.00-0.02) 02/05/22 16:05 PT 11.5 Seconds (9.0-12.0) 02/05/22 16:05 INR 1.1 (0.9-1.1) 02/05/22 16:05 Sodium 138 mmol/L (136-145) 02/10/22 08:02 Potassium 4.0 mmol/L (3.5-5.1) 02/10/22 08:02 Chloride 98 mmol/L (98-107) 02/10/22 08:02 Carbon Dioxide 35 mmol/L (21-32) H 02/10/22 08:02 Anion Gap 5 (3-11) 02/10/22 08:02 BUN 18 mg/dl (6-23) 02/10/22 08:02 Creatinine 0.28 mg/dl (0.6-1.2) L 02/11/22 07:31 Est Cr Clr Drug Dosing 133.7 ml/min 02/11/22 07:31 Est GFR ( Amer) 128.2 ml/min 02/11/22 07:31 Est GFR (Non-Af Amer) 110.6 ml/min 02/11/22 07:31 BUN/Creatinine Ratio 60.0 (10-20) H 02/10/22 08:02 Glucose 88 mg/dl (70-99(Fasting)) 02/10/22 08:02 Lactate 0.9 mmol/L (0.4-2.0) 02/05/22 18:43 Calcium 9.2 mg/dl (8.5-10.1) 02/10/22 08:02 Magnesium 2.0 mg/dl (1.7-2.4) 02/06/22 05:52 Total Bilirubin 0.8 mg/dl (0.2-1.0) 02/05/22 16:05 AST 23 U/L (13-39) 02/05/22 16:05 ALT 17 U/L (7-52) 02/05/22 16:05 Alkaline Phosphatase 70 U/L (34-104) 02/05/22 16:05 Troponin I High Sens 57.5 pg/ml (0-14) H* 02/05/22 23:48 B-Natriuretic Peptide 42 pg/ml (0-100) 02/06/22 05:52 Total Protein 6.1 gm/dl (6.0-8.3) 02/05/22 16:05 Albumin 3.6 gm/dl (3.4-5.0) 02/05/22 16:05 Globulin 2.5 gm/dl (2.5-4.0) 02/05/22 16:05 Albumin/Globulin Ratio 1.4 (0.9-2) 02/05/22 16:05 Procalcitonin 0.06 ng/ml (0-0.5) 02/05/22 16:05 TSH 1.039 uIu/ml (0.300-4.500) 02/05/22 16:05 Urine Color Yellow 02/05/22 17:16 Urine Appearance Clear (Clear) 02/05/22 17:16 Urine pH 7.0 (4.5-7.5) 02/05/22 17:16 Ur Specific Ladd 1.011 (1.000-1.030) 02/05/22 17:16 Urine Protein Negative (Negative) 02/05/22 17:16 Urine Glucose (UA) Negative (Negative) 02/05/22 17:16 Urine Ketones Negative (Negative) 02/05/22 17:16 Urine Blood 2+ (Negative) H 02/05/22 17:16 Urine Nitrite Negative (Negative) 02/05/22 17:16 Urine Bilirubin Negative (Negative) 02/05/22 17:16 Urine Urobilinogen Negative (Negative) 02/05/22 17:16 Ur Leukocyte Esterase 1+ (Negative) H 02/05/22 17:16 Urine WBC (Auto) 5-10 /hpf (0-5) H 02/05/22 17:16 Urine RBC (Auto) 5-10 /hpf (0-4) H 02/05/22 17:16 U Hyaline Cast (Auto) 1-5 /lpf (0-5) 02/05/22 17:16 U Epithel Cells (Auto) 20-30 /lpf (0-5) H 02/05/22 17:16 Urine Bacteria (Auto) Negative (Negative) 02/05/22 17:16 SARS-CoV-2, RNA, NAAT NEGATIVE (NEGATIVE) 02/05/22 16:10 Impressions Chest CTA 02/05/22 16:10 CT ANGIOGRAPHY OF THE CHEST, PULMONARY EMBOLUS PROTOCOL CLINICAL HISTORY: Shortness of breath. Dyspnea on exertion. Evaluate for pulmonary embolus. COMPARISON STUDY: Chest CT October 19, 2021. Chest radiograph performed earlier today. TECHNIQUE: Following IV administration of 122 mL of Optiray, helical axial images of the chest were obtained utilizing the pulmonary embolus protocol. Maximal intensity projections and sagittal and coronal reformats were viewed on an independent 3D workstation. IV contrast was administered without complication. Automated exposure control was utilized for the study. A dose lowering technique was utilized adhering to the principles of ALARA. CT DOSE: 385.57 mGy.cm FINDINGS: No pulmonary emboli are identified. There is no thoracic aortic dissection. No pericardial effusion is present. There is no thoracic lymphadenopathy. Diffuse muscular atrophy is noted. There is moderate dextroscoliosis of the thoracic spine and exaggerated kyphosis of the thoracic spine. Small right and trace left pleural effusions are present. There is no pneumothorax. Subpleural reticulation within the anterior segment of the right upper lobe is likely chronic. There is no consolidation to suggest pneumonia. Subpleural opacities within the lower lobes favor atelectasis. There is possible mild pulmonary edema. IMPRESSION: 1. No pulmonary emboli identified. 2. Small right and trace left pleural effusions. Possible mild pulmonary edema. 3. No consolidation to suggest pneumonia. 4. Dextroscoliosis and exaggerated kyphosis of the thoracic spine. ACT 112: Negative or not required by law. Electronically signed by: Andrea Schwarz M.D. 02/05/2022 5:54 PM Chest X-Ray 02/09/22 09:47 XR chest 1V portable CLINICAL HISTORY: follow up pleural effusion COMPARISON STUDY: Chest radiograph and chest CT February 05, 2022. FINDINGS: Scoliosis is incidentally noted. Cardiomediastinal silhouette is stable. There is no pneumothorax. There is no radiographic evidence for pulmonary edema. Small right and trace left pleural effusions are similar to prior exam. Mild left basilar opacity is unchanged. IMPRESSION: 1. No significant change in small right and trace left pleural effusions. 2. No radiographic evidence of pulmonary edema. 3. No significant change in appearance of the chest. ACT 112: Negative or not required by law. Electronically signed by: Andrea Schwarz M.D. 02/09/2022 11:43 AM Hospital Course (1) Acute diastolic heart failure: Elderly female presents with dyspnea with exertion along with worsened orthopnea with evidence of pulmonary effusions and pulmonary edema is suggestive of heart failure exacerbation. CXR showed small right pleural effusion. No pneumothorax. Pulmonary vessel congestion without overt pulmonary edema. CTA chest showed Small right and trace left pleural effusions. Possible mild pulmonary edema. ECHO showed moderate concentric LVH with EF 65-70% CXR showed no significant change in small right and trace left pleural effusions. No radiographic evidence of pulmonary edema. Ok from cardiology standpoint to discharge on lasix 20mg 3 days per week ( Mon/Sat/Frid) Check BMP in 1-2 week to monitor electrolytes and renal function (2) Prolonged Q-T interval on ECG: On admission, QTc is 580 with h/o normal QTc in December 2021 474ms. Recent switch in her SSRIs may be contributing? recent EKG with QTc of 458 Avoid zofran or other QT prolonging medications. Monitor on telemetry. (3) CMT (Eapalye-Ksown-Wvufd disease): Chronic, debilitating. Patient has been wheelchair-bound now for the past 6 years. Lives at home with her daughter. PT/OT to assess. 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 Would consider this as outpatient after discharge. (4) [place] (generalized anxiety disorder): Recently switched from Celexa to Lexapro and feels well. Monitor QT as above. (5) Hypokalemia: K 4.1 stable Continue Potassium supplement on the day receives lasix ( Sat/sat/Saturday) Check Potassium level in 1- 2 weeks (6) DVT prophylaxis: Lovenox sq DNR as discussed with patient on admission Total Time Total Time Spent Total Time Spent (In Minutes): 35 minutes Discharge Plan Discharge Items Patient Disposition: Transfer Inpatient Rehab Fac Reason For Visit: SHORTNESS OF BREATH Discharge Diagnosis: Acute diastolic heart failure: Prolonged Q-T interval on ECG: CMT (Pgwcidd-Rpysf-Ryzpc disease): [place] (generalized anxiety disorder): Hypokalemia: Activity: Resume your previous activity Non-emergency contact: Primary Care Provider and Permit Technician Call non-emergency contact if: you have any medication questions Follow-up/Referrals: Adelfo Coburn MD [Primary Care Provider] - (Date & Time 02/13/2022 11:00 AM Provider HARRIET Nance Department [facility] ) Diet: Heart Healthy Addtl Attending Provider Instructions: Follow up with your primary care provider once discharge from rehab Follow with cardiology as an outpatient Continue physical and occupational therapy Continue lasix 20mg three times a week Check BMP in 1-2 weeks to monitor your renal function and electrolytes Fall precaution Pending Studies at Discharge: No Stand-Alone Forms: My [facility] Skilled Items Patient informed of condition?: Yes DNR: Yes Discharge Level of Care: Acute rehab Communicable Disease: No Discharge Prognosis: Stable Lines: None Urinary Catheter: No Medications and DC Order Prescriptions: New furosemide 20 mg Tablet 20 mg PO 3XWK Qty: 30 0RF Rx Instructions: On Sat/Sat/Saturday potassium chloride 10 mEq Tablet,Er Particles/Crystals 10 meq PO 3XWK Qty: 30 0RF Rx Instructions: Sat/Sat/Saturday Continued Myrbetriq 50 mg tablet extended release 24 hr 50 mg PO PM cholecalciferol (vitamin D3) [Vitamin D3] 50 mcg (2,000 unit) Tablet 50 mcg PO QAM aspirin 81 mg Tablet,Chewable 81 mg PO QAM docusate sodium 100 mg Tablet 100 mg PO QAM escitalopram oxalate 10 mg tablet 10 mg PO QAM Women's Gentle Laxative(bisac) 5 mg Tablet 5 mg PO QAM Discharge Orders: Discharge Order (Routine); Ordered 02/11/22 Ordered By: Kenney Knox Admission Data Admit Date/Time: 02/05/22 18:54 Attending Provider: Kenney Knox Admit Provider: Cindy Florian Primary Care Provider: Adelfo Coburn Other Providers: Cindy Florian ; Chris Cedillo ; Milena Blackburn I. ; [facility]
== END 2022-02-11 15:33 | DRG 292 ==
LOC: ED 15:15 → SUATTDRO 18:54 → 2S 18:54

== ENCOUNTER 2022-03-30 02:49 | Inpatient (IN) ==
--- NOTE | 2022-03-30 03:19 | Emergency Department Note ---
History of Present Illness General Chief complaint: Shortness of Breath/Dyspnea Stated complaint: SOB Time Seen by Provider: 03/30/22 02:55 History of Present Illness 81-year-old female presents emergency department an onset of shortness of breath that started at 1 AM this morning. Patient complains of cough cold congestion symptoms. Patient states that she cannot clear her throat. Patient has a prior history of CHF she is currently on 2 L of oxygen at home reportedly she had a decrease in her oxygen and required nonrebreather by EMS prior to arrival. Patient reportedly was exposed to COVID recently, she states that she is unvaccinated. Patient denies chest pain denies nausea vomiting denies fever. There are no other mitigating or alleviating factors Home Medications Medication Instructions Recorded Confirmed Type mirabegron 50 mg tablet,extended 50 mg PO PM 09/09/21 02/05/22 History release 24 hr (Myrbetriq) cholecalciferol (vitamin D3) 50 50 mcg PO QAM 10/19/21 02/05/22 History mcg (2,000 unit) tablet (Vitamin D3) aspirin 81 mg chewable tablet 81 mg PO QAM 12/09/21 02/05/22 History docusate sodium 100 mg tablet 100 mg PO QAM 12/09/21 02/05/22 History bisacodyl 5 mg tablet 5 mg PO QAM 02/05/22 02/05/22 History escitalopram oxalate 10 mg tablet 10 mg PO QAM 02/05/22 02/05/22 History furosemide 20 mg tablet 20 mg PO 3XWK #30 tabs 02/11/22 Rx potassium chloride 10 mEq 10 meq PO 3XWK #30 tabs 02/11/22 Rx tablet,extended release(part/cryst) lidocaine 5 % topical patch 1 patch topical DAILY PRN pain #15 03/20/22 Rx (Lidoderm) ea Allergies Allergy/AdvReac Type Severity Reaction Status Date / Time shellfish derived Allergy Severe LOBSTER: Verified 02/05/22 16:03 almost darifenacin Allergy Unknown Unverified 02/05/22 18:54 acetaminophen [From Tylenol] Allergy Rash Unverified 02/05/22 16:03 atorvastatin AdvReac Nausea Verified 02/05/22 16:03 Past Med/Surg History Medical History Acute diastolic heart failure Acute heart failure with preserved ejection fraction (HFpEF) Breast cancer CMT (Jtovijy-Uualn-Cvedu disease) CVA (cerebral vascular accident) [place] (generalized anxiety disorder) History of chronic constipation HLD (hyperlipidemia) Hypokalemia Hypomagnesemia Left leg swelling Overactive bladder Post-polio muscle weakness Prolonged Q-T interval on ECG Psychogenic nonepileptic seizure Surgical History H/O lumpectomy History of cataract removal with insertion of prosthetic lens S/P appy S/P iesha S/P BENSON (total abdominal hysterectomy) Status post left foot surgery fusion 2/2 foot drop Family History Father Lung cancer Mother Stroke Aunt Breast cancer Social History Smoking Status: Former smoker Second Hand Exposure: No; Hx Alcohol Use: Yes Alcohol type: beer Hx Substance Use: No Preferred Language: Swedish Communication Ability: Effective [facility] Required: No Beliefs That Will Affect Care: None marital status: / Current Living Situation: Other Current Living Situation Comment: with daughter Feels Safe at Home: Yes Assistive Devices: Bedside Commode, Hospital Bed, Lift Chair and Wheelchair Review of Systems A total of 10 systems reviewed and were otherwise negative Constitutional: no fever Respiratory: + chest congestion and + dyspnea Cardiovascular: no chest pain Physical Exam Vital Signs Vital Signs - 24 hr 03/30/22 03:14 03/30/22 03:14 03/30/22 03:18 Temperature Temperature Source Pulse Rate Respiratory Rate Respiratory Effort / Characteristics Labored Short of Breath Respiratory Depth Shallow Respiratory Pattern Regular Blood Pressure Blood Pressure Mean Pulse Oximetry 100 100 Oxygen Delivery Method Non-rebreather Non-rebreather Oxygen Flow Rate 15 15 Sepsis Recent Fever Within 48 Hours Sepsis New/Unexplained Change in Mental Status Sepsis Action Taken by Nursing 03/30/22 03:34 Temperature 37 C Temperature Source Oral Pulse Rate 87 Respiratory Rate 22 Respiratory Effort / Characteristics Respiratory Depth Respiratory Pattern Blood Pressure 102/72 Blood Pressure Mean 82 Pulse Oximetry 100 Oxygen Delivery Method Non-rebreather Oxygen Flow Rate 15 Sepsis Recent Fever Within 48 Hours No Sepsis New/Unexplained Change in Mental Status No Sepsis Action Taken by Nursing No Action Required GENERAL: Patient is awake alert in no acute distress patient is resting comfortably and showing no signs of anxiety EYES: The conjunctivae are clear. The pupils are round and reactive. EARS, NOSE, MOUTH AND THROAT: The nose is without any evidence of any deformity. Mucous membranes are moist. Tongue is midline. NECK: The neck is nontender and supple. RESPIRATORY: Patient has increased work of breathing however is able to speak in full sentences; there is no evidence of wheezing rhonchi or rales; patient is diminished bilaterally CARDIOVASCULAR: Regular rate and rhythm noted there no murmurs rubs or gallops normal S1 normal S2. GASTROINTESTINAL: The abdomen is soft. Abdomen is nontender. PELVIS: The Pelvis is stable. No tenderness to palpation is noted. BACK: No midline tenderness or or step-off noted range of motion in flexion extension as well as rotation no signs of muscle spasm noted MUSCULOSKELETAL/EXTREMITIES: There is no evidence of gross deformity full range of motion is noted in the hips and shoulders. SKIN: There is no obvious evidence of any rash. There are no petechiae, pallor or cyanosis noted. Patient has abrasions to the left anterior tubbs; the calves are nonswollen nontender NEUROLOGIC: Patient is awake alert and oriented x3 strength is symmetric Course Reevaluation(s) Reevaluation #1: Patient was found to have COVID is hypoxic. Patient has a nonischemic EKG but does have a slight elevated high-sensitivity troponin. Patient was backed down from a nonrebreather to 4 L she is in no respiratory distress. She is improved. The case was discussed with the hospitalist for admission Time: 04:34 Consultations Consultation #1: [facility] hospitalist for admission Time: 04:34 Critical Care Time Critical Care Time: Yes Total Critical Care Time: 35 I have personally spent greater than 35 minutes of critical care time in the direct management of this patient. This includes bedside care, interpretation of diagnostic studies, and testing, discussion with consultants, patient, and family members, and other required patient management activities. These minutes are in excess of all separately billable procedures. Medical Decision Making Medical Records Attestation: I reviewed the patient's medical records. Home Medications Current Medication List: was personally reviewed by me Laboratory Data Attestation: I reviewed the patient's lab results. Result diagrams: 03/30/22 03:18 03/30/22 03:18 Lab Results 03/30/22 03/30/22 03/30/22 Range/Units 03:18 03:18 03:18 WBC 4.94 (4.8-10.8) K/ul RBC 4.61 (3.93-5.22) M/uL Hgb 13.3 (12.0-16.0) g/dl Hct 41.0 (34.1-44.9) % MCV 88.9 (80.0-100.0) fL MCH 28.9 (25.0-34.0) pg MCHC 32.4 (32.0-36.0) g/dL RDW Std Deviation 43.9 (36.4-46.3) fL RDW Coeff of [place] 13.6 (11.5-14.5) % Plt Count 146 (130-400) K/uL MPV 11.4 (9.4-12.3) fL Immature Gran % (Auto) 0.2 % Neut % (Auto) 49.6 % Lymph % (Auto) 33.8 % Louisa % (Auto) 13.4 % Eos % (Auto) 2.4 % Baso % (Auto) 0.6 % Neut # (Auto) 2.45 (1.4-6.5) K/uL Lymph # (Auto) 1.67 (1.2-3.4) K/uL Louisa # (Auto) 0.66 (0.24-0.82) K/uL Eos # (Auto) 0.12 (0-0.50) K/uL Baso # (Auto) 0.03 (0-0.2) K/uL Immature Gran # (Auto) 0.01 (0.00-0.02) K/uL RBC Morphology Unremarkable PT 11.1 (9.0-12.0) Seconds INR 1.0 (0.9-1.1) Sodium 142 (136-145) mmol/L Potassium 3.3 L (3.5-5.1) mmol/L Chloride 94 L (98-107) mmol/L Carbon Dioxide 42 H* (21-32) mmol/L Anion Gap 6 (3-11) BUN 16 (6-23) mg/dl Creatinine 0.25 L (0.6-1.2) mg/dl Est Cr Clr Drug Dosing Not Reportable Est GFR ( Amer) 133.1 ml/min Est GFR (Non-Af Amer) 114.8 ml/min BUN/Creatinine Ratio 64.0 H (10-20) Glucose 106 H (70-99(Fasting)) mg/dl Lactate (0.4-2.0) mmol/L Calcium 9.1 (8.5-10.1) mg/dl Magnesium 1.7 (1.7-2.4) mg/dl Total Bilirubin 0.5 (0.2-1.0) mg/dl Direct Bilirubin 0.1 (0-0.2) mg/dl AST 23 (13-39) U/L ALT 19 (7-52) U/L Alkaline Phosphatase 59 (34-104) U/L Troponin I High Sens 64.5 H* (0-14) pg/ml Total Protein 6.2 (6.0-8.3) gm/dl Albumin 3.3 L (3.4-5.0) gm/dl Urine Color Urine Appearance (Clear) Urine pH (4.5-7.5) Ur Specific [place] (1.000-1.030) Urine Protein (Negative) Urine Glucose (UA) (Negative) Urine Ketones (Negative) Urine Blood (Negative) Urine Nitrite (Negative) Urine Bilirubin (Negative) Urine Urobilinogen (Negative) Ur Leukocyte Esterase (Negative) Urine WBC (Auto) (0-5) /hpf Urine RBC (Auto) (0-4) /hpf U Hyaline Cast (Auto) (0-5) /lpf U Epithel Cells (Auto) (0-5) /lpf Urine Bacteria (Auto) (Negative) SARS-CoV-2, RNA, NAAT (NEGATIVE) 03/30/22 03/30/22 03/30/22 Range/Units 03:18 03:47 03:47 WBC (4.8-10.8) K/ul RBC (3.93-5.22) M/uL Hgb (12.0-16.0) g/dl Hct (34.1-44.9) % MCV (80.0-100.0) fL MCH (25.0-34.0) pg MCHC (32.0-36.0) g/dL RDW Std Deviation (36.4-46.3) fL RDW Coeff of [place] (11.5-14.5) % Plt Count (130-400) K/uL MPV (9.4-12.3) fL Immature Gran % (Auto) % Neut % (Auto) % Lymph % (Auto) % Louisa % (Auto) % Eos % (Auto) % Baso % (Auto) % Neut # (Auto) (1.4-6.5) K/uL Lymph # (Auto) (1.2-3.4) K/uL Louisa # (Auto) (0.24-0.82) K/uL Eos # (Auto) (0-0.50) K/uL Baso # (Auto) (0-0.2) K/uL Immature Gran # (Auto) (0.00-0.02) K/uL RBC Morphology PT (9.0-12.0) Seconds INR (0.9-1.1) Sodium (136-145) mmol/L Potassium (3.5-5.1) mmol/L Chloride (98-107) mmol/L Carbon Dioxide (21-32) mmol/L Anion Gap (3-11) BUN (6-23) mg/dl Creatinine (0.6-1.2) mg/dl Est Cr Clr Drug Dosing Est GFR ( Amer) ml/min Est GFR (Non-Af Amer) ml/min BUN/Creatinine Ratio (10-20) Glucose (70-99(Fasting)) mg/dl Lactate 0.8 (0.4-2.0) mmol/L Calcium (8.5-10.1) mg/dl Magnesium (1.7-2.4) mg/dl Total Bilirubin (0.2-1.0) mg/dl Direct Bilirubin (0-0.2) mg/dl AST (13-39) U/L ALT (7-52) U/L Alkaline Phosphatase (34-104) U/L Troponin I High Sens (0-14) pg/ml Total Protein (6.0-8.3) gm/dl Albumin (3.4-5.0) gm/dl Urine Color Yellow Urine Appearance Clear (Clear) Urine pH 6.0 (4.5-7.5) Ur Specific [place] 1.016 (1.000-1.030) Urine Protein Trace H (Negative) Urine Glucose (UA) Negative (Negative) Urine Ketones Negative (Negative) Urine Blood 1+ H (Negative) Urine Nitrite Negative (Negative) Urine Bilirubin Negative (Negative) Urine Urobilinogen Negative (Negative) Ur Leukocyte Esterase 2+ H (Negative) Urine WBC (Auto) 10-30 H (0-5) /hpf Urine RBC (Auto) 5-10 H (0-4) /hpf U Hyaline Cast (Auto) 1-5 (0-5) /lpf U Epithel Cells (Auto) >30 H (0-5) /lpf Urine Bacteria (Auto) Negative (Negative) SARS-CoV-2, RNA, NAAT POSITIVE A* (NEGATIVE) Imaging Data Attestation: I personally reviewed and interpreted this imaging study as follows: My Impression: Chest x-ray interpreted by me severe scoliosis no obvious significant infiltrate or pneumothorax ECG Data Attestation: I personally reviewed and interpreted this ECG as follows: Additional Comments: EKG interpreted by me normal sinus rhythm left axis deviation first-degree AV block poor R wave progression the precordium no obvious ST segment elevation or depression, rate 84 MDM Narrative Medical decision making differential diagnosis includes CHF pneumonia bronchitis upper respiratory tract infection COVID. Plan is to check labs EKG chest x-ray. Patient was evaluated for shortness of breath and hypoxia. Patient was found to be COVID-positive with no obvious infiltrate. Patient has a nonischemic EKG her troponin is slightly elevated by high-sensitivity troponin. Patient improved and was weaned from a nonrebreather. The case was discussed with the hospitalist for admission for COVID and hypoxia Impression & Plan Dyspnea, Elevated troponin, COVID-19, Hypoxia Discharge Plan Visit Data Chief Complaint: Shortness of Breath/Dyspnea Stated Complaint: SOB ED Provider: Hugh Martinez Discharge Problem: Dyspnea, Elevated troponin, COVID-19, Hypoxia Patient Disposition: Being Evaluated by Hospitalist Forms Stand Alone Forms: My [facility] [employer] Prescriptions Prescriptions: No Action Myrbetriq 50 mg tablet extended release 24 hr 50 mg PO PM cholecalciferol (vitamin D3) [Vitamin D3] 50 mcg (2,000 unit) Tablet 50 mcg PO QAM aspirin 81 mg Tablet,Chewable 81 mg PO QAM docusate sodium 100 mg Tablet 100 mg PO QAM escitalopram oxalate 10 mg tablet 10 mg PO QAM bisacodyl 5 mg Tablet 5 mg PO QAM furosemide 20 mg Tablet 20 mg PO 3XWK Qty: 30 0RF Rx Instructions: On Sat/Sat/Saturday potassium chloride 10 mEq Tablet,Er Particles/Crystals 10 meq PO 3XWK Qty: 30 0RF Rx Instructions: Sat/Sat/Saturday lidocaine [Lidoderm] 5 % adhesive patch,medicated 1 patch topical DAILY PRN (Reason: pain) Qty: 15 0RF Rx Instructions: leave on most painful area for up to 12 hrs Referrals Referrals: Adelfo Coburn MD [Primary Care Provider] -
[2022-03-30 03:43] LABS: Prothrombin Time 11.1 Seconds (9.0-12.0)
[2022-03-30 03:59] LABS: Basophils # (auto) 0.03 K/uL (0-0.2); Basophils % (auto) 0.6 %; Eosinophils # (auto) 0.12 K/uL (0-0.50); Eosinophils % (auto) 2.4 %; Hemoglobin 13.3 g/dl (12.0-16.0); Immature Granulocytes # (auto) 0.01 K/uL (0.00-0.02); Immature Granulocytes % (auto) 0.2 %; Lymphocytes # (auto) 1.67 K/uL (1.2-3.4); Lymphocytes % (auto) 33.8 %; Mean Corpuscular Hemoglobin 28.9 pg (25.0-34.0); Mean Corpuscular Hgb Conc 32.4 g/dL (32.0-36.0); Mean Corpuscular Volume 88.9 fL (80.0-100.0); Mean Platelet Volume 11.4 fL (9.4-12.3); Monocytes # (auto) 0.66 K/uL (0.24-0.82); Monocytes % (auto) 13.4 %; Neutrophils # (auto) 2.45 K/uL (1.4-6.5); Neutrophils % (auto) 49.6 %; Platelet Count 146 K/uL (130-400); RBC Morphology Unremarkable; RDW Coefficient of Variation 13.6 % (11.5-14.5); RDW Standard Deviation 43.9 fL (36.4-46.3); Red Blood Count 4.61 M/uL (3.93-5.22); White Blood Count 4.94 K/ul (4.8-10.8)
[2022-03-30 04:02] LABS: Appearance Urine Clear (Clear); Bacteria Urine Automated Negative (Negative); Bilirubin Urine Negative (Negative); Blood Urine 1+ (Negative); Color Urine Yellow; Epithelial Cell Urine Auto >30 /lpf (0-5); Glucose Urine UA Negative (Negative); Ketones Urine Negative (Negative); Leukocyte Esterase Urine 2+ (Negative); Nitrite Urine Negative (Negative); Protein Urine Trace (Negative); Specific Gravity Urine 1.016 (1.000-1.030); Urobilinogen Urine Negative (Negative)
[2022-03-30 04:03] LABS: Alanine Aminotransferase 19 U/L (7-52); Albumin Level 3.3 gm/dl (3.4-5.0); Alkaline Phosphatase 59 U/L (34-104); Anion Gap 6 (3-11); Aspartate Aminotransferase 23 U/L (13-39); Bilirubin Direct 0.1 mg/dl (0-0.2); Bilirubin,Total 0.5 mg/dl (0.2-1.0); Blood Urea Nitrogen 16 mg/dl (6-23); Calcium 9.1 mg/dl (8.5-10.1); Carbon Dioxide 42 mmol/L (21-32); Chloride 94 mmol/L (98-107); Est GFR (African American) 133.1 ml/min; Est GFR (Non-African American) 114.8 ml/min; Glucose 106 mg/dl (70-99(Fasting)); Magnesium 1.7 mg/dl (1.7-2.4); Potassium 3.3 mmol/L (3.5-5.1); Sodium 142 mmol/L (136-145); Total Protein 6.2 gm/dl (6.0-8.3); Troponin I High Sensitivity 64.5 pg/ml (0-14)
[2022-03-30 04:39] LABS: Base Excess VBG 20.2 mEq/L; HCO3 VBG 50 mmol/L; Oxygen Saturation VBG 73.6 %; PCO2 VBG 85 mmHg (38-50); PO2 VBG 43 mmHg; pH VBG 7.38 (7.36-7.41)
--- NOTE | 2022-03-30 06:59 | History and Physical Report ---
DATE OF ADMISSION: 03/30/2022. CHIEF COMPLAINT: Shortness of breath. HISTORY OF PRESENT ILLNESS: This is an 81-year-old female with past medical history significant for hyperlipidemia, restrictive lung mechanics due to neuromuscular disease, chronic heart failure with preserved ejection fraction, history of overactive bladder, history of psychogenic nonepileptic seizures, history of postpolio muscle weakness, history of Iijquyg-Hftiq-Eruca disease, the patient is mostly wheelchair bound; the patientneeds help to get into the wheelchair, history of generalized anxiety disorder, history of CVA, history of breast cancer, status post lumpectomy, chemo and radiation therapy, history of uterine cancer, status post hysterectomy, as per records, history of left iliopsoas hematoma, on chronic oxygen 2 liters at home, presents with shortness of breath. The patient is somewhat hard of hearing and has a hearing aid. seems felt short of breath around 1:00 a.m. this morning and had some cold and congestion symptoms. She says not able to clear her throat .For EMS, she required nonrebreather. Currently, she is saturating okay on nasal cannula. Has some mild headache. No blurred visions, no runny nose, no sore throat. No chest pain, no nausea, no abdominal pain. Normal bowel and bladder movements. Currently, resting comfortably and hemodynamically stable. ALLERGIES: SHELLFISH DERIVED, DARIFENACIN, TYLENOL, ATORVASTATIN. PAST MEDICAL HISTORY: As mentioned above. PAST SURGICAL HISTORY: Breast surgery and uterine surgery as per records. Also significant for cataract surgery, status post cholecystectomy, total abdominal hysterectomy, status post left foot surgery. MEDICATIONS: The patient is on aspirin 81 mg p.o. daily, vitamin D 50 mcg p.o. daily, Lexapro 20 mg p.o. daily, Lasix 20 mg p.o. daily, Myrbetriq 50 mg p.o. p.m., potassium chloride 20 mEq p.o. 3 times a week. FAMILY HISTORY: Significant for father had lung cancer, mother had stroke. Aunt had breast cancer. SOCIAL HISTORY: Former smoker, quit in 1959. Alcohol occasionally. No drug use. . Lives with her daughter. REVIEW OF SYSTEMS: As per HPI. Rest of the review of systems is negative. PHYSICAL EXAMINATION: GENERAL: The patient is thin and frail, not in acute distress. VITAL SIGNS: Temperature 37, pulse 81, respiratory rate 20, blood pressure 126/64, oxygen, currently 100% on 3 liters. HEENT: Pupils equal, round and reactive to light. Oral mucosa moist. NECK: No JVD, no neck masses. CARDIOVASCULAR: S1 and S2 heard. Regular rate and rhythm. No murmur, no gallop. RESPIRATORY SYSTEM: Normal AP diameter. No accessory muscle use. No wheezing, no crackles. ABDOMEN: Soft, bowel sounds present, nontender, no distention. CENTRAL NERVOUS SYSTEM: Alert and oriented. Speech is clear. No facial droop. Insight is okay. Obeys simple commands. Moves extremities. EXTREMITIES: No edema, no erythema seen. Small healing wound seen on the left tubbs. LABORATORY DATA: WBC 4.9, hemoglobin 13.3, hematocrit 41, platelets 146. PT 11.1, INR 1. Venous blood gas, pH of 7.38. Sodium 142, potassium 3.3, chloride 94, CO2 of 42, BUN 16, creatinine 0.25, serum glucose 106, lactate 0.8, calcium 9.1, magnesium 1.7, total bilirubin 0.5, direct bilirubin 0.1, AST 23, ALT 19, alkaline phosphatase 59. Troponin I high sensitivity 64.5. Procalcitonin less than 0.05. Urinalysis, +2 leukocyte esterase. COVID positive. IMAGING DATA: Chest x-ray, no obvious acute findings seen. EKG: Normal sinus rhythm, left axis deviation, left ventricular hypertrophy, prolonged QTc of 512. ASSESSMENT AND PLAN: This is an 81-year-old female who presents with shortness of breath. 1. Shortness of breath and COVID-19: She has history of restrictive lung mechanics due to neuromuscular disease, and chronic heart failure with preserved ejection on 2 liters oxygen at home. She was on non breather when she came in, currently requiring 3 liters. The patient is COVID positive and the patient is not vaccinated. Symptoms seems just 1 day duration. Meets criteria for remdesivir and steroids, which the patient is okay to be given and will follow the remdesivir labs and closely monitor in the med [facility] [place]. 2. Restrictive lung mechanics due to neuromuscular disease and chronic heart failure with preserved ejection fraction: On Home oxygen 2lts. Currently, on oxygen as above and also home Lasix. Monitor for any volume overload. 3. History of overactive bladder. Continue Myrbetriq. 4. History of postpolio muscle weakness with Eoiydgb-Udvcl-Dhwad disease: The patient is wheelchair bound, lives at home with daughter. PT, OT when stable. 5. Generalized anxiety disorder: Currently on Lexapro. 6. Hypokalemia: We will replace. 7. Prolonged QTc: Avoid QT prolonging drugs. Follow the repeat ECG. 8. Elevated troponin. Mostly demand ischemia. Will follow serial CE. 9. Possible UTI. Will follow cultures. Ordered Rocephin. 10. Deep venous thrombosis prophylaxis: Placed on Lovenox. DISPOSITION: Closely monitor in the med tele. PT/OT prior to discharge. Social service to help with discharge planning. CODE STATUS: DNR/DNI as per discussion with the patient. Job ID: [id number] MTDD
--- NOTE | 2022-03-30 08:15 | XRay Report ---
XR chest 1V portable HISTORY: Sepsis COMPARISON: Chest 02/09/2022. FINDINGS: No pneumothorax. Small bilateral pleural effusions and bibasilar densities have slightly pr ogressed. The heart remains mildly enlarged. Scoliosis again noted. No evidence for pulmonary edema. Suspect mild emphysema. Degenerative changes again noted within the shoulders. Prior cholecystectomy. IMPRESSION: Slight progression of the small bilateral pleural effusions and bibasilar densities. ACT 112: Negative or not required by law. Electronically signed by: Rakesh Barragan M.D. 03/30/2022 8:14 AM
[2022-03-30] MEDS ORDERED: NITROGLYCERIN SL 0.4 MG/TAB TAB SL PRN (10:02)
[2022-03-30] MEDS ORDERED: REMDESIVIR 200 MG in SODIUM CHLORIDE 0.9% 210 ML IV STA (10:05)
[2022-03-30] MEDS ORDERED: POTASSIUM CHLORIDE 20 MEQ/15 ML UDC PO STA (10:23)
[2022-03-30] MEDS ORDERED: MAGNESIUM SULFATE / D5W 1 GM/100 ML BAG IV ONE (10:30)
[2022-03-30] MEDS: cefTRIAXone SODIUM 1,000 MG in DEXTROSE 5% 50 ML IV SCH (10:40)
[2022-03-30] MEDS: ESCITALOPRAM OXALATE 20 MG TAB PO SCH (10:41)
[2022-03-30] MEDS: dexAMETHasone 6 MG in SYRINGE 0 ML IV SCH (10:41)
[2022-03-30] MEDS: FUROSEMIDE 20 MG TAB PO SCH (10:41)
[2022-03-30] MEDS: POTASSIUM CHLORIDE 10 MEQ TABCR PO SCH (10:41)
[2022-03-30] MEDS: ASPIRIN 81 MG CHEW PO SCH (10:41)
[2022-03-30] MEDS: ENOXAPARIN INJ 40 MG/0.4 ML SYR SQ SCH (10:42)
[2022-03-30] MEDS: CHOLECALCIFEROL 1,000 UNITS 25 MCG TAB PO SCH (11:28)
--- NOTE | 2022-03-30 13:59 | Communication Note ---
Date of Service: March 30, 2022 She is an 81-year-old female with significant complicated past medical history is admitted with COVID-19 virus infection and has been on dexamethasone and remdesivir. Remains medically stable and clinically better. Discussed with the daughter and full note will be done tomorrow. Dr Peng Monahan
[2022-03-30] MEDS: MIRABEGRON ER 25 MG TAB PO SCH (22:33)
[2022-03-30] MEDS ORDERED: ASPIRIN 81 MG ECTAB PO ONE (22:46)
[2022-03-31 07:01] LABS: Basophils # (auto) 0.01 K/uL (0-0.2); Basophils % (auto) 0.2 %; Eosinophils # (auto) 0.02 K/uL (0-0.50); Eosinophils % (auto) 0.4 %; Hematocrit (blood only) 39.3 % (34.1-44.9); Hemoglobin 12.5 g/dl (12.0-16.0); Immature Granulocytes # (auto) 0.01 K/uL (0.00-0.02); Immature Granulocytes % (auto) 0.2 %; Lymphocytes # (auto) 1.41 K/uL (1.2-3.4); Lymphocytes % (auto) 31.7 %; Mean Corpuscular Hemoglobin 28.5 pg (25.0-34.0); Mean Corpuscular Hgb Conc 31.8 g/dL (32.0-36.0); Mean Corpuscular Volume 89.5 fL (80.0-100.0); Mean Platelet Volume 11.5 fL (9.4-12.3); Monocytes # (auto) 0.59 K/uL (0.24-0.82); Monocytes % (auto) 13.3 %; Neutrophils # (auto) 2.41 K/uL (1.4-6.5); Neutrophils % (auto) 54.2 %; Platelet Count 134 K/uL (130-400); Platelet Estimate Decreased (Normal); RDW Coefficient of Variation 13.5 % (11.5-14.5); Red Blood Count 4.39 M/uL (3.93-5.22); White Blood Count 4.45 K/ul (4.8-10.8)
[2022-03-31 07:06] LABS: Albumin Level 3.2 gm/dl (3.4-5.0); BUN Creatinine Ratio 72.4 (10-20); Bilirubin Direct 0.1 mg/dl (0-0.2); Bilirubin,Total 0.4 mg/dl (0.2-1.0); Calcium 8.9 mg/dl (8.5-10.1); Creatinine Clr Calc Pharmacy 133.6 ml/min; Est GFR (African American) 126.7 ml/min; Est GFR (Non-African American) 109.4 ml/min; Magnesium 2.1 mg/dl (1.7-2.4); Potassium 4.2 mmol/L (3.5-5.1); Total Protein 5.6 gm/dl (6.0-8.3)
[2022-03-31] MEDS: dexAMETHasone 6 MG in SYRINGE 0 ML IV SCH (09:19)
[2022-03-31] MEDS: ESCITALOPRAM OXALATE 20 MG TAB PO SCH (09:20)
[2022-03-31] MEDS: FUROSEMIDE 20 MG TAB PO SCH (09:20)
[2022-03-31] MEDS: CHOLECALCIFEROL 1,000 UNITS 25 MCG TAB PO SCH (09:20)
[2022-03-31] MEDS: ENOXAPARIN INJ 40 MG/0.4 ML SYR SQ SCH (09:20)
[2022-03-31] MEDS: ASPIRIN 81 MG CHEW PO SCH (09:20)
[2022-03-31] MEDS: cefTRIAXone SODIUM 1,000 MG in DEXTROSE 5% 50 ML IV SCH (09:21)
[2022-03-31] MEDS: REMDESIVIR 100 MG in SODIUM CHLORIDE 0.9% 230 ML IV SCH (12:00)
--- NOTE | 2022-03-31 13:20 | Hospitalist Progress Note ---
Date of Service March 31, 2022 Assessment & Plan (1) Dyspnea: Plan: Has restrictive lung disease and has been on 2 L of oxygen at home Has been requiring up to 4 L of more to maintain saturation Noted to have COVID-19 virus infection likely source being the daughter who has COVID-19 virus infection as well and the patient is not vaccinated Noted to be desaturation during transport and in the emergency room-treatment is as below Still requiring about 3 L to maintain saturation (2) COVID-19: Plan: COVID-19 virus infection She is not vaccinated Source of the daughter Noted to be desaturated on admission and has been on dexamethasone and remdesivir CRP was not elevated and procalcitonin normal (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: 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 and Qpfhjjd-Pejhd-Znvmk disease (4) [place] (generalized anxiety disorder): Plan: Has an alert anxiety disorder (5) CMT (Xdtuqkd-Jmqow-Rgbcg disease): (6) Post-polio muscle weakness: Plan Possible UTI Has been on Rocephin Cultures has been negative We will discontinue antibiotic DVT prophylaxis Lovenox CODE STATUS DNR/DNI Admission and Anticipated Discharge Date Admission Date: March 30, 2022 Subjective 03/31/2022 The patient was seen and examined in medical telemetry unit and in the COVID room She complains to have some chest tightness with minimal shortness of breath at rest Denies any cough, fever and or chills Her bowel is not moved Review of Systems Review of Systems: All systems reviewed and are unremarkable except as noted below Physical Exam Physical Exam: Lying in bed comfortably Constitutional: + ill appearing and average body habitus Eyes: PERRL, conjunctivae normal, anicteric sclerae ENMT: external ear and nose normal, oropharynx normal Neck: trachea midline, no thyromegaly Respiratory: + respiratory distress (Minimal distress at rest) Auscultation: + diminished lung sounds; no crackles Cardiovascular: Rate/Rhythm: regular rate and regular rhythm; not tachycardic Heart Sounds: normal S1 and normal S2; no murmur Extremities: no edema Gastrointestinal (Abdomen): Inspection/Auscultation: normal bowel sounds; abdomen not distended Percussion/Palpation: abdomen soft; abdomen nontender Musculoskeletal: No acute arthritis in any joint Neurologic: Alert, awake and oriented x3. Generally weak Lymphatic: no cervical or axillary lymphadenopathy Results & Data Results & Data ([facility]) Vital Signs (Past 12 Hours) Vital Signs Temp Pulse Pulse Resp BP Pulse Ox O2 Del Method 03/31/22 09:20 Nasal Cannula 03/31/22 08:15 36.7 C 78 20 149/66 H 100 Nasal Cannula 03/31/22 07:11 58 L 03/31/22 02:58 36.7 C 72 20 119/72 99 Nasal Cannula O2 Flow Rate 03/31/22 09:20 3 03/31/22 08:15 3 03/31/22 07:11 03/31/22 02:58 3 Laboratory Results Short CBC 03/31/22 Range/Units 05:37 WBC 4.45 L (4.8-10.8) K/ul Hgb 12.5 (12.0-16.0) g/dl Hct 39.3 (34.1-44.9) % Plt Count 134 (130-400) K/uL BMP 03/31/22 05:37 Sodium 142 Potassium 4.2 D Chloride 95 L Carbon Dioxide 44 H* BUN 21 Creatinine 0.29 L Glucose 102 H Calcium 8.9 Liver Function 03/31/22 Range/Units 05:37 Total Bilirubin 0.4 (0.2-1.0) mg/dl Direct Bilirubin 0.1 (0-0.2) mg/dl AST 21 (13-39) U/L ALT 18 (7-52) U/L Alkaline Phosphatase 51 (34-104) U/L Albumin 3.2 L (3.4-5.0) gm/dl Medications Administered Current Inpatient Medications Aspirin (Aspirin 81 Mg Chew) 81 mg PO QAM [facility] Stop: 04/29/22 10: Last Admin: 03/31/22 09:20 Dose: 81 mg Enoxaparin Sodium (Enoxaparin Inj 40 Mg/0.4 Ml Syr) 40 mg SQ Q24H [facility] Stop: 04/29/22 10: Last Admin: 03/31/22 09:20 Dose: 40 mg Escitalopram Oxalate (Escitalopram Oxalate 20 Mg Tab) 20 mg PO DAILY [facility] Stop: 04/29/22 10: Last Admin: 03/31/22 09:20 Dose: 20 mg Furosemide (Furosemide 20 Mg Tab) 20 mg PO QAM [facility] Stop: 04/29/22 10:29 Last Admin: 03/31/22 09:20 Dose: 20 mg Remdesivir 100 mg/ Sodium (Chloride) 250 mls @ 250 mls/hr IV Q24H [facility] Stop: 04/03/22 12:59 Last Admin: 03/31/22 12:00 Dose: 250 mls/hr Dexamethasone 6 mg/ Syringe 1.5 mls @ 1 mls/min IV DAILY [facility] Stop: 04/09/22 10:14 Last Admin: 03/31/22 09:19 Dose: 1 mls/min Ceftriaxone Sodium 1,000 mg/ (Dextrose) 60 mls @ 100 mls/hr IV Q24H [facility]; Protocol Stop: 04/09/22 10:29 Last Infusion: 03/31/22 09:57 Dose: Infused Magnesium Hydroxide (Magnesium Hydroxide Susp 30 Ml Udc) 30 ml PO NOW PRN PRN Reason: Constipation Stop: 04/30/22 12:42 Mirabegron (Mirabegron Er 25 Mg Tab) 50 mg PO PM [facility] Stop: 04/29/22 20:59 Last Admin: 03/30/22 22:33 Dose: 50 mg Nitroglycerin (Nitroglycerin Sl 0.4 Mg/Tab Tab) 0.4 mg SL UD PRN PRN Reason: Chest Pain Stop: 04/29/22 10:01 Potassium Chloride (Potassium Chloride 10 Meq Tabcr) 10 meq PO MoWeFr@0900 [facility] Stop: 04/29/22 10:29 Last Admin: 03/30/22 10:41 Dose: 10 meq Vitamin D (Cholecalciferol 1,000 Units 25 Mcg Tab) 2,000 units PO QAM [facility] Stop: 04/29/22 10:29 Last Admin: 03/31/22 09:20 Dose: 2,000 units
[2022-03-31] MEDS: MIRABEGRON ER 25 MG TAB PO SCH (20:06)
--- NOTE | 2022-03-31 22:55 | Electrocardiogram Report ---
Test Reason : Blood Pressure : / mmHG Vent. Rate : 086 BPM Atrial Rate : 084 BPM P-R Int : 200 ms QRS Dur : 106 ms QT Int : 416 ms P-R-T Axes : 000 -39 079 degrees QTc Int : 497 ms Poor data quality, interpretation may be adversely affected Normal sinus rhythm Left axis deviation Left ventricular hypertrophy with repolarization abnormality Cannot rule out Septal infarct (cited on or before 30-MAR-2022) Abnormal ECG When compared with ECG of 06-FEB-2022 20:05, No significant change Confirmed by Chong Oneill ([id number]) on 03/31/2022 10:55:03 PM Referred By: REFERRED SELF Confirmed By:Chong Oneill
--- NOTE | 2022-03-31 22:57 | Electrocardiogram Report ---
Test Reason : Blood Pressure : / mmHG Vent. Rate : 084 BPM Atrial Rate : 084 BPM P-R Int : 208 ms QRS Dur : 118 ms QT Int : 434 ms P-R-T Axes : 074 -39 078 degrees QTc Int : 512 ms Normal sinus rhythm Left axis deviation Left ventricular hypertrophy with QRS widening and repolarization abnormality Cannot rule out Septal infarct (cited on or before 30-MAR-2022) Prolonged QT Abnormal ECG When compared with ECG of 30-MAR-2022 02:57, No significant change Confirmed by Chong Oneill ([id number]) on 03/31/2022 10:57:08 PM Referred By: REFERRED SELF Confirmed By:Chong Oneill
--- NOTE | 2022-03-31 23:35 | Electrocardiogram Report ---
Test Reason : Blood Pressure : / mmHG Vent. Rate : 064 BPM Atrial Rate : 064 BPM P-R Int : 204 ms QRS Dur : 104 ms QT Int : 442 ms P-R-T Axes : 091 -46 043 degrees QTc Int : 455 ms Normal sinus rhythm Left anterior fascicular block Voltage criteria for left ventricular hypertrophy Abnormal ECG When compared with ECG of 30-MAR-2022 03:37, Minimal criteria for Septal infarct are no longer Present QT has shortened Confirmed by Chong Oneill ([id number]) on 03/31/2022 11:34:37 PM Referred By: REFERRED SELF Confirmed By:Chong Oneill
[2022-04-01 06:42] LABS: Alanine Aminotransferase 27 U/L (7-52); Aspartate Aminotransferase 30 U/L (13-39); Blood Urea Nitrogen 23 mg/dl (6-23); C Reactive Protein < 0.50 mg/dl (0-0.5); Calcium 8.8 mg/dl (8.5-10.1); Carbon Dioxide > 45 mmol/L (21-32); Chloride 94 mmol/L (98-107); Creatinine Clr Calc Pharmacy 168.5 ml/min; Est GFR (African American) 136.8 ml/min; Glucose 95 mg/dl (70-99(Fasting)); Potassium 4.5 mmol/L (3.5-5.1); Sodium 140 mmol/L (136-145)
[2022-04-01 06:52] LABS: Hematocrit (blood only) 38.9 % (34.1-44.9); Hemoglobin 12.4 g/dl (12.0-16.0); Mean Corpuscular Hemoglobin 28.7 pg (25.0-34.0); Mean Corpuscular Hgb Conc 31.9 g/dL (32.0-36.0); Mean Platelet Volume 11.7 fL (9.4-12.3); Platelet Count 134 K/uL (130-400); Platelet Estimate Normal (Normal); RDW Coefficient of Variation 13.6 % (11.5-14.5); RDW Standard Deviation 44.9 fL (36.4-46.3); Red Blood Count 4.32 M/uL (3.93-5.22); White Blood Count 6.01 K/ul (4.8-10.8)
[2022-04-01 07:20] LABS: HCO3 ABG 53 mmol/L (19-24); Oxygen Saturation ABG 98.9 % (90-95); PCO2 ABG 76 mmHg (35-46); PO2 ABG 106 mmHg (80-95); pH ABG 7.45 (7.35-7.45)
[2022-04-01 07:21] LABS: Allen Test Pos (Pos)
[2022-04-01] MEDS: dexAMETHasone 6 MG in SYRINGE 0 ML IV SCH (08:03)
[2022-04-01] MEDS: CHOLECALCIFEROL 1,000 UNITS 25 MCG TAB PO SCH (08:05)
[2022-04-01] MEDS: FUROSEMIDE 20 MG TAB PO SCH (08:06)
[2022-04-01] MEDS: ESCITALOPRAM OXALATE 20 MG TAB PO SCH (08:06)
[2022-04-01] MEDS: ASPIRIN 81 MG CHEW PO SCH (08:06)
[2022-04-01 08:24] LABS: Basophils # (auto) 0.01 K/uL (0-0.2); Basophils % (auto) 0.2 %; Eosinophils # (auto) 0.03 K/uL (0-0.50); Eosinophils % (auto) 0.5 %; Immature Granulocytes # (auto) 0.02 K/uL (0.00-0.02); Immature Granulocytes % (auto) 0.3 %; Lymphocytes # (auto) 1.82 K/uL (1.2-3.4); Lymphocytes % (auto) 30.3 %; Monocytes # (auto) 0.66 K/uL (0.24-0.82); Neutrophils # (auto) 3.47 K/uL (1.4-6.5); Neutrophils % (auto) 57.7 %
[2022-04-01] MEDS: ENOXAPARIN INJ 40 MG/0.4 ML SYR SQ SCH (10:54)
[2022-04-01] MEDS: REMDESIVIR 100 MG in SODIUM CHLORIDE 0.9% 230 ML IV SCH ×2 (10:54→11:41)
[2022-04-01] MEDS ORDERED: bisacodyL 10 MG SUPP PR STA (14:22)
--- NOTE | 2022-04-01 14:22 | Hospitalist Progress Note ---
Date of Service April 01, 2022 Assessment & Plan (1) Dyspnea: Plan: Has restrictive lung disease and has been on 2 L of oxygen at home Has been requiring up to 4 L of more to maintain saturation Noted to have COVID-19 virus infection likely source being the daughter who has COVID-19 virus infection as well and the patient is not vaccinated Noted to be desaturation during transport and in the emergency room-treatment is as below Still requiring about 3 L to maintain saturation Saturating normally on room air but CO2 level remains elevated at 45-has not been tried any CPAP and/or BiPAP yet Denies any shortness of breath at rest Constipation Abdomen is slightly distended but soft Bowel sound Received milk of magnesia without any effect Will give suppository and if does not work try enema (2) COVID-19: Plan: COVID-19 virus infection She is not vaccinated Source of the daughter Noted to be desaturated on admission and has been on dexamethasone and remdesivir CRP was not elevated and procalcitonin normal CRP and procalcitonin are unremarkable (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 (4) [place] (generalized anxiety disorder): 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 Possible UTI Has been on Rocephin Cultures has been negative We will discontinue antibiotic DVT prophylaxis Lovenox CODE STATUS DNR/DNI Admission and Anticipated Discharge Date Admission Date: March 30, 2022 Subjective 03/31/2022 The patient was seen and examined in medical telemetry unit and in the COVID room She complains to have some chest tightness with minimal shortness of breath at rest Denies any cough, fever and or chills Her bowel is not moved 04/01/2022 Patient was seen and examined in medical telemetry unit and in the COVID room She has been complaining of abdominal discomfort and constipation Saturating normally on room air Denies any fever and no chills and no other symptoms Review of Systems Review of Systems: All systems reviewed and are unremarkable except as noted below Physical Exam Physical Exam: Lying in bed comfortably Constitutional: + ill appearing and average body habitus Eyes: PERRL, conjunctivae normal, anicteric sclerae ENMT: external ear and nose normal, oropharynx normal Neck: trachea midline, no thyromegaly Respiratory: + respiratory distress (Minimal distress at rest) Auscultation: + diminished lung sounds; no crackles Cardiovascular: Rate/Rhythm: regular rate and regular rhythm; not tachycardic Heart Sounds: normal S1 and normal S2; no murmur Extremities: no edema Gastrointestinal (Abdomen): Inspection/Auscultation: normal bowel sounds; abdomen not distended Percussion/Palpation: abdomen soft; abdomen nontender Musculoskeletal: No acute arthritis in any joint Neurologic: Alert, awake and oriented Lymphatic: no cervical or axillary lymphadenopathy Results & Data Results & Data ([facility]) Vital Signs (Past 12 Hours) Vital Signs Temp Pulse Pulse Resp BP Pulse Ox O2 Del Method 04/01/22 07:13 61 04/01/22 06:36 36.8 C 76 18 134/77 100 04/01/22 04:17 36.7 C 78 18 149/66 H 99 04/01/22 03:44 93 Room Air 04/01/22 03:39 36.6 C 70 16 123/70 99 Nasal Cannula O2 Flow Rate 04/01/22 07:13 04/01/22 06:36 2 04/01/22 04:17 2 04/01/22 03:44 04/01/22 03:39 2 Laboratory Results Short CBC 04/01/22 Range/Units 05:32 WBC 6.01 (4.8-10.8) K/ul Hgb 12.4 (12.0-16.0) g/dl Hct 38.9 (34.1-44.9) % Plt Count 134 (130-400) K/uL BMP 04/01/22 05:32 Sodium 140 Potassium 4.5 Chloride 94 L Carbon Dioxide > 45 H* BUN 23 Creatinine 0.23 L Glucose 95 Calcium 8.8 Liver Function 04/01/22 Range/Units 05:32 AST 30 (13-39) U/L ALT 27 (7-52) U/L Medications Administered Current Inpatient Medications Aspirin (Aspirin 81 Mg Chew) 81 mg PO QAM [facility] Stop: 04/29/22 10:29 Last Admin: 04/01/22 08:06 Dose: 81 mg Enoxaparin Sodium (Enoxaparin Inj 40 Mg/0.4 Ml Syr) 40 mg SQ Q24H [facility] Stop: 04/29/22 10:29 Last Admin: 10/30/22 10:54 Dose: 40 mg Escitalopram Oxalate (Escitalopram Oxalate 20 Mg Tab) 20 mg PO DAILY [facility] Stop: 04/29/22 10:29 Last Admin: 04/01/22 08:06 Dose: 20 mg Furosemide (Furosemide 20 Mg Tab) 20 mg PO QAM [facility] Stop: 04/29/22 10:29 Last Admin: 04/01/22 08:06 Dose: 20 mg Remdesivir 100 mg/ Sodium (Chloride) 250 mls @ 250 mls/hr IV Q24H [facility] Stop: 04/03/22 12:59 Last Infusion: 04/01/22 12:41 Dose: Infused Dexamethasone 6 mg/ Syringe 1.5 mls @ 1 mls/min IV DAILY [facility] Stop: 04/09/22 10:14 Last Admin: 04/01/22 08:03 Dose: 1 mls/min Magnesium Hydroxide (Magnesium Hydroxide Susp 30 Ml Udc) 30 ml PO NOW PRN PRN Reason: Constipation Stop: 04/30/22 12:42 Mirabegron (Mirabegron Er 25 Mg Tab) 50 mg PO PM [facility] Stop: 04/29/22 20:59 Last Admin: 03/31/22 20:06 Dose: 50 mg Nitroglycerin (Nitroglycerin Sl 0.4 Mg/Tab Tab) 0.4 mg SL UD PRN PRN Reason: Chest Pain Stop: 04/29/22 10:01 Potassium Chloride (Potassium Chloride 10 Meq Tabcr) 10 meq PO MoWeFr@0900 [facility] Stop: 04/29/22 10:29 Last Admin: 03/30/22 10:41 Dose: 10 meq Vitamin D (Cholecalciferol 1,000 Units 25 Mcg Tab) 2,000 units PO QAM [facility] Stop: 04/29/22 10:29 Last Admin: 04/01/22 08:05 Dose: 2,000 units
[2022-04-01] MEDS: MIRABEGRON ER 25 MG TAB PO SCH (22:11)
[2022-04-01] MEDS: MAGNESIUM HYDROXIDE SUSP 30 ML UDC PO PRN (22:13)
[2022-04-02 08:18] LABS: Creatinine Clr Calc Pharmacy 176.1 ml/min; Est GFR (African American) 138.8 ml/min; Est GFR (Non-African American) 119.8 ml/min
[2022-04-02] MEDS: FUROSEMIDE 20 MG TAB PO SCH (08:46)
[2022-04-02] MEDS: POTASSIUM CHLORIDE 10 MEQ TABCR PO SCH (08:48)
[2022-04-02] MEDS: dexAMETHasone 6 MG in SYRINGE 0 ML IV SCH (08:48)
[2022-04-02] MEDS: ASPIRIN 81 MG CHEW PO SCH (08:48)
[2022-04-02] MEDS: ESCITALOPRAM OXALATE 20 MG TAB PO SCH (08:48)
[2022-04-02] MEDS: CHOLECALCIFEROL 1,000 UNITS 25 MCG TAB PO SCH (08:48)
[2022-04-02] MEDS: ENOXAPARIN INJ 40 MG/0.4 ML SYR SQ SCH (09:34)
[2022-04-02] MEDS: REMDESIVIR 100 MG in SODIUM CHLORIDE 0.9% 230 ML IV SCH (12:10)
--- NOTE | 2022-04-02 14:47 | Hospitalist Progress Note ---
Date of Service April 02, 2022 Assessment & Plan (1) Dyspnea: Plan: Has restrictive lung disease and has been on 2 L of oxygen at home Has been requiring up to 4 L of more to maintain saturation Noted to have COVID-19 virus infection likely source being the daughter who has COVID-19 virus infection as well and the patient is not vaccinated Noted to be desaturation during transport and in the emergency room-treatment is as below Still requiring about 3 L to maintain saturation Saturating normally on room air but CO2 level remains elevated at 45-has not been tried any CPAP and/or BiPAP yet Denies any shortness of breath at rest Remains stable and seems to be at her baseline with oxygen requirements We will get PT and OT evaluation prior to discharge Constipation Abdomen is slightly distended but soft Bowel sound Received milk of magnesia without any effect Will give suppository and if does not work try enema Bowel is moved (2) COVID-19: Plan: COVID-19 virus infection She is not vaccinated Source of the daughter Noted to be desaturated on admission and has been on dexamethasone and remdesivir CRP was not elevated and procalcitonin normal CRP and procalcitonin are unremarkable Remains stable and he may be a little bit better Will finish the course of remdesivir and dexamethasone (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: 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 and Lthovyj-Dvwcq-Ymgcq disease (4) [place] (generalized anxiety disorder): 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 Possible UTI Has been on Rocephin Cultures has been negative We will discontinue antibiotic DVT prophylaxis Lovenox CODE STATUS DNR/DNI Likely discharge in a day or 2 Admission and Anticipated Discharge Date Admission Date: March 30, 2022 Subjective 03/31/2022 The patient was seen and examined in medical telemetry unit and in the COVID room She complains to have some chest tightness with minimal shortness of breath at rest Denies any cough, fever and or chills Her bowel is not moved 04/01/2022 Patient was seen and examined in medical telemetry unit and in the COVID room She has been complaining of abdominal discomfort and constipation Saturating normally on room air Denies any fever and no chills and no other symptoms 04/02/2022 The patient was seen and examined in medical telemetry unit and in the COVID room She has been stable and requiring anywhere from 2 to 3 L of oxygen to maintain saturation Remains weak but denies any other symptoms She wants to go home Review of Systems Review of Systems: All systems reviewed and are unremarkable except as noted below Physical Exam Physical Exam: Lying in bed comfortably minimal shortness of breath at rest Constitutional: + ill appearing and average body habitus Eyes: PERRL, conjunctivae normal, anicteric sclerae ENMT: external ear and nose normal, oropharynx normal Neck: trachea midline, no thyromegaly Respiratory: + respiratory distress (Minimal distress at rest) Auscultation: + diminished lung sounds; no crackles Cardiovascular: Rate/Rhythm: regular rate and regular rhythm; not tachycardic Heart Sounds: normal S1 and normal S2; no murmur Extremities: no edema Gastrointestinal (Abdomen): Inspection/Auscultation: normal bowel sounds; abdomen not distended Percussion/Palpation: abdomen soft; abdomen nontender 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 Generally weak Lymphatic: no cervical or axillary lymphadenopathy Results & Data Results & Data ([facility]) Vital Signs (Past 12 Hours) Vital Signs Temp Pulse Pulse Resp BP BP Pulse Ox 04/02/22 06:02 58 L 04/02/22 11:19 36.7 C 72 16 102/62 96 04/02/22 09:28 04/02/22 08:15 36.6 C 69 18 100/64 98 04/02/22 02:44 36.7 C 70 18 105/61 93 O2 Del Method O2 Flow Rate 04/02/22 06:02 04/02/22 11:19 Nasal Cannula 04/02/22 09:28 Nasal Cannula 2 04/02/22 08:15 Nasal Cannula 2 04/02/22 02:44 Nasal Cannula 2 Laboratory Results BMP 04/02/22 07:29 Creatinine 0.22 L Liver Function 04/02/22 Range/Units 07:29 AST 35 (13-39) U/L ALT 37 (7-52) U/L Medications Administered Current Inpatient Medications Aspirin (Aspirin 81 Mg Chew) 81 mg PO QAM [facility] Stop: 04/29/22 10:29 Last Admin: 04/02/22 08:48 Dose: 81 mg Enoxaparin Sodium (Enoxaparin Inj 40 Mg/0.4 Ml Syr) 40 mg SQ Q24H [facility] Stop: 04/29/22 10:29 Last Admin: 04/02/22 09:34 Dose: 40 mg Escitalopram Oxalate (Escitalopram Oxalate 20 Mg Tab) 20 mg PO DAILY [facility] Stop: 04/29/22 10:29 Last Admin: 04/02/22 08:48 Dose: 20 mg Furosemide (Furosemide 20 Mg Tab) 20 mg PO QAM [facility] Stop: 04/29/22 10:29 Last Admin: 04/02/22 08:46 Dose: 20 mg Remdesivir 100 mg/ Sodium (Chloride) 250 mls @ 250 mls/hr IV Q24H [facility] Stop: 04/03/22 12:59 Last Infusion: 04/02/22 13:10 Dose: Infused Dexamethasone 6 mg/ Syringe 1.5 mls @ 1 mls/min IV DAILY [facility] Stop: 04/09/22 10:14 Last Admin: 04/02/22 08:48 Dose: 1 mls/min Magnesium Hydroxide (Magnesium Hydroxide Susp 30 Ml Udc) 30 ml PO NOW PRN PRN Reason: Constipation Stop: 04/30/22 12:42 Last Admin: 04/01/22 22:13 Dose: 30 ml Mirabegron (Mirabegron Er 25 Mg Tab) 50 mg PO PM [facility] Stop: 04/29/22 20:59 Last Admin: 04/01/22 22:11 Dose: 50 mg Nitroglycerin (Nitroglycerin Sl 0.4 Mg/Tab Tab) 0.4 mg SL UD PRN PRN Reason: Chest Pain Stop: 04/29/22 10:01 Potassium Chloride (Potassium Chloride 10 Meq Tabcr) 10 meq PO MoWeFr@0900 [facility] Stop: 04/29/22 10:29 Last Admin: 04/02/22 08:48 Dose: 10 meq Vitamin D (Cholecalciferol 1,000 Units 25 Mcg Tab) 2,000 units PO QAM [facility] Stop: 04/29/22 10:29 Last Admin: 04/02/22 08:48 Dose: 2,000 units
[2022-04-02] MEDS: MIRABEGRON ER 25 MG TAB PO SCH (21:47)
[2022-04-03 07:14] LABS: Basophils # (auto) 0.01 K/uL (0-0.2); Basophils % (auto) 0.1 %; Eosinophils # (auto) 0.03 K/uL (0-0.50); Eosinophils % (auto) 0.4 %; Hematocrit (blood only) 39.1 % (34.1-44.9); Hemoglobin 12.7 g/dl (12.0-16.0); Immature Granulocytes # (auto) 0.02 K/uL (0.00-0.02); Immature Granulocytes % (auto) 0.3 %; Lymphocytes # (auto) 1.88 K/uL (1.2-3.4); Lymphocytes % (auto) 26.6 %; Mean Corpuscular Hemoglobin 28.4 pg (25.0-34.0); Mean Corpuscular Hgb Conc 32.5 g/dL (32.0-36.0); Mean Corpuscular Volume 87.5 fL (80.0-100.0); Mean Platelet Volume 11.6 fL (9.4-12.3); Monocytes # (auto) 0.84 K/uL (0.24-0.82); Monocytes % (auto) 11.9 %; Neutrophils % (auto) 60.7 %; Platelet Count 149 K/uL (130-400); RDW Coefficient of Variation 13.8 % (11.5-14.5); RDW Standard Deviation 43.6 fL (36.4-46.3); Red Blood Count 4.47 M/uL (3.93-5.22); White Blood Count 7.08 K/ul (4.8-10.8)
[2022-04-03 07:54] LABS: Albumin Globulin Ratio 1.3 (0.9-2); BUN Creatinine Ratio 91.7 (10-20); Bilirubin,Total 0.3 mg/dl (0.2-1.0); Calcium 8.3 mg/dl (8.5-10.1); Creatinine Clr Calc Pharmacy 161.4 ml/min; Est GFR (African American) 134.9 ml/min; Est GFR (Non-African American) 116.4 ml/min; Globulin 2.3 gm/dl (2.5-4.0); Total Protein 5.3 gm/dl (6.0-8.3)
[2022-04-03] MEDS: dexAMETHasone 6 MG in SYRINGE 0 ML IV SCH (09:19)
[2022-04-03] MEDS: ASPIRIN 81 MG CHEW PO SCH (09:20)
[2022-04-03] MEDS: ESCITALOPRAM OXALATE 20 MG TAB PO SCH (09:20)
[2022-04-03] MEDS: CHOLECALCIFEROL 1,000 UNITS 25 MCG TAB PO SCH (09:20)
[2022-04-03] MEDS: FUROSEMIDE 20 MG TAB PO SCH (09:20)
[2022-04-03] MEDS: ENOXAPARIN INJ 40 MG/0.4 ML SYR SQ SCH (09:36)
[2022-04-03] MEDS: REMDESIVIR 100 MG in SODIUM CHLORIDE 0.9% 230 ML IV SCH (12:08)
[2022-04-03] MEDS ORDERED: ALBUTEROL 0.083% NEBU SOLN 3 ML VIAL NEB PRN (16:56)
[2022-04-03] MEDS ORDERED: hydrOXYzine HCl 25 MG TAB PO STA (17:24)
[2022-04-03] MEDS ORDERED: hydrOXYzine HCl 25 MG TAB PO PRN (17:48)
--- NOTE | 2022-04-03 18:12 | Hospitalist Progress Note ---
Date of Service April 03, 2022 Assessment & Plan (1) COVID-19: Plan Dyspnea: COVID-19 infection: History of RLD on 2 L oxygen at home, had been requiring up to 4 L to maintain saturation at presentation. Noted to have COVID-19 virus infection, likely source being daughter. Patient is not vaccinated. Noted to be desaturating during transport and in the emergency room. CRP was not elevated and procalcitonin normal. Maintaining around 2 L nasal cannula oxygen today. Has elevated CO2 level, appears to be noncompliant with CPAP or BiPAP. Denies any shortness of breath at rest, hydroxyzine as needed for anxiety. PT/OT, likely DC with the recommendation. Continue with dexamethasone 03/30 and remdesivir 03/30 Constipation: Added MiraLAX daily. Continue with as needed milk of magnesia. Follow regularly for need of stool softener. 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 Admission and Anticipated Discharge Date Admission Date: March 30, 2022 Subjective Patient seen and examined at bedside as a follow-up of COVID-19 virus infection. Patient was lying in bed, on 2 L nasal cannula oxygen, NAD, denies any new acute event overnight, reports eating okay, would like stool softener, denies any headache or dizziness or sore throat or increasing cough or increasing shortness of breath or other review of symptoms. Reports feeling weak. Physical Exam Physical Exam: GENERAL: Alert and oriented x3. NAD, on 2l NC O2. Appears weak/frail. HEENT: No pallor, no icterus. Pupils equal, round and reactive to light. Oral mucosa moist. NECK: No JVD, no neck masses. HEART: S1 and S2 heard. Regular rate and rhythm. No murmur, no gallop. RESPIRATORY SYSTEM: Normal AP diameter. No accessory muscle use. No wheezing, no crackles. ABDOMEN: Soft, bowel sounds present, nontender, no distention. CENTRAL NERVOUS SYSTEM: No facial droop. Speech is clear. Obeys simple commands. Moves extremities. EXTREMITIES: No edema, no erythema seen. Results & Data Results & Data ([facility]) Vital Signs (Past 12 Hours) Vital Signs Temp Pulse Pulse Resp BP Pulse Ox O2 Del Method 04/03/22 17:13 75 18 97 Nasal Cannula 04/03/22 14:10 71 04/03/22 16:13 36.9 C 73 20 119/66 97 Nasal Cannula 04/03/22 13:25 36.8 C 69 20 117/65 97 Nasal Cannula 04/03/22 12:59 36.9 C 70 18 116/77 95 Nasal Cannula 04/03/22 09:28 Nasal Cannula 04/03/22 08:11 36.6 C 70 18 148/78 H 98 Nasal Cannula 04/03/22 06:10 66 O2 Flow Rate 04/03/22 17:13 04/03/22 14:10 04/03/22 16:13 2 04/03/22 13:25 04/03/22 12:59 2 04/03/22 09:28 2 04/03/22 08:11 2 04/03/22 06:10
[2022-04-03] MEDS: POLYETHYLENE (MIRALAX) 17 GM PACK PO SCH (18:43)
[2022-04-03] MEDS: MIRABEGRON ER 25 MG TAB PO SCH (21:40)
[2022-04-04] MEDS ORDERED: LORazepam 0.25 MG in SYRINGE 0 ML IV STA (06:37)
[2022-04-04] MEDS: dexAMETHasone 6 MG in SYRINGE 0 ML IV SCH (08:09)
[2022-04-04] MEDS: ASPIRIN 81 MG CHEW PO SCH (08:10)
[2022-04-04] MEDS: ESCITALOPRAM OXALATE 20 MG TAB PO SCH (08:10)
[2022-04-04] MEDS: POTASSIUM CHLORIDE 10 MEQ TABCR PO SCH (08:10)
[2022-04-04] MEDS: POLYETHYLENE (MIRALAX) 17 GM PACK PO SCH (08:10)
[2022-04-04] MEDS: FUROSEMIDE 20 MG TAB PO SCH (08:11)
--- NOTE | 2022-04-04 08:46 | Palliative Care Consultation ---
Date of Consultation April 04, 2022 Assessment & Plan (1) Palliative care encounter: I met with pt at bedside, sitter present, no family present. Patient did not immediately engage. She would close her eyes and turn her head away. I continued asking questions to engage her, and we were able to elicit that she is feeling isolated and alone. She is not that hungry but does not eat much because she did not find the food here to her liking. With more discussion it was revealed she would like to eat some pasta with olive oil/no cheese, steamed cauliflower with ranch dressing and popsicles. This was conveyed to nursing. Mrs. Lizarraga and I also discussed her earlier comments today about stopping all treatments. I advised her that she is on full treatment for covid, is it encouraging that her O2 needs did not rise, and she has not needed NIV. Also discussed that there was not, at this time, any consensus that she would not survive this admission to return home. This was uplifting to pt who replied she is willing to continue therapy and wants to get well so she can return home. She admits this si the longest she has been apart from family, she simon snot like being isolated and alone, it makes her depressed and withdrawn. We discussed adding a daily attendant lodging facilities visit to her stay here at the hospital, as she expressed a desire to speak with someone non medical. She was very happy to accept referral to database operator, consult ordered. She wishes to continue to course of current treatment. She affirms DNR/DNI, but goal for now is treat what's treatable/fix what's fixable and help her return home. She does need more engagement. I met with nursing, Chitra Oliver, and we discussed options for bedside activities to help reduce her boredom and isolation such as adult coloring books, word puzzles etc.; if these items are not available through the hospital, there are websites that allow free downloads and she can be provided with some art supplies (i.e., crayons, colored pencils, markers - hopefully may be borrowed from pediatrics?). Websites for free coloring pages: * https://www.Gochikuru/mise-duxngjcf-ircyj/wqieg-oihmkygx-ictlv/ * https://www.Paydiant/pages/fjscwmcm-cmlhf-aqs-adults-2 Websites for free word puzzles: * https://www.MetaMed/list/acgbijrso-wyxn-rcrely/ * https://games.Legal Shine.org/category/word * https://www.arzdmju-zv-dmccu.com/icggefazs-vvhe-jwyhmc/ (2) Counseling regarding advanced directives and goals of care: Pt is not seeking End of life care planning. She is feeling depressed from isolation, separation from family. She is seeking some companionship an would benefit from distraction activities such as adult coloring pages or word puzzles. Links references above. She is clear that if she were to acutely decline from covid related resp failure she would want a focus on comfort, she is aware of the limitations of her existing neuromuscular lung failure in the context of worsening resp failure would be most likely mortality. (3) Dyspnea and respiratory abnormalities: (4) Acute hypoxemic respiratory failure due to COVID-19: (5) Restrictive lung mechanics due to neuromuscular disease: (6) Weakness: (7) Post-polio muscle weakness: (8) Frailty syndrome in geriatric patient: Plan We were asked to see pt given her earlier vocalizations for wanting to "give up and ." After discussion with pt, it became evident she is suffering from isolation and loneliness. She has never been apart from family this long. I suggest engaging her in distraction therapies, daily attendant lodging facilities visits for much desired "non medical conversations," and to improve her PO intake, please provide her the foods she enjoys as outlined in the discussion above and noted on her whiteboard. I would ask her daily for 2 foods she would like to have that day to create variety and engagement in her nutritional well being. Palliative Medicine will sign off as there are no remaining acute IP Pall med needs for this pt. I remain available for re-engagement as needed. I have updated nursing and the primary team. Makenzie Sewell DNP Clinical Director, Palliative Medicine History of Present Illness Reason for Consultation: "Patient request" Attending Physician: Jackie Lozoya MD History of Present Illness Mrs. Lizarraga is an 81yo female admitted with resp distress, COVID-19 virus infection/unvaccinated/source of COVID exposure is her daughter in the context of know restrictive neuromuscular lung disease. She was requiring oxygen at rates above her baseline of 2lpm NC. She has been started on covid rx protocol with remdesivir and dexamethasone. Admitted 03/30/22 from home she shares with daughter. She is . 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 PMH includes neuromuscular restrictive lung disease, HLD, HFpEF, overactive bladder, psychogenic nonepileptic seizures, postpolio muscle weakness, Xwamele-Lwvfx-Zsomz disease, former smoker. Early this morning, pt called for her nurse and the following encounter was documented by RN: "Pt rang call carrasco, this RN went into room, pt was tearful and and emotional, when asked what she needed assistance with pt stated "give me a shot, I want this all to end now". The pt spoke about not wanting anymore treatment and wanting to be comfortable. This RN asked the pt to clarify what she was saying, pt then stated "Put me down like a dog I can't take this anymore". This RN asked the pt what she was referring to, pt stated "If i move just a little but i can't breathe, I can't stand this anymore, I just want to ". This RN assessed pt's vitals, O2 saturation 95% on 2L NC, this RN educated pt on option for pt to be suctioned by respiratory if she felt that would help clear her throat, pt refused stating "what is the point, I'm going to anyway". This RN asked the pt if she had any intentions of harming herself, the pt stated "I can't tell you I wont". Charge nurse notified and MD notified, new orders received for palliative care consult, psych consult, and 1:1 observation." Psych eval attempted earlier today, pt was not willing to engage. Upon entry to room, pt is found lying semi reclined in her bed, sitter at bedside, who shares pt has not been taking much PO/does not appear to like the food that has been offered. Allergies Allergy/AdvReac Type Severity Reaction Status Date / Time shellfish derived Allergy Severe LOBSTER: Verified 02/05/22 16:03 almost darifenacin Allergy Unknown Unverified 02/05/22 18:54 acetaminophen [From Tylenol] Allergy Rash Unverified 02/05/22 16:03 atorvastatin AdvReac Nausea Verified 02/05/22 16:03 Home Medications Medication Instructions Recorded Confirmed Type mirabegron 50 mg tablet,extended 50 mg PO PM 09/09/21 02/05/22 History release 24 hr (Myrbetriq) cholecalciferol (vitamin D3) 50 50 mcg PO QAM 10/19/21 02/05/22 History mcg (2,000 unit) tablet (Vitamin D3) aspirin 81 mg chewable tablet 81 mg PO QAM 12/09/21 02/05/22 History potassium chloride 10 mEq 10 meq PO 3XWK #30 tabs 02/11/22 Rx tablet,extended release(part/cryst) escitalopram oxalate 20 mg tablet 20 mg PO DAILY 03/30/22 03/30/22 History furosemide 20 mg tablet 20 mg PO DAILY 03/30/22 History Patient History Medical History (Updated 04/04/22 @ 09:23 by Makenzie Sewell, TERRY) Acute diastolic heart failure Acute heart failure with preserved ejection fraction (HFpEF) Breast cancer CMT (Hmdtsla-Nsqrk-Onadi disease) CVA (cerebral vascular accident) [place] (generalized anxiety disorder) History of chronic constipation HLD (hyperlipidemia) Hypokalemia Hypomagnesemia Left leg swelling Overactive bladder Post-polio muscle weakness Prolonged Q-T interval on ECG Psychogenic nonepileptic seizure Surgical History H/O lumpectomy History of cataract removal with insertion of prosthetic lens S/P appy S/P iesha S/P BENSON (total abdominal hysterectomy) Status post left foot surgery fusion 2/2 foot drop Family History Father Lung cancer Mother Stroke Aunt Breast cancer Social History Smoking Status: Never smoker Second Hand Exposure: No; Hx Alcohol Use: No Hx Substance Use: No Preferred Language: Central African Communication Ability: Effective Real Estate Intern Required: No Beliefs That Will Affect Care: None marital status: / Current Living Situation: Family Current Living Situation Comment: lives with daughter and daughter's Other Information That Helps Us Care for You: No Feels Safe at Home: Yes Safety Concerns: Feels Safe At This Time Assistive Devices: Bedside Commode, Hospital Bed, Lift Chair and Wheelchair Review of Systems Review of Systems: All systems reviewed & are unremarkable except as noted in HPI & below Physical Exam Physical Exam: Elderly female, lying in bed. No acute distress. Awakes to voice but slow to engage, does not answer or reply to all questions initially. Resp effort normal. Vocalization is soft but WAL. No stridor. No anterior chest wall or abd tenderness with palpation. Lungs diminished. No JVD. Abd soft. +generalized weakness. No gross edema. Results & Data ([facility]) Vital Signs (Past 12 Hours) Vital Signs Temp Pulse Pulse Resp BP Pulse Ox O2 Del Method 04/04/22 08:01 Nasal Cannula 04/04/22 07:26 36.6 C 85 20 119/75 100 High Flow Nasal Cannula 04/04/22 03:13 36.7 C 56 L 18 121/73 99 Nasal Cannula 04/03/22 22:08 80 04/03/22 23:10 36.9 C 59 L 20 113/63 98 Nasal Cannula 04/03/22 22:16 Nasal Cannula O2 Flow Rate 04/04/22 08:01 2 04/04/22 07:26 8 04/04/22 03:13 4 04/03/22 22:08 04/03/22 23:10 2 04/03/22 22:16 2 Laboratory Results Labs and imaging reviewed PG Care Time/CCT Total # of Minutes Spent Total Time Spent: 60 Total Time Spent with Patient: Total time spent is greater than 50% in coordination of care (as documented) at patient's floor/unit and/or counseling patient:40 I spent 65 minutes overall addressing this case: 10 in medical data review/discussion with referring provider(s) and/or preparation for the visit 40 in direct interaction with the patient (15 min of above 40) Advance Care Planning/Goals of Care discussions as detailed above in note (must be >16min) 5 in subsequent review and synthesis of assessment and plan 10 in communicating with other providers regarding the patient's case: nursing, primary [place] [address] Inpt Consult Level 5 Patient Type New History Comprehensive Exam Detailed Medical Decision Making High Complexity Diagnoses Palliative care encounter Z51.5 Counseling regarding advanced directives and goals of care Z71.89 Dyspnea and respiratory abnormalities R06.00; R06.89 Acute hypoxemic respiratory failure due to COVID-19 U07.1; J96.01 Restrictive lung mechanics due to neuromuscular disease J98.4; G70.9 Weakness R53.1 Post-polio muscle weakness M62.81; B91 Frailty syndrome in geriatric patient R54
[2022-04-04] MEDS: CHOLECALCIFEROL 1,000 UNITS 25 MCG TAB PO SCH (09:51)
[2022-04-04] MEDS: ENOXAPARIN INJ 40 MG/0.4 ML SYR SQ SCH (09:52)
[2022-04-04 11:12] LABS: Alanine Aminotransferase 70 U/L (7-52); Aspartate Aminotransferase 51 U/L (13-39); Blood Urea Nitrogen 17 mg/dl (6-23); Calcium 8.7 mg/dl (8.5-10.1); Chloride 96 mmol/L (98-107); Creatinine Clr Calc Pharmacy 143.5 ml/min; Est GFR (African American) 129.8 ml/min; Glucose 97 mg/dl (70-99(Fasting)); Potassium 4.3 mmol/L (3.5-5.1); Sodium 143 mmol/L (136-145)
[2022-04-04 11:13] LABS: Carbon Dioxide > 45 mmol/L (21-32)
--- NOTE | 2022-04-04 14:19 | Hospitalist Progress Note ---
Date of Service April 04, 2022 Assessment & Plan (1) COVID-19: Plan Dyspnea: COVID-19 infection: History of RLD on 2 L oxygen at home, had been requiring up to 4 L to maintain saturation at presentation. Noted to have COVID-19 virus infection, likely source being daughter. Patient is not vaccinated. Noted to be desaturating during transport and in the emergency room. CRP was not elevated and procalcitonin normal. Maintaining around 2 L nasal cannula oxygen today. with activity requiring more. Has elevated CO2 level, appears to be noncompliant with CPAP or BiPAP. Denies any shortness of breath at rest, hydroxyzine as needed for anxiety. PT/OT, likely DC with the recommendation. Continue with dexamethasone 03/30 and s/p remdesivir 03/30-04/03 concern of SI: in AM of 04/04, psychiatry consulted, psych liaison saw the p atient. Pt declining SI/HI. q15 min check, if need can use 1:1. Constipation: c/w MiraLAX daily. Continue with as needed milk of magnesia. Follow regularly for need of stool softener. Restrictive lung mechanics due to neuromuscular disease: Secondary to neuromuscular disease and Qamtnjl-Itrtc-Wcnpn disease Other chronic medical conditions: CAD/post polio muscle weakness -->> continue with/resume home meds as and when able DVT prophylaxis: Lovenox CODE STATUS: DNR/DNI Disposition: PT/OT, CM to assist with DC planning. Admission and Anticipated Discharge Date Admission Date: March 30, 2022 Subjective Patient seen and examined at bedside as a follow-up of COVID-19 virus infection. Patient was lying in bed, on 2 L nasal cannula oxygen, NAD, appears sleepy and lethargic, had anxiety in AM and expressed "self harm". Hence, psychiatry was consulted, but since she was not conversing much, psychiatry liaison saw the patient. To me patient declined SI/HI, denied any discomfort but was minimally conversive and ROS in detail was not possible. PT worked w/ her, oob. With activity she requires 4L NC O2. and at rest using 2L NC O2. Physical Exam Physical Exam: GENERAL: Drowsy, sleepy. NAD, on 2l NC O2. Appears weak/frail. HEENT: No pallor, no icterus. Pupils equal, round and reactive to light. Oral mucosa moist. NECK: No JVD, no neck masses. HEART: S1 and S2 heard. Regular rate and rhythm. No murmur, no gallop. RESPIRATORY SYSTEM: Normal AP diameter. No accessory muscle use. No wheezing, no crackles. ABDOMEN: Soft, bowel sounds present, nontender, no distention. CENTRAL NERVOUS SYSTEM: No facial droop. Speech is clear. Obeys simple commands. Moves extremities. EXTREMITIES: No edema, no erythema seen. Results & Data Results & Data ([facility]) Vital Signs (Past 12 Hours) Vital Signs Temp Pulse Pulse Resp BP Pulse Ox O2 Del Method 04/04/22 13:53 95 04/04/22 11:43 36.6 C 67 18 134/48 L 95 Nasal Cannula 04/04/22 06:19 70 04/04/22 10:06 97 04/04/22 09:54 99 Nasal Cannula 04/04/22 08:01 Nasal Cannula 04/04/22 07:26 36.6 C 85 20 119/75 100 High Flow Nasal Cannula 04/04/22 03:13 36.7 C 56 L 18 121/73 99 Nasal Cannula O2 Flow Rate 04/04/22 13:53 04/04/22 11:43 2 04/04/22 06:19 04/04/22 10:06 2 04/04/22 09:54 3 04/04/22 08:01 2 04/04/22 07:26 8 04/04/22 03:13 4
--- NOTE | 2022-04-04 15:42 | XRay Report ---
XR chest 1V portable CLINICAL HISTORY: f/u COMPARISON STUDY: Chest CT February 05, 2022. Chest radiograph March 30, 2022. FINDINGS: Small to moderate left and small right pleural effusions have slightly progressed. Bibasila r opacities have increased. There is mild pulmonary edema. No pneumothorax is present. Dextroscoliosi s of the thoracic spine is incidentally noted. Cardiomediastinal silhouette is stable. IMPRESSION: Progression of pulmonary edema with small to moderate left and small right pleural effus ions and associated bibasilar opacities, greater on the left. ACT 112: Negative or not required by law. Electronically signed by: Andrea Schwarz M.D. 04/04/2022 3:41 PM
[2022-04-04] MEDS: MIRABEGRON ER 25 MG TAB PO SCH (20:47)
[2022-04-05 07:50] LABS: Hematocrit (blood only) 40.3 % (34.1-44.9); Mean Corpuscular Hemoglobin 28.6 pg (25.0-34.0); Mean Corpuscular Hgb Conc 32.3 g/dL (32.0-36.0); Mean Corpuscular Volume 88.8 fL (80.0-100.0); Mean Platelet Volume 11.6 fL (9.4-12.3); Platelet Count 178 K/uL (130-400); RDW Coefficient of Variation 14.1 % (11.5-14.5); RDW Standard Deviation 45.3 fL (36.4-46.3); Red Blood Count 4.54 M/uL (3.93-5.22); White Blood Count 8.24 K/ul (4.8-10.8)
[2022-04-05 08:39] LABS: Calcium 8.5 mg/dl (8.5-10.1); Creatinine Clr Calc Pharmacy 168.5 ml/min; Est GFR (African American) 136.8 ml/min; Magnesium 2.2 mg/dl (1.7-2.4); Phosphorus 3.2 mg/dl (2.5-4.9); Potassium 3.9 mmol/L (3.5-5.1)
[2022-04-05] MEDS: ENOXAPARIN INJ 40 MG/0.4 ML SYR SQ SCH (09:18)
[2022-04-05] MEDS: dexAMETHasone 6 MG in SYRINGE 0 ML IV SCH (09:18)
[2022-04-05] MEDS: CHOLECALCIFEROL 1,000 UNITS 25 MCG TAB PO SCH (09:20)
[2022-04-05] MEDS: ESCITALOPRAM OXALATE 20 MG TAB PO SCH (09:20)
[2022-04-05] MEDS: POLYETHYLENE (MIRALAX) 17 GM PACK PO SCH (09:20)
[2022-04-05] MEDS: ASPIRIN 81 MG CHEW PO SCH (09:20)
[2022-04-05] MEDS: FUROSEMIDE 20 MG TAB PO SCH (09:21)
[2022-04-05] MEDS: MAGNESIUM HYDROXIDE SUSP 30 ML UDC PO PRN (09:31)
--- NOTE | 2022-04-05 15:19 | Hospitalist Progress Note ---
Date of Service April 05, 2022 Assessment & Plan (1) COVID-19: Plan Dyspnea: COVID-19 infection: History of RLD on 2 L oxygen at home, had been requiring up to 4 L to maintain saturation at presentation. Noted to have COVID-19 virus infection, likely source being daughter. Patient is not vaccinated. Noted to be desaturating during transport and in the emergency room. CRP was not elevated and procalcitonin normal. Maintaining around 2 L nasal cannula oxygen today. with activity requiring more. Has elevated CO2 level, appears to be noncompliant with CPAP or BiPAP. Pt encourage to wear CPAP/bpap. Denies any shortness of breath at rest, hydroxyzine as needed for anxiety. PT/OT, likely DC to rehab yo Continue with dexamethasone 03/30 and s/p remdesivir 03/30-04/03 concern of SI: in AM of 04/04, psychiatry consulted, psych liaison saw the patient. Pt declining SI/HI. Continue to monitor. Constipation: c/w MiraLAX daily. Continue with as needed milk of magnesia. Follow regularly for need of stool softener. Restrictive lung mechanics due to neuromuscular disease: Secondary to neuromuscular disease and Wtyeyid-Xzxjy-Jlpcj disease Other chronic medical conditions: CAD/post polio muscle weakness -->> continue with/resume home meds as and when able DVT prophylaxis: Lovenox CODE STATUS: DNR/DNI Disposition: PT/OT, CM to assist with DC planning. likely yo to [facility]. Admission and Anticipated Discharge Date Admission Date: March 30, 2022 Subjective Patient seen and examined at bedside as a follow-up of COVID-19 virus infection. Patient was lying in bed, on 2 L nasal cannula oxygen, NAD, alert and awake. No SI/HI. Denies discomfort of pain, denies headache/dizziness/chest pain/sore throat/belly pain and other ROS. Pt not sure when was last BM, but asked for bowel regimen. C/w bowel regimen. Physical Exam Physical Exam: GENERAL: Alert and awake. NAD, on 2l NC O2. Appears weak/frail. HEENT: No pallor, no icterus. Pupils equal, round and reactive to light. Oral mucosa moist. NECK: No JVD, no neck masses. HEART: S1 and S2 heard. Regular rate and rhythm. No murmur, no gallop. RESPIRATORY SYSTEM: Normal AP diameter. No accessory muscle use. No wheezing, no crackles. ABDOMEN: Soft, bowel sounds present, nontender, no distention. CENTRAL NERVOUS SYSTEM: No facial droop. Speech is clear. Obeys simple commands. Moves extremities. EXTREMITIES: No edema, no erythema seen. Results & Data Results & Data ([facility]) Vital Signs (Past 12 Hours) Vital Signs Temp Pulse Pulse Resp BP Pulse Ox O2 Del Method 04/05/22 14:26 36.8 C 67 20 105/69 98 Nasal Cannula 04/05/22 08:00 Nasal Cannula 04/05/22 07:15 37.0 C 61 20 117/72 99 Nasal Cannula 04/05/22 07:00 67 O2 Flow Rate 04/05/22 14:26 2 04/05/22 08:00 2 04/05/22 07:15 2 04/05/22 07:00
[2022-04-05] MEDS: MIRABEGRON ER 25 MG TAB PO SCH (20:57)
[2022-04-06] MEDS: POTASSIUM CHLORIDE 10 MEQ TABCR PO SCH (08:10)
[2022-04-06] MEDS: CHOLECALCIFEROL 1,000 UNITS 25 MCG TAB PO SCH (08:10)
[2022-04-06] MEDS: FUROSEMIDE 20 MG TAB PO SCH (08:10)
[2022-04-06] MEDS: ASPIRIN 81 MG CHEW PO SCH (08:10)
[2022-04-06] MEDS: ESCITALOPRAM OXALATE 20 MG TAB PO SCH (08:10)
[2022-04-06] MEDS: dexAMETHasone 6 MG in SYRINGE 0 ML IV SCH (08:10)
[2022-04-06] MEDS: POLYETHYLENE (MIRALAX) 17 GM PACK PO SCH (08:11)
[2022-04-06] MEDS: ENOXAPARIN INJ 40 MG/0.4 ML SYR SQ SCH (08:11)
--- NOTE | 2022-04-06 12:15 | Discharge Summary ---
Date of Service April 06, 2022 Admission HPI Per Admitting Provider DATE OF ADMISSION: 03/30/2022. CHIEF COMPLAINT: Shortness of breath. HISTORY OF PRESENT ILLNESS: This is an 81-year-old female with past medical history significant for hyperlipidemia, restrictive lung mechanics due to neuromuscular disease, chronic heart failure with preserved ejection fraction, history of overactive bladder, history of psychogenic nonepileptic seizures, history of postpolio muscle weakness, history of Jkpbihc-Byvsh-Siihu disease, the patient is mostly wheelchair bound; the patientneeds help to get into the wheelchair, history of generalized anxiety disorder, history of CVA, history of breast cancer, status post lumpectomy, chemo and radiation therapy, history of uterine cancer, status post hysterectomy, as per records, history of left iliopsoas hematoma, on chronic oxygen 2 liters at home, presents with shortness of breath. The patient is somewhat hard of hearing and has a hearing aid. seems felt short of breath around 1:00 a.m. this morning and had some cold and congestion symptoms. She says not able to clear her throat .For EMS, she required nonrebreather. Currently, she is saturating okay on nasal cannula. Has some mild headache. No blurred visions, no runny nose, no sore throat. No chest pain, no nausea, no abdominal pain. Normal bowel and bladder movements. Currently, resting comfortably and hemodynamically stable. ALLERGIES: SHELLFISH DERIVED, DARIFENACIN, TYLENOL, ATORVASTATIN. PAST MEDICAL HISTORY: As mentioned above. PAST SURGICAL HISTORY: Breast surgery and uterine surgery as per records. Also significant for cataract surgery, status post cholecystectomy, total abdominal hysterectomy, status post left foot surgery. MEDICATIONS: The patient is on aspirin 81 mg p.o. daily, vitamin D 50 mcg p.o. daily, Lexapro 20 mg p.o. daily, Lasix 20 mg p.o. daily, Myrbetriq 50 mg p.o. p.m., potassium chloride 20 mEq p.o. 3 times a week. FAMILY HISTORY: Significant for father had lung cancer, mother had stroke. Aunt had breast cancer. SOCIAL HISTORY: Former smoker, quit in 1959. Alcohol occasionally. No drug use. . Lives with her daughter. REVIEW OF SYSTEMS: As per HPI. Rest of the review of systems is negative. Admission Exam Per Admitting Provider GENERAL: The patient is thin and frail, not in acute distress. VITAL SIGNS: Temperature 37, pulse 81, respiratory rate 20, blood pressure 126/64, oxygen, currently 100% on 3 liters. HEENT: Pupils equal, round and reactive to light. Oral mucosa moist. NECK: No JVD, no neck masses. CARDIOVASCULAR: S1 and S2 heard. Regular rate and rhythm. No murmur, no gallop. RESPIRATORY SYSTEM: Normal AP diameter. No accessory muscle use. No wheezing, no crackles. ABDOMEN: Soft, bowel sounds present, nontender, no distention. CENTRAL NERVOUS SYSTEM: Alert and oriented. Speech is clear. No facial droop. Insight is okay. Obeys simple commands. Moves extremities. EXTREMITIES: No edema, no erythema seen. Small healing wound seen on the left tubbs. Principal Diagnosis COVID-19 infection Constipation Discharge Exam GENERAL: Alert and awake. NAD, on 2l NC O2. Appears weak/frail. HEENT: No pallor, no icterus. Pupils equal, round and reactive to light. Oral mucosa moist. NECK: No JVD, no neck masses. HEART: S1 and S2 heard. Regular rate and rhythm. No murmur, no gallop. RESPIRATORY SYSTEM: Normal AP diameter. No accessory muscle use. No wheezing, no crackles. ABDOMEN: Soft, bowel sounds present, nontender, no distention. CENTRAL NERVOUS SYSTEM: No facial droop. Speech is clear. Obeys simple commands. Moves extremities. EXTREMITIES: No edema, no erythema seen. Discharge Data Allergies Allergy/AdvReac Type Severity Reaction Status Date / Time shellfish derived Allergy Severe LOBSTER: Verified 02/05/22 16:03 almost darifenacin Allergy Unknown Unverified 02/05/22 18:54 acetaminophen [From Tylenol] Allergy Rash Unverified 02/05/22 16:03 atorvastatin AdvReac Nausea Verified 02/05/22 16:03 Consultations 03/30/22 04:32 ED Decision to Admit Stat 04/04/22 06:13 Consult Palliative Care Routine 04/04/22 12:20 Consult Behavioral Health Liaison Routine Hospital Course (1) COVID-19: Plan 81-year-old lady was managed for the following while in hospital: Dyspnea: COVID-19 infection: History of RLD on 2 L oxygen at home, had been requiring up to 4 L to maintain saturation at presentation. Noted to have COVID-19 virus infection, likely source being daughter. Patient is not vaccinated. Noted to be desaturating during transport and in the emergency room. CRP was not elevated and procalcitonin normal. Maintaining around 2 L nasal cannula oxygen today. with activity requiring more. Has elevated CO2 level, appears to be noncompliant with CPAP or BiPAP. Pt encouraged to wear CPAP/bpap. Denies any shortness of breath at rest, hydroxyzine as needed for anxiety. PT/OT, dc to rehab. Continue with dexamethasone 03/30 and s/p remdesivir 03/30-04/03. 2 more days of dexa upon dc. concern of SI: in AM of 04/04, psychiatry consulted, psych liaison saw the patient. Pt declining SI/HI. Continue to monitor. Constipation: c/w MiraLAX daily. Continue with as needed milk of magnesia. Follow regularly for need of stool softener. Restrictive lung mechanics due to neuromuscular disease: Secondary to neuromu scular disease and Fzfpfvb-Mcslc-Jrfdw disease Other chronic medical conditions: CAD/post polio muscle weakness -->> continue with/resume home meds as and when able DVT prophylaxis: Lovenox CODE STATUS: DNR/DNI Patient being discharged to [facility] with following instructions at the point of discharge: Follow-up with your primary care physician within 1 week time and likely will need blood test CBC/CMP. For your constipation, you can use dyiv-ken-mvsoqlt laxatives or stool softener as needed. You were diagnosed with COVID with on 03/30/2022, maintain mask when around people for next few days. Take your medications as prescribed. Home Health Attestation I certify that this patient is under my care and that I, or a physicians property assistant working with me, had a face to-face encounter that meets the home health ooyz-dz-szpr encounter requirements with this patient. The encounter with the patient was in whole, or in part, for the following medical condition, which is the primary reason for home health care (list medical condition): Covid-19 I certify that, based on my findings, the following services are medically necessary home health services: My clinical findings support the need for the above services because: PT Assessment for Endurance / Balance / Strength PT Eval for Safety and Mobility PT Eval for Safety, Gait Training, Assistive Devices PT Gait and Balance Training, Strengthening and Safety Skilled Nsg Assessment Skilled Nsg Assess Pt Illness, Disease and Sx Monitoring Further, I certify that my clinical findings support that this patient is homebound (i.e. absences from home require considerable and taxing effort and are for medical reasons or mu-ism services or infrequently or of short duration when for other reasons) because: Transportation Assistance/Unable to Leave Home Unassisted Certification for Home Health Services: Based on the above findings, I certify that this patient is confined to the home and needs intermittent group home care, physical therapy and/or speech therapy or continues to need occupational therapy. The patient is under my care, and I have initiated the establishment of the plan of care. This patient will be followed by a physician who will periodically review the plan of care. Total Time Total Time Spent Total Time Spent (In Minutes): 35 Discharge Plan Discharge Items Patient Disposition: Transfer Inpatient Rehab Fac Reason For Visit: SOB Discharge Diagnosis: COVID-19 infection Constipation Activity: Resume your previous activity Non-emergency contact: Primary Care Provider Call non-emergency contact if: you have any medication questions, your symptoms worsen and your temperature is above 101.5 Follow-up/Referrals: Adelfo Coburn MD [Primary Care Provider] - Diet: Heart Healthy Diet Texture: Easy to Chew Addtl Attending Provider Instructions: Follow-up with your primary care physician within 1 week time and likely will need blood test CBC/CMP. For your constipation, you can use uemz-bhe-yrfijen laxatives or stool softener as needed. You were diagnosed with COVID with on 03/30/2022, maintain mask when around people for next few days. Take your medications as prescribed. Pending Studies at Discharge: No Stand-Alone Forms: My [facility] Skilled Items Patient informed of condition?: No DNR: Yes Discharge Level of Care: Acute rehab Communicable Disease: No Discharge Prognosis: Stable Lines: None Urinary Catheter: No Medications and DC Order Prescriptions: New dexamethasone 6 mg tablet 6 mg PO DAILY 2 Days Qty: 2 0RF docusate sodium [Colace] 100 mg capsule 100 mg PO BID Qty: 20 0RF polyethylene glycol 3350 [Miralax] 17 gram powder in packet 17 g PO DAILY PRN (Reason: constipation) Qty: 14 0RF Continued Myrbetriq 50 mg tablet extended release 24 hr 50 mg PO PM cholecalciferol (vitamin D3) [Vitamin D3] 50 mcg (2,000 unit) Tablet 50 mcg PO QAM aspirin 81 mg Tablet,Chewable 81 mg PO QAM potassium chloride 10 mEq Tablet,Er Particles/Crystals 10 meq PO 3XWK Qty: 30 0RF Rx Instructions: Sat/Sat/Saturday escitalopram oxalate 20 mg tablet 20 mg PO DAILY furosemide 20 mg tablet 20 mg PO DAILY Discharge Orders: Discharge Order (Routine); Ordered 04/06/22 Ordered By: Jackie Lozoya Admission Data Admit Date/Time: 03/30/22 05:35 Attending Provider: Jackie Lozoya Admit Provider: Andrea Mckee Primary Care Provider: Adelfo Coburn Other Providers: Andrea Mckee ; Delmy Ignacio ; [facility]
== END 2022-04-06 15:16 | DRG 177 ==
LOC: ED 02:49 → 2W 05:35 → SUATTDRO 05:35 → 2W 08:46

== ENCOUNTER 2022-04-07 16:29 | Inpatient (IN) ==
--- NOTE | 2022-04-07 16:43 | Emergency Department Note ---
Impression & Plan COVID-19, Chronic respiratory failure, Hematuria due to acute cystitis ED Provider Note Provider: Giancarlo Hodge MD DATE OF SERVICE: 04/07/2022 CHIEF COMPLAINT: Shortness of breath HISTORY OF PRESENT ILLNESS: Patient is a 81-year-old female history of restrictive lung disease, postpolio muscle weakness, PNES, overactive bladder, CHF CVA, breast cancer, chronic 2 L of oxygen, and recent admission here for COVID presenting from [facility] today for worsening breathing status. Patient just arrived there yesterday. According to the EMS reports and records from the facility the patient was taken this afternoon to the bathroom and had some hematuria. They noted she became much more short of breath with this toileting and had to increase her oxygen. Was tachypneic into the 30s by their report. Given lack of improvement with this center here for further evaluation. Patient had arrival states some diffuse pain. She reports that she has not had nausea vomiting or diarrhea. She states she feels a little bit short of breath. Patient states she does feel somewhat cold. For EMS initially the patient on 6 L of nasal cannula oxygen. She was satting 100% upon arrival. REVIEW OF SYSTEMS: A total of 10 review of systems was obtained and negative except as stated above in the HPI. PAST MEDICAL HISTORY: As noted above MEDICATIONS: reviewed medication list in the facility which currently includes dexamethasone SOCIAL HISTORY: Very distant former smoker PHYSICAL EXAM: GENERAL: alert and oriented in no acute distress on stretcher but fatigued appearing. Head: normocephalic and atraumatic EYES: No injection, discharge or icterus. NECK: Trachea midline. Supple. ENT: Mucous membranes pink and moist. LUNGS: Airway patent. No retractions. Shallow respirations with diminished breath sounds. HEART: Regular rate and rhythm. No chest wall tenderness ABDOMEN: Soft and non-tender, without guarding or rebound. SKIN: Acyanotic, warm, dry, without rashes EXTREMITIES: Without swelling or tenderness with some healing scabs on the left tubbs that do not appear erythematous. NEUROLOGICAL: Contractures of the upper extremities but moves them to. No obvious facial droop. A bit hard of hearing but interactive. EK bpm sinus bradycardia. Left axis. No PVC or PAC. No acute ST segment elevation or depression with QTC of 463. CONTINUOUS CARDIAC MONITORING: was ordered and showed a heart rate of 50s-60s bpm in sinus bradycardia to normal sinus rhythm Patient's laboratory studies and imaging reviewed. Differential includes Reactive airway disease, pneumonia, pneumothorax, COPD, CHF, infections, cardiac ischemia, pulmonary embolism, musculoskeletal, gastr ointestinal, as well as other pathologies. IMPRESSION/MEDICAL DECISION MAKING: Reviewed available note from episode today at the facility as well as recent discharge summary from here. Patient with chronic oxygen and breathing issues discharged to [facility] for rehab after coming down with COVID. Patient has been there about 24 hours with worsening respiratory status. Oxygen increased and satting well and more comfortable upon arrival. She appears very fatigued. No evidence of significant swelling On clinical exam have lower suspicion for fluid overload. Chest x-ray questions a moderate right and trace left pleural effusion with a right airspace opacity atelectasis versus pneumonia/aspiration. Blood work without significant anemia or leukocytosis. Troponin mildly elevated but less than previous values. Again COVID-positive 8 days ago so will not retest today. Patient saturating stably at 4 L but again just resting. Do not believe she is in any condition to do significant rehab normally done at [facility]. VBG mild CO2 elevation but somewhat basic with a pH of 7.47. Do not believe this is causing an encephalopathy. Patient calmer and seems to be more alert on reevaluation. States she is minimally able to do some PT earlier today. Urinalysis returns with some h ematuria but also 2+ leuk esterase and some white blood cells. There are epithelials. Could be contaminated. Given this finding however will give a dose ceftriaxone pending culture. Not having severe flank pain and low suspicion for kidney stone at this point. Patient requested some ibuprofen was given this for some general aches and pains and mild headache. Again no trauma history or focal neurological deficit noted at this time. Discussed with the hospitalist after the patient for further observation here. DIAGNOSIS: COVID-19, hematuria/UTI, chronic respiratory failure DISPOSITION: Hospitalist will evaluate Patient was agreeable with this plan. Past Med/Surg History Medical History (Updated 04/07/22 @ 22:32 by Giancarlo Hodge M.D.) Acute diastolic heart failure Acute heart failure with preserved ejection fraction (HFpEF) Breast cancer CMT (Znjgwff-Efkdg-Jhcuz disease) CVA (cerebral vascular accident) [place] (generalized anxiety disorder) History of chronic constipation HLD (hyperlipidemia) Hypokalemia Hypomagnesemia Left leg swelling Overactive bladder Post-polio muscle weakness Prolonged Q-T interval on ECG Psychogenic nonepileptic seizure Surgical History H/O lumpectomy History of cataract removal with insertion of prosthetic lens S/P appy S/P iesha S/P BENSON (total abdominal hysterectomy) Status post left foot surgery fusion 2/2 foot drop Family History Father Lung cancer Mother Stroke Aunt Breast cancer Social History Smoking Status: Never smoker Second Hand Exposure: No; Hx Alcohol Use: No Hx Substance Use: No Preferred Language: Slovak Communication Ability: Effective Manager Of Data Required: No Beliefs That Will Affect Care: Orthodox marital status: / Current Living Situation: Family Current Living Situation Comment: lives with daughter and daughter's Feels Safe at Home: Yes Assistive Devices: Bedside Commode, Hospital Bed, Lift Chair and Wheelchair Allergies Allergies Allergy/AdvReac Type Severity Reaction Status Date / Time shellfish derived Allergy Severe LOBSTER: Verified 04/07/22 19:27 almost darifenacin Allergy Unknown Unknown Unverified 04/07/22 19:27 acetaminophen [From Tylenol] Allergy Rash Unverified 04/07/22 19:27 iodine Allergy Unknown Unverified 04/07/22 19:27 prednisone Allergy Unknown Unverified 04/07/22 19:27 atorvastatin AdvReac Nausea Verified 04/07/22 19:27 Home Meds Home Medications Medication Instructions Recorded Confirmed mirabegron 50 mg tablet,extended 50 mg PO PM 09/09/21 04/07/22 release 24 hr (Myrbetriq) cholecalciferol (vitamin D3) 50 50 mcg PO QAM 10/19/21 04/07/22 mcg (2,000 unit) tablet (Vitamin D3) aspirin 81 mg chewable tablet 81 mg PO QAM 12/09/21 04/07/22 escitalopram oxalate 20 mg tablet 20 mg PO DAILY 03/30/22 04/07/22 furosemide 20 mg tablet 20 mg PO DAILY 03/30/22 04/07/22 bisacodyl 10 mg rectal suppository 10 mg RI DAILY PRN Constipation 04/07/22 04/07/22 enoxaparin 40 mg/0.4 mL 40 mg subcut DAILY 04/07/22 04/07/22 subcutaneous syringe ibuprofen 200 mg tablet 600 mg PO Q8H PRN Pain 04/07/22 04/07/22 ondansetron 4 mg disintegrating 4 mg PO Q4H PRN Nausea 04/07/22 04/07/22 tablet polyethylene glycol 3350 17 17 g PO .DAILY@LUNCH PRN 04/07/22 04/07/22 gram/dose oral powder Constipation sennosides 8.6 mg-docusate sodium 1 tab-cap PO .DAILY@LUNCH PRN 04/07/22 04/07/22 50 mg tablet (Senokot-S) Constipation Previous Rx's Medication Instructions Recorded potassium chloride 10 mEq 10 meq PO 3XWK #30 tabs 02/11/22 tablet,extended release(part/cryst) dexamethasone 6 mg tablet 6 mg PO DAILY 2 days #2 tabs 04/06/22 docusate sodium 100 mg capsule 100 mg PO BID #20 caps 04/06/22 (Colace) Results & Data (ED) Vital Signs Vital Signs - 24 hr 04/07/22 17:39 04/07/22 17:43 04/07/22 16:39 Temperature 37.1 C Temperature Source Oral Pulse Rate 60 59 L Pulse Rate from SpO2 Sensor Pulse Rhythm Regular Pulse Strength Normal Respiratory Rate 25 H 28 H Respiratory Effort / Characteristics Non-Labored Spontaneous Non-Labored Spontaneous Respiratory Depth Normal Normal Respiratory Pattern Regular Regular Blood Pressure 113/69 Blood Pressure Mean 83 Blood Pressure Position Lying Pulse Oximetry 100 Oxygen Delivery Method Nasal Cannula Nasal Cannula Oxygen Flow Rate 2 4 Sepsis Recent Fever Within 48 Hours No Sepsis New/Unexplained Change in Mental Status N/A Sepsis Action Taken by Nursing No Action Required 04/07/22 16:41 04/07/22 16:50 04/07/22 17:00 Temperature Temperature Source Pulse Rate 127 H 58 L Pulse Rate from SpO2 Sensor 58 L Pulse Rhythm Pulse Strength Respiratory Rate 14 31 H Respiratory Effort / Characteristics Respiratory Depth Respiratory Pattern Blood Pressure 113/63 Blood Pressure Mean 79 Blood Pressure Position Pulse Oximetry 100 Oxygen Delivery Method Oxygen Flow Rate Sepsis Recent Fever Within 48 Hours Sepsis New/Unexplained Change in Mental Status Sepsis Action Taken by Nursing 04/07/22 17:00 04/07/22 17:10 04/07/22 17:20 Temperature Temperature Source Pulse Rate 72 60 55 L Pulse Rate from SpO2 Sensor 59 L 59 L 56 L Pulse Rhythm Pulse Strength Respiratory Rate 20 25 H 22 Respiratory Effort / Characteristics Respiratory Depth Respiratory Pattern Blood Pressure Blood Pressure Mean Blood Pressure Position Pulse Oximetry 97 97 98 Oxygen Delivery Method Oxygen Flow Rate Sepsis Recent Fever Within 48 Hours Sepsis New/Unexplained Change in Mental Status Sepsis Action Taken by Nursing 04/07/22 17:30 04/07/22 17:30 04/07/22 17:40 Temperature Temperature Source Pulse Rate 56 L 67 Pulse Rate from SpO2 Sensor 56 L 64 Pulse Rhythm Pulse Strength Respiratory Rate 28 H 29 H Respiratory Effort / Characteristics Respiratory Depth Respiratory Pattern Blood Pressure 117/67 Blood Pressure Mean 83 Blood Pressure Position Pulse Oximetry 98 97 Oxygen Delivery Method Oxygen Flow Rate Sepsis Recent Fever Within 48 Hours Sepsis New/Unexplained Change in Mental Status Sepsis Action Taken by Nursing 04/07/22 17:50 04/07/22 18:00 04/07/22 18:01 Temperature Temperature Source Pulse Rate Pulse Rate from SpO2 Sensor 56 L 55 L Pulse Rhythm Pulse Strength Respiratory Rate 22 20 Respiratory Effort / Characteristics Respiratory Depth Respiratory Pattern Blood Pressure 116/64 Blood Pressure Mean 81 Blood Pressure Position Pulse Oximetry 97 98 Oxygen Delivery Method Oxygen Flow Rate Sepsis Recent Fever Within 48 Hours Sepsis New/Unexplained Change in Mental Status Sepsis Action Taken by Nursing 04/07/22 18:01 04/07/22 18:10 04/07/22 19:00 Temperature Temperature Source Pulse Rate 55 L Pulse Rate from SpO2 Sensor 55 L 56 L Pulse Rhythm Pulse Strength Respiratory Rate 24 21 Respiratory Effort / Characteristics Respiratory Depth Respiratory Pattern Blood Pressure Blood Pressure Mean Blood Pressure Position Pulse Oximetry 98 98 98 Oxygen Delivery Method Nasal Cannula Oxygen Flow Rate 2 Sepsis Recent Fever Within 48 Hours Sepsis New/Unexplained Change in Mental Status Sepsis Action Taken by Nursing 04/07/22 18:30 04/07/22 19:00 04/07/22 19:30 Temperature Temperature Source Pulse Rate 54 L 59 L 66 Pulse Rate from SpO2 Sensor 54 L 57 L 56 L Pulse Rhythm Pulse Strength Respiratory Rate 26 H 24 24 Respiratory Effort / Characteristics Respiratory Depth Respiratory Pattern Blood Pressure 102/60 110/57 L 94/56 L Blood Pressure Mean 74 74 68 Blood Pressure Position Pulse Oximetry 98 98 99 Oxygen Delivery Method Oxygen Flow Rate Sepsis Recent Fever Within 48 Hours Sepsis New/Unexplained Change in Mental Status Sepsis Action Taken by Nursing 04/07/22 20:00 Temperature Temperature Source Pulse Rate 60 Pulse Rate from SpO2 Sensor 58 L Pulse Rhythm Pulse Strength Respiratory Rate 21 Respiratory Effort / Characteristics Respiratory Depth Respiratory Pattern Blood Pressure 118/62 Blood Pressure Mean 80 Blood Pressure Position Pulse Oximetry 99 Oxygen Delivery Method Oxygen Flow Rate Sepsis Recent Fever Within 48 Hours Sepsis New/Unexplained Change in Mental Status Sepsis Action Taken by Nursing Laboratory Data Result diagrams: 04/07/22 17:00 04/07/22 17:00 Lab Results 04/07/22 04/07/22 04/07/22 Range/Units 17:00 17:00 17:00 WBC 10.26 (4.8-10.8) K/ul RBC 4.90 (3.93-5.22) M/uL Hgb 14.0 (12.0-16.0) g/dl Hct 42.4 (34.1-44.9) % MCV 86.5 (80.0-100.0) fL MCH 28.6 (25.0-34.0) pg MCHC 33.0 (32.0-36.0) g/dL RDW Std Deviation 44.6 (36.4-46.3) fL RDW Coeff of Clayton 14.1 (11.5-14.5) % Plt Count 213 (130-400) K/uL MPV 11.3 (9.4-12.3) fL Immature Gran % (Auto) 0.3 % Neut % (Auto) 91.4 % Lymph % (Auto) 5.8 % Chambers % (Auto) 2.5 % Eos % (Auto) 0.0 % Baso % (Auto) 0.0 % Neut # (Auto) 9.37 H (1.4-6.5) K/uL Lymph # (Auto) 0.60 L (1.2-3.4) K/uL Chambers # (Auto) 0.26 (0.24-0.82) K/uL Eos # (Auto) 0.00 (0-0.50) K/uL Baso # (Auto) 0.00 (0-0.2) K/uL Immature Gran # (Auto) 0.03 H (0.00-0.02) K/uL PT 11.2 (9.0-12.0) Seconds INR 1.1 (0.9-1.1) APTT (21.0-31.0) Seconds PTT Ratio VBG pH (7.36-7.41) VBG pCO2 (38-50) mmHg VBG pO2 mmHg VBG HCO3 mmol/L VBG O2 Saturation % VBG Base Excess mEq/L Sodium 138 (136-145) mmol/L Potassium 4.3 (3.5-5.1) mmol/L Chloride 95 L (98-107) mmol/L Carbon Dioxide 40 H (21-32) mmol/L Anion Gap 3 (3-11) BUN 29 H (6-23) mg/dl Creatinine 0.30 L (0.6-1.2) mg/dl Est Cr Clr Drug Dosing Not Reportable Est GFR ( Amer) 125.3 ml/min Est GFR (Non-Af Amer) 108.1 ml/min BUN/Creatinine Ratio 96.7 H (10-20) Glucose 153 H (70-99(Fasting)) mg/dl Calcium 9.0 (8.5-10.1) mg/dl Magnesium 2.2 (1.7-2.4) mg/dl Total Bilirubin 0.5 (0.2-1.0) mg/dl AST 22 (13-39) U/L ALT 39 (7-52) U/L Alkaline Phosphatase 63 (34-104) U/L Troponin I High Sens 54.2 H* (0-14) pg/ml B-Natriuretic Peptide (0-100) pg/ml Total Protein 5.6 L (6.0-8.3) gm/dl Albumin 3.2 L (3.4-5.0) gm/dl Globulin 2.4 L (2.5-4.0) gm/dl Albumin/Globulin Ratio 1.3 (0.9-2) TSH (0.300-4.500) uIu/ml Urine Color Urine Appearance (Clear) Urine pH (4.5-7.5) Ur Specific [place] (1.000-1.030) Urine Protein (Negative) Urine Glucose (UA) (Negative) Urine Ketones (Negative) Urine Blood (Negative) Urine Nitrite (Negative) Urine Bilirubin (Negative) Urine Urobilinogen (Negative) Ur Leukocyte Esterase (Negative) Urine WBC (Auto) (0-5) /hpf Urine RBC (Auto) (0-4) /hpf U Hyaline Cast (Auto) (0-5) /lpf U Epithel Cells (Auto) (0-5) /lpf Urine Bacteria (Auto) (Negative) Urine Yeast 04/07/22 04/07/22 04/07/22 Range/Units 17:00 17:00 18:08 WBC (4.8-10.8) K/ul RBC (3.93-5.22) M/uL Hgb (12.0-16.0) g/dl Hct (34.1-44.9) % MCV (80.0-100.0) fL MCH (25.0-34.0) pg MCHC (32.0-36.0) g/dL RDW Std Deviation (36.4-46.3) fL RDW Coeff of Clayton (11.5-14.5) % Plt Count (130-400) K/uL MPV (9.4-12.3) fL Immature Gran % (Auto) % Neut % (Auto) % Lymph % (Auto) % Chambers % (Auto) % Eos % (Auto) % Baso % (Auto) % Neut # (Auto) (1.4-6.5) K/uL Lymph # (Auto) (1.2-3.4) K/uL Chambers # (Auto) (0.24-0.82) K/uL Eos # (Auto) (0-0.50) K/uL Baso # (Auto) (0-0.2) K/uL Immature Gran # (Auto) (0.00-0.02) K/uL PT (9.0-12.0) Seconds INR (0.9-1.1) APTT 28.5 (21.0-31.0) Seconds PTT Ratio 1.0 VBG pH 7.47 H (7.36-7.41) VBG pCO2 65 H (38-50) mmHg VBG pO2 55 mmHg VBG HCO3 47 mmol/L VBG O2 Saturation 89.1 % VBG Base Excess 19.8 mEq/L Sodium (136-145) mmol/L Potassium (3.5-5.1) mmol/L Chloride (98-107) mmol/L Carbon Dioxide (21-32) mmol/L Anion Gap (3-11) BUN (6-23) mg/dl Creatinine (0.6-1.2) mg/dl Est Cr Clr Drug Dosing Est GFR ( Amer) ml/min Est GFR (Non-Af Amer) ml/min BUN/Creatinine Ratio (10-20) Glucose (70-99(Fasting)) mg/dl Calcium (8.5-10.1) mg/dl Magnesium (1.7-2.4) mg/dl Total Bilirubin (0.2-1.0) mg/dl AST (13-39) U/L ALT (7-52) U/L Alkaline Phosphatase (34-104) U/L Troponin I High Sens (0-14) pg/ml B-Natriuretic Peptide (0-100) pg/ml Total Protein (6.0-8.3) gm/dl Albumin (3.4-5.0) gm/dl Globulin (2.5-4.0) gm/dl Albumin/Globulin Ratio (0.9-2) TSH 0.467 (0.300-4.500) uIu/ml Urine Color Urine Appearance (Clear) Urine pH (4.5-7.5) Ur Specific [place] (1.000-1.030) Urine Protein (Negative) Urine Glucose (UA) (Negative) Urine Ketones (Negative) Urine Blood (Negative) Urine Nitrite (Negative) Urine Bilirubin (Negative) Urine Urobilinogen (Negative) Ur Leukocyte Esterase (Negative) Urine WBC (Auto) (0-5) /hpf Urine RBC (Auto) (0-4) /hpf U Hyaline Cast (Auto) (0-5) /lpf U Epithel Cells (Auto) (0-5) /lpf Urine Bacteria (Auto) (Negative) Urine Yeast 04/07/22 04/07/22 04/07/22 Range/Units 18:12 20:35 20:35 WBC (4.8-10.8) K/ul RBC (3.93-5.22) M/uL Hgb (12.0-16.0) g/dl Hct (34.1-44.9) % MCV (80.0-100.0) fL MCH (25.0-34.0) pg MCHC (32.0-36.0) g/dL RDW Std Deviation (36.4-46.3) fL RDW Coeff of [place] (11.5-14.5) % Plt Count (130-400) K/uL MPV (9.4-12.3) fL Immature Gran % (Auto) % Neut % (Auto) % Lymph % (Auto) % Chambers % (Auto) % Eos % (Auto) % Baso % (Auto) % Neut # (Auto) (1.4-6.5) K/uL Lymph # (Auto) (1.2-3.4) K/uL Chambers # (Auto) (0.24-0.82) K/uL Eos # (Auto) (0-0.50) K/uL Baso # (Auto) (0-0.2) K/uL Immature Gran # (Auto) (0.00-0.02) K/uL PT (9.0-12.0) Seconds INR (0.9-1.1) APTT (21.0-31.0) Seconds PTT Ratio VBG pH (7.36-7.41) VBG pCO2 (38-50) mmHg VBG pO2 mmHg VBG HCO3 mmol/L VBG O2 Saturation % VBG Base Excess mEq/L Sodium (136-145) mmol/L Potassium (3.5-5.1) mmol/L Chloride (98-107) mmol/L Carbon Dioxide (21-32) mmol/L Anion Gap (3-11) BUN (6-23) mg/dl Creatinine (0.6-1.2) mg/dl Est Cr Clr Drug Dosing Est GFR ( Amer) ml/min Est GFR (Non-Af Amer) ml/min BUN/Creatinine Ratio (10-20) Glucose (70-99(Fasting)) mg/dl Calcium (8.5-10.1) mg/dl Magnesium (1.7-2.4) mg/dl Total Bilirubin (0.2-1.0) mg/dl AST (13-39) U/L ALT (7-52) U/L Alkaline Phosphatase (34-104) U/L Troponin I High Sens 54.3 H* (0-14) pg/ml B-Natriuretic Peptide 52 (0-100) pg/ml Total Protein (6.0-8.3) gm/dl Albumin (3.4-5.0) gm/dl Globulin (2.5-4.0) gm/dl Albumin/Globulin Ratio (0.9-2) TSH (0.300-4.500) uIu/ml Urine Color Red Urine Appearance Cloudy A (Clear) Urine pH 6.5 (4.5-7.5) Ur Specific [place] 1.018 (1.000-1.030) Urine Protein Trace H (Negative) Urine Glucose (UA) Negative (Negative) Urine Ketones Negative (Negative) Urine Blood 3+ H (Negative) Urine Nitrite Negative (Negative) Urine Bilirubin Negative (Negative) Urine Urobilinogen Negative (Negative) Ur Leukocyte Esterase 2+ H (Negative) Urine WBC (Auto) 10-30 H (0-5) /hpf Urine RBC (Auto) >30 H (0-4) /hpf U Hyaline Cast (Auto) 1-5 (0-5) /lpf U Epithel Cells (Auto) >30 H (0-5) /lpf Urine Bacteria (Auto) Negative (Negative) Urine Yeast Not Reportable Administered Medications Discontinued Medications Ceftriaxone Sodium (Rocephin) 1,000 mg in 50 mls @ 100 mls/hr IV NOW STA Stop: 04/07/22 20:08 Last Infusion: 04/07/22 20:50 Dose: 0 mls/hr Documented By: Admin: 04/07/22 20:15 Dose: 100 mls/hr Documented By: Imaging Data Radiologist's Impression: Chest X-Ray 04/07/22 16:37 XR chest 1V portable CLINICAL HISTORY: SOB, COVID TECHNIQUE: Single frontal radiograph of the chest was obtained. Comparison: Comparison is made to chest radiograph 04/04/2022 FINDINGS: No lines and tubes are seen. Calcified aortic knob is seen. Right airspace opacity is noted. There is a moderate right and trace left pleural effusion. IMPRESSION: Moderate right and trace left pleural effusions. Right airspace opacity likely reflects atelectasis with or without superimposed aspiration and/or pneumonia. ACT 112: Negative or not required by law. Electronically signed by: Guillermo Casiano M.D. 04/07/2022 5:23 PM Discharge Plan Visit Data Chief Complaint: Shortness of Breath/Dyspnea ED Provider: Giancarlo Hodge Discharge Problem: COVID-19, Chronic respiratory failure, Hematuria due to acute cystitis Patient Disposition: Being Evaluated by Hospitalist Forms Stand Alone Forms: My [facility] Prescriptions Prescriptions: No Action Myrbetriq 50 mg tablet extended release 24 hr 50 mg PO PM cholecalciferol (vitamin D3) [Vitamin D3] 50 mcg (2,000 unit) Tablet 50 mcg PO QAM aspirin 81 mg Tablet,Chewable 81 mg PO QAM potassium chloride 10 mEq Tablet,Er Particles/Crystals 10 meq PO 3XWK Qty: 30 0RF Rx Instructions: Sat/Sat/Saturday escitalopram oxalate 20 mg tablet 20 mg PO DAILY furosemide 20 mg tablet 20 mg PO DAILY dexamethasone 6 mg tablet 6 mg PO DAILY 2 Days Qty: 2 0RF Rx Instructions: Begin 04/07/22, end 04/09/22. docusate sodium [Colace] 100 mg capsule 100 mg PO BID Qty: 20 0RF enoxaparin 40 mg/0.4 mL Syringe 40 mg SUBCUT DAILY bisacodyl 10 mg Suppository 10 mg RI DAILY PRN (Reason: Constipation) sennosides-docusate sodium [Senokot-S] 8.6-50 mg Tablet 1 tab-cap PO .DAILY@LUNCH PRN (Reason: Constipation) polyethylene glycol 3350 17 gram/dose Powder 17 g PO .DAILY@LUNCH PRN (Reason: Constipation) ibuprofen 200 mg Tablet 600 mg PO Q8H PRN (Reason: Pain) ondansetron 4 mg Tablet,Disintegrating 4 mg PO Q4H PRN (Reason: Nausea) Referrals Referrals: Adelfo Coburn MD [Primary Care Provider] -
[2022-04-07 17:16] LABS: Hematocrit (blood only) 42.4 % (34.1-44.9); Mean Corpuscular Hemoglobin 28.6 pg (25.0-34.0); Mean Corpuscular Volume 86.5 fL (80.0-100.0); Mean Platelet Volume 11.3 fL (9.4-12.3); Platelet Count 213 K/uL (130-400); RDW Coefficient of Variation 14.1 % (11.5-14.5); RDW Standard Deviation 44.6 fL (36.4-46.3); White Blood Count 10.26 K/ul (4.8-10.8)
--- NOTE | 2022-04-07 17:24 | XRay Report ---
XR chest 1V portable CLINICAL HISTORY: SOB, COVID TECHNIQUE: Single frontal radiograph of the chest was obtained. Comparison: Comparison is made to chest radiograph 04/04/2022 FINDINGS: No lines and tubes are seen. Calcified aortic knob is seen. Right airspace opacity is noted. There is a moderate right and trace left pleural effusion. IMPRESSION: Moderate right and trace left pleural effusions. Right airspace opacity likely reflects atelectasis w ith or without superimposed aspiration and/or pneumonia. ACT 112: Negative or not required by law. Electronically signed by: Guillermo Casiano M.D. 04/07/2022 5:23 PM
[2022-04-07 17:26] LABS: INR 1.1 (0.9-1.1); Prothrombin Time 11.2 Seconds (9.0-12.0)
[2022-04-07 17:36] LABS: Immature Granulocytes # (auto) 0.03 K/uL (0.00-0.02); Immature Granulocytes % (auto) 0.3 %; Lymphocytes % (auto) 5.8 %; Monocytes # (auto) 0.26 K/uL (0.24-0.82); Monocytes % (auto) 2.5 %; Neutrophils # (auto) 9.37 K/uL (1.4-6.5); Neutrophils % (auto) 91.4 %
[2022-04-07 17:37] LABS: Alanine Aminotransferase 39 U/L (7-52); Albumin Globulin Ratio 1.3 (0.9-2); Albumin Level 3.2 gm/dl (3.4-5.0); Alkaline Phosphatase 63 U/L (34-104); Anion Gap 3 (3-11); Aspartate Aminotransferase 22 U/L (13-39); BUN Creatinine Ratio 96.7 (10-20); Bilirubin,Total 0.5 mg/dl (0.2-1.0); Blood Urea Nitrogen 29 mg/dl (6-23); Carbon Dioxide 40 mmol/L (21-32); Chloride 95 mmol/L (98-107); Est GFR (African American) 125.3 ml/min; Est GFR (Non-African American) 108.1 ml/min; Globulin 2.4 gm/dl (2.5-4.0); Glucose 153 mg/dl (70-99(Fasting)); Magnesium 2.2 mg/dl (1.7-2.4); Potassium 4.3 mmol/L (3.5-5.1); Sodium 138 mmol/L (136-145); Total Protein 5.6 gm/dl (6.0-8.3)
[2022-04-07 17:45] LABS: Troponin I High Sensitivity 54.2 pg/ml (0-14)
[2022-04-07 18:43] LABS: Base Excess VBG 19.8 mEq/L; HCO3 VBG 47 mmol/L; Oxygen Saturation VBG 89.1 %; PCO2 VBG 65 mmHg (38-50); PO2 VBG 55 mmHg; pH VBG 7.47 (7.36-7.41)
[2022-04-07 18:44] LABS: Appearance Urine Cloudy (Clear); Bacteria Urine Automated Negative (Negative); Bilirubin Urine Negative (Negative); Blood Urine 3+ (Negative); Color Urine Red; Epithelial Cell Urine Auto >30 /lpf (0-5); Glucose Urine UA Negative (Negative); Ketones Urine Negative (Negative); Leukocyte Esterase Urine 2+ (Negative); Nitrite Urine Negative (Negative); Protein Urine Trace (Negative); RBC Urine Automated >30 /hpf (0-4); Specific Gravity Urine 1.018 (1.000-1.030); Urobilinogen Urine Negative (Negative); pH Urine 6.5 (4.5-7.5)
[2022-04-07] MEDS ORDERED: cefTRIAXone SODIUM 1,000 MG/50 ML BAG IV STA (19:39)
[2022-04-07 20:35] LABS: Partial Thromboplastin Time 28.5 Seconds (21.0-31.0)
--- NOTE | 2022-04-07 21:58 | History & Physical Report ---
Date of Service April 07, 2022 Assessment & Plan (1) SOB (shortness of breath): Plan: hx chronic hypoxemic, hypercapnic respiratory failure secondary to restrictive lung disease on home O2/nocturnal BiPAP intolerance as per records hx sarcoidosis as per patient History of bronchial asthma as per patient hx diastolic dysfunction with normal BNP Possible underlying pulmonary hypertension Recent COVID-19 illness status post Decadron and remdesivir Rx Complicated UTI History urolithiasis, possible intermittently obstructing stone on initial CT read History urinary incontinence Patient without significant pain complaints and not septic for now. hx CVA right breast cancer status post surgery/radiation uterine cancer status post surgery mood disorder, at baseline hx Jbsydcu-Eozrz-Vqgph disease/post polio syndrome hx psychogenic nonepileptic seizures prediabetes Deconditioning functional disability past tobacco abuse. Medical telemetry Pulmonary consult Re: Respiratory failure and pleural effusions Urine CS, Ceftriaxone Follow official CT abdomen pelvis results May need Urology evaluation. Update hemoglobin A1c PT OT eval DVT prophylaxis. Lovenox subcu DNR Patient daughter requesting updates from providers. Ms. Sasha Tilley, contact #[phone]. Text document was generated using [employer] voice recognition software. It may contain grammatical or spelling errors. Kindly contact undersigned for clarification of any documentation item in question. History of Present Illness Chief Complaint: Shortness of breath, hematuria as per records Primary Care Provider: Adelfo Coburn MD History obtained from patient, family, and records. Medical history significant for chronic hypoxemic, hypercapnic respiratory failure secondary to restrictive lung disease on home O2/nocturnal BiPAP intolerance as per records, lung sarcoidosis as per patient, chronic diastolic heart failure (EF 65 to 70%, TTE 2021), hx CVA, right breast cancer status post surgery/radiation, uterine cancer status post surgery, bronchial asthma, mood disorder, urinary incontinence, Gjoiykb-Gwlwu-Xykxm disease/post polio syndrome, psychogenic nonepileptic seizures, prediabetes, past tobacco abuse. Six confinements at [facility] this year. Last confinement March 30 to April 06, 2022 for COVID-19 infection. Small bilateral pleural effusions on imaging during confinement. Patient completed Decadron and Remdesivir Rx. Patient discharged to [facility] facility. Patient noted by rehab staff to have hematuria today. Patient denies abdominal pain, flank pain, dysuria. No fever, no chills. Patient noted to be short of breath more than usual. O2 sats noted to be 96 on 4 L. Patient tachypneic at 32/min. Patient denies chest pain. No unusual cough symptoms. Patient not sure about fluid retention. Patient brought to the ER for evaluation. Ceftriaxone given for possible UTI. 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, residing with daughter prior to illness Allergies Allergy/AdvReac Type Severity Reaction Status Date / Time shellfish derived Allergy Severe LOBSTER: Verified 04/07/22 19:27 almost darifenacin Allergy Unknown Unknown Unverified 04/07/22 19:27 acetaminophen [From Tylenol] Allergy Rash Unverified 04/07/22 19:27 iodine Allergy Unknown Unverified 04/07/22 19:27 prednisone Allergy Unknown Unverified 04/07/22 19:27 atorvastatin AdvReac Nausea Verified 04/07/22 19:27 Home Medications Medication Instructions Recorded Confirmed Type mirabegron 50 mg tablet,extended 50 mg PO PM 09/09/21 04/07/22 History release 24 hr (Myrbetriq) cholecalciferol (vitamin D3) 50 50 mcg PO QAM 10/19/21 04/07/22 History mcg (2,000 unit) tablet (Vitamin D3) aspirin 81 mg chewable tablet 81 mg PO QAM 12/09/21 04/07/22 History potassium chloride 10 mEq 10 meq PO 3XWK #30 tabs 02/11/22 04/07/22 Rx tablet,extended release(part/cryst) escitalopram oxalate 20 mg tablet 20 mg PO DAILY 03/30/22 04/07/22 History furosemide 20 mg tablet 20 mg PO DAILY 03/30/22 04/07/22 History dexamethasone 6 mg tablet 6 mg PO DAILY 2 days #2 tabs 04/06/22 04/07/22 Rx docusate sodium 100 mg capsule 100 mg PO BID #20 caps 04/06/22 04/07/22 Rx (Colace) bisacodyl 10 mg rectal suppository 10 mg SC DAILY PRN Constipation 04/07/22 04/07/22 History enoxaparin 40 mg/0.4 mL 40 mg subcut DAILY 04/07/22 04/07/22 History subcutaneous syringe ibuprofen 200 mg tablet 600 mg PO Q8H PRN Pain 04/07/22 04/07/22 History ondansetron 4 mg disintegrating 4 mg PO Q4H PRN Nausea 04/07/22 04/07/22 History tablet polyethylene glycol 3350 17 17 g PO .DAILY@LUNCH PRN 04/07/22 04/07/22 History gram/dose oral powder Constipation sennosides 8.6 mg-docusate sodium 1 tab-cap PO .DAILY@LUNCH PRN 04/07/22 04/07/22 History 50 mg tablet (Senokot-S) Constipation Past Med/Surg History Medical History (Updated 04/08/22 @ 01:06 EST by Cortez Dye MD) Acute diastolic heart failure Acute heart failure with preserved ejection fraction (HFpEF) Breast cancer CMT (Ieqgjba-Kddln-Oyxwk disease) CVA (cerebral vascular accident) [place] (generalized anxiety disorder) History of chronic constipation HLD (hyperlipidemia) Hypokalemia Hypomagnesemia Left leg swelling Overactive bladder Post-polio muscle weakness Prolonged Q-T interval on ECG Psychogenic nonepileptic seizure Surgical History H/O lumpectomy History of cataract removal with insertion of prosthetic lens S/P appy S/P iesha S/P BENSON (total abdominal hysterectomy) Status post left foot surgery fusion 2/2 foot drop Family History Father Lung cancer Mother Stroke Aunt Breast cancer Social History Smoking Status: Never smoker Second Hand Exposure: No; Do You Dip or Chew Tobacco: No; Tobacco Cessation Education Requested by Patient: No Hx Alcohol Use: No Hx Substance Use: No Preferred Language: American Communication Ability: Effective Burn Table Operator Required: No Beliefs That Will Affect Care: None marital status: / Current Living Situation: Rehab Current Living Situation Comment: pt was at [facility]. prior to [facility] pt was living with daughter Other Information That Helps Us Care for You: No Feels Safe at Home: Yes Safety Concerns: Feels Safe At This Time Assistive Devices: Bedside Commode, Glasses, Hearing Aid - Bilateral, Oxygen - Continuous and Wheelchair Review of Systems Review of Systems: As per HPI, all other systems reviewed and negative Physical Exam Physical Exam: GENERAL: Comfortable, slightly hard of hearing, no respiratory distress SKIN: Normal color, warm HEENT: [place] palpebral conjunctivae, no ptosis, mouth asymmetry (chronic as per patient), moist buccal mucosa, nasal cannula in place NECK : Supple, no tenderness CHEST : CTA, no tenderness HEART : RRR, systolic murmur best heard over left sternal border ABDOMEN: Some distention, nontender EXTREMITIES : no LE swelling, no LE tenderness NEUROLOGIC : Coherent, chronic facial asymmetry, gait and stance not assessed Results & Data Results & Data ([facility]) Vital Signs (Past 12 Hours) Vital Signs Temp Pulse Resp BP Pulse Ox O2 Del Method O2 Flow Rate 04/07/22 20:00 60 21 118/62 99 04/07/22 19:30 66 24 94/56 L 99 04/07/22 19:00 59 L 24 110/57 L 98 04/07/22 18:30 54 L 26 H 102/60 98 04/07/22 19:00 98 Nasal Cannula 2 04/07/22 18:10 55 L 21 98 04/07/22 18:01 24 98 04/07/22 18:01 116/64 04/07/22 18:00 20 98 04/07/22 17:50 22 97 04/07/22 17:40 67 29 H 97 04/07/22 17:30 56 L 28 H 98 04/07/22 17:30 117/67 04/07/22 17:20 55 L 22 98 04/07/22 17:10 60 25 H 97 04/07/22 17:00 72 20 97 04/07/22 17:00 113/63 04/07/22 16:50 58 L 31 H 100 04/07/22 16:41 127 H 14 04/07/22 16:39 59 L 28 H 04/07/22 17:43 37.1 C 60 25 H 113/69 100 Nasal Cannula 4 04/07/22 17:39 Nasal Cannula 2 Laboratory Results Laboratory Results WBC 10.26 K/ul (4.8-10.8) 04/07/22 17:00 RBC 4.90 M/uL (3.93-5.22) 04/07/22 17:00 Hgb 14.0 g/dl (12.0-16.0) 04/07/22 17:00 Hct 42.4 % (34.1-44.9) 04/07/22 17:00 MCV 86.5 fL (80.0-100.0) 04/07/22 17:00 MCH 28.6 pg (25.0-34.0) 04/07/22 17:00 MCHC 33.0 g/dL (32.0-36.0) 04/07/22 17:00 RDW Std Deviation 44.6 fL (36.4-46.3) 04/07/22 17:00 RDW Coeff of [place] 14.1 % (11.5-14.5) 04/07/22 17:00 Plt Count 213 K/uL (130-400) 04/07/22 17:00 MPV 11.3 fL (9.4-12.3) 04/07/22 17:00 Immature Gran % (Auto) 0.3 % 04/07/22 17:00 Neut % (Auto) 91.4 % 04/07/22 17:00 Lymph % (Auto) 5.8 % 04/07/22 17:00 [place] % (Auto) 2.5 % 04/07/22 17:00 Eos % (Auto) 0.0 % 04/07/22 17:00 Baso % (Auto) 0.0 % 04/07/22 17:00 Neut # (Auto) 9.37 K/uL (1.4-6.5) H 04/07/22 17:00 Lymph # (Auto) 0.60 K/uL (1.2-3.4) L 04/07/22 17:00 [place] # (Auto) 0.26 K/uL (0.24-0.82) 04/07/22 17:00 Eos # (Auto) 0.00 K/uL (0-0.50) 04/07/22 17:00 Baso # (Auto) 0.00 K/uL (0-0.2) 04/07/22 17:00 Immature Gran # (Auto) 0.03 K/uL (0.00-0.02) H 04/07/22 17:00 PT 11.2 Seconds (9.0-12.0) 04/07/22 17:00 INR 1.1 (0.9-1.1) 04/07/22 17:00 APTT 28.5 Seconds (21.0-31.0) 04/07/22 17:00 PTT Ratio 1.0 04/07/22 17:00 VBG pH 7.47 (7.36-7.41) H 04/07/22 18:08 VBG pCO2 65 mmHg (38-50) H 04/07/22 18:08 VBG pO2 55 mmHg 04/07/22 18:08 VBG HCO3 47 mmol/L 04/07/22 18:08 VBG O2 Saturation 89.1 % 04/07/22 18:08 VBG Base Excess 19.8 mEq/L 04/07/22 18:08 Sodium 138 mmol/L (136-145) 04/07/22 17:00 Potassium 4.3 mmol/L (3.5-5.1) 04/07/22 17:00 Chloride 95 mmol/L (98-107) L 04/07/22 17:00 Carbon Dioxide 40 mmol/L (21-32) H 04/07/22 17:00 Anion Gap 3 (3-11) 04/07/22 17:00 BUN 29 mg/dl (6-23) H 04/07/22 17:00 Creatinine 0.30 mg/dl (0.6-1.2) L 04/07/22 17:00 Est Cr Clr Drug Dosing Not Reportable 04/07/22 17:00 Est GFR ( Amer) 125.3 ml/min 04/07/22 17:00 Est GFR (Non-Af Amer) 108.1 ml/min 04/07/22 17:00 BUN/Creatinine Ratio 96.7 (10-20) H 04/07/22 17:00 Glucose 153 mg/dl (70-99(Fasting)) H 04/07/22 17:00 Calcium 9.0 mg/dl (8.5-10.1) 04/07/22 17:00 Magnesium 2.2 mg/dl (1.7-2.4) 04/07/22 17:00 Total Bilirubin 0.5 mg/dl (0.2-1.0) 04/07/22 17:00 AST 22 U/L (13-39) 04/07/22 17:00 ALT 39 U/L (7-52) 04/07/22 17:00 Alkaline Phosphatase 63 U/L (34-104) 04/07/22 17:00 Troponin I High Sens 54.3 pg/ml (0-14) H* 04/07/22 20:35 B-Natriuretic Peptide 52 pg/ml (0-100) 04/07/22 20:35 Total Protein 5.6 gm/dl (6.0-8.3) L 04/07/22 17:00 Albumin 3.2 gm/dl (3.4-5.0) L 04/07/22 17:00 Globulin 2.4 gm/dl (2.5-4.0) L 04/07/22 17:00 Albumin/Globulin Ratio 1.3 (0.9-2) 04/07/22 17:00 TSH 0.467 uIu/ml (0.300-4.500) 04/07/22 17:00 Urine Color Red 04/07/22 18:12 Urine Appearance Cloudy (Clear) A 04/07/22 18:12 Urine pH 6.5 (4.5-7.5) 04/07/22 18:12 Ur Specific [place] 1.018 (1.000-1.030) 04/07/22 18:12 Urine Protein Trace (Negative) H 04/07/22 18:12 Urine Glucose (UA) Negative (Negative) 04/07/22 18:12 Urine Ketones Negative (Negative) 04/07/22 18:12 Urine Blood 3+ (Negative) H 04/07/22 18:12 Urine Nitrite Negative (Negative) 04/07/22 18:12 Urine Bilirubin Negative (Negative) 04/07/22 18:12 Urine Urobilinogen Negative (Negative) 04/07/22 18:12 Ur Leukocyte Esterase 2+ (Negative) H 04/07/22 18:12 Urine WBC (Auto) 10-30 /hpf (0-5) H 04/07/22 18:12 Urine RBC (Auto) >30 /hpf (0-4) H 04/07/22 18:12 U Hyaline Cast (Auto) 1-5 /lpf (0-5) 04/07/22 18:12 U Epithel Cells (Auto) >30 /lpf (0-5) H 04/07/22 18:12 Urine Bacteria (Auto) Negative (Negative) 04/07/22 18:12 Urine Yeast Not Reportable 04/07/22 18:12 Impressions Chest X-Ray 04/07/22 16:37 XR chest 1V portable CLINICAL HISTORY: SOB, COVID TECHNIQUE: Single frontal radiograph of the chest was obtained. Comparison: Comparison is made to chest radiograph 04/04/2022 FINDINGS: No lines and tubes are seen. Calcified aortic knob is seen. Right airspace opacity is noted. There is a moderate right and trace left pleural effusion. IMPRESSION: Moderate right and trace left pleural effusions. Right airspace opacity likely reflects atelectasis with or without superimposed aspiration and/or pneumonia. ACT 112: Negative or not required by law. Electronically signed by: Guillermo Casiano M.D. 04/07/2022 5:[address] CHEST Without Contrast initial read: Comparison to February 05, 2022 Again note is made of a moderate sized right pleural effusion. Trace left pleural effusion. There is compressive atelectasis adjacent to the bilateral pleural effusions but the remainder of the lungs are clear. The heart is enlarged. No pericardial effusions. Thoracic cage is intact. Osteopenia and degenerative changes of the thoracic spine. CT ABDOMEN & PELVIS Without Contrast initial read: Comparison to prior CT of 2021 No bowel obstruction or inflammation. Large amount of stool in the rectum, not quite but near impaction. Negative for diverticulitis or colitis. No free intraperitoneal air or free fluid. Normal liver. Normal spleen. Normal pancreas. Normal adrenal glands. Nonobstructing right renal stone. No right urinarytract obstruction. There are left renal stones including an 8.9 mmstone in the left renal pelvis. The renal pelvis and collecting systemis slightly dilated. It is possible that the stone intermittentlyobstructs. Similar findings on prior CT Abdominal pelvic osseous structures are intact. Osteopenia and degenerative changes of the lumbar spine EKG as per my interpretation :Rate 55, sinus bradycardia, LAD, LAFB, LVH, septal infarct, no ischemia
[2022-04-08] MEDS ORDERED: PROMETHAZINE HCL 6.25 MG in SODIUM CHLORIDE 0.9% 50 ML IV PRN (01:26)
[2022-04-08] MEDS ORDERED: oxyCODONE HCL IR 5 MG TAB (IMMEDIATE RELEASE) PO PRN (01:26)
[2022-04-08] MEDS ORDERED: bisacodyL 10 MG SUPP PR PRN (01:26)
[2022-04-08] MEDS ORDERED: POLYETHYLENE (MIRALAX) 17 GM PACK PO PRN (01:26)
[2022-04-08] MEDS ORDERED: DOCUSATE SODIUM/SENNA 50/8.6MG TAB PO PRN (01:26)
[2022-04-08 07:45] LABS: Basophils # (auto) 0.01 K/uL (0-0.2); Basophils % (auto) 0.1 %; Eosinophils # (auto) 0.06 K/uL (0-0.50); Eosinophils % (auto) 0.6 %; Hematocrit (blood only) 40.9 % (34.1-44.9); Hemoglobin 13.3 g/dl (12.0-16.0); Immature Granulocytes # (auto) 0.06 K/uL (0.00-0.02); Immature Granulocytes % (auto) 0.6 %; Lymphocytes # (auto) 2.09 K/uL (1.2-3.4); Lymphocytes % (auto) 19.9 %; Mean Corpuscular Hemoglobin 28.6 pg (25.0-34.0); Mean Corpuscular Hgb Conc 32.5 g/dL (32.0-36.0); Mean Platelet Volume 10.7 fL (9.4-12.3); Monocytes # (auto) 1.18 K/uL (0.24-0.82); Monocytes % (auto) 11.2 %; Neutrophils # (auto) 7.12 K/uL (1.4-6.5); Neutrophils % (auto) 67.6 %; Platelet Count 193 K/uL (130-400); RDW Coefficient of Variation 14.1 % (11.5-14.5); RDW Standard Deviation 44.6 fL (36.4-46.3); Red Blood Count 4.65 M/uL (3.93-5.22); White Blood Count 10.52 K/ul (4.8-10.8)
[2022-04-08 08:25] LABS: BUN Creatinine Ratio 89.3 (10-20); Calcium 8.7 mg/dl (8.5-10.1); Creatinine Clr Calc Pharmacy 138.4 ml/min; Est GFR (African American) 128.2 ml/min; Est GFR (Non-African American) 110.6 ml/min; Potassium 3.6 mmol/L (3.5-5.1)
[2022-04-08] MEDS: ENOXAPARIN INJ 40 MG/0.4 ML SYR SQ SCH (08:47)
[2022-04-08] MEDS: ASPIRIN 81 MG CHEW PO SCH (08:47)
[2022-04-08] MEDS: CHOLECALCIFEROL 1,000 UNITS 25 MCG TAB PO SCH (08:48)
[2022-04-08] MEDS: DOCUSATE SODIUM 100 MG CAP PO SCH ×2 (08:48→20:24)
[2022-04-08] MEDS: ESCITALOPRAM OXALATE 20 MG TAB PO SCH (08:49)
[2022-04-08] MEDS: FUROSEMIDE 20 MG TAB PO SCH (08:49)
--- NOTE | 2022-04-08 09:19 | CT Scan Report ---
CT OF THE CHEST WITHOUT IV CONTRAST CLINICAL HISTORY: Pleural effusions. COMPARISON STUDY: Chest CT February 05, 2022 and chest radiograph April 07, 2022. TECHNIQUE: Axial images of the chest were obtained without IV contrast. Images were reviewed in the axial, sagittal, and coronal planes. IV contrast was not administered for this examination. Automat ed exposure control was utilized for the study. A dose lowering technique was utilized adhering to t he principles of ALARA. FINDINGS: Mild cardiomegaly is noted. There is no pericardial effusion. No enlarged thoracic lymph n odes are noted. There is diffuse muscular atrophy. A small to moderate right pleural effusion has sli ghtly increased since prior CT. There is a trace left pleural effusion. Right lower lobe opacity favo rs atelectasis. Mild subpleural ground glass opacity within the anterior segment of the right upper l obe and right middle lobe is noted. There is no pneumothorax. Central airways are patent. Lungs are s uboptimally assessed due to respiratory motion. Dextroscoliosis of the thoracic spine is unchanged. IMPRESSION: 1. Slight increase in size of a small to moderate right pleural effusion since prior chest CT. Trace left pleural effusion. 2. Subpleural opacity within the anterior segment of the right upper lobe and the right middle lobe. This was shown on prior exam and favors scarring. Adjacent groundglass opacity is nonspecific. ACT 112: Negative or not required by law. Electronically signed by: Andrea Schwarz M.D. 04/08/2022 9:17 AM
--- NOTE | 2022-04-08 09:36 | Urology Consultation ---
Date of Consultation April 08, 2022 Assessment & Plan (1) Kidney stone on left side: (2) Gross hematuria: Plan Very comorbid individual with asymptomatic hematuria 1. Kidney stone Although she has stones bilaterally and a decent size stone on the left, there does not appear to be any obstruction and no indication for any acute intervention Continue following this conservativelyparticular given her respiratory status intervention now would be a mistake 2. Hematuria Seems that the presumption is that this is from infection although her culture is currently negative but she is on antibiotics She does not seem to exhibit any definitive masses or clear sources aside from t he aforementioned stone She can certainly undergo outpatient cystoscopy after discharge home At present I see no indication or concern for impending intervention or even further studies while inpatient We will plan to follow her from a distance and have her follow-up as an outpatient to complete hematuria work-up Please call if further issues arise History of Present Illness Attending Physician: Jackie Lozoya MD History of Present Illness 81-year-old female who has been readmitted to the hospital after discharge 2 days ago for a prolonged COVID-related hospitalization She returned to the hospital after having worsening respiratory status She has a complex medical history with numerous chronic issues which significantly impact her functionality She has a known history of kidney stones and CT upon arrival shows left renal stones without significant obstruction She has no ureteral stones on the right or the leftsmall right renal stone is present as well Her bladder does not appear to show any tumors or other masses She does not have a Warren catheter in place but is voiding into a bedpan She is nonambulatory She denies any pain on the left or right flank and no dysuria She has noticed hematuria since Saturday Difficult for her to give me a good description of the amount of blood present Her urine culture from 04/07 is negative She is hemodynamically stable White blood cell count10 Creatinine 0.28 Allergies Allergy/AdvReac Type Severity Reaction Status Date / Time shellfish derived Allergy Severe LOBSTER: Verified 04/07/22 19:27 almost darifenacin Allergy Unknown Unknown Unverified 04/07/22 19:27 acetaminophen [From Tylenol] Allergy Rash Unverified 04/07/22 19:27 iodine Allergy Unknown Unverified 04/07/22 19:27 prednisone Allergy Unknown Unverified 04/07/22 19:27 atorvastatin AdvReac Nausea Verified 04/07/22 19:27 Home Medications Medication Instructions Recorded Confirmed Type mirabegron 50 mg tablet,extended 50 mg PO PM 09/09/21 04/07/22 History release 24 hr (Myrbetriq) cholecalciferol (vitamin D3) 50 50 mcg PO QAM 10/19/21 04/07/22 History mcg (2,000 unit) tablet (Vitamin D3) aspirin 81 mg chewable tablet 81 mg PO QAM 12/09/21 04/07/22 History potassium chloride 10 mEq 10 meq PO 3XWK #30 tabs 02/11/22 04/07/22 Rx tablet,extended release(part/cryst) escitalopram oxalate 20 mg tablet 20 mg PO DAILY 03/30/22 04/07/22 History furosemide 20 mg tablet 20 mg PO DAILY 03/30/22 04/07/22 History dexamethasone 6 mg tablet 6 mg PO DAILY 2 days #2 tabs 04/06/22 04/07/22 Rx docusate sodium 100 mg capsule 100 mg PO BID #20 caps 04/06/22 04/07/22 Rx (Colace) bisacodyl 10 mg rectal suppository 10 mg NC DAILY PRN Constipation 04/07/2210/22 History enoxaparin 40 mg/0.4 mL 40 mg subcut DAILY 04/07/22 04/07/22 History subcutaneous syringe ibuprofen 200 mg tablet 600 mg PO Q8H PRN Pain 04/07/22 04/07/22 History ondansetron 4 mg disintegrating 4 mg PO Q4H PRN Nausea 04/07/22 04/07/22 History tablet polyethylene glycol 3350 17 17 g PO .DAILY@LUNCH PRN 04/07/22 04/07/22 History gram/dose oral powder Constipation sennosides 8.6 mg-docusate sodium 1 tab-cap PO .DAILY@LUNCH PRN 04/07/22 04/07/22 History 50 mg tablet (Senokot-S) Constipation Patient History Medical History Acute diastolic heart failure Acute heart failure with preserved ejection fraction (HFpEF) Breast cancer CMT (Ooavgsr-Bcpux-Vypvs disease) CVA (cerebral vascular accident) [place] (generalized anxiety disorder) History of chronic constipation HLD (hyperlipidemia) Hypokalemia Hypomagnesemia Left leg swelling Overactive bladder Post-polio muscle weakness Prolonged Q-T interval on ECG Psychogenic nonepileptic seizure Surgical History H/O lumpectomy History of cataract removal with insertion of prosthetic lens S/P appy S/P iesha S/P BENSON (total abdominal hysterectomy) Status post left foot surgery fusion 2/2 foot drop Family History Father Lung cancer Mother Stroke Aunt Breast cancer Social History Smoking Status: Never smoker Second Hand Exposure: No; Do You Dip or Chew Tobacco: No; Tobacco Cessation Education Requested by Patient: No Hx Alcohol Use: No Hx Substance Use: No Preferred Language: [place]er Communication Ability: Effective Commercial Door Installer Required: No Beliefs That Will Affect Care: None marital status: / Current Living Situation: Rehab Current Living Situation Comment: pt was at [facility]. prior to [facility] pt was living with daughter Other Information That Helps Us Care for You: No Feels Safe at Home: Yes Safety Concerns: Feels Safe At This Time Assistive Devices: Bedside Commode, Glasses, Hearing Aid - Bilateral, Oxygen - Continuous and Wheelchair Review of Systems Review of Systems: As per HPI, all other systems reviewed and negative Respiratory: SOBdyspneic Musculoskeletal: Limited mobility Physical Exam Physical Exam: Resting comfortably in bed Nasal cannula O2 in place No visible respiratory distress Not tachycardic Abdomen soft, nontenderno CVA tenderness on the right or the left No suprapubic tenderness Mild edema of the lower extremities No visible rashes Results & Data ([facility]) Vital Signs (Past 12 Hours) Vital Signs Temp Pulse Resp BP Pulse Ox O2 Del Method O2 Flow Rate 04/08/22 09:27 98 Nasal Cannula 1.5 04/08/22 08:51 Nasal Cannula 2 04/08/22 07:08 36.5 C 55 L 16 126/73 100 Nasal Cannula 3 04/08/22 01:31 EST Nasal Cannula 4 04/08/22 01:31 EST 36.6 C 81 24 128/63 100 Nasal Cannula 4 04/08/22 01:26 EST 36.6 C 81 24 128/63 100 Nasal Cannula 4 04/08/22 01:03 EDT 69 20 115/55 L 98 Room Air 04/07/22 23:09 55 L 18 112/55 L 100 Nasal Cannula 2 PG Care Time/CCT Total # of Minutes Spent Total Time Spent with Patient: Total time spent is greater than 50% in coordination of care (as documented) at patient's floor/unit and/or counseling patient: Coding Level of Care Code 85928 Inpt Consult Level 4 Diagnoses Kidney stone on left side N20.0 Gross hematuria R31.0
--- NOTE | 2022-04-08 09:37 | CT Scan Report ---
CT OF THE ABDOMEN AND PELVIS WITHOUT CONTRAST CLINICAL HISTORY: Hematuria. COMPARISON STUDY: CT of the abdomen pelvis December 22, 2021. TECHNIQUE: Axial images of the abdomen and pelvis were obtained without IV contrast. Images were revi ewed in the axial, sagittal, and coronal planes. Automated exposure control was utilized for the denise dy. A dose lowering technique was utilized adhering to the principles of ALARA. FINDINGS: Please note that the chest CT will be reported separately. Small to moderate right pleural effusion is noted. There is a trace left pleural effusion. Diffuse muscular atrophy is noted. No pneu matosis, free air or portal venous gas is present. Several small right renal calculi measure up to 4 mm. There are no ureteral calculi. Sensitivity for detection of urothelial lesions is diminished on t his exam. 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 A 1.2 x 0.8 cm calculus within the left lower moiety pelvis is similar to prior exam. Moderate associated hydronephrosis of the lower pole moiety is unchanged since prior exam. Additional left renal calculi are present. 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 Mild biliary ductal dilatation is unchanged and likely related to cholecystectomy. Spleen, adrenal glands and pancreas a re unremarkable. A moderate amount stool within the rectum is present. There is no evidence for a bow el obstruction. There is no ascites. There is no lymphadenopathy. No acute fracture within the visual ized skeletal structures are present. There is severe right hip osteoarthritis. IMPRESSION: 1. Bilateral nephrolithiasis, including a 1.2 x 0.8 cm calculus within the left lower moiety renal pe lvis which is similar to CT of December 22, 2021. This results in stable moderate hydronephrosis of the l ower pole moiety. No ureteral calculi. 2. No bowel obstruction. 3. Moderate amount of stool within the rectum. ACT 112: Negative or not required by law. Electronically signed by: Andrea Schwarz M.D. 04/08/2022 9:35 AM
--- NOTE | 2022-04-08 10:20 | Pulmonary Consultation ---
Date of Consultation April 08, 2022 Assessment & Plan (1) Chronic respiratory failure: Respiratory failure complication: hypoxia Qualified Code(s): J96.11 - Chronic respiratory failure with hypoxia (2) Kyphoscoliosis: (3) Restrictive lung disease: (4) SOB (shortness of breath): Plan Impression: 81-year-old female with severe kyphoscoliosis and associated restrictive lung disease. She has chronic hypercarbic and hypoxemic respiratory failure secondary to her thoracic cage abnormalities. She was recently admitted with COVID but has no significant parenchymal disease to be concerned about. Pulmonary was consulted due to potential pleural effusions. The CT scan demonstrates a very minor degree of pleural effusion on the right and no significant effusion on the left. These effusions are small and are unlikely to be contributing to the patient's respiratory difficulties. Recommendations: 1. Pleural effusions: Effusions are small. Would not recommend any significant intervention currently other than diuresis. They are unlikely to be contributing significantly to the patient's complaints. 2. Hypoxemic and hypercarbic respiratory failure: This is a chronic issue likely secondary to underlying thoracic cage abnormalities. A long discussion with the patient regarding potential use of noninvasive positive pressure ventilation at night to see whether or not we can improve her chronic hypercarbic respiratory failure. She has tried this in the past and was poorly tolerant of it however is willing to try again to see if it offers her a clinical benefit. We will pursue a trial of BiPAP 01/04 tonight and see how she does. If she does well, consideration for setting her up with home BiPAP might be appropriate. 3. Restrictive lung disease: Cannot see PFTs performed in our system. Its unlikely the data would manager product management at this point time. Unfortunately there is little that can be done for her severe kyphoscoliosis at this point time. Agree with DO NOT INTUBATE DO NOT RESUSCITATE as the patient would be very difficult to get off mechanical ventilator should she progress to respiratory failure. 4. COVID: Diagnosed last week. Her positive test was 03/30. Her current symptoms do not appear to be related to COVID. If she is 10 days out from her positive test, consideration for discontinuation of isolation might be appropriate. No indication for adjunctive therapies at this point time. No indication for antibiotics from a pulmonary standpoint. She is on Rocephin for potential UTI. Defer to hospitalist 5. Management of the patient's other medical issues is deferred to the primary admitting service. We will follow-up and see how she responded to BiPAP tomorrow. Again no intervention required for the patient's small effusion. History of Present Illness Attending Physician: Jackie Lozoya MD History of Present Illness Asked by hospitalist to evaluate this patient with possible pleural effusions and respiratory failure. History is obtained from discussion with the patient and reviewed electronic medical record. The patient is an 81-year-old female with a history of severe kyphoscoliosis and restrictive lung disease. She relates that she is never been evaluated by pulmonary previously. She has been tried on noninvasive positive pressure ventilation in the past but reportedly was poorly tolerant of it. She uses oxygen at baseline. The patient was brought to the emergency room yesterday due to hematuria. This was associated with some shortness of breath and her oxygen requirement had to be increased. She was hospitalized last week with COVID. She is not had fevers chills or night sweats. She denies chest pain palpitations or significant lower extremity edema. No fevers chills or night sweats. She is not coughing or expectorating phlegm. The patient reports that her breathing is at her baseline. She feels some postnasal drip with congestion in her throat but is not having any respiratory difficulties above her baseline currently. Allergies Allergy/AdvReac Type Severity Reaction Status Date / Time shellfish derived Allergy Severe LOBSTER: Verified 04/07/22 19:27 almost darifenacin Allergy Unknown Unknown Unverified 04/07/22 19:27 acetaminophen [From Tylenol] Allergy Rash Unverified 04/07/22 19:27 iodine Allergy Unknown Unverified 04/07/22 19:27 prednisone Allergy Unknown Unverified 04/07/22 19:27 atorvastatin AdvReac Nausea Verified 04/07/22 19:27 Home Medications Medication Instructions Recorded Confirmed Type mirabegron 50 mg tablet,extended 50 mg PO PM 09/09/21 04/07/22 History release 24 hr (Myrbetriq) cholecalciferol (vitamin D3) 50 50 mcg PO QAM 10/19/21 04/07/22 History mcg (2,000 unit) tablet (Vitamin D3) aspirin 81 mg chewable tablet 81 mg PO QAM 12/09/21 04/07/22 History potassium chloride 10 mEq 10 meq PO 3XWK #30 tabs 02/11/22 04/07/22 Rx tablet,extended release(part/cryst) escitalopram oxalate 20 mg tablet 20 mg PO DAILY 03/30/22 04/07/22 History furosemide 20 mg tablet 20 mg PO DAILY 03/30/22 04/07/22 History dexamethasone 6 mg tablet 6 mg PO DAILY 2 days #2 tabs 04/06/22 04/07/22 Rx docusate sodium 100 mg capsule 100 mg PO BID #20 caps 04/06/22 04/07/22 Rx (Colace) bisacodyl 10 mg rectal suppository 10 mg OR DAILY PRN Constipation 04/07/22 04/07/22 History enoxaparin 40 mg/0.4 mL 40 mg subcut DAILY 04/07/22 04/07/22 History subcutaneous syringe ibuprofen 200 mg tablet 600 mg PO Q8H PRN Pain 04/07/22 04/07/22 History ondansetron 4 mg disintegrating 4 mg PO Q4H PRN Nausea 04/07/22 04/07/22 History tablet polyethylene glycol 3350 17 17 g PO .DAILY@LUNCH PRN 04/07/22 04/07/22 History gram/dose oral powder Constipation sennosides 8.6 mg-docusate sodium 1 tab-cap PO .DAILY@LUNCH PRN 04/07/22 04/07/22 History 50 mg tablet (Senokot-S) Constipation Patient History Medical History Acute diastolic heart failure Acute heart failure with preserved ejection fraction (HFpEF) Breast cancer CMT (Didrczn-Njdfz-Clwme disease) CVA (cerebral vascular accident) [place] (generalized anxiety disorder) History of chronic constipation HLD (hyperlipidemia) Hypokalemia Hypomagnesemia Left leg swelling Overactive bladder Post-polio muscle weakness Prolonged Q-T interval on ECG Psychogenic nonepileptic seizure Surgical History H/O lumpectomy History of cataract removal with insertion of prosthetic lens S/P appy S/P iesha S/P BENSON (total abdominal hysterectomy) Status post left foot surgery fusion 2/2 foot drop Family History Father Lung cancer Mother Stroke Aunt Breast cancer Social History Smoking Status: Never smoker Second Hand Exposure: No; Do You Dip or Chew Tobacco: No; Tobacco Cessation Education Requested by Patient: No Hx Alcohol Use: No Hx Substance Use: No Preferred Language: Japanese Communication Ability: Effective Set Up Mold Technician Required: No Beliefs That Will Affect Care: None marital status: / Current Living Situation: Rehab Current Living Situation Comment: pt was at [facility]. prior to [facility] pt was living with daughter Other Information That Helps Us Care for You: No Feels Safe at Home: Yes Safety Concerns: Feels Safe At This Time Assistive Devices: Bedside Commode, Glasses, Hearing Aid - Bilateral, Oxygen - Continuous and Wheelchair Review of Systems Review of Systems: All systems reviewed & are unremarkable except as noted in Subjective Physical Exam Constitutional: WD/WN, vitals as above Neck: trachea midline, no thyromegaly Respiratory: no respiratory distress, no labored breathing, no cough and not tachypneic Auscultation: + diminished lung sounds; no wheezes Cardiovascular: RRR, no murmur, no edema Chest (Breasts): Additional Comments: Severe kyphoscoliosis Gastrointestinal (Abdomen): normal bowel sounds, soft, nontender, no hepatosplenomegaly Musculoskeletal: Extremities: extremities normal to inspection Skin: no rashes, warm and dry Neurologic: Nonfocal exam Lymphatic: no cervical lymphadenopathy Results & Data Results & Data ([facility]) Vital Signs (Past 12 Hours) Vital Signs Temp Pulse Resp BP Pulse Ox O2 Del Method O2 Flow Rate 04/08/22 09:39 97 Room Air 04/08/22 09:32 98 Nasal Cannula 1 04/08/22 09:27 98 Nasal Cannula 1.5 04/08/22 08:51 Nasal Cannula 2 04/08/22 07:08 36.5 C 55 L 16 126/73 100 Nasal Cannula 3 04/08/22 01:31 EST Nasal Cannula 4 04/08/22 01:31 EST 36.6 C 81 24 128/63 100 Nasal Cannula 4 04/08/22 01:26 EST 36.6 C 81 24 128/63 100 Nasal Cannula 4 04/08/22 01:03 EDT 69 20 115/55 L 98 Room Air Critical Care Results & Data Vital Signs (Past 12 Hours) Vital Signs Temp Pulse Resp BP Pulse Ox O2 Del Method O2 Flow Rate 04/08/22 09:39 97 Room Air 04/08/22 09:32 98 Nasal Cannula 1 04/08/22 09:27 98 Nasal Cannula 1.5 04/08/22 08:51 Nasal Cannula 2 04/08/22 07:08 36.5 C 55 L 16 126/73 100 Nasal Cannula 3 04/08/22 01:31 EST Nasal Cannula 4 04/08/22 01:31 EST 36.6 C 81 24 128/63 100 Nasal Cannula 4 04/08/22 01:26 EST 36.6 C 81 24 128/63 100 Nasal Cannula 4 04/08/22 01:03 EDT 69 20 115/55 L 98 Room Air Lab & Micro Results (Past 24 Hours) RBC 4.65 M/uL (3.93-5.22) 04/08/22 WBC 10.52 K/ul (4.8-10.8) 04/08/22 Hgb 13.3 g/dl (12.0-16.0) 04/08/22 Hct 40.9 % (34.1-44.9) 04/08/22 MCV 88.0 fL (80.0-100.0) 04/08/22 MCH 28.6 pg (25.0-34.0) 04/08/22 MCHC 32.5 g/dL (32.0-36.0) 04/08/22 RDW Standard Deviation 44.6 fL (36.4-46.3) 04/08/22 RDW Coefficient of Variation 14.1 % (11.5-14.5) 04/08/22 Plt Count 193 K/uL (130-400) 04/08/22 MPV 10.7 fL (9.4-12.3) 04/08/22 Neutrophils (%) (Auto) 67.6 % 04/08/22 Lymphocytes (%) (Auto) 19.9 % 04/08/22 Monocytes # (Auto) 1.18 K/uL (0.24-0.82) H 04/08/22 Eosinophils # (Auto) 0.06 K/uL (0-0.50) 04/08/22 Immature Granulocyte % (Auto) 0.6 % 04/08/22 Neutrophils # (Auto) 7.12 K/uL (1.4-6.5) H 04/08/22 Lymphocytes # (Auto) 2.09 K/uL (1.2-3.4) 04/08/22 Monocytes # (Auto) 1.18 K/uL (0.24-0.82) H 04/08/22 Eosinophils # (Auto) 0.06 K/uL (0-0.50) 04/08/22 Basophils # (Auto) 0.01 K/uL (0-0.2) 04/08/22 Immature Granulocyte # (Auto) 0.06 K/uL (0.00-0.02) H 04/08 Na 141 mmol/L (136-145) 04/08/22 K 3.6 mmol/L (3.5-5.1) 04/08/22 Cl 96 mmol/L (98-107) L 04/08/22 CO2 45 mmol/L (21-32) H* 04/08/22 Anion Gap 0 (3-11) L 04/08/22 BUN 25 mg/dl (6-23) H 04/08/22 Creatinine 0.28 mg/dl (0.6-1.2) L 04/08/22 Estimated GFR ( Amer) 128.2 ml/min 04/08/22 Estimated GFR (Non-Af Amer) 110.6 ml/min 04/08/22 BUN/Creatinine Ratio 89.3 (10-20) H 04/08/22 Glu 82 mg/dl (70-99(Fasting)) 04/08/22 Ca 8.7 mg/dl (8.5-10.1) 04/08/22 Total Bilirubin 0.5 mg/dl (0.2-1.0) 04/07/22 AST 22 U/L (13-39) 04/07/22 ALT 39 U/L (7-52) 04/07/22 Alkaline Phosphatase 63 U/L (34-104) 04/07/22 TP 5.6 gm/dl (6.0-8.3) L 04/07/22 Albumin 3.2 gm/dl (3.4-5.0) L 04/07/22 Globulin 2.4 gm/dl (2.5-4.0) L 04/07/22 Albumin/Globulin Ratio 1.3 (0.9-2) 04/07/22 Mg 2.2 mg/dl (1.7-2.4) 04/07/22 17:00 Calcium Level 8.7 mg/dl (8.5-10.1) 04/08/22 07:20 Prothromb Time International Ratio 1.1 (0.9-1.1) 04/07/22 17:0 0 Venous Blood pH 7.47 (7.36-7.41) H 04/07/22 18:08 Venous Blood Partial Pressure CO2 65 mmHg (38-50) H 04/07/22 18 :08 Venous Blood Partial Pressure O2 55 mmHg 04/07/22 18:08 Venous Blood HCO3 47 mmol/L 04/07/22 18:08 Venous Blood Base Excess 19.8 mEq/L 04/07/22 18:08 Venous Blood Oxygen Saturation 89.1 % 04/07/22 18:08 Microbiology 04/07/22 18:12 Urine Culture - Preliminary Urine,Clean Catch No growth - Less than 1,000 colonies/mL, Final report to follow. Diagnostic Findings (Past 24 Hours) Chest X-Ray 04/07/22 16:37 XR chest 1V portable CLINICAL HISTORY: SOB, COVID TECHNIQUE: Single frontal radiograph of the chest was obtained. Comparison: Comparison is made to chest radiograph 04/04/2022 FINDINGS: No lines and tubes are seen. Calcified aortic knob is seen. Right airspace opacity is noted. There is a moderate right and trace left pleural effusion. IMPRESSION: Moderate right and trace left pleural effusions. Right airspace opacity likely reflects atelectasis with or without superimposed aspiration and/or pneumonia. ACT 112: Negative or not required by law. Electronically signed by: Guillermo Casiano M.D. 04/07/2022 5:23 PM Abdomen/Pelvis CT 04/07/22 23:33 CT OF THE ABDOMEN AND PELVIS WITHOUT CONTRAST CLINICAL HISTORY: Hematuria. COMPARISON STUDY: CT of the abdomen pelvis December 22, 2021. TECHNIQUE: Axial images of the abdomen and pelvis were obtained without IV contrast. Images were reviewed in the axial, sagittal, and coronal planes. Automated exposure control was utilized for the study. A dose lowering technique was utilized adhering to the principles of ALARA. FINDINGS: Please note that the chest CT will be reported separately. Small to moderate right pleural effusion is noted. There is a trace left pleural effusion. Diffuse muscular atrophy is noted. No pneumatosis, free air or portal venous gas is present. Several small right renal calculi measure up to 4 mm. There are no ureteral calculi. Sensitivity for detection of urothelial lesions is diminished on this exam. 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 A 1.2 x 0.8 cm calculus within the left lower moiety pelvis is similar to prior exam. Moderate associated hydronephrosis of the lower pole moiety is unchanged since prior exam. Additional left renal calculi are present. 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 Mild biliary ductal dilatation is unchanged and likely related to cholecystectomy. Spleen, adrenal glands and pancreas are unremarkable. A moderate amount stool within the rectum is present. There is no evidence for a bowel obstruction. There is no ascites. There is no lymphadenopathy. No acute fracture within the visualized skeletal structures are present. There is severe right hip osteoarthritis. IMPRESSION: 1. Bilateral nephrolithiasis, including a 1.2 x 0.8 cm calculus within the left lower moiety renal pelvis which is similar to CT of December 22, 2021. This results in stable moderate hydronephrosis of the lower pole moiety. No ureteral calculi. 2. No bowel obstruction. 3. Moderate amount of stool within the rectum. ACT 112: Negative or not required by law. Electronically signed by: Andrea Schwarz M.D. 04/08/2022 9:[address] 04/07/22 23:34 CT OF THE CHEST WITHOUT IV CONTRAST CLINICAL HISTORY: Pleural effusions. COMPARISON STUDY: Chest CT February 05, 2022 and chest radiograph April 07, 2022. TECHNIQUE: Axial images of the chest were obtained without IV contrast. Images were reviewed in the axial, sagittal, and coronal planes. IV contrast was not administered for this examination. Automated exposure control was utilized for the study. A dose lowering technique was utilized adhering to the principles of ALARA. FINDINGS: Mild cardiomegaly is noted. There is no pericardial effusion. No enlarged thoracic lymph nodes are noted. There is diffuse muscular atrophy. A small to moderate right pleural effusion has slightly increased since prior CT. There is a trace left pleural effusion. Right lower lobe opacity favors atelectasis. Mild subpleural ground glass opacity within the anterior segment of the right upper lobe and right middle lobe is noted. There is no pneumothorax. Central airways are patent. Lungs are suboptimally assessed due to respiratory motion. Dextroscoliosis of the thoracic spine is unchanged. IMPRESSION: 1. Slight increase in size of a small to moderate right pleural effusion since prior chest CT. Trace left pleural effusion. 2. Subpleural opacity within the anterior segment of the right upper lobe and the right middle lobe. This was shown on prior exam and favors scarring. Adjacent groundglass opacity is nonspecific. ACT 112: Negative or not required by law. Electronically signed by: Andrea Schwarz M.D. 04/08/2022 9:17 AM I & O Totals 24 Hours 04/07/22 04/08/22 04/09/22 07:59 06:59 06:59 Intake Total Output Total 150 / 150 Balance -150 / -150 Cumulative 04/07/22 16:16 thru 04/08/22 07:08 Intake Total 50 Output Total 300 Balance -250 RT Ventilator Mngmt (Last Documented) Ventilator Ordered Settings Respiratory Rate 16 04/08/22 07:08 Ventilator - PT Measurements Respiratory Rate 16 PG Care Time/CCT Total # of Minutes Spent Total Time Spent with Patient: Total time spent is greater than 50% in coordination of care (as documented) at patient's floor/unit and/or counseling patient: Coding Level of Care Code 65227 Initial Inpt Care Lvl 3 Diagnoses Chronic respiratory failure J96.11 Respiratory failure complication: hypoxia Kyphoscoliosis M41.9 Restrictive lung disease J98.4 SOB (shortness of breath) R06.02
--- NOTE | 2022-04-08 12:33 | Hospitalist Progress Note ---
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 Patient denies any abdominal pain/flank pain/dysuria at presentation. No fever no chills. She is being managed for the following: Dyspnea Chronic hypoxemic hypercapnic respiratory failure / RLD : on 2L O2 at home. Pleural effusion Patient was recently admitted and treated for COVID-19 infection diagnosed 03/30, status post remdesivir and dexamethasone. Can be off of isolation once 10 day reached, likely yo. Patient noted to be noncompliant to her BiPAP. Patient was noted to be dyspneic at rehab transiently. Admitting CXR: Moderate right and trace left pleural effusion. Admitting CT chest: Slight increase in the size of a small to moderate right pleural effusion since prior chest CT. Trace left pleural effusion. Likely scaring within the anterior segment of the right upper lobe and the right middle lobe. WBC WNL, patient afebrile. Patient maintaining on room air, patient to use BiPAP 8/4 overnight. Pulmonology evaluated, appreciate recommendation. Hematuria UTI, complicated Bilateral nephrolithiasis Patient presented with complaint of hematuria [see above] Urine analysis suggestive of UTI. Admitting CTAP suggestive of renal calculi Admitting CTAP: Bilateral nephrolithiasis, including 1.2 x 0.8 cm calculus within the left lower moiety renal pelvis which is similar to CT of December 2021. Urology evaluated, no acute intervention, follow-up urology as an outpatient for hematuria w/u. c/w rocephin 04/07 h/o Constipation:c/w bowel regimen. Follow regularly for need of stool softener. Restrictive lung mechanics due to neuromuscular disease:Secondary to neuromuscular disease and Vpyazrk-Olrpl-Qwrin disease Other chronic medical conditions:CAD/post polio muscle weakness -->> continue with/resume home meds as and when able DVT prophylaxis:Lovenox CODE STATUS:DNR/DNI Admission and Anticipated Discharge Date Admission Date: April 07, 2022 Subjective Patient seen and examined at bedside as a follow-up concern for shortness of breath, complicated UTI and hematuria. Patient was lying in bed, on room air, NAD, denies any new acute events overnight, reports eating okay and moving bowels okay, denies any headache or dizziness or increasing cough or increasing shortness of breath. Per RN patient is doing fine on room air and maintaining saturation of 97%. Patient denies other review of symptoms. Physical Exam Physical Exam: GENERAL: Alert and awake. NAD, on RA. Appears weak/frail. HEENT: No pallor, no icterus. Pupils equal, round and reactive to light. Oral mucosa moist. NECK: No JVD, no neck masses. HEART: S1 and S2 heard. Regular rate and rhythm. No murmur, no gallop. RESPIRATORY SYSTEM: Normal AP diameter. No accessory muscle use. No wheezing, no crackles. decreased breath sounds ABDOMEN: Soft, bowel sounds present, nontender, no distention. CENTRAL NERVOUS SYSTEM: No facial droop. Speech is clear. Obeys simple commands. Moves extremities. EXTREMITIES: No edema, no erythema seen. Results & Data Results & Data ([facility]) Vital Signs (Past 12 Hours) Vital Signs Temp Pulse Resp BP Pulse Ox O2 Del Method O2 Flow Rate 04/08/22 09:39 97 Room Air 04/08/22 09:32 98 Nasal Cannula 1 04/08/22 09:27 98 Nasal Cannula 1.5 04/08/22 08:51 Nasal Cannula 2 04/08/22 07:08 36.5 C 55 L 16 126/73 100 Nasal Cannula 3 04/08/22 01:31 EST Nasal Cannula 4 04/08/22 01:31 EST 36.6 C 81 24 128/63 100 Nasal Cannula 4 04/08/22 01:26 EST 36.6 C 81 24 128/63 100 Nasal Cannula 4
--- NOTE | 2022-04-08 13:50 | Electrocardiogram Report ---
Test Reason : Blood Pressure : / mmHG Vent. Rate : 059 BPM Atrial Rate : 059 BPM P-R Int : 186 ms QRS Dur : 108 ms QT Int : 468 ms P-R-T Axes : -02 -38 047 degrees QTc Int : 463 ms Sinus bradycardia Left axis deviation Voltage criteria for left ventricular hypertrophy Septal infarct , age undetermined Abnormal ECG When compared with ECG of 30-MAR-2022 11:42, Septal infarct is now Present Confirmed by Sha Younger ([id number]) on 04/08/2022 1:50:35 PM Referred By: REFERRED SELF Confirmed By:Sha Younger
[2022-04-08] MEDS ORDERED: cefTRIAXone SODIUM 1,000 MG in DEXTROSE 5% 50 ML IV SCH (20:00)
[2022-04-08] MEDS ORDERED: cefTRIAXone SODIUM 2,000 MG in DEXTROSE 5% 50 ML IV SCH (20:00)
[2022-04-08] MEDS ORDERED: MIRABEGRON ER 25 MG TAB PO SCH (21:00)
[2022-04-09 08:19] LABS: Calcium 8.6 mg/dl (8.5-10.1); Est GFR (African American) 133.1 ml/min; Est GFR (Non-African American) 114.8 ml/min; Magnesium 2.1 mg/dl (1.7-2.4); Potassium 3.5 mmol/L (3.5-5.1)
[2022-04-09] MEDS: ESCITALOPRAM OXALATE 20 MG TAB PO SCH (08:40)
[2022-04-09] MEDS: ASPIRIN 81 MG CHEW PO SCH (08:40)
[2022-04-09] MEDS: ENOXAPARIN INJ 40 MG/0.4 ML SYR SQ SCH (08:40)
[2022-04-09] MEDS: DOCUSATE SODIUM 100 MG CAP PO SCH (08:40)
[2022-04-09] MEDS: CHOLECALCIFEROL 1,000 UNITS 25 MCG TAB PO SCH (08:40)
[2022-04-09] MEDS: FUROSEMIDE 20 MG TAB PO SCH (08:40)
--- NOTE | 2022-04-09 14:29 | Discharge Summary ---
Date of Service April 09, 2022 Admission HPI Per Admitting Provider History obtained from patient, family, and records. Medical history significant for chronic hypoxemic, hypercapnic respiratory failure secondary to restrictive lung disease on home O2/nocturnal BiPAP intolerance as per records, lung sarcoidosis as per patient, chronic diastolic heart failure (EF 65 to 70%, TTE 2021), hx CVA, right breast cancer status post surgery/radiation, uterine cancer status post surgery, bronchial asthma, mood disorder, urinary incontinence, Viyqbgd-Nlbwy-Kwzhc disease/post polio syndrome, psychogenic nonepileptic seizures, prediabetes, past tobacco abuse. Six confinements at [facility] this year. Last confinement March 30 to April 06, 2022 for COVID-19 infection. Small bilateral pleural effusions on imaging during confinement. Patient completed Decadron and Remdesivir Rx. Patient discharged to [facility] facility. Patient noted by rehab staff to have hematuria today. Patient denies abdominal pain, flank pain, dysuria. No fever, no chills. Patient noted to be short of breath more than usual. O2 sats noted to be 96 on 4 L. Patient tachypneic at 32/min. Patient denies chest pain. No unusual cough symptoms. Patient not sure about fluid retention. Patient brought to the ER for evaluation. Ceftriaxone given for possible UTI. 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, residing with daughter prior to illness Admission Exam Per Admitting Provider GENERAL: Comfortable, slightly hard of hearing, no respiratory distress SKIN: Normal color, warm HEENT: [place] palpebral conjunctivae, no ptosis, mouth asymmetry (chronic as per patient), moist buccal mucosa, nasal cannula in place NECK : Supple, no tenderness CHEST : CTA, no tenderness HEART : RRR, systolic murmur best heard over left sternal border ABDOMEN: Some distention, nontender EXTREMITIES : no LE swelling, no LE tenderness NEUROLOGIC : Coherent, chronic facial asymmetry, gait and stance not assessed Principal Diagnosis Dyspnea Chronic hypoxemic hypercapnic respiratory failure Likely anxiety Hematuria and complicated UTI Discharge Exam GENERAL: Alert and awake. NAD, on RA. Appears weak/frail. HEENT: No pallor, no icterus. Pupils equal, round and reactive to light. Oral mucosa moist. NECK: No JVD, no neck masses. HEART: S1 and S2 heard. Regular rate and rhythm. No murmur, no gallop. RESPIRATORY SYSTEM: Normal AP diameter. No accessory muscle use. No wheezing, no crackles. decreased breath sounds ABDOMEN: Soft, bowel sounds present, nontender, no distention. CENTRAL NERVOUS SYSTEM: No facial droop. Speech is clear. Obeys simple c ommands. Moves extremities. kyphoscoliosis noted EXTREMITIES: No edema, no erythema seen. b/l foot drop noted. Discharge Data Allergies Allergy/AdvReac Type Severity Reaction Status Date / Time shellfish derived Allergy Severe LOBSTER: Verified 04/07/22 19:27 almost darifenacin Allergy Unknown Unknown Unverified 04/07/22 19:27 acetaminophen [From Tylenol] Allergy Rash Unverified 04/07/22 19:27 iodine Allergy Unknown Unverified 04/07/22 19:27 prednisone Allergy Unknown Unverified 04/07/22 19:27 atorvastatin AdvReac Nausea Verified 04/07/22 19:27 Consultations 04/07/22 20:08 ED Decision to Admit Stat 04/08/22 01:26 Consult Pulmonology Routine 04/08/22 08:35 Consult Urology Routine Ordered Studies 04/07/22 23:33 CT Abd and Pelvis [CT abd pelvis wo con] Urgent 04/07/22 23:34 CT chest diagnostic wo con Urgent Hospital Course (1) Hematuria due to acute cystitis: Plan 81-year-old lady with PMH of chronic hypoxemic hypercapnic respiratory failure secondary to RLD on home O2/nocturnal BPAP (??intolerant), lung sarcoidosis as per patient, chronic diastolic heart failure [EF 65 to 70%, TTE 2021], CVA, right breast cancer s/p surgery/radiation, uterine cancer status post surgery, bronchial asthma, mood disorder, urinary incontinence, 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 Patient denies any abdominal pain/flank pain/dysuria at presentation. No fever no chills. She was managed for the following: Dyspnea Chronic hypoxemic hypercapnic respiratory failure 2/2 RLD : on 2L O2 at home. Pleural effusion Patient was recently admitted and treated for COVID-19 infection diagnosed 03/30, status post remdesivir and dexamethasone. Can be off of isolation once 10 day reached, likely yo. Patient noted to be noncompliant to her BiPAP. Patient was noted to be dyspneic at rehab transiently. Admitting CXR: Moderate right and trace left pleural effusion. Admitting CT chest: Slight increase in the size of a small to moderate right pleural effusion since prior chest CT. Trace left pleural effusion. Likely scaring within the anterior segment of the right upper lobe and the right middle lobe. WBC WNL, patient afebrile. Patient maintaining on room air, patient to use BiPAP 8/ overnight but is non compliant, didn't use overnight. Pulmonology evaluated, appreciate recommendation. Hematuria UTI, complicated Bilateral nephrolithiasis Patient presented with complaint of hematuria [see above] Urine analysis suggestive of UTI. Admitting CTAP suggestive of renal calculi Admitting CTAP: Bilateral nephrolithiasis, including 1.2 x 0.8 cm calculus within the left lower moiety renal pelvis which is similar to CT of December 2021. Urology evaluated, no acute intervention, follow-up urology as an outpatient for hematuria w/u. c/w rocephin 04/07--> cefdinir on dc. h/o Constipation:c/w bowel regimen. Follow regularly for need of stool softener. Restrictive lung mechanics due to neuromuscular disease:Secondary to neuromuscular disease and Tbayqic-Sknyu-Rqalv disease Other chronic medical conditions:CAD/post polio muscle weakness -->> continue with/resume home meds as and when able DVT prophylaxis:Lovenox CODE STATUS:DNR/DNI Patient being discharged to [facility] with following instruction at the point of discharge: Follow-up with your primary care physician within 1 week time and likely will need blood test CBC/CMP. For your constipation, you can use qoxa-igk-qtthdof laxatives or stool softener as needed. You were diagnosed with COVID with on 03/30/2022, you can be off of isolation. For your hematuria/complicated UTI, complete the antibiotic course as prescribed. Establish and maintain follow-up with urology as an outpatient to complete hematuria work-up. For anxiety, you can use as needed hydroxyzine up to 3 times a day. If you find yourself using as needed hydroxyzine very frequently and you feel like your a nxiety is not being controlled, follow-up with your PCP for further evaluation and management. Take your medications as prescribed. Home Health Attestation I certify that this patient is under my care and that I, or a physicians environmental assistant working with me, had a face to-face encounter that meets the home health uixp-vu-exom encounter requirements with this patient. The encounter with the patient was in whole, or in part, for the following medical condition, which is the primary reason for home health care (list medical condition): I certify that, based on my findings, the following services are medically necessary home health services: My clinical findings support the need for the above services because: Further, I certify that my clinical findings support that this patient is homebound (i.e. absences from home require considerable and taxing effort and are for medical reasons or denominational services or infrequently or of short duration when for other reasons) because: Certification for Home Health Services: Based on the above findings, I certify that this patient is confined to the home and needs intermittent senior care care, physical therapy and/or speech therapy or continues to need occupational therapy. The patient is under my care, and I have initiated the establishment of the plan of care. This patient will be followed by a physician who will periodically review the plan of care. Total Time Total Time Spent Total Time Spent (In Minutes): 40 Discharge Plan Discharge Items Patient Disposition: Transfer Inpatient Rehab Fac Reason For Visit: SOB,PLEURAL EFFUSIONS,COVID Discharge Diagnosis: Dyspnea Chronic hypoxemic hypercapnic respiratory failure Likely anxiety Hematuria and complicated UTI Activity: Resume your previous activity Non-emergency contact: Primary Care Provider Call non-emergency contact if: you have any medication questions, your symptoms worsen and your temperature is above 101.5 Follow-up/Referrals: Adelfo Coburn MD [Primary Care Provider] - Diet: Heart Healthy Diet Texture: Easy to Chew Addtl Attending Provider Instructions: Follow-up with your primary care physician within 1 week time and likely will need blood test CBC/CMP. For your constipation, you can use sziv-yqe-hoqjgck laxatives or stool softener as needed. You were diagnosed with COVID with on 03/30/2022, you can be off of isolation. For your hematuria/complicated UTI, complete the antibiotic course as prescribed. Establish and maintain follow-up with urology as an outpatient to complete hematuria work-up. For anxiety, you can use as needed hydroxyzine up to 3 times a day. If you find yourself using as needed hydroxyzine very frequently and you feel like your anxiety is not being controlled, follow-up with your PCP for further evaluation and management. Take your medications as prescribed. Pending Studies at Discharge: No Stand-Alone Forms: My [facility] Skilled Items Patient informed of condition?: No DNR: Yes Discharge Level of Care: Acute rehab Communicable Disease: No Discharge Prognosis: Stable Lines: None Urinary Catheter: No Medications and DC Order Prescriptions: New cefdinir 300 mg capsule 300 mg PO BID 5 Days Qty: 10 0RF Continued Myrbetriq 50 mg tablet extended release 24 hr 50 mg PO PM cholecalciferol (vitamin D3) [Vitamin D3] 50 mcg (2,000 unit) Tablet 50 mcg PO QAM aspirin 81 mg Tablet,Chewable 81 mg PO QAM potassium chloride 10 mEq Tablet,Er Particles/Crystals 10 meq PO 3XWK Qty: 30 0RF Rx Instructions: Sat/Sat/Saturday escitalopram oxalate 20 mg tablet 20 mg PO DAILY furosemide 20 mg tablet 20 mg PO DAILY docusate sodium [Colace] 100 mg capsule 100 mg PO BID Qty: 20 0RF enoxaparin 40 mg/0.4 mL Syringe 40 mg SUBCUT DAILY bisacodyl 10 mg Suppository 10 mg SD DAILY PRN (Reason: Constipation) sennosides-docusate sodium [Senokot-S] 8.6-50 mg Tablet 1 tab-cap PO .DAILY@LUNCH PRN (Reason: Constipation) polyethylene glycol 3350 17 gram/dose Powder 17 g PO .DAILY@LUNCH PRN (Reason: Constipation) ibuprofen 200 mg Tablet 600 mg PO Q8H PRN (Reason: Pain) ondansetron 4 mg Tablet,Disintegrating 4 mg PO Q4H PRN (Reason: Nausea) Discontinued dexamethasone 6 mg tablet 6 mg PO DAILY 2 Days Qty: 2 0RF Rx Instructions: Begin 04/07/22, end 04/09/22. Discharge Orders: Discharge Order (Routine); Ordered 04/09/22 Ordered By: Jackie Lozoya Admission Data Admit Date/Time: 04/07/22 22:05 Attending Provider: Jackie Lozoya Admit Provider: Cortez Dye Primary Care Provider: Adelfo Coburn Other Providers: Cortez Dye ; Sanya Lopes ; Jorge Garnett ; Morris Bustillo ; Taj Vitale ; Belinda Remy ; Renny Hennessy ; [facility]
== END 2022-04-09 16:10 | DRG 690 ==
LOC: ED 16:29 → 3W 22:05